=== PATIENT | female | born 1975 | race Caucasian/White ===

== ENCOUNTER 2021-05-05 13:47 | Emergency (ER) | payer MEDICAID, SELFPAY ==
[2021-05-05 13:50] VITALS: BP 140/92; PULSE 71; RESP 18; TEMP 36.7; O2SAT 96
[2021-05-05] MEDS: Fluorescein Sodium STRIP 1 STRIP EYE-LEFT (16:24)
[2021-05-05] MEDS: Tetracaine HCl/PF 0.5% Oph Sol 4 ML DROPS 1 DROP EYE-LEFT (16:24)
--- NOTE | 2021-05-05 16:31 | ED.GENADULT ---
HPI - General Adult General Chief complaint: Eye Problems Stated complaint: EYE TRAUMA Time Seen by Provider: 05/05/21 13:58 Source: patient Limitations: no limitations History of Present Illness HPI narrative: Patient presents with left thigh pain. Patient states within the last week she was playing badminton was hit in the left eye with the Jose. Patient states pain increases when she looks around with her eyes are the pupils dilate a constricted. Patient denies any vision changes headache nausea vomiting no loss of consciousness. Patient denies any other symptoms at this time. Related Data Allergies Allergy/AdvReac Type Severity Reaction Status Date / Time No Known Allergies Allergy Verified 05/05/21 16:06 Review of Systems Constitutional: Constitutional: Denies chills, Denies fever(s) and Denies headache(s) Eyes: Eyes: Denies blurry vision, Denies diplopia, Denies eye discharge, Denies loss of peripheral vision, Denies loss of vision, Denies other visual disturbances and Reports eye pain (Left eye) ENT: Denies headache(s) Cardiovascular: Cardiovascular: Denies chest pain and Denies dyspnea Respiratory: Respiratory: Denies cough and Denies dyspnea Gastrointestinal: Gastrointestinal: Denies nausea and Denies vomiting Musculoskeletal: Musculoskeletal: Reports no additional musculoskeletal complaints Neurologic: Denies headache(s) and Denies loss of vision [facility] Past Medical History Attestation statement: The following information was validated with the patient. Medical History No known health problems Social History Social History Advance Directives: No Advance Directives Information Provided: No Physical Exam Vital Signs: Vital Signs: Last Vital Signs Temp 98.0 F 05/05/21 13:50 Pulse 71 05/05/21 13:50 Resp 18 05/05/21 13:50 BP 140/92 H 05/05/21 13:50 Pulse Ox 96 05/05/21 13:50 Body Mass Index 20.0 vital signs have been reviewed as normal and appeared to be correct. Blood pressure normal. Heart rate normal. Respiration rate normal. Temperature normal. Oxygen saturation normal. Appearance: Alert. Oriented X3. No acute distress. Head: Normal external exam. Normocephalic. Atraumatic. Eyes: PERRLA. EOMI. Sclera is noninjected no hyphema visualized on the left. No subconjunctival hemorrhage ENT: Pharynx normal. Uvula midline. Moist mucous membranes. No trismus noted. No drooling noted. No muffled voice noted. Neck: Soft full range of motion, no JVD Skin: Skin warm and dry. Normal skin color. Extremities: Moving all extremities patient is ambulatory Neuro: Oriented X 3. No motor deficit. No sensory deficit. No ataxia Course Course Course Narrative: Corneal abrasion left eye Traumatic iritis Hyphema Subconjunctival hemorrhage Case discussed with Dr. Pa patient examined no sign of hyphema subconjunctival hemorrhage or corneal abrasion with fluorescein stain. Plan to have patient follow-up with ophthalmology tomorrow will not place patient on stat ophthalmic steroids at this time. Discharge Plan Discharge Clinical Impression: Acute iritis Patient Disposition: Home, Self-Care Instructions: Iritis (ED) Referrals: Marcelino Drake [Physician] - 2 days
== END 2021-05-05 16:51 | disposition home or self-care (01) ==
PROVIDERS: Emergency Provider Emergency Medicine; PCP Physician Assistant Medical
DX: H20.00 Unspecified acute and subacute iridocyclitis (principal)
CPT/HCPCS: 99283

== ENCOUNTER 2023-12-09 11:02 | Outpatient (AMB) | payer OTHER, SELFPAY ==
--- NOTE | 2023-12-09 11:10 | MHC.PC.OV ---
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 autoimmune disorder, MDD, insomnia, HSV Transfer from [facility] No records Family hx: Dad DM, Mom thyroid, chrons, glaucoma . Health Maintenance: Mammo in need, ordered today Colonoscopy done age 38 reports WNL. Repeat 2020 due to family hx polyp. Dr Roman. Will hold off on referral at this time. She will let me know if new referral needed d/[place] [facility] [place] Eyes wears glasses, [facility] 2022, IOP WNL Dentist: routine Pap due for annual. Last period 2 months ago. [employer] referral placed today. Vaccines: Flu shot today, Tdap UTD. Specialists: [facility] Surgeries: 1996 patella replacement R knee, bilat breast implants 2012 [facility] Medical History (Updated 12/09/23 @ 13:12 by NIMISHA Ocampo-HOLLY) H/O mammogram (~2022) Surgical History (Updated 12/09/23 @ 12:04 by Demetra Maher MA) Hx of breast implants, bilateral (~2012) H/O colonoscopy (~2021) Family History (Updated 12/09/23 @ 12:09 by Demetra Maher MA) Father Hypertension High cholesterol Diabetes Mother Thyroid disorder Maternal Grandmother Hypertension Paternal Grandmother Hypertension Diabetes Maternal Grandfather Diabetes Social History (Updated 12/09/23 @ 12:05 by Demetra Maher MA) Alcohol intake: current Alcohol intake frequency: a few times a week Alcohol type: wine and hard liquor Patient Tobacco Use Status: Never used Tobacco Use of substances other than those prescribed or required for medical reasons: No Questionnaire PHQ-9 Over the last 2 weeks, how often have you been bothered by any of the following problems? 1. Little interest or pleasure in doing things: not at all 2. Feeling down, depressed, or hopeless: not at all 3. Trouble falling or staying asleep, or sleeping too much: several days 4. Feeling tired or having little energy: several days 5. Poor appetite or overeating: not at all 6. Feeling bad about yourself - or that you are a failure or have let yourself or your family down: not at all 7. Trouble concentrating on things, such as reading the newspaper or watching television: not at all 8. Moving or speaking so slowly that other people could have noticed. Or the opposite - being so fidgety or restless that you have been moving around a lot more than usual: not at all 9. Thoughts that you would be better off or of hurting yourself in some way: not at all Total score: 2 Depression Screening Interpretation: Negative Depression Screening Done: Yes 66651 - PHQ-9 Billing: Yes Source: Developed by Drs. Aden Ochoa, Tracy Santana, Ry Kimble and colleagues, with an educational reagan from [employer]. Thrive Questionnaire Date Thrive assessed: 12/09/23 I am a: Patient What is your living situation today?: I have a steady place to live Within the past 12 months, did the food you bought not last and you didn't have the money to get more?: Never true Within the past 12 months, did you worry whether your food would run out before you got money to buy more?: Never true Do you have trouble paying for medicines?: No Do you have trouble getting transportation to medical appointments?: No Do you have trouble paying your heating and electricity bill?: No Do you have trouble taking care of your child, family member or friend?: No Do you have trouble with day-to-day activities such as bathing, preparing meals, shopping, managing finances, etc.?: No Are you currently unemployed and looking for a job?: No Are you interested in more education?: No Please select the resources that you would like help with: Food Currently or been in a relationship where the following occur: controlled financially THRIVE Score: 1 AUDIT C Alcohol Use Questionnaire (AUDIT-C) 1. How often do you have a drink containing alcohol?: 2-3 times a week 2. How many drinks containing alcohol do you have on a typical day when you are drinking?: 1 or 2 Total Score: 3 LIBAN-7 AMB Questionnaire LIBAN-7 Date LIBAN - 7 assessed: 12/09/23 Feeling nervous, anxious, or on edge: 1 = Several days Not being able to stop or control worryin = Not at all Worrying too much about different things: 0 = Not at all Trouble relaxin = Not at all Being so restless that it is hard to sit still: 0 = Not at all Becoming easily annoyed or irritable: 0 = Not at all Feeling afraid as if something awful might happen: 0 = Not at all Total LIBAN-7 score (0-4 normal; 5-9 mild; 10-14 moderate; 15-21 severe): 1 Source: Developed by Drs. Aden Ochoa, Tracy Santana, Ry Kimble and colleagues, with an educational reagan from [employer]. LIBAN-7 Assessment Billing LIBAN-7 Assessment Tool: LIBAN-7 Assessment 38241 Review of Systems Const Details: Constitutional: [Denies} fever. Skin: Denies rash. Eye: Denies eye pain. ENMT: Denies sore throat and nasal congestion. Respiratory: Denies shortness of breath and cough. Gastrointestinal: Denies nausea, vomiting or abdominal pain. Cardiovascular: Denies chest pain and syncope. Genitourinary: Denies dysuria. Musculoskeletal: Denies back pain and extremity pain. Neurologic: Denies headaches, confusion, and weakness. Psychiatric: Denies suicidal thoughts and substance abuse. Allergy/ Immunologic: Denies impaired immunity. Physical exam (Primary Care) Vital Signs: Last Vital Signs Pulse 79 12/09/23 11:12 BP 132/80 12/09/23 11:12 Pulse Ox 98 12/09/23 11:12 Oxygen Delivery Method Room Air 12/09/23 11:12 BMI result Body Mass Index 20.7 Tobacco/Smoking Status: Tobacco use Status Patient Tobacco Use Status Never used Tobacco 12/09/23 11:15 PHQ-9: PHQ-9 Score PHQ-9: Total score 2 12/09/23 12:11 Depression Screening Interpretation: Negative Thrive Assessment: Date of Thrive Assessment Date Thrive assessed 12/09/23 12/09/23 11:28 Currently or been in a relationship where the following occur: controlled financially Const Other: General: Well developed, well nourished, in no acute distress. Appears stated age. Head: Normocephalic, atraumatic. Eyes: Pupils are equal, round and reactive to light and accommodation. Conjunctivae are clear. Vision grossly normal. Ears: TMs clear AU, cerumen impaction on right Nose: Patent, without discharge. Mouth: There are no ulcers or lesions noted. No inflammation, no post nasal drip, no plaques nor exudates. Neck: Supple, no adenopathy or thyromegaly. Lungs: Clear to auscultation bilaterally. No rales, rhonchi or wheeze noted. Good air flow in all davies. Heart: Regular rate and rhythm. No murmurs, click, rubs or gallops are noted. Abdomen: Bowel sounds present in all quadrants. The abdomen is soft, nontender, with no masses or organomegaly noted. No hernias are noted. Musculoskeletal: Joints are nontender, without swelling, redness, or effusions. Range of motion is observed to be normal. Pulses: Peripheral pulses are equal and palpable bilaterally. Extremities: No clubbing, cyanosis nor edema is noted. Neurologic: Gait and station normal. Cranial Nerves 2-12 intact. Motor strength grossly symmetrical and intact. No sensory loss. Balance normal. Skin: No rashes, ulcers, or lesions noted. Turgor is good. Skin color is good. Hair and nails are without abnormalities except left great toenail positive onychomycosis Psych: Normal eye contact, affect and mood appropriate, and normal interactions. Patient is alert and appropriate to context. Extremities: No clubbing, cyanosis or edema. Office Procedures Flu Questionnaire Does the patient have a severe egg allergy?: No Does the patient have severe life threatening allergies?: No Does the patient have a fever or illness today?: No Has the patient ever had Guillain-[place] Syndrome?: No Has the patient ever had any past reaction to a flu shot?: No Immunizations flu vacc [id number] 6mos up(PF) 60 mcg(15 mcgx4)/0.5 mL IM syringe Performing Provider: ALMA Ocampo Performing Location: [facility] Administered by: Demetra Maher MA on 12/09/23 11:59 Dose Route Admin Location Dispensed Lot Number Expiration Date NDC Phosphoric Acid Operator 0.5 mL IM Right Deltoid 0.5 mL [id number] 04/24/24 67082-488-76 Grows Up VIS Given Date VIS Provided VIS Publication Date 12/09/23 Single Vaccine 21 Eligibility Eligibility Date Funding Source Not VFC Eligible 12/09/23 Private Assessment and Plan Assessment & Plan (1) Physical exam: Code(s): Z00.00 - Encounter for general adult medical examination without abnormal findings Plan: Mammo ordered today Refer to [facility] Vaccines updated Labs ordered (2) Laboratory exam ordered as part of routine general medical examination: Code(s): Z00.00 - Encounter for general adult medical examination without abnormal findings (3) MDD (major depressive disorder), recurrent episode: Comment: Controlled currently on bupropion. Sparing use of mirtazapine at night to help with insomnia. She does report that the mirtazapine does cause grogginess the following day. Therefore she does limit the use. She did mention wanting to come off the bupropion and has tried to take herself off of it in the past. Unfortunately, this did result in an uptake and anxiety and depressive symptoms as observed by her family members. Discussed with her today that if she wishes to come off of this she should do so under medical care. Code(s): F33.9 - Major depressive disorder, recurrent, unspecified Qualifiers: Major depression episode severity: mild Qualified Code(s): F33.0 - Major depressive disorder, recurrent, mild (4) Herpes simplex: Comment: Maintained on acyclovir with use p.r.n. Code(s): B00.9 - Herpesviral infection, unspecified (5) Impacted cerumen of right ear: Code(s): H61.21 - Impacted cerumen, right ear Plan: I have prescribed Debrox. She should use in the right ear and return to the office on day 6 for a lavage (6) Onychomycosis: Code(s): B35.1 - Tinea unguium Plan: Affecting left great toe. She is using drops prescribed by Dermatology at the current time. I have advised her to continue to do this. She can also soak her feet and white vinegar and water. Advised to keep the nails clean and dry; educated about the chronicity of this issue (7) Skin exam, screening for cancer: Code(s): Z12.83 - Encounter for screening for malignant neoplasm of skin Plan: Refer to [facility] her routine skin exam Orders: Orders TSH reflex Free T4 Today Z00.00 - Encounter for general adult medical examination without abnormal findings Influenza [id number] Immunization Today Z23 - Encounter for immunization Lipid Panel Today Z00.00 - Encounter for general adult medical examination without abnormal findings Comprehensive Barton. Panel Fast Today Z00.00 - Encounter for general adult medical examination without abnormal findings Microalbumin, Random (w Creat) Today Z00.00 - Encounter for general adult medical examination without abnormal findings Vitamin D 1,25 dihydroxy Today Z00.00 - Encounter for general adult medical examination without abnormal findings MM tomosynthesis screen imp BI Today Z12.31 - Encounter for screening mammogram for malignant neoplasm of breast Referrals [facility] [employer] Referral Z00.00 - Encounter for general adult medical examination without abnormal findings Dermatology Referral Z12.83 - Encounter for screening for malignant neoplasm of skin Medications: New carbamide peroxide 6.5% (Debrox) 5 drps otic (ears) DAILY 5 days 15 mL 0RF BILAT EARS Coding Level of Care Code New Pt Prev Care 40-64y(09642) Diagnoses Physical exam Z00.00 Laboratory exam ordered as part of routine general medical examination Z00.00 Mild episode of recurrent major depressive disorder F33.0 Major depression episode severity: mild Herpes simplex B00.9 Impacted cerumen of right ear H61.21 Onychomycosis B35.1 Skin exam, screening for cancer Z12.83 Additional Codes LIBAN-7 Assessment Billing - LIBAN-7 Assessment Tool: LIBAN-7 Assessment 24952 ([id number])
[2023-12-09 11:12] VITALS: BP 132/80; PULSE 79; O2SAT 98; BMI 20.7
== END 2023-12-09 11:59 | disposition home or self-care (01) ==
PROVIDERS: PCP Nurse Practitioner Family; Visit Provider Nurse Practitioner Family
DX: Z00.00 Encounter for general adult medical examination without abnormal findings (principal); F33.0 Major depressive disorder, recurrent, mild; B00.9 Herpesviral infection, unspecified; Z23 Encounter for immunization; H61.21 Impacted cerumen, right ear; B35.1 Tinea unguium; Z12.83 Encounter for screening for malignant neoplasm of skin
CPT/HCPCS: 90471; 90686; 99386

== ENCOUNTER 2023-12-16 13:18 | Outpatient (AMB) | payer OTHER, SELFPAY ==
--- NOTE | 2023-12-16 13:22 | MHC.PC.OV ---
Intake Visit Reasons: R ear recheck Intake Note: Patient is here for her R ear recheck. 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) H/O mammogram (~2022) Surgical History (Updated 12/09/23 @ 12:04 by Demetra Maher MA) Hx of breast implants, bilateral (~2012) H/O colonoscopy (~2021) Family History (Updated 12/09/23 @ 12:09 by Demetra Maher MA) Father Hypertension High cholesterol Diabetes Mother Thyroid disorder Maternal Grandmother Hypertension Paternal Grandmother Hypertension Diabetes Maternal Grandfather Diabetes Social History (Updated 12/09/23 @ 12:05 by Demetra Maher MA) Housing: House Alcohol intake: current Alcohol intake frequency: a few times a week Alcohol type: wine and hard liquor Patient Tobacco Use Status: Never used Tobacco Use of substances other than those prescribed or required for medical reasons: No service: No Current occupational status: employed Cognitive needs: No Hearing needs: No Vision needs: No Questionnaire Thrive Questionnaire Date Thrive assessed: 12/09/23 LIBAN-7 AMB Questionnaire LIBAN-7 Date LIBAN - 7 assessed: 12/09/23 Source: Developed by Drs. Aden Ochoa, Tracy Santana, Ry Kimble and colleagues, with an educational reagan from [employer]. Physical exam (Primary Care) Tobacco/Smoking Status: Tobacco use Status Tobacco use date assessed 12/16/23 12/16/23 13:29 Patient Tobacco Use Status Never used Tobacco 12/16/23 13:23 Thrive Assessment: Date of Thrive Assessment Date Thrive assessed 12/09/23 12/16/23 13:23 Office Procedures Cerumen Removal From which ear canal was the cerumen removed: right Removal: irrigation Notes: patient tolerated procedure well, no complications and ear canal clear [id number] Irrigation/Lavage Assessment and Plan Assessment & Plan (1) Impacted cerumen of right ear: Code(s): H61.21 - Impacted cerumen, right ear Orders: Orders AMB Cerumen Removal Today H61.21 - Impacted cerumen, right ear Coding Level of Care Code Procedure Only Diagnoses Impacted cerumen of right ear H61.21 CPT Codes Office Procedure - CPT: 97683-Omd Irrigation/Lavage ([id number])
== END 2023-12-16 14:52 | disposition home or self-care (01) ==
PROVIDERS: PCP Nurse Practitioner Family; Visit Provider Nurse Practitioner Family
DX: H61.21 Impacted cerumen, right ear (principal)
CPT/HCPCS: 69209

== ENCOUNTER → 2024-01-08 15:00 | Outpatient (BNV) | payer OTHER, SELFPAY | PROVIDERS: Visit Provider Radiology Diagnostic Radiology | DX: Z12.31 Encounter for screening mammogram for malignant neoplasm of breast (principal) | CPT/HCPCS: 77063; 77067 ==

== ENCOUNTER 2024-01-08 15:04 | Outpatient (REF) | payer OTHER, SELFPAY ==
--- NOTE | ~2024-01-08 | MM_ITS ---
EXAMINATION: MM SCREENING DIGITAL BREAST TOMOSYNTHESIS, BILATERAL with breast implants CLINICAL INFORMATION: Screening. Asymptomatic. COMPARISON: Mammography: This study is compared to the prior examinations dating back to 2020. TECHNIQUE: Digital mammography is performed in craniocaudal and mediolateral oblique views along with computer-aided detection (CAD). Digital breast tomosynthesis is performed in implant-displaced craniocaudal and implant-displaced mediolateral oblique views along with computer-aided detection (CAD). Synthesized 2D images are generated from the tomosynthesis. FINDINGS: The breasts are heterogeneously dense, which may obscure small masses (ACR BI-RADS breast composition Category c). There are bilateral, mammographically intact, retropectoral saline breast implants. There are no significant masses, abnormal calcifications, or other abnormalities. MM/MM tomosynthesis screen imp BI IMPRESSION: There are no significant changes from prior study. ASSESSMENT: BI-RADS BI-RADS 1 - Negative RECOMMENDATION: Routine annual mammography screening. 1 year F/U This patient's information was entered into a reminder system with a target due date for their next mammogram.
== END 2024-01-08 15:05 | disposition home or self-care (01) ==
LOC: HO.MAMMO 15:04
PROVIDERS: Visit Provider Nurse Practitioner Family
DX: Z12.31 Encounter for screening mammogram for malignant neoplasm of breast (principal)
CPT/HCPCS: 77063; 77067

== ENCOUNTER 2024-02-10 09:58 | Outpatient (REF) | payer OTHER, SELFPAY ==
[2024-02-10 12:28] LABS: Creatinine Urine 278.45 mg/dL; Microalbum/Creatinine Ratio Ur 3.2 ug/mg cr (<30)
[2024-02-10 12:30] LABS: Alanine Aminotransferase 11 U/L (0-31); Alkaline Phosphatase 57 U/L (39-117); Anion Gap 9 (12-20); Aspartate Amino Transferase 22 U/L (5-31); Bilirubin Total 0.4 mg/dL (0.0-1.0); Blood Urea Nitrogen 11 mg/dL (9-16); Calcium 8.8 mg/dL (8.4-10.2); Carbon Dioxide 27 mmol/L (22-29); Chloride 107 mmol/L (96-108); Cholesterol 213 mg/dL (<200); Estimated Glomerular Filt Rate > 60; Glucose Fasting 86 mg/dL (60-99); HDL Cholesterol 80 mg/dL (>40); LDL Cholesterol Calculated 115 mg/dL (<100); Potassium 3.8 mmol/L (3.3-5.1); Sodium 139 mmol/L (135-145); Total Protein 6.9 g/dL (6.5-8.0); Triglycerides 94 mg/dL (<150)
[2024-02-10 12:33] LABS: TSH reflex Free T4 1.44 uIU/mL (0.32-4.0)
[2024-02-14 05:29] LABS: VITAMIN D (1,25 OH) D3 66 pg/mL; Vit D (1,25-Dihydroxy) Total 66 pg/mL (18-72); Vitamin D (1,25 OH) D2 <8 pg/mL
== END 2024-02-10 09:59 | disposition home or self-care (01) ==
LOC: HO.WFDLDS 09:58
PROVIDERS: Visit Provider Nurse Practitioner Family
DX: Z00.00 Encounter for general adult medical examination without abnormal findings (principal)
CPT/HCPCS: 36415; 80053; 80061; 82043; 82570; 82652; 84443

== ENCOUNTER 2024-03-02 11:36 | Outpatient (AMB) | payer OTHER, SELFPAY ==
[2024-03-02 11:39] VITALS: BP 108/64; BMI 20.7
--- NOTE | 2024-03-02 11:39 | A.OFFVIS_ITS ---
Vital Signs 03/02/24 11:39 Height 5 ft 7 in Weight 132 lb BMI 20.7 BP 108/64 Intake Visit Reasons: New patient Annual Senior Integration Architect Required: No Information Interpreted: non-clinical & clinical Gelatin Plant Supervisor: Gelatin Plant Supervisor Present (Aidyn) Allergies No Known Allergies Allergy (Verified 03/02/24 11:40) Medication List - Last Reconciled 03/02/24 by Nelsy Bernstein CNM acyclovir 400 mg PO BID PRN bupropion HCl XL 150 mg PO DAILY carbamide peroxide 6.5% (Debrox) 5 drps otic (ears) DAILY 5 days mirtazapine 7.5 mg PO DAILY Is last menstrual period known: Yes Last menstrual period: 02/04/24 HPI HPI New patient Annual: Details: 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 She had sagging skin post and had skin removal with breast lift but then needed implants to improve the aesthetics. She might be interested in removing them but is in thinking about it stage. She says that they told her at the mammogram that she might need other studies. I recommend she have a conversation with her primary care provider about this. She reports normal Paps but then remembers there was some cells found and they did a procedure where they did a small biopsy about 5 years ago and and then she was told she needed every 3 year paps. She tries to eat well she tries to get enough calcium in her diet she does weight-bearing exercise in [employer]. 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 She has no concerns about STIs. Her had a vasectomy so she is concerns with control In the last year she is noticed sometimes she will miss a period and then there are times when she might get 2 periods month and they tend to be very heavy crampy. She is getting some hot flashes. She does have constipation and only has about about once a week and is about to try herbal preparation that she has acquired. [facility] Medical History (Updated 03/02/24 @ 12:28 by Nelsy Bernstein CNM) H/O mammogram (~2022) Surgical History (Updated 03/02/24 @ 12:28 by Nelsy Bernstein CNM) Hx of breast implants, bilateral (~2012) H/O colonoscopy (~2021) Family History (Updated 03/02/24 @ 11:43 by SCOTTY Carpio) Father Hypertension High cholesterol Diabetes Mother Thyroid disorder Maternal Grandmother Hypertension Paternal Grandmother Hypertension Diabetes Maternal Grandfather Diabetes Maternal Aunt Breast cancer Family/Other Colon cancer Social History Housing: House Alcohol intake: current Alcohol intake frequency: a few times a week Alcohol type: wine and hard liquor Patient Tobacco Use Status: Never used Tobacco service: No Current occupational status: employed Cognitive needs: No Hearing needs: No Vision needs: No Female Reproductive History Menstrual Age of Menarche: 12 Duration of menses: 3-5 days Date of last menstrual period: 02/04/24 control method: none and permanent sterilization Permanent Sterilization: Vasectomy Total pregnancies: 2 Full term: 2 Number of Living Children: 2 Date of last pap smear: 11/28/21 (negative) History of abnormal pap smear: No Date of Mammogram: 01/08/24 History of abnormal mammogram: No Physical Exam Vital Signs: Last Vital Signs BP 108/64 03/02/24 11:39 BMI result Body Mass Index 20.7 Const General: healthy appearing, comfortable, no acute distress, well developed and alert Nutritional Appearance: average body habitus Orientation/consciousness: patient oriented x3 Limitations: no limitations HEENT Head: Yes normocephalic Neck Neck: Yes normal visual inspection Chest Chest palpation & inspection: normal inspection of the chest Breast/axilla inspection: normal inspection of the breasts and normal inspection of the axillae Breast/axilla palpation: normal palpation of the breasts and normal palpation of the axillae Resp Effort & Inspection: normal respiratory effort GI Inspection: Yes normal to inspection, No Abdominal wall edema and No distended Palpation (GI): Soft to palpation and nontender Other: Limits vagina pink and moist scant clear discharge cervix multiparous irregular with polyp noted in os cervix nontender mobile uterus small anteverted mobile nontender adnexa nontender good tone with Kegel. General: Yes bladder normal to palpation External Female Exam: normal external appearance and normal appearance of the urethra Speculum Exam - Vagina: normal appearance of the vagina, normal palpation and normal vaginal discharge Speculum Exam - Cervix: normal appearance of the cervix, normal palpation and nontender Bimanual exam- vagina & uterus: normal bimanual exam, normal palpation, uterine size normal, bladder normal to palpation, consistency normal, normal palpation, uterine mobility normal, uterine shape normal, No Cervical tenderness present, non-tender and no cervical motion tenderness Bimanual Exam- Adnexa, other: normal adnexae, no masses, normal and No adnexal tenderness Neuro General: patient oriented x3 Assessment & Plan Assessment & Plan (1) Well woman exam with routine gynecological exam: Code(s): Z01.419 - Encounter for gynecological examination (general) (routine) without abnormal findings Category: Medical (2) Hx of abnormal cervical Pap smear: Comment: had some sort of biopsy 5 years ago was told she needed Q 3 year Paps. Pap done today 03/02/2024 cervical polyp noted. Code(s): Z87.42 - Personal history of other diseases of the female genital tract Category: Medical (3) Hx of breast implants, bilateral: Onset Date: ~2012 Code(s): Z98.82 - Breast implant status Category: Surgical (4) Perimenopause: Code(s): N95.1 - Menopausal and female climacteric states Category: Medical Plan -----Discussed in this visit the following: healthy balanced diet, regular and consistent exercise, getting recommended health screens, doing the best she can for her particular health concerns, kegel exercises, pap smear screening and followup recommendations, mammography screening and SBE, normal changes in cycles in her life stage--- .---Discussed normal changes that happen premenapausally, perimenapausally, and postmenopausally, and ways to handle them. Discussed the normal variation, and the range of experiences that women experience. Discussed nutrition, health, need for exercise, both weight-bearing and aerobic. Discussed her excellent self healthcare. Suggested adding more vegetables that might help with constipation additionally she is taking magnesium at night help her sleep she might want to consider increasing that as well. Discussed getting enough calcium in her diet and vitamin-D for her bones but she is doing great with weight-bearing aerobic exercise. She is going to follow-up with her primary care provider to see if there is any other breast recommendations that need to be followed up on. Did discuss considering finding out if she can whether not her maternal aunt had BRCA gene testing and if she is positive or negative as that would impact recommendations as well. ----will refer for evaluation of the polyp. Pap smear sent. Coding Level of Care Code New Pt Prev Care 40-64y(14121) Diagnoses Well woman exam with routine gynecological exam Z01.419 Hx of abnormal cervical Pap smear Z87.42 Hx of breast implants, bilateral Z98.82 Perimenopause N95.1
== END 2024-03-02 13:57 | disposition home or self-care (01) ==
LOC: HO.HWSM 11:36
PROVIDERS: PCP Nurse Practitioner Family; Visit Provider Advanced Practice Midwife
DX: Z01.419 Encounter for gynecological examination (general) (routine) without abnormal findings (principal); Z87.42 Personal history of other diseases of the female genital tract; Z98.82 Breast implant status; N95.1 Menopausal and female climacteric states
CPT/HCPCS: 99386

== ENCOUNTER 2024-03-02 11:36 | Outpatient (REF) | payer OTHER, SELFPAY ==
[2024-03-11 03:14] LABS: HPV mRNA E6/E7 rflx Not Detected (Not Detected)
== END 2024-03-02 11:37 | disposition home or self-care (01) ==
LOC: HO.LNP 11:36
PROVIDERS: PCP Nurse Practitioner Family; Visit Provider Advanced Practice Midwife
DX: Z01.419 Encounter for gynecological examination (general) (routine) without abnormal findings (principal); Z11.51 Encounter for screening for human papillomavirus (HPV); Z87.42 Personal history of other diseases of the female genital tract; Z98.82 Breast implant status; Z95.1 Presence of aortocoronary bypass graft
CPT/HCPCS: 87624; 88142; 99386

== ENCOUNTER 2024-04-13 14:03 | Outpatient (REF) | payer OTHER, SELFPAY ==
[2024-04-13 15:42] LABS: Hematocrit 35.6 % (37.0-47.0); Hemoglobin 11.5 g/dl (12.0-16.0); Mean Corpuscular HGB Conc 32.3 g/dl (31.0-35.0); Mean Corpuscular Volume 89.9 fL (80.0-98.0); Mean Platelet Volume 10.7 fL (9.4-12.3); Platelet Count 258 X10*3/uL (160-400); Red Blood Count 3.96 X10*6/uL (4.20-5.50); Red Cell Distribution Width 15.5 % (11.0-16.0)
[2024-04-13 17:00] LABS: HCG Quantitative < 2 mIU/mL; TSH reflex Free T4 1.17 uIU/mL (0.32-4.0)
[2024-04-13 18:41] LABS: CT PCR NOT DETECTED (Not Detect.); NG PCR NOT DETECTED (Not Detect.)
[2024-04-14 12:22] LABS: Follicle Stimulating Hormone 17.5 mIU/mL; Lutenizing Hormone 8.1 mIU/mL; Prolactin 12.6 ng/mL
== END 2024-04-13 14:04 | disposition home or self-care (01) ==
LOC: HO.LNP 14:03
PROVIDERS: PCP Nurse Practitioner Family; Visit Provider Obstetrics & Gynecology
DX: N93.9 Abnormal uterine and vaginal bleeding, unspecified (principal); N84.1 Polyp of cervix uteri
CPT/HCPCS: 0353U; 57500; 81025; 83001; 83002; 84146; 84443; 84702; 85027; 88305

== ENCOUNTER 2024-04-13 14:03 | Outpatient (AMB) | payer OTHER, SELFPAY ==
[2024-04-13 14:18] VITALS: BP 110/68; BMI 20.4
--- NOTE | 2024-04-13 14:18 | A.OFFVIS_ITS ---
Vital Signs 04/13/24 14:18 Height 5 ft 7 in Weight 130 lb 1.164 oz BMI 20.4 BP 110/68 Intake Visit Reasons: cervical polyps Trial Management Associate Required: No Information Interpreted: non-clinical & clinical Remedial Project Manager: Remedial Project Manager Present (Alina FAJARDO) Accompanied by: Self / Same As Patient Allergies No Known Allergies Allergy (Verified 04/13/24 14:23) Is last menstrual period known: Yes Last menstrual period: 03/28/24 HPI Comments Details: Presenting referred from Renetta Bernstein CNM regarding cervical polyp. The patient is complaining of irregular menstrual cycles over the last few months. Last co testing was in 03/18 was negative, last mammogram was in 01/16 was [facility] Medical History H/O mammogram (~2022) Surgical History Hx of breast implants, bilateral (~2012) H/O colonoscopy (~2021) Family History Father Hypertension High cholesterol Diabetes Mother Thyroid disorder Maternal Grandmother Hypertension Paternal Grandmother Hypertension Diabetes Maternal Grandfather Diabetes Maternal Aunt Breast cancer Family/Other Colon cancer Social History Housing: House Alcohol intake: current Alcohol intake frequency: a few times a week Alcohol type: wine and hard liquor Patient Tobacco Use Status: Never used Tobacco service: No Current occupational status: employed Cognitive needs: No Hearing needs: No Vision needs: No Female Reproductive History Menstrual Age of Menarche: 12 Date of last menstrual period: 03/28/24 Review of Systems Const All systems reviewed & are unremarkable except as noted in HPI and below Card Reports as per HPI Resp Reports as per HPI GI Reports as per HPI and Reports no additional complaints Reports as per HPI Physical Exam Vital Signs: Last Vital Signs BP 110/68 04/13/24 14:18 BMI result Body Mass Index 20.4 Const General: cooperative, healthy appearing and comfortable Resp Effort & Inspection: normal respiratory effort Auscultation: clear to auscultation bilaterally Percussion: percussion normal Cardio Palpation: normal PMI Rate: regular rate Rhythm: regular rhythm Heart sounds: no murmurs and no rubs Peripheral pulses: Peripheral pulses 2+ throughout GI Inspection: Yes normal to inspection Palpation (GI): Soft to palpation, nontender, no guarding, not rigid and No hepatosplenomegaly present Percussion: Yes normal to percussion Auscultation: normal bowel sounds Rectal Exam - Female: deferred General: Yes bladder normal to palpation External Female Exam: No lesion Speculum Exam - Vagina: normal appearance of the vagina, normal palpation, normal vaginal discharge and not erythematous Speculum Exam - Cervix: abnormal appearance of the cervix (Anterior cervical polyp) and normal palpation Bimanual exam- vagina & uterus: normal bimanual exam, normal palpation, uterine size normal, bladder normal to palpation, consistency normal and normal palpation Bimanual Exam- Adnexa, other: normal adnexae, no masses and no tenderness Office Procedures SAP PI ARCHITECT Biopsy Before the procedure was started, discussed with the patient the procedure technique, alternatives & all the risks associated with the procedure including but not limited to: bleeding , infection, uterine perforation, injury to bladder, vessels, bowels, possible need for transfusion with all its risks, and others. All questions were answered, the patient verbalized understanding and signed the consent. Urine test done in the office was negative Using a long Stephanie Clamp the endocervical polyp was grasped and twisted around till it came off, hemostasis was secured using pressure. The patient tolerated the procedure well. Instructions were given to the patient to call if bleeding, temp>100.4 occur. The patient verbalized understanding and agreed with the plan. This note was generated with a voice recognition program. Some errors may have been overlooked during the review of this note. Sometimes these errors may affect the content or meaning of a given sentence. 25919-Jgxcgs of Cervix Procedure code (CPT) selection complete Assessment & Plan Assessment & Plan (1) Abnormal uterine bleeding (AUB): Code(s): N93.9 - Abnormal uterine and vaginal bleeding, unspecified Category: Medical Plan: Co testing recently done and within normal, GC and chlamydia taken CBC, TSH, FSH/LH, prolactin, HCG, and pelvic ultrasound ordered. Discussed with the patient the different causes of abnormal bleeding including thyroid disorders, uterine and ovarian pathology, endometrial hyperplasia, carcinoma and other potential causes. Discussed with the patient the work up including CBC (to r/o anemia), TSH, prolactin, pelvic Ultrasound, endometrial biopsy to r/o endometrial pathology. All questions answered and the patient verbalized understanding. Instructed the patient to schedule an appointment for an endometrial biopsy in 2 weeks. (2) Cervical polyp: Code(s): N84.1 - Polyp of cervix uteri Category: Medical Plan: Discussed with the patient the finding on pelvic exam showing cervical polyp, cervical polypectomy recommended, procedure done, see procedure note Orders: Orders TSH reflex Free T4 Today N93.9 - Abnormal uterine and vaginal bleeding, unspecified Lutenizing Hormone Today N93.9 - Abnormal uterine and vaginal bleeding, unspecified Surgical Today N84.1 - Polyp of cervix uteri, N93.9 - Abnormal uterine and vaginal bleeding, unspecified CT NG by PCR Today N84.1 - Polyp of cervix uteri, N93.9 - Abnormal uterine and vaginal bleeding, unspecified AMB SAP PI ARCHITECT Biopsy Today N84.1 - Polyp of cervix uteri Prolactin Today N93.9 - Abnormal uterine and vaginal bleeding, unspecified HCG Quantitative Today N93.9 - Abnormal uterine and vaginal bleeding, unspecified Follicle Stimulating Hormone Today N93.9 - Abnormal uterine and vaginal bleeding, unspecified Complete Blood Count no Diff Today N93.9 - Abnormal uterine and vaginal bleeding, unspecified US pelvic and transvaginal Today N93.9 - Abnormal uterine and vaginal bleeding, unspecified Coding Level of Care Code New Pt Level 3 (58763) Diagnoses Abnormal uterine bleeding (AUB) N93.9 Cervical polyp N84.1 CPT Codes SAP PI ARCHITECT Biopsy - CPT: 90343-Haediz of Cervix ([id number])
== END 2024-04-13 15:01 | disposition home or self-care (01) ==
PROVIDERS: PCP Nurse Practitioner Family; Visit Provider Obstetrics & Gynecology
DX: N84.1 Polyp of cervix uteri (principal); N93.9 Abnormal uterine and vaginal bleeding, unspecified; Z32.02 Encounter for pregnancy test, result negative
CPT/HCPCS: 57500

== ENCOUNTER 2024-04-13 14:49 | Outpatient (REF) | payer OTHER, SELFPAY | END 2024-04-13 14:50 | disposition home or self-care (01) | LOC: HO.LAB 14:49 | PROVIDERS: PCP Nurse Practitioner Family; Visit Provider Obstetrics & Gynecology | DX: Z13.89 Encounter for screening for other disorder (principal) ==

== ENCOUNTER 2024-04-15 12:40 | Outpatient (REF) | payer OTHER, SELFPAY ==
--- NOTE | ~2024-04-15 | US_ITS ---
EXAMINATION: US PELVIS CLINICAL INFORMATION: Abnormal uterine bleeding, last menstrual period 03/28/2024. COMPARISON: None available. TECHNIQUE: Ultrasound of the pelvis is performed using both transabdominal and transvaginal transducers along with Doppler. Transvaginal imaging is performed due to inadequate visualization transabdominally. FINDINGS: The uterus is anteverted and measures 8.0 x 3.7 x 5.4 cm. Endometrial thickness is 14 mm. No significant free fluid. Right ovary measures 3.5 x 1.5 x 2.1 cm, volume 5.8 mL. Left ovary measures 2.5 x 0.9 x 2.1 cm, volume 2.5 mm. Right ovarian 1.1 cm cyst appears simple, likely physiologic. There is no specific indication for additional imaging at this time. Left ovary is unremarkable. US/US pelvic and transvaginal IMPRESSION: 1. Endometrial thickness is 14 mm. 2. Right ovarian 1.1 cm cyst appears simple, likely physiologic. There is no specific indication for additional imaging at this time. 3. Left ovary is unremarkable. 4. No significant free fluid.
== END 2024-04-15 12:41 | disposition home or self-care (01) ==
LOC: HO.US 12:40
PROVIDERS: PCP Nurse Practitioner Family; Visit Provider Obstetrics & Gynecology
DX: N93.9 Abnormal uterine and vaginal bleeding, unspecified (principal)
CPT/HCPCS: 76830; 76856

== ENCOUNTER 2024-07-06 11:54 | Outpatient (AMB) | payer OTHER, SELFPAY ==
[2024-07-06 11:55] VITALS: BMI 20.4
--- NOTE | 2024-07-06 11:55 | A.OFFVIS_ITS ---
Vital Signs 07/06/24 11:55 Height 5 ft 7 in Weight 130 lb 1.164 oz BMI 20.4 Intake Visit Reasons: EMB/ us follow up Leasing Professional Required: No Information Interpreted: non-clinical & clinical Filenet Developer: Filenet Developer Present (Alina FAJARDO) Accompanied by: Self / Same As Patient Allergies No Known Allergies Allergy (Verified 07/06/24 12:07) HPI Comments Details: Presenting for EMB COUNT INCLUDES THE [facility] Medical History H/O mammogram (~2022) Surgical History Hx of breast implants, bilateral (~2012) H/O colonoscopy (~2021) Family History Father Hypertension High cholesterol Diabetes Mother Thyroid disorder Maternal Grandmother Hypertension Paternal Grandmother Hypertension Diabetes Maternal Grandfather Diabetes Maternal Aunt Breast cancer Family/Other Colon cancer Social History Housing: House Alcohol intake: current Alcohol intake frequency: a few times a week Alcohol type: wine and hard liquor Patient Tobacco Use Status: Never used Tobacco service: No Current occupational status: employed Cognitive needs: No Hearing needs: No Vision needs: No Female Reproductive History Menstrual Age of Menarche: 12 Physical Exam Vital Signs: BMI result Body Mass Index 20.4 Office Procedures Endometrial Biopsy Details: The patient was counseled regarding the indication and benefits of endometrial sampling to rule out endometrial pathology including not limited to endometrial hyperplasia or endometrial cancer and others; The alternatives (Either do nothing vs. hysteroscopy D&C) & the risks were discussed with the patient including but not limited: pain, uterine perforation, bleeding, infection, possible injury to bladder, bowel, ureter, possible need for blood transfusion with all its possible risks. The patient verbalized understanding all questions answered and signed consent. Urine test done in the office was negative The patient was placed into the dorsal lithotomy position; a speculum was inserted in the vagina. Using aseptic technique for the procedure, the cervix was cleansed with Betadine. The anterior lip of the cervix was grasped with a single tooth tenaculum. The uterus was sounded to 7 cm with a 4 mm Pipelle was used. Tissues samples were obtained and placed in formalin, in a patient labeled container and sent to the pathology department. At the end of the procedure, there was minimal bleeding noted The patient tolerated the procedure well and was discharged in good condition with the following instructions: Nothing in the vagina until the bleeding stops. No sex until the bleeding stops, to call if any of the following occurs: fever (>100.4), flu-like symptoms, abdominal pain, heavy bleeding, four smelling vaginal discharge. The patient was instructed to schedule a Follow up appointment in 2 weeks to discuss pathology results of the biopsy and treatment options. This note was generated with a voice recognition program. Some errors may have been overlooked during the review of this note. Sometimes these errors may affect the content or meaning of a given sentence. [id number] Biopsy Results AMB Test Urine AMB Test Urine Negative Last Edit by Alina Bledsoe CMA on 12:09 Results Reviewed Results Reviewed: Laboratory Last Values Tst Clinic Negative 07/06/24 12:09 Assessment & Plan Assessment & Plan (1) Abnormal uterine bleeding (AUB): Code(s): N93.9 - Abnormal uterine and vaginal bleeding, unspecified Category: Medical Plan: EMB done, see procedure note Orders: Orders AMB HCG Urine Test Today Z32.02 - Encounter for test, result negative AMB Endometrial Biopsy Today N93.9 - Abnormal uterine and vaginal bleeding, unspecified Coding Level of Care Code Procedure Only Diagnoses Abnormal uterine bleeding (AUB) N93.9 CPT Codes Endometrial Biopsy - CPT: 31335-Pqknijbrhae Biopsy ([id number])
== END 2024-07-06 12:39 | disposition home or self-care (01) ==
LOC: HO.HWS 11:54
PROVIDERS: PCP Nurse Practitioner Family; Visit Provider Obstetrics & Gynecology
DX: N93.9 Abnormal uterine and vaginal bleeding, unspecified (principal); Z32.02 Encounter for pregnancy test, result negative
CPT/HCPCS: 58100

== ENCOUNTER 2024-07-06 11:54 | Outpatient (REF) | payer OTHER, SELFPAY | END 2024-07-06 11:55 | disposition home or self-care (01) | LOC: HO.LNP 11:54 | PROVIDERS: PCP Nurse Practitioner Family; Visit Provider Obstetrics & Gynecology | DX: N93.9 Abnormal uterine and vaginal bleeding, unspecified (principal) | CPT/HCPCS: 58100; 81025; 88305 ==

== ENCOUNTER 2024-07-20 12:25 | Outpatient (AMB) | payer OTHER, SELFPAY ==
--- NOTE | 2024-07-20 12:30 | A.OFFPC_ITS ---
Vital Signs 07/20/24 12:33 Height 5 ft 7 in Weight 135 lb 2 oz BMI 21.2 BP 98/64 Blood Pressure Location Lt brachial Position Sitting Respiration 13 Pulse 89 Pulse Source Pulse Oximeter Temp 97.2 F Temp Source Oral Pulse Oximetry (%) 99 Oxygen Delivery Method Room Air Intake Visit Reasons: Recent lab work discuss Intake Note: follow up on labs and patient has concern about her breast Allergies No Known Allergies Allergy (Verified 07/20/24 12:31) Medication List - Last Reconciled 07/20/24 by Kathy Nguyễn, [employer]ER- acyclovir 400 mg PO BID PRN bupropion HCl XL 150 mg PO DAILY carbamide peroxide 6.5% (Debrox) 5 drps otic (ears) DAILY 5 days mirtazapine 7.5 mg PO DAILY moxifloxacin 0.5% 1 drp ophthalmic (eye) TID valacyclovir (Valtrex) 1,000 mg PO BID Tobacco use date assessed: 12/16/23 Dental Screening Dental Screen Date: 12/09/23 HPI HPI Comments History of Present Illness Details 49 y/o F carpal tunnel, ? 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 She is up-to-date on her mammogram which was done in January, this was normal, she has dense breasts and bilateral implants. She has a maternal aunt with breast cancer diagnosed at age 54. She also reports that she has a maternal causing that at age 47 of colon cancer. As of this time, she reports no changes in her breasts no concerns, no pain Her labs done in March ordered by the copier field service technician showed mild anemia in the setting of abnormal uterine bleeding. Environmental Protection Forester records reviewed. Cervical polyp removed which was benign, most recently she had an endometrial biopsy with negative pathology. She is not currently taking any iron supplements. She denies any overt bleeding. She is having chronic joint pain. She has a history of an KYLAH elevation in the past. Was seen Rheumatology in the past. She has an appointment coming up with Rheumatology for evaluation and treatment as she feels like she is in a flare having acute on chronic joint pain. Finally she complains of some intermittent left ear pain, and fullness that comes and goes. Exam Awake alert oriented, no acute distress Mucous membranes moist TM intact and clear bilat Regular rate and rhythm Lung sounds clear to auscultation bilat Plan breast MRI if denied refer to breast specialist Check labs today to eval anemia - see below. Anemia improving. Recommend starting a daily multivitamin with iron. Available [id number] however I have sent in a prescription. Negative ear exam, reassured. Have consult notes from Rheum sent to [facility] in Nov for CPE, sooner PRN This note is constructed using voice recognition software. While every effort has been made to ensure accuracy in frame runner, still errors may have been included Sometimes, these errors may affect the content or meaning of the given sentence . Total time spent caring for the patient today was 30 minutes. This includes time spent before the visit reviewing the chart, time spent during the visit, and time spent after the visit on documentation [facility] Medical History H/O mammogram (~2022) Surgical History Hx of breast implants, bilateral (~2012) H/O colonoscopy (~2021) Family History Father Hypertension High cholesterol Diabetes Mother Thyroid disorder Maternal Grandmother Hypertension Paternal Grandmother Hypertension Diabetes Maternal Grandfather Diabetes Maternal Aunt Breast cancer Family/Other Colon cancer Social History Housing: House Alcohol intake: current Alcohol intake frequency: a few times a week Alcohol type: wine and hard liquor Patient Tobacco Use Status: Never used Tobacco service: No Current occupational status: employed Cognitive needs: No Hearing needs: No Vision needs: No Female Reproductive History Menstrual Age of Menarche: 12 Questionnaire Thrive Questionnaire Date Thrive assessed: 12/09/23 LIBAN-7 AMB Questionnaire LIBAN-7 Date LIBAN - 7 assessed: 12/09/23 Source: Developed by Drs. Aden Ochoa, Tracy Santana, Ry Kimble and colleagues, with an educational reagan from [employer]. Physical exam (Primary Care) Vital Signs: Last Vital Signs Temp 97.2 F 07/20/24 12:33 Pulse 89 07/20/24 12:33 Resp 13 07/20/24 12:33 BP 98/64 07/20/24 12:33 Pulse Ox 99 07/20/24 12:33 Oxygen Delivery Method Room Air 07/20/24 12:33 BMI result Body Mass Index 21.2 Tobacco/Smoking Status: Tobacco use Status Tobacco use date assessed 12/16/23 07/20/24 12:33 Patient Tobacco Use Status Never used Tobacco 07/20/24 12:33 Thrive Assessment: Date of Thrive Assessment Date Thrive assessed 12/09/23 07/20/24 12:33 Results Reviewed Results Reviewed: RUN: 07/20/24 1629 PAGE 1 [facility] [address] [place] [id number] Wet Roller: Austin Rudd M.D. Specimen Inquiry Name: Karlene Richardson Age/Sex: 49/F : 1975 Unit#: [id number] Attend Dr: Kathy Nguyễn [employer]ESSER-BC Re07/20/24 Status: REG REF Location: [facility] Disch: SPEC : [id number] ARABELLA: 07/20/24 STATUS: COMP REQ : [id number] RECD: 07/20/[address]: Kathy Nguyễn COMP: 07/20/24 ENTERED: 07/20/[address]: ORDERED: IRON PROF Test Result Flag Reference Iron 48 30-160 mcg/dL TIBC 336 228-428 mcg/dL Saturation 14 L 15-50 % UIBC 288 ug/dL RUN: 07/20/24 1629 PAGE 1 [facility] [address] [place] [id number] Wet Roller: Austin Rudd M.D. Specimen Inquiry Name: Karlene Richardson Age/Sex: 49/F : 1975 Unit#: [id number] Attend Dr: Kathy Nguyễn Re07/20/24 Status: REG REF Location: [facility] Disch: SPEC : [id number] ARABELLA: 07/20/24 STATUS: COMP REQ : [id number] RECD: 07/20/[address]: Kathy Nguyễn COMP: 07/20/24 ENTERED: 07/20/[address]: ORDERED: CBC No Diff Test Result Flag Reference WBC 4.1 L 4.8-10.8 X10*3/uL RBC 4.21 4.20-5.50 X10*6/uL HGB 12.2 12.0-16.0 g/dl HCT 37.2 37.0-47.0 % MCV 88.4 80.0-98.0 fL MCH 29.0 27.0-33.0 pg MCHC 32.8 31.0-35.0 g/dl RDW 16.6 H 11.0-16.0 % PLT 232 160-400 X10*3/uL MPV 10.7 9.4-12.3 fL NRBC Pct Auto 0.0 0.0-0.2 /100WBC NRBC Abs Auto 0.000 0.0-0.012 X10*3/uL END OF REPORT Assessment and Plan Assessment & Plan (1) Hx of breast implants, bilateral: Onset Date: ~2012 Code(s): Z98.82 - Breast implant status (2) Anemia: Code(s): D64.9 - Anemia, unspecified Qualifiers: Anemia type: iron deficiency Iron deficiency anemia type: chronic blood loss Qualified Code(s): D50.0 - Iron deficiency anemia secondary to blood loss (chronic) (3) KYLAH positive: Code(s): R76.8 - Other specified abnormal immunological findings in serum (4) Polyarthralgia: Code(s): M25.50 - Pain in unspecified joint (5) Abnormal uterine bleeding (AUB): Code(s): N93.9 - Abnormal uterine and vaginal bleeding, unspecified (6) Otalgia of left ear: Code(s): H92.02 - Otalgia, left ear Orders: Orders Complete Blood Count no Diff Today D64.9 - Anemia, unspecified MR breast BI wo con Today Z12.39 - Encounter for other screening for malignant neoplasm of breast, Z80.3 - Family history of malignant neoplasm of breast, Z98.82 - Breast implant status IRON PROFILE Today D64.9 - Anemia, unspecified Medications: New multivitamin with iron 1 tab PO DAILY 90 tabs 2RF Discontinued carbamide peroxide 6.5% (Debrox) Discontinued Reason: Patient Completed Course 5 drps otic (ears) DAILY 5 days 15 mL 0RF BILAT EARS Coding Level of Care Code Est Pt Level 4 (40652) Complex EM visit Add On G2211 Diagnoses Hx of breast implants, bilateral Z98.82 Iron deficiency anemia due to chronic blood loss D50.0 Anemia type: iron deficiency Iron deficiency anemia type: chronic blood loss KYLAH positive R76.8 Polyarthralgia M25.50 Abnormal uterine bleeding (AUB) N93.9 Otalgia of left ear H92.02
[2024-07-20 12:33] VITALS: BP 98/64; PULSE 89; RESP 13; TEMP 36.2; O2SAT 99; BMI 21.2
== END 2024-07-20 13:16 | disposition home or self-care (01) ==
PROVIDERS: PCP Nurse Practitioner Family; Visit Provider Nurse Practitioner Family
DX: Z98.82 Breast implant status (principal); D50.0 Iron deficiency anemia secondary to blood loss (chronic); R76.8 Other specified abnormal immunological findings in serum; M25.50 Pain in unspecified joint; N93.9 Abnormal uterine and vaginal bleeding, unspecified; H92.02 Otalgia, left ear

== ENCOUNTER → 2024-07-20 12:25 | Outpatient (BNVA) | payer OTHER, SELFPAY | PROVIDERS: PCP Nurse Practitioner Family; Visit Provider Nurse Practitioner Family | DX: D50.0 Iron deficiency anemia secondary to blood loss (chronic) (principal); E76.8 Other disorders of glucosaminoglycan metabolism; M25.50 Pain in unspecified joint; N93.9 Abnormal uterine and vaginal bleeding, unspecified; H92.02 Otalgia, left ear; Z98.82 Breast implant status | CPT/HCPCS: 99212 ==

== ENCOUNTER 2024-07-20 13:19 | Outpatient (REF) | payer OTHER, SELFPAY ==
[2024-07-20 15:06] LABS: Hematocrit 37.2 % (37.0-47.0); Hemoglobin 12.2 g/dl (12.0-16.0); Mean Corpuscular HGB Conc 32.8 g/dl (31.0-35.0); Mean Corpuscular Volume 88.4 fL (80.0-98.0); Mean Platelet Volume 10.7 fL (9.4-12.3); Platelet Count 232 X10*3/uL (160-400); Red Blood Count 4.21 X10*6/uL (4.20-5.50); Red Cell Distribution Width 16.6 % (11.0-16.0); White Blood Count 4.1 X10*3/uL (4.8-10.8)
[2024-07-20 16:27] LABS: Iron 48 mcg/dL (30-160); Percent Iron Saturation 14 % (15-50); Total Iron Binding Capacity 336 mcg/dL (228-428); Unsaturated Iron Binding 288 ug/dL
== END 2024-07-20 13:20 | disposition home or self-care (01) ==
LOC: HO.WFDLDS 13:19
PROVIDERS: Visit Provider Nurse Practitioner Family
DX: D64.9 Anemia, unspecified (principal)
CPT/HCPCS: 36415; 83540; 85027

== ENCOUNTER 2024-07-27 14:20 | Outpatient (AMB) | payer OTHER, SELFPAY ==
--- NOTE | 2024-07-27 14:21 | MHC.OFFVIS ---
Intake Visit Reasons: EMB Results/ok per Alina Allergies No Known Allergies Allergy (Verified 07/20/24 12:31) HPI Comments Details: The patient is presenting for follow-up to discuss the results of her abnormal uterine bleeding workup and options of treatment. The following workup was done.: H&H= 12.2/37.2 TSH, prolactin, hCG, GC and chlamydia were negative. FSH/LH was 17.5/8.1 premenopausal range Endometrial biopsy pathology showed the following: Benign atrophic endometrium with minute fragment of hyalinized stroma and metaplastic changes suggesting previous breakdown, and benign endocervical glandular and scant squamous epithelium; no atypia or carcinoma Co testing was done was negative. 01/16 Mammogram was BI-RADS 1. Pelvic ultrasound showed the following: IMPRESSION: 1. Endometrial thickness is 14 mm. 2. Right ovarian 1.1 cm cyst appears simple, likely physiologic. There is no specific indication for additional imaging at this time. 3. Left ovary is unremarkable. 4. No significant free fluid. [facility] Medical History H/O mammogram (~2022) Surgical History Hx of breast implants, bilateral (~2012) H/O colonoscopy (~2021) Family History Father Hypertension High cholesterol Diabetes Mother Thyroid disorder Maternal Grandmother Hypertension Paternal Grandmother Hypertension Diabetes Maternal Grandfather Diabetes Maternal Aunt Breast cancer Family/Other Colon cancer Social History Housing: House Alcohol intake: current Alcohol intake frequency: a few times a week Alcohol type: wine and hard liquor Patient Tobacco Use Status: Never used Tobacco service: No Current occupational status: employed Cognitive needs: No Hearing needs: No Vision needs: No Female Reproductive History Menstrual Age of Menarche: 12 Review of Systems Const All systems reviewed & are unremarkable except as noted in HPI and below Reports as per HPI and Reports no additional complaints GI Reports no additional complaints Reports no additional complaints Telehealth Telehealth Telehealth Platform: Telephone Location of provider rendering services: practice address Location of patient: address on file Patient Identification confirmed using: Name, : Yes Telehealth method: video Patient verbally consented to treatment: Yes Patient verbally consented to billing insurance company: Yes Patient informed of any privacy concerns related to visit: Yes Assessment & Plan Assessment & Plan (1) Abnormal uterine bleeding (AUB): Code(s): N93.9 - Abnormal uterine and vaginal bleeding, unspecified Category: Medical Plan: Discussed with the patient the results of the work up done and options of treatment including Lysteda, BCP's, Mirena IUD, endometrial ablation and hysterectomy. All pros, cons, risks and benefits if each option was discussed with the patient and the patient decided to think about it and get back to us. All questions answered the patient verbalized understanding. I spent a total of 20 minutes reviewing the chart, talking to the patient via video and documenting in the medical record. Coding Level of Care Code Tele Est Pt Level 1 (57157) Diagnoses Abnormal uterine bleeding (AUB) N93.9
== END 2024-07-27 15:47 | disposition home or self-care (01) ==
LOC: HO.HWS 14:21
PROVIDERS: PCP Nurse Practitioner Family; Visit Provider Obstetrics & Gynecology
DX: N93.9 Abnormal uterine and vaginal bleeding, unspecified (principal)
CPT/HCPCS: 99211

== ENCOUNTER → 2024-07-27 14:20 | Outpatient (BNVA) | payer OTHER, SELFPAY | PROVIDERS: PCP Nurse Practitioner Family; Visit Provider Obstetrics & Gynecology ==

== ENCOUNTER 2024-08-11 15:06 | Outpatient (AMB) | payer OTHER, SELFPAY ==
[2024-08-11 15:20] VITALS: BP 100/62; PULSE 75; TEMP 36.6; BMI 20.7
--- NOTE | 2024-08-11 15:20 | MHC.OFFVIS ---
Vital Signs 08/11/24 15:20 Height 5 ft 7 in Weight 132 lb BMI 20.7 BP 100/62 Blood Pressure Location Lt brachial Position Sitting Pulse 75 Pulse Source Pulse Oximeter Temp 98 F Temp Source Oral Intake Visit Reasons: Kylah/cm Intake Note: Patient presents as a new patient with +KYLAH. Allergies No Known Allergies Allergy (Verified 08/11/24 15:22) Medication List - Last Reconciled 08/11/24 by Jessica Gross MD acyclovir 400 mg PO BID PRN bupropion HCl XL 150 mg PO DAILY mirtazapine 7.5 mg PO DAILY moxifloxacin 0.5% 1 drp ophthalmic (eye) TID multivitamin with iron 1 tab PO DAILY valacyclovir (Valtrex) 1,000 mg PO BID HPI Comments Details: Patient is a 49-year-old female with anxiety presents for evaluation of positive YKLAH and joint pain. Of note she had a recent diagnosis of herpetic keratitis currently receiving valley acyclovir and steroid eyedrops. Patient states that she has a very strong family history of autoimmune disease her mom has ulcerative colitis and celiac disease and her grandmother has celiac disease. In the past she has complained of oligoarticular joint pain and antibodies were checked and she was found to have a positive KYLAH. Although the KYLAH was positive she did not have any other signs or symptoms concerning for lupus. And was discharged from [facility]umatology Clinic in [place]. She is here today because she has recently started having shoulder and elbow pain on the left side only. She also reports her fingers change color in the cold but denies ulcers to the tips of the fingers. Denies rashes, photosensitivity, alopecia, oral/nasal ulcers, lymphadenopathy, chest pain/shortness of breath, foamy urine, lower extremity edema, muscle weakness, Raynaud's Also denies history of seizure, CVA, psychosis, history of kidney problems, history of cytopenias, history of VTE Has 2 children. . No history of miscarriages. No history of preeclampsia. Mom: Celiac disease and UC Grandmother: Celiac disease [facility] Medical History H/O mammogram (~2022) Surgical History Hx of breast implants, bilateral (~2012) H/O colonoscopy (~2021) Family History Father Hypertension High cholesterol Diabetes Mother Thyroid disorder Maternal Grandmother Hypertension Paternal Grandmother Hypertension Diabetes Maternal Grandfather Diabetes Maternal Aunt Breast cancer Family/Other Colon cancer Social History Housing: House Alcohol intake: current Alcohol intake frequency: a few times a week Alcohol type: wine and hard liquor Patient Tobacco Use Status: Never used Tobacco service: No Current occupational status: employed Cognitive needs: No Hearing needs: No Vision needs: No Female Reproductive History Menstrual Age of Menarche: 12 Review of Systems Const Details: Review of Systems Constitutional: Denies fever, chills, weight loss ENT: Denies vision changes, eye pain or eye redness, dental caries GI: Denies nausea, vomiting, diarrhea, abdominal pain, change in BM Pulm: Denies SOB, SIMONS, hemoptysis, wheezing Cards: Denies chest pain, palpitations Skin: Denies rash, nail changes, photosensitivity, PROFESSOR OF LITERATURE: Denies headaches, weakness, paresthesias, recurrent falls MSK: as per HPI All other systems reviewed and are unremarkable except noted above Physical Exam Vital Signs: Last Vital Signs Temp 98 F 08/11/24 15:20 Pulse 75 08/11/24 15:20 BP 100/62 08/11/24 15:20 BMI result Body Mass Index 20.7 Physical Examination Patient well appearing and in no apparent painful distress Able to rise from chair without support. ?Gait normal. Constitutional Mucous membranes pink and moist patient alert and cooperative HEENT Conjunctiva and sclera clear. ?Pupils equal round and reactive to light. ?No lymphadenopathy. ?Normal dentition. Respiratory System Normal respiratory effort and able to speak in complete sentences. ?Clear to auscultation bilaterally. ?No crackles, rales, rhonchi, wheezes heard. Cardiac System Regular rate and rhythm. ?S1 and S2 heard no murmurs. ?Radial pulses intact bilaterally MSK No deformity, swelling, abnormalities noted to bilateral hands. ?No evidence of synovitis. ?Able to move all joints with full range of motion, without limitation. Hands:.??Normal pain-free range of motion without tenderness, swelling, increased warmth or erythema. Able to make a full fist and has a good training and development project leader strength. Wrists: Normal pain-free range of motion without tenderness, swelling, increased warmth or erythema. Elbows: Full range of motion without pain. No tenderness, weakness, swelling, increased warmth or erythema. Tenderness to palpation at the biceps insertion. Shoulders: Full range of motion without pain. No tenderness, weakness, swelling, increased warmth or erythema. Tenderness to palpation at the deltoid insertion. Hips: Full range of motion without pain. Hip bursa:.??No tenderness. Knees:.???Normal pain-free range of motion without tenderness, swelling, increased warmth or erythema.??There is no effusion or crepitation. tenderness to right lateral, area of fibia head Ankles:.??Normal pain-free range of motion without tenderness, swelling, increased warmth or erythema. Feet:.??Normal pain-free range of motion without tenderness, swelling, increased warmth or erythema. Tender points:??No tenderness to digital palpation at the occiput, trapezius, second rib, lateral epicondyle, knees, greater trochanter bilaterally, and left gluteal. Skin Normal nail fold capillaroscopy Results Reviewed Results Reviewed: Laboratory Tests 04/13/24 07/20/24 15:04 13:20 WBC 5.0 4.1 L RBC 3.96 L 4.21 Hgb 11.5 L 12.2 Hct 35.6 L 37.2 Plt Count 258 232 Assessment & Plan Assessment & Plan (1) Polyarthralgia: Code(s): M25.50 - Pain in unspecified joint Category: Medical Plan: #Polyarthralgia Patient presents complaining of polyarthralgias. Her main complaints today are actually at the insertion point of the deltoid in the biceps tendons. Low suspicion for inflammatory arthritis at this time. Likely tendinopathy. Given her strong family history we will still check labs including HLA B27. We will also check x-rays of her shoulder and elbow. (2) KYLAH positive: Code(s): R76.8 - Other specified abnormal immunological findings in serum Category: Medical Plan: #Positive KYLAH The presence of antinuclear antibodies (KYLAH) is mainly associated with connective tissue diseases (CTD). ?However, their presence is found in healthy people especially in women and patients >65. ?In healthy individuals, the frequency of KYLAH has been shown to be 31.7% of individuals at 1:40 serum dilution, 13.3% at 1:80, 5.0% at 1:160, and 3.3% at 1:320 (2). Some drugs and xenobiotics are also important for the development of KYLAH (hydralazine, hydrochlorothiazide, minocycline, terbinafine, ciprofloxacin, furosemide, omeprazole). Moreover, the deficiency of vitamin D in the body of patients correlates with occurrence of these antibodies (1). At this time there is low suspicion for a connective tissue disease. ? 1. Jenn-Danyel?aleksey Anglin, Navdeep Umanzor, Naima Hernadez. Antinuclear antibodies in healthy people and non-rheumatic diseases - diagnostic and clinical implications. Reumatologia. 2018;56(4):243-248. doi: 10.5114/reum.2018.19768. Epub 2017Jun 25. PMID: 93727538; PMCID: RAA1923651. 2. Quezada EM, Al TE, Ping JS, Nav B, Justo R, Janette MJ, John T, Melyssa JA, Sincere JR, Leslie RG, Earl RN, Dee JS, Chu NF, Sugar RJ, Takar Y, Cindy A, Keith MR, Enrique BRADEN. Range of antinuclear antibodies in healthy individuals. Arthritis Rheum. 1996;40(9):1601-11. doi: 10.1002/art.8490299281. PMID: 3677574. Plan I spent 45 minutes reviewing the record and labs, seeing the patient, discussing the treatment plan and documenting in the medical record Orders: Orders Endomysial IgA rflx Titer Today M25.50 - Pain in unspecified joint, R76.8 - Other specified abnormal immunological findings in serum Cardiolipin Antibodies Today M25.50 - Pain in unspecified joint, R76.8 - Other specified abnormal immunological findings in serum Lupus Anticoagulant Panel Today M25.50 - Pain in unspecified joint, R76.8 - Other specified abnormal immunological findings in serum Complement C4 Today M25.50 - Pain in unspecified joint, R76.8 - Other specified abnormal immunological findings in serum Erythrocyte Sedimentation Rate Today M25.50 - Pain in unspecified joint, R76.8 - Other specified abnormal immunological findings in serum Vitamin D 25-OH (D2 and D3) Today M25.50 - Pain in unspecified joint, R76.8 - Other specified abnormal immunological findings in serum Cyclic Citrullinated Peptide Today M25.50 - Pain in unspecified joint, R76.8 - Other specified abnormal immunological findings in serum HLA B27 Today M25.50 - Pain in unspecified joint, R76.8 - Other specified abnormal immunological findings in serum XR elbow LT min 3V Today M25.50 - Pain in unspecified joint, R76.8 - Other specified abnormal immunological findings in serum Transglutaminase Ab IgG Today M25.50 - Pain in unspecified joint, R76.8 - Other specified abnormal immunological findings in serum Beta-2 Glycoprotein Antibody Today M25.50 - Pain in unspecified joint, R76.8 - Other specified abnormal immunological findings in serum KYLAH Reflex Titer and Pattern Today M25.50 - Pain in unspecified joint, R76.8 - Other specified abnormal immunological findings in serum Anti Extractable Nuclear Ag Today M25.50 - Pain in unspecified joint, R76.8 - Other specified abnormal immunological findings in serum Anti DNA DS Antibody Today M25.50 - Pain in unspecified joint, R76.8 - Other specified abnormal immunological findings in serum Complement C3 Today M25.50 - Pain in unspecified joint, R76.8 - Other specified abnormal immunological findings in serum C Reactive Protein Today M25.50 - Pain in unspecified joint, R76.8 - Other specified abnormal immunological findings in serum DNA Double Stranded-Crithidia Today M25.50 - Pain in unspecified joint, R76.8 - Other specified abnormal immunological findings in serum Protein Creatinine Ratio, Ur Today M25.50 - Pain in unspecified joint, R76.8 - Other specified abnormal immunological findings in serum UA w Microscopic Today M25.50 - Pain in unspecified joint, R76.8 - Other specified abnormal immunological findings in serum Comprehensive Met. Panel Today M25.50 - Pain in unspecified joint, R76.8 - Other specified abnormal immunological findings in serum Complete Blood Count Auto Diff Today M25.50 - Pain in unspecified joint, R76.8 - Other specified abnormal immunological findings in serum Rheumatoid Factor Today M25.50 - Pain in unspecified joint, R76.8 - Other specified abnormal immunological findings in serum XR shoulder LT min 2V Today M25.50 - Pain in unspecified joint, R76.8 - Other specified abnormal immunological findings in serum Coding Level of Care Code New Pt Level 4 (60882) Diagnoses Polyarthralgia M25.50 KYLAH positive R76.8
== END 2024-08-11 16:02 | disposition home or self-care (01) ==
PROVIDERS: PCP Nurse Practitioner Family; Visit Provider Student in an Organized Health Care Education/Training Program
DX: M25.50 Pain in unspecified joint (principal); R76.8 Other specified abnormal immunological findings in serum
CPT/HCPCS: 99204

== ENCOUNTER 2024-09-21 14:32 | Outpatient (AMB) | payer OTHER, SELFPAY ==
--- NOTE | 2024-09-21 14:30 | A.OFFVIS_ITS ---
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 At that time she was being evaluated for oligo arthralgias in the setting of a positive KYLAH. At that time there was no clinical suspicion for autoimmune or connective tissue disease she is here today for follow-up Today patient still reports some shoulder pain but otherwise she is stable continues to deny rashes, photosensitivity, alopecia, oral/nasal ulcers, lymphadenopathy, chest pain/shortness of breath, foamy urine, lower extremity edema, muscle weakness, Raynaud's, history of seizure, CVA, psychosis, history of kidney problems, history of cytopenias, history of VTE Rheumatologic History: Patient establish care 08/11/2024 when she was being evaluated for oligo arthralgias in the setting of a positive KYLAH. Evaluation at that time was not consistent with an underlying autoimmune or connective tissue disease. Lab work also cooperated the same Current Rheumatology Medication(s): [facility] Medical History H/O mammogram (~2022) Surgical History Hx of breast implants, bilateral (~2012) H/O colonoscopy (~2021) Family History Father Hypertension High cholesterol Diabetes Mother Thyroid disorder Maternal Grandmother Hypertension Paternal Grandmother Hypertension Diabetes Maternal Grandfather Diabetes Maternal Aunt Breast cancer Family/Other Colon cancer Social History Housing: House Alcohol intake: current Alcohol intake frequency: a few times a week Alcohol type: wine and hard liquor Patient Tobacco Use Status: Never used Tobacco service: No Current occupational status: employed Cognitive needs: No Hearing needs: No Vision needs: No Female Reproductive History Menstrual Age of Menarche: 12 Review of Systems Const Details: Review of Systems Constitutional: Denies fever, chills, weight loss ENT: Denies vision changes, eye pain or eye redness, dental caries, dry mouth GI: Denies nausea, vomiting, diarrhea, abdominal pain, change in BM Pulm: Denies SOB, SIMONS, hemoptysis, wheezing Cards: Denies chest pain, palpitations Skin: Denies Raynaud's, rash, nail changes, photosensitivity, 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 Well appearing and in no apparent painful distress HEENT Conjunctiva and sclera clear. ?Pupils equal round and reactive to light. ?No lymphadenopathy. ?Normal dentition. No oral or nasal ulcers noted. No evidence of discoid rash to the brendan of ears CHEST/RESPIRATORY SYSTEM Normal respiratory effort and able to speak in complete sentences. ?Clear to auscultation bilaterally. ?No crackles, rales, rhonchi, wheezes heard. CARDIAC SYSTEM Regular rate and rhythm. ?S1 and S2 heard no murmurs. ?Radial pulses intact bilaterally MSK Hands: ?Good rn telehealth strength bilaterally - 5/5. ?No deformities noted. ?No synovitis noted to the MCPs, PIPs or DIPs. ?No tenderness to palpation of these joints. Wrists: ?Full range of motion at the wrists without pain. ?No tenderness to palpation or synovitis noted to the wrists. Elbows: Full range of motion without pain. No tenderness, weakness, swelling, increased warmth or erythema. Shoulders: Full range of motion without pain. No tenderness, weakness, swelling, increased warmth or erythema. Tenderness to palpation at insertion of the right deltoid on the mid humerus. Hips: Full range of motion without pain. Hip bursa: No tenderness to palpation Knees: ?Full range of motion. ?No tenderness, swelling, increased warmth or erythema.?No effusion or crepitations Ankles: Full range of motion. ?No tenderness, swelling, increased warmth or erythema.? Feet: ?Negative squeeze test. ?No tenderness to palpation or swelling of the MTPs. Tender points:??No tenderness to palpation of the neck, shoulders, chest, elbows, hips, buttocks or knees. SKIN Skin intact without rashes. Results Reviewed Results Reviewed: Laboratory Tests 08/11/24 16:26 WBC 4.0 L RBC 4.42 Hgb 13.2 Hct 39.3 Plt Count 248 ESR 7 Sodium 140 Potassium 3.5 Chloride 103 Carbon Dioxide 29 BUN 13 Creatinine 0.80 Calcium 10.3 H D AST 31 ALT 20 Alkaline Phosphatase 89 C-Reactive Protein < 0.10 Total Protein 8.1 H X-rays of shoulder and elbow reviewed. (my read) no evidence of osteoarthritis or erosive arthritic changes noted. 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 I recommended rest, heat/ice, stretches. I also told her that because it is tendon insertion the healing time we will take likely several months due to the poor blood supply to the area. No evidence of autoimmune disease based on the labs. Patient can follow up p.r.n. (2) KYLAH positive: Code(s): R76.8 - Other specified abnormal immunological findings in serum Category: Medical Plan: #Positive KYLAH The presence of antinuclear antibodies (KYLAH) is mainly associated with connective tissue diseases (CTD). ?However, their presence is found in healthy people especially in women and patients >65. ?In healthy individuals, the frequency of KYLAH has been shown to be 31.7% of individuals at 1:40 serum dilutio n, 13.3% at 1:80, 5.0% at 1:160, and 3.3% at 1:320 (2). Some drugs and xenobiotics are also important for the development of KYLAH (hydralazine, hydrochlorothiazide, minocycline, terbinafine, ciprofloxacin, furosemide, omeprazole). Moreover, the deficiency of vitamin D in the body of patients correlates with occurrence of these antibodies (1). At this time there is low suspicion for a connective tissue disease. ? 1. Alyssa?aleksey Anglin, Navdeep Umanzor, Naima Hernadez. Antinuclear antibodies in healthy people and non-rheumatic diseases - diagnostic and clinical implications. Reumatologia. 2018;56(4):243-248. doi: 10.5114/reum.[email or web address]. Epub 2017Jun 25. PMID: 50256700; PMCID: [id number]. 2. Damien EM, Al TE, Ping JS, Nav B, Justo R, Janette MJ, John T, Melyssa JA, Sincere JR, Leslie RG, Earl RN, Dee JS, Chu NF, Sugar RJ, Josue Y, Cindy A, Keith MR, Enrique JA. Range of antinuclear antibodies in healthy individuals. Arthritis Rheum. 1996;40(9):1601-11. doi: 10.1002/art.[id number]. PMID: 0078056. Plan I spent 20 minutes reviewing the record and labs, seeing the patient, discussing the treatment plan and documenting in the medical record ? Coding Level of Care Code Est Pt Level 3 (42718) Diagnoses Polyarthralgia M25.50 KYLAH positive R76.8
[2024-09-21 14:32] VITALS: BP 116/68; PULSE 96; BMI 20.4
== END 2024-09-21 15:13 | disposition home or self-care (01) ==
PROVIDERS: PCP Nurse Practitioner Family; Visit Provider Student in an Organized Health Care Education/Training Program
DX: M25.50 Pain in unspecified joint (principal); R76.8 Other specified abnormal immunological findings in serum
CPT/HCPCS: 99213

== ENCOUNTER → 2024-09-21 14:32 | Outpatient (BNVA) | payer OTHER, SELFPAY | PROVIDERS: PCP Nurse Practitioner Family; Visit Provider Student in an Organized Health Care Education/Training Program | DX: M25.50 Pain in unspecified joint (principal); R76.8 Other specified abnormal immunological findings in serum | CPT/HCPCS: 99212 ==

== ENCOUNTER 2025-01-04 11:59 | Outpatient (AMB) | payer OTHER, SELFPAY ==
--- NOTE | 2025-01-04 12:02 | MHC.PC.OV ---
Vital Signs 01/04/25 12:06 Height 5 ft 7 in Weight 133 lb 2 oz BMI 20.8 BP 122/70 Blood Pressure Location Lt brachial Position Sitting Respiration 12 Pulse 74 Pulse Source Pulse Oximeter Temp 97.1 F Temp Source Oral Pulse Oximetry (%) 97 Oxygen Delivery Method Room Air Intake Visit Reasons: Nov CPE Intake Note: annual cpe Yard Attendant Required: No Allergies No Known Allergies Allergy (Verified 01/04/25 12:37) Medication List - Last Reconciled 01/04/25 by NIMISHA Ocampo- bupropion HCl XL 150 mg PO DAILY mirtazapine 7.5 mg PO DAILY multivitamin with iron 1 tab PO DAILY prednisolone acetate 1% 1 drp ophthalmic-Right DAILY valacyclovir (Valtrex) 1,000 mg PO BID valacyclovir 500 mg PO DAILY Tobacco use date assessed: 01/04/25 Dental Screening Dental Screen Date: 01/04/25 Did you have a dental visit in the last 12 months?: Yes Did you have a dental problem in the last 6 months where you did not have access to dental care?: No Was dental information given to patient?: Patient has dentist HPI HPI Comments History of Present Illness Details 49 y/o F carpal tunnel, MDD, insomnia, HSV, herpes keratoconjunctivitis, cataracts, perimenopause Surgeries: 1996 patella replacement R knee, bilat breast implants 2012 Family hx: Dad DM & PVD w amputation, Mom thyroid, chrons, glaucoma, white matter disease; maternal grandparents Alzheimers 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 Extensive testing returned unremarkable, and she manages with Curcumin for symptomatic control. - The patient carries a family history of diabetes and Peripheral Vascular Disease (PVD) leading to mfp-mliprome-lyhasff amputation. - Ophthalmic issues include early-stage cataracts and herpes simplex keratitis under current effective management. - Constipation is aggravated by ongoing medication. She reports occasional relief with laxatives. - Initial symptoms of toenail L great onychomycosis were noted after a recent pedicure. Current topical treatments are ineffective, however there is clearing of the nail. 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 - Alcohol consumption is moderate, culturally influenced, without problematic usage indicators. - Exercise regimen and diet are not specifically detailed, but general lifestyle choices discussed suggest health-conscious behaviors. Review of Systems - Ophthalmic: Reports improved vision, diagnosed cataracts; herpetic eye infection. - Gastrointestinal: Occasional constipation. - Dermatologic: Toenail onychomycosis persistent despite treatment. Exam: General: Well developed, well nourished, in no acute distress. Appears stated age. Head: Normocephalic, atraumatic. Eyes: Pupils are equal, round and reactive to light and accommodation. Conjunctivae are clear. Vision grossly normal. Ears: TMs clear AU Nose: Patent, without discharge. Mouth: There are no ulcers or lesions noted. No inflammation, no post nasal drip, no plaques nor exudates. Neck: Supple, no adenopathy or thyromegaly. Lungs: Clear to auscultation bilaterally. No rales, rhonchi or wheeze noted. Good air flow in all davies. Heart: Regular rate and rhythm. No murmurs, click, rubs or gallops are noted. Abdomen: Bowel sounds present in all quadrants. The abdomen is soft, nontender, with no masses or organomegaly noted. No hernias are noted. Musculoskeletal: Joints are nontender, without swelling, redness, or effusions. Range of motion is observed to be normal. Pulses: Peripheral pulses are equal and palpable bilaterally. Extremities: No clubbing, cyanosis nor edema is noted. Neurologic: Gait and station normal. Cranial Nerves 2-12 intact. Motor strength grossly symmetrical and intact. No sensory loss. Balance normal. Skin: No rashes, ulcers, or lesions noted. Turgor is good. Skin color is good. Hair and nails are without abnormalities except left great toenail positive onychomycosis Psych: Normal eye contact, affect and mood appropriate, and normal interactions. Patient is alert and appropriate to context. Extremities: No clubbing, cyanosis or edema. Results: LABS FROM 02/10/2024 SHOW A NORMAL CMP, ELEVATED TOTAL CHOLESTEROL OF 213, LDL 115, HDL 80, TSH 1.44, NORMAL URINE MICROALBUMIN CREATININE RATIO, VITAMIN-D NORMAL 04/13/24 CBC shows mild anemia Discussion Notes In terms of ophthalmology, I discussed the need for ongoing follow-up for her early cataracts and managed herpes keratitis with a tapering plan of prednisone eye drops and continued valaciclovir therapy to prevent corneal damage. We addressed her constipation, highlighting valcyclovir as a contributing factor, and advised on mitigative treatments. Follow-ups with dermatology regarding toenail onychomycosis were discussed, with recommendations to refer to podiatry if topical treatments fail. . Lastly, perimenopausal status was reiterated with advice on tracking menstrual cycles to accurately identify menopause onset. Assessment and Plan Cataracts: Ongoing monitoring necessary. No current impact requiring intervention. Herpes Simplex Keratitis: Managed through regimented antiviral therapy, tapering schedule planned.. Constipation: Self-managed by dietary adjustments and occasional qxpe-mix-tqidzzi laxatives. Toenail Onychomycosis: Potential referral recommended for podiatry should topical treatment remain ineffective. PeriMenopause: Tracking cycles critical to accurately ascertain transition status. MDD stable on current meds insomnia well controlled prn mirtazpine. Patient Instructions - Continue with prescribed eye care regimen. - Monitor monthly menstrual cycles. - Maintain eye care follow-up. - Use dietary interventions for constipation; consider increasing fiber intake. - Continue Curcumin for arthritis management. - Review foot care with dermatology and director of special events if necessary. - Maintain healthy cholesterol levels through diet and lifestyle choices. - RTO 1 year CPE sooner PRN Consent Patient was informed and verbally consented to the use of an ambient scribe for clinic note documentation during this visit. [facility] Medical History (Updated 01/04/25 @ 15:24 [facility] H/O mammogram (~2023) Surgical History H/O colonoscopy (~2021) Hx of breast implants, bilateral (~2012) Family History Father Hypertension High cholesterol Diabetes Mother Thyroid disorder Maternal Grandmother Hypertension Paternal Grandmother Hypertension Diabetes Maternal Grandfather Diabetes Maternal Aunt Breast cancer Family/Other Colon cancer Social History Housing: House Alcohol intake: current Alcohol intake frequency: a few times a week Alcohol type: wine and hard liquor Patient Tobacco Use Status: Never used Tobacco e-Cigarette/Vaping Use: Never Used Second Hand Smoke Exposure: No service: No Current occupational status: employed Cognitive needs: No Hearing needs: No Vision needs: No Female Reproductive History Menstrual Age of Menarche: 12 Questionnaire PHQ-9 Over the last 2 weeks, how often have you been bothered by any of the following problems? 1. Little interest or pleasure in doing things: not at all 2. Feeling down, depressed, or hopeless: not at all 3. Trouble falling or staying asleep, or sleeping too much: several days 4. Feeling tired or having little energy: several days 5. Poor appetite or overeating: not at all 6. Feeling bad about yourself - or that you are a failure or have let yourself or your family down: not at all 7. Trouble concentrating on things, such as reading the newspaper or watching television: not at all 8. Moving or speaking so slowly that other people could have noticed. Or the opposite - being so fidgety or restless that you have been moving around a lot more than usual: not at all 9. Thoughts that you would be better off or of hurting yourself in some way: not at all Total score: 2 Depression Screening Interpretation: Negative Depression Screening Done: Yes 25583 - PHQ-9 Billing: Yes Source: Developed by Drs. Aden Ochoa, Tracy Santana, Ry Kimble and colleagues, with an educational reagan from [employer]. Thrive Questionnaire Date Thrive assessed: 01/04/25 I am a: Patient What is your living situation today?: I have a steady place to live Within the past 12 months, did the food you bought not last and you didn't have the money to get more?: Never true Within the past 12 months, did you worry whether your food would run out before you got money to buy more?: Never true Do you have trouble paying for medicines?: No Do you have trouble getting transportation to medical appointments?: No Do you have trouble paying your heating and electricity bill?: No Do you have trouble taking care of your child, family member or friend?: No Do you have trouble with day-to-day activities such as bathing, preparing meals, shopping, managing finances, etc.?: No Are you currently unemployed and looking for a job?: No Are you interested in more education?: No Please select the resources that you would like help with: None Currently or been in a relationship where the following occur: No concerns reported THRIVE Score: 0 AUDIT C Alcohol Use Questionnaire (AUDIT-C) 1. How often do you have a drink containing alcohol?: 2-3 times a week 2. How many drinks containing alcohol do you have on a typical day when you are drinking?: 1 or 2 3. How often do you have six or more drinks on one occasion?: Never Total Score: 3 Score Reviewed/Action Taken: Yes LIBAN-7 AMB Questionnaire LIBAN-7 Date LIBAN - 7 assessed: 01/04/25 Feeling nervous, anxious, or on edge: 0 = Not at all Not being able to stop or control worryin = Not at all Worrying too much about different things: 0 = Not at all Trouble relaxin = Not at all Being so restless that it is hard to sit still: 0 = Not at all Becoming easily annoyed or irritable: 0 = Not at all Feeling afraid as if something awful might happen: 0 = Not at all Total LIBAN-7 score (0-4 normal; 5-9 mild; 10-14 moderate; 15-21 severe): 0 Source: Developed by Drs. Aden Ochoa, Tracy Santana, Ry Kimble and colleagues, with an educational reagan from [employer]. LIBAN-7 Assessment Billing LIBAN-7 Assessment Tool: LIBAN-7 Assessment 72016 Physical exam (Primary Care) Vital Signs: Last Vital Signs Temp 97.1 F 01/04/25 12:06 Pulse 74 01/04/25 12:06 Resp 12 01/04/25 12:06 BP 122/70 01/04/25 12:06 Pulse Ox 97 01/04/25 12:06 Oxygen Delivery Method Room Air 01/04/25 12:06 BMI result Body Mass Index 20.8 Tobacco/Smoking Status: Tobacco use Status Tobacco use date assessed 01/04/25 01/04/25 12:08 Patient Tobacco Use Status Never used Tobacco 01/04/25 12:08 e-Cigarette/Vaping Use Never Used 01/04/25 12:08 PHQ-9: PHQ-9 Score PHQ-9: Total score 2 01/04/25 12:52 Depression Screening Interpretation: Negative Thrive Assessment: Date of Thrive Assessment Date Thrive assessed 01/04/25 01/04/25 12:08 Currently or been in a relationship where the following occur: No concerns reported Coding Level of Care Code Est Pt Prev Care 40-64y(00212) Diagnoses Encounter for general adult medical examination without abnormal findings Z00.00 Laboratory exam ordered as part of routine general medical examination Z00.00 Herpes simplex B00.9 Hx of breast implants, bilateral Z98.82 Mild episode of recurrent major depressive disorder F33.0 Major depression episode severity: mild Perimenopause N95.1 Polyarthralgia M25.50 Additional Codes LIBAN-7 Assessment Billing - LIBAN-7 Assessment Tool: LIBAN-7 Assessment 39863 ([id number]) PHQ-9 - 62163 - PHQ-9 Billing: Yes ([id number]) Assessment & Plan Assessment & Plan (1) Encounter for general adult medical examination without abnormal findings: Code(s): Z00.00 - Encounter for general adult medical examination without abnormal findings Category: Medical (2) Laboratory exam ordered as part of routine general medical examination: Code(s): Z00.00 - Encounter for general adult medical examination without abnormal findings Category: Medical (3) Herpes simplex: Comment: Maintained on acyclovir with use p.r.n. Code(s): B00.9 - Herpesviral infection, unspecified Category: Medical (4) Hx of breast implants, bilateral: Onset Date: ~2012 Code(s): Z98.82 - Breast implant status Category: Surgical (5) MDD (major depressive disorder), recurrent episode: Comment: Controlled currently on bupropion. Sparing use of mirtazapine at night to help with insomnia. She does report that the mirtazapine does cause grogginess the following day. Therefore she does limit the use. She did mention wanting to come off the bupropion and has tried to take herself off of it in the past. Unfortunately, this did result in an uptake and anxiety and depressive symptoms as observed by her family members. Discussed with her today that if she wishes to come off of this she should do so under medical care. Code(s): F33.9 - Major depressive disorder, recurrent, unspecified Category: Medical Qualifiers: Major depression episode severity: mild Qualified Code(s): F33.0 - Major depressive disorder, recurrent, mild (6) Perimenopause: Code(s): N95.1 - Menopausal and female climacteric states Category: Medical (7) Polyarthralgia: Code(s): M25.50 - Pain in unspecified joint Category: Medical Plan . Orders: Orders Hemoglobin A1c Today Z00.00 - Encounter for general adult medical examination without abnormal findings Lipid Panel Today Z00.00 - Encounter for general adult medical examination without abnormal findings TSH reflex Free T4 Today Z00.00 - Encounter for general adult medical examination without abnormal findings Vitamin D 25-OH Total Today Z00.00 - Encounter for general adult medical examination without abnormal findings Comprehensive Met. Panel Today Z00.00 - Encounter for general adult medical examination without abnormal findings Microalbumin, Random (w Creat) Today Z00.00 - Encounter for general adult medical examination without abnormal findings Vitamin B12 and Folate Today Z00.00 - Encounter for general adult medical examination without abnormal findings Medications: New bupropion HCl XL 150 mg PO DAILY 90 tabs 2RF Changed From mirtazapine 7.5 mg PO DAILY To mirtazapine 7.5 mg PO DAILY PRN 30 tabs 0RF insomnia Refilled bupropion HCl XL 150 mg PO DAILY 90 tabs 2RF Patient Instructions: Health screenings for women You should visit your health care provider from time to time, even if you are healthy. The purpose of these visits is to: Screen for medical issues Assess your risk for future medical problems Encourage a healthy lifestyle Update vaccinations and other preventive care services Help you get to know your provider in case of an illness Information Even if you feel fine, you should still see your provider for regular checkups. These visits can help you avoid problems in the future. For example, the only way to find out if you have high blood pressure is to have it checked regularly. High blood sugar and high cholesterol levels also may not have any symptoms in the early stages. A simple blood test can check for these conditions. There are specific times when you should see your provider or receive specific health screenings. The [place] Preventive Services Task Force publishes a list of recommended screenings. Below are screening guidelines for women ages 18 to 39. BLOOD PRESSURE SCREENING Your blood pressure should be checked at least once every 3 to 5 years if: Your blood pressure is in the normal range (top number less than 120 mm Hg and bottom number less than 80 mm Hg) You don't have risk factors for high blood pressure Ask your provider if you need your blood pressure checked more often if: The top number is 120 to 129 mm Hg or the bottom number is 70 to 79 mm Hg You have diabetes, heart disease, kidney problems, are overweight, or have certain other health conditions You have a first-degree relative with high blood pressure You are Black You had high blood pressure during a If the top number is 130 mm Hg or greater or the bottom number is 80 mm Hg or greater, this is considered stage 1 hypertension. Schedule an appointment with your provider to learn how you can reduce your blood pressure. Watch for blood pressure screenings in your area. Ask your provider if you can stop in to have your blood pressure checked. BREAST CANCER SCREENING Experts do not agree about the benefits of breast self-exams in finding breast cancer or saving lives. Talk to your provider about what is best for you. A screening mammogram is not recommended for most women under age 40. Your provider may discuss and recommend mammograms, MRI scans, or ultrasounds if you have an increased risk for breast cancer, such as: A mother or sister who had breast cancer at a young age (most often starting screening earlier than the age the close relative was diagnosed) You carry a high-risk genetic marker CERVICAL CANCER SCREENING Cervical cancer screening should start at age 21 years unless your provider advises otherwise. After the first test: Women ages 21 through 29 should have a Pap test every 3 years. Exoprts do not agree on whether HPV testing is recommended for this age group. Women ages 30 through 65 should be screened with either a Pap test every 3 years or the HPV test every 5 years or both tests every 5 years (called cotesting ). Women who have been treated for precancer (cervical dysplasia) should continue to have Pap tests for 20 years after treatment or until age 65, whichever is longer. If you have had your uterus and cervix removed (total hysterectomy), and you have not been diagnosed with cervical cancer or precancer (high grade cervical neoplasia), you do not need cervical cancer screening. CHOLESTEROL SCREENING Cholesterol screening should begin at: Age 45 for women with no known risk factors for coronary heart disease Age 20 for women with known risk factors for coronary heart disease Repeat cholesterol screening should take place: Every 5 years for women with normal cholesterol levels More often if changes occur in lifestyle (including weight gain and diet) More often if you have diabetes, heart disease, kidney problems, or certain other conditions DIABETES SCREENING You should be screened for diabetes starting at age 35 and then repeated every 3 years if you have no risk factors for diabetes. Screening may need to start earlier and be repeated more often if you have other risk factors for diabetes, such as: You have a first degree relative with diabetes. You are overweight or have obesity. You have high blood pressure, prediabetes, or a history of heart disease. Screening for diabetes should be done if you are planning to become and you are overweight and have other risk factors such as high blood pressure. DENTAL EXAM Go to the dentist once or twice every year for an exam and cleaning. Your dentist will evaluate if you need more frequent visits. EYE EXAM Have an eye exam every 5 to 10 years before age 40. If you have vision problems, have an eye exam every 2 years or more often if recommended by your provider. You should have an eye exam that includes an examination of your retina (back of your eye) at least every year if you have diabetes. IMMUNIZATIONS Commonly needed vaccines include: Flu shot: get one every year. COVID-19 vaccine: ask your provider what is best for you. Tetanus-diphtheria and acellular pertussis (Tdap) vaccine: have one at or after age 19 as one of your tetanus-diphtheria vaccines if you did not receive it as an adolescent. Tetanus-diphtheria: have a booster (or Tdap) every 10 years. Varicella vaccine: receive 2 doses if you never had chickenpox or the varicella vaccine. Hepatitis B vaccine: receive 2, 3, or 4 doses, depending on your exact circumstances. Measles, mumps, and rubella (MMR) vaccine: receive 1 to 2 doses if you are not already immune to MMR. Your provider can tell you if you are immune. Ask your provider about the human papillomavirus (HPV) vaccine if: You have not received the HPV vaccine in the past You have not completed the full vaccine series (you should catch up on this shot) Ask your provider if you should receive other immunizations if you have certain health problems that increase your risk for some diseases such as pneumonia. INFECTIOUS DISEASE SCREENING Women who are sexually active should be screened for chlamydia and gonorrhea up until age 25. Women 25 years and older should be screened for chlamydia and gonorrhea if at high risk. Screening for hepatitis C: All adults ages 18 to 79 should get a one-time test for hepatitis C. people should be screened at every . Screening for human immunodeficiency virus (HIV): All people ages 15 to 65 should get a one-time test for HIV. Depending on your lifestyle and medical history, you may also need to be screened for infections such as syphilis and HIV, as well as other infections. PHYSICAL EXAM All adults should visit their provider from time to time, even if they are healthy. The purpose of these visits is to: Screen for disease Assess your risk of future medical problems Encourage a healthy lifestyle Update your vaccinations and other preventive care services Maintain a relationship with a provider in case of an illness Your height, weight, and BMI should be checked at every exam. During your exam, your provider may ask you about: Depression and anxiety Diet and exercise Alcohol and tobacco use Safety issues, such as using seat belts, smoke detectors, and intimate partner violence Your medicines and risk for interactions SKIN SELF-EXAM Your provider may check your skin for signs of skin cancer, especially if you're at high risk, such as if you: Have had skin cancer before Have close relatives with skin cancer Have a weakened immune system OTHER SCREENING Talk with your provider about colon cancer screening if you have a strong family history of colon cancer or polyps, or if you have had inflammatory bowel disease or polyps yourself. Routine bone density screening of women under 40 is not recommended.
[2025-01-04 12:06] VITALS: BP 122/70; PULSE 74; RESP 12; TEMP 36.2; O2SAT 97; BMI 20.8
--- OUTSIDE RECORDS SUMMARY | 2025-01-04 14:03 | XMS_ITS | Encounter Summary ---
Author Organization [employer] Address [address] [place] [address] 7 [place] [address] Care Team Providers Care Reimbursement Representative Name Role Phone Unavailable Primary Care Provider Unavailabl e Reason for Visit * Reason Comments [place] delivery Encounter Details Date Type Department Care Team (Late st Contact Info) Description 12/07/2024 4:00 PM EST Office Visit [facility] [address], [place] [phone] Myrna Kim BDS [address] [place] [address] Social History Tobacco Use Types Packs/Day Years Used Date Smoking Tobacco: Never Smokeless Tobacco: Never Comments Unknown Sex and Gender Information Value Date Recorded Sex Assigned at Female 08/25/2022 10:40 AM EDT Legal Sex Female 10:40 AM EDT Gender Identity Female 08/25/2022 10:40 AM EDT Sexual Orientation Straight 08/25/2022 10 :40 AM EDT documented as of this encounter Progress Notes * Myrna Kim BDS - 12/07/2024 4:00 PM EST Patient ID: Karlene Richardson is a 49 y.o. female. Time Out: Timeout Date: 12/07/24, Timeout Time: 1556 Location: [facility] Tooth: #30 Procedure: [place] Verified the above with patient, cancer genetics assistant, and provider. Confirmed via patient's chart, intraorally and by radiographs. Over Short And Damage Clerk: not applicable Chief Complaint Patient presents with [place] delivery Medical Hx: Vitals: There were no vitals taken for this visit. Medications, Med Hx reviewed with patient and updated in chart. Consent Obtained: The risks, benefits, indications, potential complications, and alternatives were explained to the patient and informed consent was obtained with good understanding. Treatment Provided: Dental procedures in this visit [id number] - CROWN - PORCELAIN/CERAMIC 30 (Completed) Service provider: Myrna Kim BDS Billing provider: Myrna Kim BDS [id number] - ADJUNCTIVE GENERAL SERVICES - PROFESSIONAL VISITS - CASE PRESENTATION, SUBSEQUENT TO DETAILED AND EXTENSIVE TREATMENT PLANNING (Completed) Service provider: Myrna Kim BDS Billing provider: Myrna Kim BDS Isolation: high speed suction and cotton rolls Removed Provisional and cleaned excess cement, pumiced tooth as needed. Tried on final jehovah's witness Verified interproximal contacts and margins BW taken to confirm margins and contacts Occlusion adjusted as needed Tooth Treatment: Digital Forensic Examiner applied and Gluma applied Cemented with: Relyx Unicem Cleaned excess cement, flossed Patient satisfied with comfort and esthetics. POI given. Patient discharged alert, oriented, and in stable condition NV: [place] #31 Scientific Software Developer: Nelda Carballo Dentist: Myrna Kim BDS documented in this encounter Plan of Treatment Upcoming Encounters Date Type Department Care Team (Late st Contact Info) Description 01/18/2025 10:00 AM EDT Office Visit [facility] [address] [place] [id number] Myrna Kim BDS [address] [place] [phone] documented as of this encounter Procedures Procedure Name Priority Date/Time Associated Diagnosis Comments 30 CROWN - PORCELAIN/CERAMIC Routine 12/07/2024 4:00 PM EST CASE PRESENTATION, DETAILED AND EXTENSIVE TREATMENT PLANNING Routine 12/07/2024 4:00 PM EST documented in this encounter Visit Diagnoses Not on filedocumented in this encounter
--- OUTSIDE RECORDS SUMMARY | 2025-01-04 14:03 | XMS_ITS | Encounter Summary ---
Author Organization [facility] [employer] [facility] Address [address] [place] [address] 7 [place] [address] Care Team Providers Care Court Bailiff Name Role Phone Unavailable Primary Care Provider Unavailabl e Encounter Details Date Type Department Care Team (Latest Contact Info) Description 08/14/2022 Abstract [facility] CONVERSIONS Dental, Provider, DDS Social History Tobacco Use Types Packs/Day Years Used Date Smoking Tobacco: Never Assessed Comments Unknown Sex and Gender Information Value Date Recorded Sex Assigned at Female 08/25/2022 10:40 AM EDT Legal Sex Female 10:40 AM EDT Gender Identity Female 08/25/2022 10:40 AM EDT Sexual Orientation Straight 08/25/2022 10 :40 AM EDT documented as of this encounter Plan of Treatment Upcoming Encounters Date Type Department Care Team (Late st Contact Info) Description 01/18/2025 10:00 AM EDT Office Visit [facility] [address] [place] [address] Myrna Kim BDS [address] [place], [place] [phone] documented as of this encounter Visit Diagnoses Not on filedocumented in this encounter
--- OUTSIDE RECORDS SUMMARY | 2025-01-04 14:03 | XMS_ITS | Data Portability ---
Author Organization [facility], Main Office Address [address] [facility] [address] [place] [address] Care Team Providers Care Equipment Operat0R Name Role Phone REZA REDDY General Surgeon SIDNEY LONGORIA Primary Care Provider [phone] [facility] DIRT SHOVELER Director Of Respiratory Therapy [facility] Copywriter [phone] ANTOINE PUENTE Sock Folder Assessment Encounter Date Assessment Date Assessment LastModified by Organization Details LastModified Time 01/20/2022 01/20/2022 This service was provided using telemedicine. Patient consented to video & audio visit Patient was located at at home Provider was located in the office. No other persons participated in the telemedicine visit except for the patient unless otherwise indicated here. {{}} Total time of visit was 30 minutes. Not available 01/20/2022 13:48:52 03/09/2023 03/09/2023 This service was provided using telemedicine. Patient consented to video & audio visit Patient was located in the [facility]. Provider was located in the office. No other persons participated in the telemedicine visit except for the patient unless otherwise indicated here. {{}} Total time of visit was 28 minutes. Not available 03/09/2023 13:48:50 Plan of Treatment Reminders Order Date Submit Date Provider Last Modified By Organization Details Last Modified Time Details Appointments None recor ded. Lab CBC w/ auto diff 2021 022 E[facility]INE [facility], [address] [facility], [facility], [place], [address], 18:06:53 PT/IN R 2021 [facility], [address], [place], [address], 10:30:43 CBC w/ auto diff 2021 [facility], [address], [place], [address], 10:23:01 hepat ic funct ion panel , serum 2021 [facility], [address], [place], [address], 09:48:51 lyme igg + igm Ab, weste rn blot, serum 2021 ELAINE [facility], [address], [place], [address], 19:06:10 TSH, serum or plasm a 2021 ELAINE [facility], [address], [place], [address], 18:00:48 vitam in B12, serum 2021 [facility], [address], [place], [address], 18:00:46 lipid panel , serum 2021 ELANIE [facility], [address], [place], [address], 18:50:30 CMP, serum or plasm a 2021 ELAINE [facility], [address], [place], [address], 2 18:50:29 Referral ortho pedic surge on refer ral - R. carpa l tunne l syndr ome. 2021 [facility] (Juan Diego Aria), [address], [place], [address], 08:21:16 rheum atolo gist refer ral - Nanette ud's disea se, posit armen KYLAH , neutr openi a. Needs f/u and furht er testi ng for posit armen KYLAH. 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 Never teste d for ADD. 2021 022 [id number] Figueroa, [address] [place], [address], 2 10:21:47 Procedures None recor ded. Surgeries None recor ded. Imaging MAMMO , scree rajesh, bilat eral 2021 [email or web address], [address], [place], [address], 15:13:01 XR, foot, 3 or more view 2021 [facility], [address] [facility], [place], [address], 2 10:21:41 Medication Orders doxyc yclin e hycla te 100 mg table t 2022 023 MCDANIEL [id number], [address] [facility], [place], [address], 13:49:12 miguel zapin e 7.5 mg table t 2022 [id number], [address] [place], [address], 3 12:53:21 trazo done 50 mg table t 2021 022 gadielolbyjefferson e [id number], [address] [place], [address], 15:19:11 bupro pion HCl XL 300 mg 24 hr table t, exten ded relea se 2021 [id number], [address] [place], [address], 12:53:10 Patient TargetsNo targets recorded. Patient Instructions Encounter Date Encounter Id Patient Instructions Last Modified By Organization Details Last Modified Time 03/12/2022 [id number] Preventing Depression From Coming Back: Care Instructions Not available 03/12/2022 14:55:52 depression treatment: care instructions Not available 03/12/2022 14:55:52 constipation: care instructions Not available 03/12/2022 14:55:39 high-fiber diet: care instructions Not available 03/12/2022 14:55:39 09/10/2022 [id number] anxiety disorder : care instructions Not available 09/10/2022 11:53:53 11/07/2022 [id number] insomnia: care instructions Not available 11/07/2022 15:44:18 03/09/2023 [id number] Acute Sinusitis: Care Instructions Not available 03/09/2023 13:49:44 saline nasal washes: care instructions Not available 03/09/2023 13:49:44 eustachian tube problems: care instructions Not available 03/09/2023 13:49:44 Reason for Referral Copywriter Referral for Anti-nuclear factor detected Raynaud's disease, positive KYLAH , neutropenia. Needs f/u and furhter testing for positive KYLAH. 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 Never tested for ADD. Referring Physician: Sidney Longoria, Internal Medicine, Encounter Date: 03/12/2022 Orthopedic Surgeon Referral for Carpal tunnel syndrome R. carpal tunnel syndrome. Referring Physician: Sidney Longoria, Internal Medicine, Encounter Date: 09/10/2022 Results Created Date Observation Date Name Description Value Unit Range Abnormal Flag Note LastModifiedBy Organization Detail LastModifiedTime 01/22/2001/21/2022 COMPL ETE CBC WITH DIFF WBC 2.8 K/mm3 (4.0-1 1.0) low Not Available [facility] (Centralized Electronic Ordering - All Locations) Patient Can Go To The Location Of Their Choice, 01/21/2022 10:23:01/22/20 22 01/21/2022 COMPL ETE CBC WITH DIFF RBC 4.11 M/mm3 (4.20- 5.40) low Not Available [facility] (Centralized Electronic Ordering - All Locations) Patient Can Go To The Location Of Their Choice, 01/21/2022 10:23:01 01/22/20 22 01/21/2022 COMPL ETE CBC WITH DIFF HGB 12.3 gm/dL (11.7- 15.5) Not Available [facility] (Centralized Electronic Ordering - All Locations) Patient Can Go To The Location Of Their Choice, 01/21/2022 10:23:01/22/20 22 01/21/2022 COMPL ETE CBC WITH DIFF HCT 38.5 % (35.7- 45.8) Not Available [facility] (Centralized Electronic Ordering - All Locations) Patient Can Go To The Location Of Their Choice, 01/21/2022 10:23:01 01/22/20 22 01/21/2022 COMPL ETE CBC WITH DIFF MCV 93.7 fL (80.0- 100.0) Not Available [facility] (Centralized Electronic Ordering - All Locations) Patient Can Go To The Location Of Their Choice, 01/21/2022 10:23:01/22/2001/21/2022 COMPL ETE CBC WITH DIFF MCH 29.9 pg (27.0- 34.0) Not Available [facility] (Centralized Electronic Ordering - All Locations) Patient Can Go To The Location Of Their Choice, 01/21/2022 10:23:01/22/2001/21/2022 COMPL ETE CBC WITH DIFF MCHC 31.9 g/dL (33.0- 37.0) low Not Available [facility] (Centralized Electronic Ordering - All Locations) Patient Can Go To The Location Of Their Choice, 01/21/2022 10:23:01 01/22/2001/21/2022 COMPL ETE CBC WITH DIFF plt 216 K/mm3 (150-4 60) Not Available [facility] (Centralized Electronic Ordering - All Locations) Patient Can Go To The Location Of Their Choice, 01/21/2022 10:23:01/22/2001/21/2022 COMPL ETE CBC WITH DIFF RDW-SD 54.9 fL (<47.0 ) high Not Available [facility] (Centralized Electronic Ordering - All Locations) Patient Can Go To The Location Of Their Choice, 01/21/2022 10:23:01/22/2001/21/2022 COMPL ETE CBC WITH DIFF MPV 11.3 fL (9.4-1 2.4) Not Available [facility] (Centralized Electronic Ordering - All Locations) Patient Can Go To The Location Of Their Choice, 01/21/2022 10:23:01/22/2001/21/2022 COMPL ETE CBC WITH DIFF automated NRBC 0.0 #/100 _WBC' s Not Available [facility] (Centralized Electronic Ordering - All Locations) Patient Can Go To The Location Of Their Choice, 01/21/2022 10:23:01 01/22/2001/21/2022 COMPL ETE CBC WITH DIFF abs. NRBC 0.0 K/mm3 Not Available [facility] (Centralized Electronic Ordering - All Locations) Patient Can Go To The Location Of Their Choice, 01/21/2022 10:23:01 01/22/20 22 01/21/2022 COMPL ETE CBC WITH DIFF neut # 1.1 K/mm3 (1.3-7 .0) low Not Available [facility] (Centralized Electronic Ordering - All Locations) Patient Can Go To The Location Of Their Choice, 01/21/2022 10:23:01 01/22/20 22 01/21/2022 COMPL ETE CBC WITH DIFF lymph # 1.2 K/mm3 (0.8-3 .1) Not Available [facility] (Centralized Electronic Ordering - All Locations) Patient Can Go To The Location Of Their Choice, 01/21/2022 10:23:01 01/22/2001/21/2022 COMPL ETE CBC WITH DIFF mono# 0.4 K/mm3 (0.4-0 .9) Not Available [facility] (Centralized Electronic Ordering - All Locations) Patient Can Go To The Location Of Their Choice, 01/21/2022 10:23:01/22/2001/21/2022 COMPL ETE CBC WITH DIFF eo # 0.1 K/mm3 (0.0-0 .4) Not Available [facility] (Centralized Electronic Ordering - All Locations) Patient Can Go To The Location Of Their Choice, 01/21/2022 10:23:01 01/22/2001/21/2022 COMPL ETE CBC WITH DIFF baso # 0.0 K/mm3 (0.0-0 .1) Not Available [facility] (Centralized Electronic Ordering - All Locations) Patient Can Go To The Location Of Their Choice, 01/21/2022 10:23:01 01/22/2001/21/2022 COMPL ETE CBC WITH DIFF abs. imm gran 0.0 K/mm3 Not Available [facility] (Centralized Electronic Ordering - All Locations) Patient Can Go To The Location Of Their Choice, 01/21/2022 10:23:01 01/22/2001/21/2022 COMPL ETE CBC WITH DIFF neut 39.2 % (44-76 ) low Not Available [facility] (Centralized Electronic Ordering - All Locations) Patient Can Go To The Location Of Their Choice, 01/21/2022 10:23:01 01/22/2001/21/2022 COMPL ETE CBC WITH DIFF lymph 44.0 % (15-43 ) high Not Available [facility] (Centralized Electronic Ordering - All Locations) Patient Can Go To The Location Of Their Choice, 01/21/2022 10:23:01 01/22/2001/21/2022 COMPL ETE CBC WITH DIFF monocyte 13.5 % (4.5-1 0.5) high Not Available [facility] (Centralized Electronic Ordering - All Locations) Patient Can Go To The Location Of Their Choice, 01/21/2022 10:23:01 01/22/2001/21/2022 COMPL ETE CBC WITH DIFF eo 2.2 % (0-6) Not Available [facility] (Centralized Electronic Ordering - All Locations) Patient Can Go To The Location Of Their Choice, 01/21/2022 10:23:01 01/22/20 22 01/21/2022 COMPL ETE CBC WITH DIFF baso 0.7 % (0-2) Not Available [facility] (Centralized Electronic Ordering - All Locations) Patient Can Go To The Location Of Their Choice, 01/21/2022 10:23:01 01/22/2001/21/2022 COMPL ETE CBC WITH DIFF imm gran 0.4 % Not Available [facility] (Centralized Electronic Ordering - All Locations) Patient Can Go To The Location Of Their Choice, 01/21/2022 10:23:01 01/22/2001/21/2022 PROTI ME PROFI LE protime 10.7 sec (9.2-1 1.4) Not Available [facility] (Centralized Electronic Ordering - All Locations) Patient Can Go To The Location Of Their Choice, 01/21/2022 10:30:42 01/22/2001/21/2022 PROTI ME PROFI LE internatnl normalized ratio 1.0 (0.9-1 .1) SUGGE STED VALUE OF 2.0-3 .0 FOR PROPH YLAXI S OF VENOU S THROM BOSIS IN HIGH RISK OR SURGI PRADIP PATIE NTS, TREAT MENT OF VENOU S THROM BOSIS , AND PREVE NTION OF EMBOL ISM. SUGGE STED VALUE S OF 2.5-3 .5 FOR PREVE NTION OF RECUR RENT EMBOL ISM OR PATIE NTS WITH MECHA NICAL PROST HETIC HEART VALVE S. Not Available [facility] (Centralized Electronic Ordering - All Locations) Patient Can Go To The Location Of Their Choice, 01/21/2022 10:30:42 01/22/2001/21/2022 VITAM IN B12 vitamin B12 355 pg/mL (232-1 245) Not Available [facility] (Centralized Electronic Ordering - All Locations) Patient Can Go To The Location Of Their Choice, 01/21/2022 18:00:46 01/22/2001/21/2022 TSH WITH REFLE X TO FT4 TSH 2.82 uIU/m L (0.4-4 .2) Not Available [facility] (Centralized Electronic Ordering - All Locations) Patient Can Go To The Location Of Their Choice, 01/21/2022 18:00:48 01/22/2001/21/2022 COMPR EHENS ARMEN METAB OLIC PANL glucose 87 mg/dL (70-99 ) Not Available [facility] (Centralized Electronic Ordering - All Locations) Patient Can Go To The Location Of Their Choice, 01/21/2022 18:50:28 01/22/2001/21/2022 COMPR EHENS ARMEN METAB OLIC PANL BUN 10 mg/dL (6-20) Not Available [facility] (Centralized Electronic Ordering - All Locations) Patient Can Go To The Location Of Their Choice, 01/21/2022 18:50:28 01/22/2001/21/2022 COMPR EHENS ARMEN METAB OLIC PANL creatinine 0.8 mg/dL (0.5-1 .0) Not Available [facility] (Centralized Electronic Ordering - All Locations) Patient Can Go To The Location Of Their Choice, 01/21/2022 18:50:28 01/22/2001/21/2022 COMPR EHENS ARMEN METAB OLIC PANL sodium 142 mmol/ L (133-1 45) Not Available [facility] (Centralized Electronic Ordering - All Locations) Patient Can Go To The Location Of Their Choice, 01/21/2022 18:50:28 01/22/2001/21/2022 COMPR EHENS ARMEN METAB OLIC PANL potassium 4.1 mmol/ L (3.6-5 .2) Not Available [facility] (Centralized Electronic Ordering - All Locations) Patient Can Go To The Location Of Their Choice, 01/21/2022 18:50:01/22/2001/21/2022 COMPR EHENS ARMEN METAB OLIC PANL chloride 106 mmol/ L (98-10 7) Not Available [facility] (Centralized Electronic Ordering - All Locations) Patient Can Go To The Location Of Their Choice, 01/21/2022 18:50:01/22/2001/21/2022 COMPR EHENS ARMEN METAB OLIC PANL bicarbonate 26 mmol/ L (22-29 ) Not Available [facility] (Centralized Electronic Ordering - All Locations) Patient Can Go To The Location Of Their Choice, 01/21/2022 18:50:01/22/2001/21/2022 COMPR EHENS ARMEN METAB OLIC PANL anion gap 10 (4-17) Not Available [facility] (Centralized Electronic Ordering - All Locations) Patient Can Go To The Location Of Their Choice, 01/21/2022 18:50:01/22/2001/21/2022 COMPR EHENS ARMEN METAB OLIC PANL albumin 4.5 gm/dL (3.4-4 .8) Not Available [facility] (Centralized Electronic Ordering - All Locations) Patient Can Go To The Location Of Their Choice, 01/21/2022 18:50:01/22/2001/21/2022 COMPR EHENS ARMEN METAB OLIC PANL calcium 9.1 mg/dL (8.6-1 0.5) Not Available [facility] (Centralized Electronic Ordering - All Locations) Patient Can Go To The Location Of Their Choice, 01/21/2022 18:50:01/22/2001/21/2022 COMPR EHENS ARMEN METAB OLIC PANL bilirubin,to bg 0.4 mg/dL (0-1.2 ) Not Available [facility] (Centralized Electronic Ordering - All Locations) Patient Can Go To The Location Of Their Choice, 01/21/2022 18:50:28 01/22/2001/21/2022 COMPR EHENS ARMEN METAB OLIC PANL total protein 6.6 gm/dL (6.2-8 .2) Not Available [facility] (Centralized Electronic Ordering - All Locations) Patient Can Go To The Location Of Their Choice, 01/21/2022 18:50:28 01/22/2001/21/2022 COMPR EHENS ARMEN METAB OLIC PANL Ag ratio 2.1 Not Available [facility] (Centralized Electronic Ordering - All Locations) Patient Can Go To The Location Of Their Choice, 01/21/2022 18:50:28 01/22/2001/21/2022 COMPR EHENS ARMEN METAB OLIC PANL AST 22 U/L (0-32) Not Available [facility] (Centralized Electronic Ordering - All Locations) Patient Can Go To The Location Of Their Choice, 01/21/2022 18:50:28 01/22/2001/21/2022 COMPR EHENS ARMEN METAB OLIC PANL alk phos 62 U/L (35-10 4) Not Available [facility] (Centralized Electronic Ordering - All Locations) Patient Can Go To The Location Of Their Choice, 01/21/2022 18:50:28 01/22/2001/21/2022 COMPR EHENS ARMEN METAB OLIC PANL ALT 10 U/L (0-33) Not Available [facility] (Centralized Electronic Ordering - All Locations) Patient Can Go To The Location Of Their Choice, 01/21/2022 18:50:28 01/22/2001/21/2022 COMPR EHENS ARMEN METAB OLIC PANL estimated GFR creatinine 91 mL/mi n/1.7 3_M2 Creat inine based estim ated glome rular filtr ation rate (eGFR ) is calcu lated using the Chron ic Kidne y Disea se Epide miolo gy Colla borat ion (CKD- EPI). The CKD-E PI calcu latio n is not valid ated in child lyle (<18 years ), pregn ant woman or in racia l or ethni c subgr oups. Not Available [facility] (Centralized Electronic Ordering - All Locations) Patient Can Go To The Location Of Their Choice, 01/21/2022 18:50:28 01/22/2001/21/2022 LIPID PANEL cholesterol, total 230 mg/dL (<200) high Not Available [facility] (Central[facility] Ordering - All Locations) Patient Can Go To The Location Of Their Choice, 01/21/2022 18:50:30 01/22/2001/21/2022 LIPID PANEL triglyceride 103 mg/dL (<150) Not Available [facility] ([facility] Order[facility] - All Locations) Patient Can Go To The Location Of Their Choice, 01/21/2022 18:50:30 01/22/2001/21/2022 LIPID PANEL HDL chol 88 mg/dL (>39) Not Available [facility] (Centralized Electronic Ordering - All Locations) Patient Can Go To The Location Of Their Choice, 01/21/2022 18:50:30 01/22/2001/21/2022 LIPID PANEL LDL cholesterol, calculated 121 mg/dL (0-130 ) Not Available [facility] (Centralized Electronic Ordering - All Locations) Patient Can Go To The Location Of Their Choice, 01/21/2022 18:50:30 01/22/2001/21/2022 LIPID PANEL non HDL cholesterol (calc) 142 mg/dL (<160) Not Available [facility] (Central[facility] Ordering - All Locations) Patient Can Go To The Location Of Their Choice, 01/21/2022 18:50:30 01/22/2001/21/2022 DIREC T BILIR UBIN bilirubin, direct <0.2 mg/dL (0-0.3 ) Not Available [facility] (Centralized Electronic Ordering - All Locations) Patient Can Go To The Location Of Their Choice, 01/21/2022 18:50:31 01/22/2001/21/2022 DIREC T BILIR UBIN indirect bilirubin mg/dL (0.0-0 .7) Direc t bilir ubin is less than the measu reabl e limit . There fore, indir ect bilir ubin canno t be calcu lated . Not Available [facility] (Centralized Electronic Ordering - All Locations) Patient Can Go To The Location Of Their Choice, 01/21/2022 18:50:31 01/22/2001/22/2022 MICHAELA WHITT RN BLOT IgG P93 Ab Absent Not Available [facility] (Centralized Electronic Ordering - All Locations) Patient Can Go To The Location Of Their Choice, 01/22/2022 19:06:10 01/22/20 22 01/22/2022 LYME WESTE RN BLOT IgG P66 Ab Absent Not Available [facility] (Centralized Electronic Ordering - All Locations) Patient Can Go To The Location Of Their Choice, 01/22/2022 19:06:10 01/22/20 22 01/22/2022 LYME WESTE RN BLOT IgG P58 Ab Absent Not Available [facility] (Centralized Electronic Ordering - All Locations) Patient Can Go To The Location Of Their Choice, 01/22/2022 19:06:10 01/22/20 22 01/22/2022 LYME WESTE RN BLOT IgG P45 Ab Absent Not Available [facility] (Centralized Electronic Ordering - All Locations) Patient Can Go To The Location Of Their Choice, 01/22/2022 19:06:10 01/22/20 22 01/22/2022 LYME WESTE RN BLOT IgG P41 Ab Absent Not Available [facility] (Centralized Electronic Ordering - All Locations) Patient Can Go To The Location Of Their Choice, 01/22/2022 19:06:10 01/22/20 22 01/22/2022 LYME WESTE RN BLOT IgG P39 Ab Presen t abnormal Not Available [facility] (Centralized Electronic Ordering - All Locations) Patient Can Go To The Location Of Their Choice, 01/22/2022 19:06:10 01/22/20 22 01/22/2022 LYME WESTE RN BLOT IgG P30 Ab Absent Not Available [facility] (Centralized Electronic Ordering - All Locations) Patient Can Go To The Location Of Their Choice, 01/22/2022 19:06:10 01/22/20 22 01/22/2022 LYME WESTE RN BLOT IgG P28 Ab Absent Not Available [facility] (Centralized Electronic Ordering - All Locations) Patient Can Go To The Location Of Their Choice, 01/22/2022 19:06:10 01/22/20 22 01/22/2022 LYME WESTE RN BLOT IgG P23 Ab Absent Not Available [facility] (Centralized Electronic Ordering - All Locations) Patient Can Go To The Location Of Their Choice, 01/22/2022 19:06:10 01/22/20 22 01/22/2022 LYME WESTE RN BLOT IgG P18 Ab Absent Not Available [facility] (Centralized Electronic Ordering - All Locations) Patient Can Go To The Location Of Their Choice, 01/22/2022 19:06:10 01/22/2001/22/2022 LYME WESTE RN BLOT lyme IgG WB interp NEGATI VE (NOTE ) Posit armen: 5 of the follo wing Borre anuradha-s pecif ic bands : 18,23 ,28,3 0,39, 41,45 ,58, 66, and 93. Negat armen: No bands or hernesto ng patte rns which do not meet posit armen crite kimberly. Not Available [facility] (Centralized Electronic Ordering - All Locations) Patient Can Go To The Location Of Their Choice, 01/22/2022 19:06:10 01/22/2001/22/2022 LYME WESTE RN BLOT IgM P41 Ab Absent Not Available [facility] (Centralized Electronic Ordering - All Locations) Patient Can Go To The Location Of Their Choice, [id number] 01/22/2022 19:06:10 01/22/20 22 01/22/2022 LYME WESTE RN BLOT IgM P39 Ab Absent Not Available [facility] (Centralized Electronic Ordering - All Locations) Patient Can Go To The Location Of Their Choice, [id number] 01/22/2022 19:06:10 01/22/2001/22/2022 LYME WESTE RN BLOT IgM P23 Ab Absent Not Available [facility] (Centralized Electronic Ordering - All Locations) Patient Can Go To The Location Of Their Choice, [id number] 01/22/2022 19:06:10 01/22/2001/22/2022 LYME WESTE RN BLOT lyme IgM WB interp NEGATI VE (NOTE ) Note: An equiv ocal or posit armen EIA resul t follo wed by a negat armen Line Blot resul t is consi dered NEGAT ARMEN. An equiv ocal or posit armen EIA resul t follo wed by a posit armen Line Blot is consi dered POSIT ARMEN by the CDC. Posit armen: 2 of the follo wing bands : 23,39 or 41 Negat armen: No bands or hernesto ng patte rns which do not meet posit armen crite kimberly. Crite kimberly for posit ivity are those recom hunter d by CDC/A STPHL D. p23 EQ Osp C, p41 EQ flage llin Note: Sera from indiv idual s with the follo wing may cross react in the Lyme Line Blot assay s: other valerio cheta l disea ses (alethea odont al disea se, lepto valerio sis, relap sing fever , yaws, and pinta ); conne ctive autoi mmune (Rheu matoi d Arthr itis and Syste missy Lupus Eryth emato wandy and also indiv idual s with Antin uclea r Antib gerry); other infec tions (Rock y [facility] ain Spott ed Fever ; Epste in-Ba rr Virus , and Cytom egalo virus ). Pleas e Note: Lyme immun oblot alone is not recom hunter d for the diagn osis of Lyme disea se. Curre nt guide lines recom mend the use of a two-t iered appro ach to Lyme serol ogy testi ng to impro ve the sensi tivit y and speci ficit y of testi ng. [facility] offer s test code 98659 6 Lyme Disea se Serol ogy with Refle x to aid in the diagn osis of Lyme Disea se. Test perfo rmed by [facility], [address], [place] [id number] Not Available [facility] (Centralized Electronic Ordering - All Locations) Patient Can Go To The Location Of Their Choice, [id number] 01/22/2022 19:06:10 09/10/20 22 09/10/2022 COMPL ETE CBC WITH DIFF WBC 4.7 K/mm3 (4.0-1 1.0) Not Available [facility] (Centralized Electronic Ordering - All Locations) Patient Can Go To The Location Of Their Choice, 09/10/2022 18:06:53 09/10/20 22 09/10/2022 COMPL ETE CBC WITH DIFF RBC 4.17 M/mm3 (4.20- 5.40) low Not Available [facility] (Centralized Electronic Ordering - All Locations) Patient Can Go To The Location Of Their Choice, [id number] 09/10/2022 18:06:53 09/10/20 22 09/10/2022 COMPL ETE CBC WITH DIFF HGB 11.6 gm/dL (11.7- 15.5) low Not Available [facility] (Centralized Electronic Ordering - All Locations) Patient Can Go To The Location Of Their Choice, 09/10/2022 18:06:53 09/10/2009/10/2022 COMPL ETE CBC WITH DIFF HCT 37.8 % (35.7- 45.8) Not Available [facility] (Centralized Electronic Ordering - All Locations) Patient Can Go To The Location Of Their Choice, 09/10/2022 18:06:53 09/10/2009/10/2022 COMPL ETE CBC WITH DIFF MCV 90.6 fL (80.0- 100.0) Not Available [facility] (Centralized Electronic Ordering - All Locations) Patient Can Go To The Location Of Their Choice, 09/10/2022 18:06:53 09/10/2009/10/2022 COMPL ETE CBC WITH DIFF MCH 27.8 pg (27.0- 34.0) Not Available [facility] (Centralized Electronic Ordering - All Locations) Patient Can Go To The Location Of Their Choice, 09/10/2022 18:06:53 09/10/2009/10/2022 COMPL ETE CBC WITH DIFF MCHC 30.7 g/dL (33.0- 37.0) low Not Available [facility] (Centralized Electronic Ordering - All Locations) Patient Can Go To The Location Of Their Choice, 09/10/2022 18:06:53 09/10/2009/10/2022 COMPL ETE CBC WITH DIFF plt 303 K/mm3 (150-4 60) Not Available [facility] (Centralized Electronic Ordering - All Locations) Patient Can Go To The Location Of Their Choice, 09/10/2022 18:06:53 09/10/2009/10/2022 COMPL ETE CBC WITH DIFF RDW-SD 57.0 fL (<47.0 ) high Not Available [facility] (Centralized Electronic Ordering - All Locations) Patient Can Go To The Location Of Their Choice, 09/10/2022 18:06:53 09/10/2009/10/2022 COMPL ETE CBC WITH DIFF MPV 11.5 fL (9.4-1 2.4) Not Available [facility] (Centralized Electronic Ordering - All Locations) Patient Can Go To The Location Of Their Choice, 09/10/2022 18:06:53 09/10/2009/10/2022 COMPL ETE CBC WITH DIFF automated NRBC 0.0 #/100 _WBC' s Not Available [facility] (Centralized Electronic Ordering - All Locations) Patient Can Go To The Location Of Their Choice, 09/10/2022 18:06:53 09/10/2009/10/2022 COMPL ETE CBC WITH DIFF abs. NRBC 0.0 K/mm3 Not Available [facility] (Centralized Electronic Ordering - All Locations) Patient Can Go To The Location Of Their Choice, 09/10/2022 18:06:53 09/10/2009/10/2022 COMPL ETE CBC WITH DIFF neut # 2.3 K/mm3 (1.3-7 .0) Not Available [facility] (Centralized Electronic Ordering - All Locations) Patient Can Go To The Location Of Their Choice, 09/10/2022 18:06:53 09/10/2009/10/2022 COMPL ETE CBC WITH DIFF lymph # 1.8 K/mm3 (0.8-3 .1) Not Available [facility] (Centralized Electronic Ordering - All Locations) Patient Can Go To The Location Of Their Choice, 09/10/2022 18:06:53 09/10/2009/10/2022 COMPL ETE CBC WITH DIFF mono# 0.6 K/mm3 (0.4-0 .9) Not Available [facility] (Centralized Electronic Ordering - All Locations) Patient Can Go To The Location Of Their Choice, 09/10/2022 18:06:53 09/10/2009/10/2022 COMPL ETE CBC WITH DIFF eo # 0.0 K/mm3 (0.0-0 .4) Not Available [facility] (Centralized Electronic Ordering - All Locations) Patient Can Go To The Location Of Their Choice, 09/10/2022 18:06:53 09/10/2009/10/2022 COMPL ETE CBC WITH DIFF baso # 0.0 K/mm3 (0.0-0 .1) Not Available [facility] (Centralized Electronic Ordering - All Locations) Patient Can Go To The Location Of Their Choice, 09/10/2022 18:06:53 09/10/2009/10/2022 COMPL ETE CBC WITH DIFF abs. imm gran 0.0 K/mm3 Not Available [facility] (Centralized Electronic Ordering - All Locations) Patient Can Go To The Location Of Their Choice, 09/10/2022 18:06:53 09/10/2009/10/2022 COMPL ETE CBC WITH DIFF neut 48.1 % (44-76 ) Not Available [facility] (Centralized Electronic Ordering - All Locations) Patient Can Go To The Location Of Their Choice, 09/10/2022 18:06:53 09/10/2009/10/2022 COMPL ETE CBC WITH DIFF lymph 38.8 % (15-43 ) Not Available [facility] (Centralized Electronic Ordering - All Locations) Patient Can Go To The Location Of Their Choice, 09/10/2022 18:06:53 09/10/2009/10/2022 COMPL ETE CBC WITH DIFF monocyte 11.7 % (4.5-1 0.5) high Not Available [facility] (Centralized Electronic Ordering - All Locations) Patient Can Go To The Location Of Their Choice, 09/10/2022 18:06:53 09/10/2009/10/2022 COMPL ETE CBC WITH DIFF eo 0.6 % (0-6) Not Available [facility] (Centralized Electronic Ordering - All Locations) Patient Can Go To The Location Of Their Choice, 09/10/2022 18:06:53 09/10/2009/10/2022 COMPL ETE CBC WITH DIFF baso 0.6 % (0-2) Not Available [facility] (Centralized Electronic Ordering - All Locations) Patient Can Go To The Location Of Their Choice, 09/10/2022 18:06:53 09/10/2009/10/2022 COMPL ETE CBC WITH DIFF imm gran 0.2 % Not Available [facility] (Centralized Electronic Ordering - All Locations) Patient Can Go To The Location Of Their Choice, 09/10/2022 18:06:53 01/22/2001/21/2022 XR, foot, 3 or more view Foot Min 3 Views Right, 3 views Reason : pain in right foot COMPAR MINH: None. FINDIN GS: No fractu res or bone lesion s. There is hallux valgus . Mild bony prolif eratio n is seen at the first metata rsal head. Normal soft tissue s. IMPRES CHUCKY: Hallux valgus and mild degene rative change of the first metata rsopha langea l joint with no acute displa johnnie fractu re. WSN: [id number] Orderi ng Physic andres: Wellington Longoria Dictat ed By: Bertha Grimaldo ra, MD Dictat ed Date/T damien: 10:18 a Review ed By: Bertha Grimaldo ra, MD Signed By: Bertha Grimaldo ra, MD Signed Date/T damien: 10:18 am Transc ribed By: LIVE Transc ribed Date/T damien: 10:17 am Patien t Class: Outpat ient [facility] (Outpt Imaging) [address] [place], [address], 01/27/2022 10:46:22 01/22/20 22 01/21/2022 XR, foot, 3 or more view No observ ation record ed. jm [facility] [address] [place], [address], 01/21/2022 10:45:19 Result Notes None recorded. Problems Name Problem SNOMED Code Status Onset Date Resolution Date Notes Provider Name and Address Organization Details Recorded Time Generali zed abdomina l pain 492567303 Completed 201205/16/2014 RECORDED 09/16/20 13 9:41AM BY BECCA VENTURA MA, PAYTON ON/MIRZA burks [facility] [place] 6 17:01:16 Abnormal weight loss 146120332 Completed 200905/16/2014 RECORDED 07/18/20 10 9:47AM BY PAYTON LOPEZ ON/MIRZA burks [facility] [place] 6 17:01:16 Acute sinusiti s 31039601 Completed 201205/16/2014 RECORDED 09/16/20 13 9:42AM BY BECCA VENTURA MA, ANNOTATI ON/ADDEN DUM Natasha D'Alessan kaelyn null, [facility] 6 17:01:16 Screenin g for malignan t neoplasm of breast Completed 201311/06/2016 Tameka Nguyễn MA null, [facility] 7 13:18:55 Screenin g for malignan t neoplasm of cervix Completed 201305/16/2014 RECORDED 02/15/20 14 12:57PM BY RENEE SUH MA, ANNOTATI ON/ADDEN DUM Natasha D'Alessan kaelyn null, [facility] 6 17:01:16 Screenin g for malignan t neoplasm of colon Completed 201205/16/2014 RECORDED 09/16/20 13 9:42AM BY BECCA VENTURA MA, ANNOTATI ON/ADDEN DUM Natasha D'Alessan kaelyn null, [facility] 6 17:01:16 Conjunct ivitis 0302020 Completed 200805/16/2014 RECORDED 12/20/19 09 2:26PM BY MARIALUISA RITCHIE, KARUNAATI ON/ADDEN DUM Natasha D'Alessan kaelyn null, [facility] 6 17:01:16 Constipa tion 33266455 Completed 201205/16/2014 RECORDED 09/16/20 13 9:41AM BY BECCA VENTURA MA, ANNOTATI ON/ADDEN DUM Nurys graham MA null, [facility] 0 09:22:10 Epidermo id cyst of skin 135916877 Completed 200905/16/2014 RECORDED 07/18/20 10 9:47AM BY PAYTON LOPEZ ON/ADDEN DUM Natasha D'Alessan kaelyn null, [facility] 6 17:01:16 Malaise and fatigue 488045073 Completed 201311/06/2016 Tameka burks, [facility] 7 13:18:58 Influenz a vaccine needed 31347685066 06 Completed 201205/16/2014 RECORDED 09/16/20 13 10:28AM BY BECCA VENTURA MA, OFFICE VISIT Natasha burks, [facility] 6 17:01:16 Adult health examinat ion Completed 201311/06/2016 Tameka burks, [facility] 7 13:18:50 Geograph ic tongue 71032867 Completed 201205/16/2014 RECORDED 09/16/20 13 9:42AM BY BECCA VENTURA MA, ANNOTATI ON/ADDEN DUM Natasha burks, [facility] 6 17:01:16 Hyperlip idemia 39534132 Completed 201302/25/2019 Sidney Longoria PA-C [address], [place], [address], [facility] 9 14:58:25 Insomnia 808797696 Completed 201305/16/2014 RECORDED 12/16/19 14 12:47PM BY BECCA VENTURA MA, PAYTON ON/ADDEN DUM Sidney Longoria PA-C [address], [place], [address], [facility] 2 11:54:11 Knee pain Completed 201205/16/2014 RECORDED 09/16/20 13 9:42AM BY BECCA VENTURA MA, ANNOTATI ON/ADDEN DUM Natasha burks, [facility] 6 17:01:16 Major depressi on single episode, in partial remissio n 08625712 Active 2013 [facility], [facility] 6 17:01:16 Nausea 204637257 Completed 200905/16/2014 RECORDED 07/18/20 10 9:47AM BY PAYTON LOPEZ ON/ADDEN HAIDER burks [facility] 6 17:01:16 Administ ration of bacteria l and viral vaccine Completed 200705/16/2014 RECORDED 09/14/20 08 4:03PM BY NATASHA ART MD, OFFICE VISIT Natasha burks, [facility] 6 17:01:16 Patient status finding 483171663 Completed 201311/06/2016 Tameka burks [facility] 7 13:18:52 Patient status finding 659642081 Completed 201305/16/2014 RECORDED 12/16/19 14 12:48PM BY BECCA VENTURA MA, OFFICE VISIT Tameka burks [facility] 7 13:18:52 Adult health examinat ion Completed 201205/16/2014 RECORDED 09/16/20 13 10:31AM BY TIERRA AMBROSIO, PAYTON ON/ADDEN HAIDER burks [facility] 7 13:18:50 Generali zed abdomina l pain 505182911 Completed 201206/05/2014 RECORDED 09/16/20 13 9:41AM BY BECCA VENTURA MA, ANNOTATI ON/ADDEN HAIDER burks [facility] 6 17:01:16 Abnormal weight loss 221279023 Completed 200906/05/2014 RECORDED 07/18/20 10 9:47AM BY PAYTON LOPEZ ON/ADDMANFRED burks [facility] 6 17:01:16 Acute sinusiti s 47056548 Completed 201206/05/2014 RECORDED 09/16/20 13 9:42AM BY BECCA VENTURA MA, ANNOTATI ON/ADDEN DUM Natasha D'Alessan kaelyn null, [facility] 6 17:01:16 Disorder of breast 72064902 Completed 201311/06/2016 Tameka Nguyễn MA null, [facility] 7 13:19:12 Screenin g for malignan t neoplasm of cervix Completed 201306/05/2014 RECORDED 02/15/20 14 12:57PM BY RENEE SUH MA, ANNOTATI ON/ADDEN DUM Natasha D'Alessan kaelyn null, [facility] 6 17:01:16 Screenin g for malignan t neoplasm of colon Completed 201206/05/2014 RECORDED 09/16/20 13 9:42AM BY BECCA VENTURA MA, ANNOTATI ON/ADDEN DUM Natasha D'Alessan kaelyn null, [facility] 6 17:01:16 Conjunct ivitis 7968212 Completed 200806/05/2014 RECORDED 12/20/19 09 2:26PM BY MARIALUISA RITCHIE, KARUNAATI ON/ADDEN DUM Natasha D'Alessan kaelyn null, [facility] 6 17:01:16 Constipa tion 88816381 Completed 201206/05/2014 RECORDED 09/16/20 13 9:41AM BY BECCA VENTURA MA, ANNOTATI ON/ADDEN DUM Nurys graham MA null, [facility] 0 09:22:10 Epidermo id cyst of skin 934111482 Completed 200906/05/2014 RECORDED 07/18/20 10 9:47AM BY KARUNA LOPEZATI ON/ADDEN DUM Natasha D'Alessan kaelyn null, [facility] 6 17:01:16 Elevated level of transami nase and lactic acid dehydrog enase 640065243 Completed 201311/06/2016 Tameka burks, [facility] 7 13:19:02 Influenz a vaccine needed 03265815156 06 Completed 201206/05/2014 RECORDED 09/16/20 13 10:28AM BY BECCA VENTURA MA, OFFICE VISIT Natasha burks, [facility] 6 17:01:16 Geograph ic tongue 09483473 Completed 201206/05/2014 RECORDED 09/16/20 13 9:42AM BY BECCA VENTURA MA, ANNOTATI ON/ADDEN DUM Natasha burks, [facility] 6 17:01:16 Insomnia 150642288 Completed 201306/05/2014 RECORDED 12/16/19 14 12:47PM BY BECCA VENTURA MA, ANNOTATI ON/ADDEN DUM Sidney Bharath REMY [address] [facility] [address], [facility] [address] [place] [address] 2 11:54:11 Knee pain Completed 201206/05/2014 RECORDED 09/16/20 13 9:42AM BY BECCA VENTURA MA, PAYTON ON/ADDEN DUM Natasha burks, [facility] 6 17:01:16 Nausea 793768451 Completed 200906/05/2014 RECORDED 07/18/20 10 9:47AM BY PAYTON LOPEZ ON/ADDEN [facility] Natasha burks, [facility] 6 17:01:16 Administ ration of bacteria l and viral vaccine Completed 200706/05/2014 RECORDED 09/14/20 08 4:03PM BY NATASHA ART MD, OFFICE VISIT Natasha burks, [facility] 6 17:01:16 Multiple bruising 991387935 Completed 11/06/2016 Tameka burks, [facility] 7 13:19:06 Onychomy cosis 893164853 Active Natasha art null, [facility] 6 17:01:16 Fatigue 05320926 Completed 11/06/2016 Tameka Nguyễn MA null, [facility] 7 13:19:09 Anti-nuc lear factor detected 004319328 Active 2019 Sidney Longoria Sticher-C [address], [place], [address], [facility] 0 09:30:54 Constipa tion 59066584 Active Nurys graham MA null, [facility] 0 09:22:10 Family history of cancer of colon 855985665 Active 2019 Sidney Longoria Sticher-C [address], [place], [address], [facility] 0 09:39:14 Raynaud' s disease 229178317 Completed 202001/18/2021 Sidney Longoria Sticher-C [address], [place], [address], [facility] 2 14:21:58 Easy bruising 938863217 Active 2021 Sidney MAYORGA-C [address], [place], [address], [facility] 2 13:49:12 Paresthe afsaneh 03330856 Active 2021 Sidney MAYORGA-C [address], [place], [address], [facility] 2 14:26:26 Spontane ous ecchymos is 851540734 Active 2021 Sidney MAYORGA-C [address], [place], [address], [facility] 2 09:20:41 Neutrope bam 833447971 Active 2021 Sidneytunde MAYORGA-C [address] [facility] [address], [place], [address], [facility] 2 09:20:54 Raynaud' s disease 054691096 Active 2021 Sidney MAYORGA-C [address] [facility] [address], [place], [address], [facility] 2 14:21:58 Attentio n deficit hyperact ivity disorder , predomin antly inattent armen type 03762611 Active 2021 Sidney MAYORGA-C [address] [facility] [address], [place], [address], [facility] 2 14:42:48 Chronic idiopath ic thromboc ytopenic purpura 97109414 Active 2021 Estela burks, [facility] 2 11:30:12 Insomnia 459062312 Active 2021 RECORDED 12/16/19 14 12:47PM BY BECCA VENTURA MA, ANNOTATI ON/ADDEN DUM Sidney MAYORGA-C [address] [facility] [address], [place], [address], [facility] 2 11:54:11 Carpal tunnel syndrome 89103524 Active 2021 Sidney MAYORGA-C [address] [facility] [address], [place], [address], [facility] 2 11:56:22 Problem Notes None recorded. Procedures Surgical History Date Name Laterality Status Provider Name and Address Organization Details Recorded Time 11/28/19 22 Date of Last Pap Smear completed Heather Linares [facility] 12/10/2021 13:56:38 05/22/20 21 Date of Last Colonoscopy completed Heather Linares [facility] 05/22/2021 10:43:01 05/22/20 21 Colonoscopy completed Heather Linares [facility] 05/22/2021 10:42:54 12/11/19 21 Most Recent Mammogram completed Heather Linares [facility] 12/19/2020 15:11:57 12/11/19 21 Mammogram screening completed Heather Linares [facility] 12/19/2020 15:11:51 08/03/20 17 Mastopexy completed Nurys rutherford [place] [facility] 10/03/2020 09:15:13 08/03/20 17 revision of breast implant completed Nurys rutherford [place] [facility] 10/03/2020 09:16:16 11/21/19 17 Joint Injection completed Antoine Alexander MD [address] [facility] [address] [place] [address], [address], [facility] 11/22/2016 11:36:33 Knee Surgery completed Nurys rutherford [place] [facility] 01/18/2021 13:44:55 Imaging Results Imaging Date Name Status LastModified by Organiz ation Details LastModified Time 01/21/2022 XR, foot, 3 or more view completed [facility] (Outpt Imaging) [address] [place], [address], 01/27/2022 10:46:22 01/21/2022 XR, foot, 3 or more view completed jm [facility] [address] [place], [address], 01/21/2022 10:45:19 Procedure Notes None recorded. Medical Equipment None Reported. Allergies No known drug allergies Medications Name Sig Start Date Stop Date Status Note LastModified by Organization Details LastModified Time multivita min tablet Take 1 tablet every day by oral route. 01/20 completed Not Available Not Available Not Available amoxicill in 500 mg capsule active Not Available Not Available Not Available fluconazo le 100 mg tablet Take 1 tablet every day by oral route for 42 days. 11/19 completed Not Available Not Available Not Available methocarb radha 500 mg tablet 08/08 completed Not Available Not Available Not Available clindamyc in HCl 300 mg capsule active Not Available Not Available Not Available trazodone 50 mg tablet TAKE 1 TABLET BY MOUTH EVERY DAY 11/07 completed Not Available Not Available Not Available cephalexi n 250 mg capsule 11/19 completed Not Available Not Available Not Available Zithromax Z-Sandeep 250 mg tablet DAILY 11/19 completed RECORDED 11/17/19 12 1:39PM BY TIERRA ISRAEL, MEDICATI ON AUTO-ERENDIRA CTIVATIO N;TAKE 2 PILLS ON DAY 1, THEN 1 PILL DAILY ON DAYS 2-5. Not Available Not Available Not Available clindamyc in HCl 150 mg capsule 01/23 completed Not Available Not Available Not Available prochlorp erazine maleate 10 mg tablet 3 TIMES A DAY 06/01 completed RECORDED 07/18/20 10 9:45AM BY SUE ALEJANDRE MD, MEDICATI ON AUTO-ERENDIRA CTIVATIO N; Not Available Not Available Not Available acyclovir 400 mg tablet TAKE 1 TABLET BY MOUTH TWICE A DAY NEEDED FOR 20 DAYS active Not Available Not Available No t Available meloxicam 7.5 mg tablet Take 1 tablet twice a day by oral route as needed for 30 days. 11/19 completed Not Available Not Available Not Available oxycodone -acetamin ophen 5 mg-325 mg tablet 11/19 completed Not Available Not Available Not Available terbinafi ne HCl 250 mg tablet Take 1 tablet every day by oral route for 42 days. 11/06 completed Not Available Not Available Not Available citalopra m 20 mg tablet DAILY 12/22 completed RECORDED 12/22/19 14 5:19PM BY NATASHA ART MD, ANNOTATI ON/MIRZA MALONEY; Not Available Not Available Not Available Ear Drops (carbamid e peroxide) 6.5 % PLACE 5 DROPS IN BOTH EARS DAILY FOR 5 DAYS active Not Available Not Available No t Available lorazepam 1 mg tablet AT BEDTIME 12/16 completed RECORDED 12/16/19 14 12:55PM BY BECCA VENTURA MA, OFFICE VISIT;NE ZAHRAA FILLED Not Available Not Available Not Available doxycycli ne hyclate 100 mg tablet TAKE 1 TABLET BY MOUTH TWICE A DAY FOR 10 DAYS active Not Available Not Available No t Available diazepam 5 mg tablet 11/19 completed Not Available Not Available Not Available bupropion HCl XL 300 mg 24 hr tablet, extended release TAKE 1 TABLET BY MOUTH EVERY DAY WITH 150 MG TAB FOR DOSE OF 450 MG DAILY 2022 active Not Available Not Available Not Avai lable bupropion HCl XL 150 mg 24 hr tablet, extended release TAKE 1 TABLET BY MOUTH EVERY DAY DIRECTED active Not Available Not Available No t Available mirtazapi ne 7.5 mg tablet TAKE 1 TABLET BY MOUTH EVERY DAY active Not Available Not Available No t Available Curcumin 1 capsule po daily 11/07 completed Not Available Not Available Not Available GaviLyte- G 236 gram-22.7 4 gram-6.74 gram-5.86 gram oral solution 01/20 completed Not Available Not Available Not Available Lo Loestrin Fe 1 mg-10 mcg (24)/10 mcg (2) tablet Take 1 tablet every day by oral route for 84 days. 08/08 completed Not Available Not Available Not Available BinaxNOW COVID-19 Ag Self Test kit USE DIRECTED 09/10 completed Not Available Not Available Not Available Vitals Date Recorded Body height Body mass index (BMI) Body weight Heart rate Oxygen saturation Oxygen saturation in Arterial blood by Pulse oximetry Body temperature Systolic blood pressure Diastolic blood pressure Provider Name and Address Organization Details Last Updated DateTime 2 153.67 cm 25 kg/m2 25673.0 1 g 70 /min 97 % 97 % 98.96 [degF] 115 mm[Hg] 63 mm[Hg] Patricia Freeman MA [facility] 2 13:48:40 Date Recorded Body height Body mass index (BMI) Body weight Heart rate Oxygen saturation Oxygen saturation in Arterial blood by Pulse oximetry Body temperature Systolic blood pressure Diastolic blood pressure Provider Name and Address Organization Details Last Updated DateTime 2 153.67 cm 25.4 kg/m2 17977.1 9 g 70 /min 97 % 97 % 98.96 [degF] 130 mm[Hg] 85 mm[Hg] Patricia Freeman MA [facility] 2 11:21:26 Date Recorded Body height Body mass index (BMI) Body weight Heart rate Oxygen saturation Oxygen saturation in Arterial blood by Pulse oximetry Body temperature Systolic blood pressure Diastolic blood pressure Provider Name and Address Organization Details Last Updated DateTime 3 153.67 cm 24.8 kg/m2 65202.4 2 g 73 /min 98 % 98 % 98.1 [degF] 115 mm[Hg] 72 mm[Hg] Evelyne Espino MA [facility] 3 15:17:51 Date Recorded Body height Provider Name an d Address Organization Details Last Updated DateTime 03/09/2023 153.67 cm Natasha Tatum MA [facility] 03/09/2023 12:53:26 Social History Question Answer Notes LastModified by Organizat ion Details LastModified Time Tobacco Smoking Status Never [facility] 01/18/[facility]21 13:44:23 Do You Have An Advance Directive? Yes Information not available 09/10/2022 What Is Your Level Of Alcohol Consumption? Moderate 1 Glass Of Wine In The Evening Information not available 01/18/2021 Is Blood Transfusion Acceptable In An Emergency? No Information not available 02/25/2019 What Is Your Level Of Caffeine Consumption? Moderate 2 Cups Of Coffee Daily Information not available 01/18/2021 How Much Tobacco Do You Chew? None Information not available 12/27/2015 Are You Currently Employed? Yes Information not available 2015 What Type Of Diet Are You Following? REGULAR Information not available 2015 Which Illicit Or Recreational Drugs Have You Used? None Information not available 12/27/2015 Do You Or Have You Ever Used E-cigarettes Or Vape? Never Used Electronic Cigarettes Information not available 09/10/2022 What Is Your Occupation? [employer] Information not available 12/27/2015 Live Alone Or With Others? With Others (Jeremiah) And 2 Children Information not available 09/10/2022 Do You Take Precautions To Prevent Distracted Driving? Yes Information not available 12/27/2015 How Often Do You Need To Have Someone Help You When You Read Instructions, Pamphlets, Or Other Written Material From Your Doctor Or Pharmacy? Never Information not available 12/27/2015 Have You Served In The ? No Information not available 11/06/2016 Have You Or Anyone In Your Household Had Any Of The Following Symptoms In The Last 14 Days: Sore Throat, Cough, Chills, Body Aches For Unknown Reasons, Shortness Of Breath For Unknown Reasons, Loss Of Smell, Loss Of Taste, Fever At Or Greater Than 100 Degrees Fahrenheit? No Information not available 08/08/2020 Are You Or Anyone In Your Household A Health Care Provider Or Emergency Responder? No Information not available 08/08/2020 To The Best Of Your Knowledge Have You Been In Close Proximity To Any Individual Who Tested Positive For COVID-19? No Information not available 08/08/2020 Have You Recently Traveled To A COVID-19 High Risk Area Or Gathering In The Last 10 Days? No Information not available 01/18/2021 What Was The Date Of Your Most Recent Tobacco Screening? 01/18/2021 Information not available 09/10/2022 How Many Children Do You Have? 2 Alejandro And Shaun Information not available 2015 Do You Use Protection During Sex? No Information not available 12/27/2015 Do You Use Your Seat Belt Or Car Seat Routinely? Yes Information not available 03/12/2022 Seat Belts Used Routinely Yes Information not available 09/10/2022 Are You Sexually Active? Yes Information not available 12/27/2015 Smoke Alarm In Home Yes Information not available 09/10/2022 Do You Have Smoke And Carbon Monoxide Detectors In Your Home? Yes [email or web address] Information not available 03/12/2022 At What Age Did You Start Smoking Tobacco? 0 Information not available 01/18/2021 Are You Passively Exposed To Smoke? No Information not available 02/25/2019 Do You Or Have You Ever Used Smokeless Tobacco? Never Used Smokeless Tobacco [email or web address] Information not available 03/12/2022 How Much Tobacco Do You Smoke? No [email or web address] Information not available 03/12/2022 Do You Use Sunscreen Routinely? Yes Information not available 12/27/2015 How Many Years Have You Smoked Tobacco? 0 Information not available 01/18/2021 Sex: Unknown Functional Status Question Answer Note LastModified by Organizat ion Details LastModified Time Are you able to care for yourself? Yes Information not available 12/27/2015 What is your exercise level? Occasional Information not available 01/18/2021 Mental Status None recorded. Family History Relationship Description Onset Age of this Age Resolved Age Notes LastModified by Organization Details LastModified Time Mother Thyroid nodule Not available 2021 11:12:30 Mother Colitis Not available 11:12:30 Father Diabetes mellitus 65/Typ e 2/not overwe ight [email or web address] Not available 12/27/2015 15:04:09 Paternal Grandmother Diabetes mellitus 65 bsolivanmatto s Not available 01/18/2021 13:30:45 Unspecified Relation Primary malignant neoplasm of colon matern al great grandf ather Not available 09/10/2022 11:12:30 Unspecified Relation Depressive disorder [email or web address] s Not available 01/18/2021 13:30:45 Medical History Condition Response Other N Depression Y Gynecological History Statement/Question Response Date of Last Pap Smear 11/28/2021 Date of Last Colonoscopy 05/22/2021 Most Recent Mammogram 12/11/2020 Obstetrics History GPAL:G 0 P 0 0 0 0 Immunizations Vaccine Type Date Status Note Provider Nam e and Address Organization Details Recorded Time COVID-19, mRNA, LNP-S, PF, 100 mcg/0.5mL dose or 50 mcg/0.25mL dose completed MARIALUISA Blunt MA [facility] [place] 01/18/2021 13:42:39 COVID-19, mRNA, LNP-S, PF, 100 mcg/0.5mL dose or 50 mcg/0.25mL dose 1 completed Patricia Freeman MA null, [facility] [place] 03/12/2022 13:41:59 Influenza, split virus, quadrivalent, PF 8 completed Not Available [facility] 11/12/2019 02:22:16 Tdap 9 completed Not Available [facility] 11/12/2019 02:21:49 Influenza, split virus, quadrivalent, PF 2 completed Sidney Longoria PA-C [address] [facility] [address], [place], [address], [facility] 09/10/2022 16:46:39 Td (adult), 2 Lf tetanus toxoid, preservative free, adsorbed 9 completed Not Available [facility] 05/09/2014 14:09:46 Tdap 8 completed Not Available [facility] 05/09/2014 14:09:46 influenza, seasonal, intradermal, preservative free 3 completed Not Available [facility] 05/09/2014 14:09:46 Past Encounters Encounter ID Performer Location Encounter Start Date Encounter Closed Date Diagnosis/Indication Diagnosis SNOMED-CT Code Diagnosis ICD10 Code Diagnosis Note [id number] autoEComm erce [address] [facility] [place] [address] 08/15/2008 00:00:00 [id number] autoEComm erce [address] [facility] [place] [address] 09/14/2008 00:00:00 [id number] autoEComm erce [address] [facility] [place] [address] 07/25/2010 00:00:00 [id number] autoEComm erce [address] [facility] [place] [address] 11/14/2010 00:00:00 [id number] autoEComm erce [address] [facility] [place] [address] 09/16/2013 00:00:00 [id number] autoEComm erce [address] [facility] [place] [address] 10/18/2013 00:00:00 [id number] autoEComm erce [address] [facility] [place], MAR[place] [address] 12/16/2013 00:00:00 [id number] autoEComm erce [address] [facility] [place], MAR[place] [address] 02/14/2014 00:00:00 [id number] Becca Ventura Main Office [address] [facility] [address] [place] [address] 2015 14:53:57 2015 15:59:11 Adult health examination 640419874 Major depr ession single episode, in partial remission 96909405 Malaise and fatigue 002720433 [id number] Natasha AnsariWolfSelma kingsley Main Office [address] [facility] [address] [place] [address] 12/27/2015 14:11:03 12/27/2015 15:07:55 Multiple bruising 540909304 T14.8 Onychomycosis 142974465 B35.1 Fatigue 46783517 R53.83 [id number] Natasha AnsariWolfSelma kingsley Main Office [address] [facility] [address] [place] [address] 11/06/2016 13:15:41 11/06/2016 14:15:29 Adult health examination 835085101 Z00.00 Onychomycosis 935236287 B35.1 Fatigue 47541045 R53.83 [id number] Megan Paul Main Office [address] [facility] [address] [place] [address] 11/21/2016 14:32:42 11/21/2016 16:09:19 Inflammation of rotator cuff tendon 197525660 M65.811 Dr. Alexander also in to eval patient, cortisone injection placed today to right shoulder, procedure explained to patient by Dr. Alexander, Kenalog/li docaine 10ml injection placed to posterior right shoulder without incident, patient tolerated procedure well. May take 2-3 days for cortisone to kick in.PT referral provided, she will need to work on internal external rotation exercises. May continue ibuprofen as needed with food, ice 4 times daily, exercises as discussed. [id number] Megan Paul Main Office [address] [address] [place] [address] 12/02/2016 11:32:06 12/02/2016 12:12:43 Bilateral hip joint pain 5709706886 [id number] M25.551 M25.552 RICE advised, meloxicam BID, gentle stretching as tolerated, return for worsening. Multiple joint pain 3567 8005 M25.50 Patient has had shoulder , foot and now hip pain within short period of time, would like to have blood work done. [id number] Natasha kingsley Main Office [address] [place] [address] 01/23/2017 13:18:12 01/23/2017 14:05:38 Shoulder pain 62425231 M25.511 [id number] Tameka Nguyễn MA Main Office [address] [place] [address] 11/19/2017 13:53:40 11/19/2017 14:38:03 Adult health examination 810260182 Z00.00 Administra tion of viral vaccine 74951716 Z23 Fatigue 71164328 R53.83 Ferritin l evel below reference range 491438016 R77.8 Major depr ession single episode, in partial remission 78402545 F32.4 [id number] Sidney Longoria PA-C Main Office [address] [place] [address] 09/22/2018 13:47:01 09/22/2018 14:45:13 Major depression single episode, in partial remission 39083789 F32.4 Pt. is doing very well on current meds. In partial remission. Will continue counseling . F/u as sscheduled in 2019 Needs infl uenza immunization 584608227 Z23 [id number] Sidney Longoria PA-C Main Office [address] [place] [address] 02/25/2019 14:28:43 02/25/2019 15:15:27 Adult health examination 166963594 Z00.00 Administra tion of viral vaccine 06821910 Z23 Screening for malignant neoplasm of breast 123490167 Z12.31 Screening for malignant neoplasm of cervix 259234919 Z12.4 Major depr ession single episode, in partial remission 54180420 F32.4 Pt. is doing very well on current meds. In partial remission. Will continue counseling . F/u in 1 year. [id number] Adenike cote Main Office [address] [address] [place] [address] 03/31/2020 08:14:38 04/02/2020 08:40:36 Recurrent oral herpes simplex infection 609043693 B00.2 treat as below, visit if not improving. prefers acyclovir [id number] Sidney Longoria PA-C [employer] [address] [address] [place] [address] 08/08/2020 11:09:55 08/08/2020 13:31:02 Multiple joint pain 95735004 M25.50 Fatigue 03812915 R53.83 Screening for malignant neoplasm of cervix 424895548 Z12.4 Screening for malignant neoplasm of breast 256816539 Z12.31 Tension-type headache 39 7678190 G44.209 [id number] Sidney Longoria PA-C [employer] [address] [address] [place] [address] 10/03/2020 08:43:18 10/03/2020 11:57:58 Constipation 22184027 K59.00 tried all otc options Family his tory of cancer of colon 015406185 Z80.0 refer for colonoscop y [id number] Sidney Longoria PA-C Main Office [address] [address] [place] [address] 01/18/2021 13:26:36 01/18/2021 14:21:53 Adult health examination 954017132 Z00.00 vaccines are up to date. Anti-nucle ar factor detected 045232994 R76.8 F/u with rheumatolo gy as scheduled in January. Screening for malignant neoplasm of colon 361384398 Z12.11 family h/o precancero us polyps in mother and sister. Hyperlipidemia 89089671 E78.5 Vitamin D deficiency 347 54216 E55.9 [id number] Sidney Longoria PA-C [employer] [address] [address] [place] [address] 01/20/2022 09:20:23 01/21/2022 10:16:32 Easy bruising 122664994 R58 r/o renal, liver disease. ? connective tissue disease, lupus, which was not confirmed by rheumatolo [facility] assessment in October 2020. Blood coag ulation disorder 42426835 D69.9 spontaneou s ecchymois of hands and/or hematoma of R. foot. Lab testing with considerat ion of hem/onc referral for further eval. i Paresthesia 43291770 R20 .2 recurrent , extremitie s with reported peripheral weakness. Advised first on lab testing to r/o thyroid disease, lymes disease, B12 deficiency . Consider further neurologic evaluation with MRI or neurology referral. Hyperlipidemia 61879911 E78.5 Pain in right foot 18454 59860 30960 M79.671 [id number] Sidney Longoria PA-C Main Office [address] [facility] [address] [place] [address] 03/12/2022 13:39:16 03/12/2022 14:51:06 Adult health examination 558509786 Z00.00 vaccines are up to date. Raynaud's disease 981812 006 I73.00 F/u with rheumatolo gist. Screening for malignant neoplasm of breast 013300552 Z12.31 Neutropenia 818308084 D7 0.9 F/u with hematology . Major depr ession single episode, in partial remission 86881938 F32.4 Pt. is doing well on current meds. Family his tory of cancer of colon 021156489 Z80.0 F/u colonoscop y in 2025 Anti-nucle ar factor detected 467181083 R76.8 F/u with rheumatolo gy . Additional testing might be needed if hem/onc work up is inconclusi ve or negative. Attention deficit hyperactivity disorder, predominantly inattentive type 26757263 F90.0 refer to neuropsych for evaluation . Constipation 16309278 K5 9.00 Continue MiraLax powder daily. [id number] Sidney Longoria PA-C Main Office [address] [facility] [address] [place] [address] 09/10/2022 11:12:01 09/10/2022 12:02:18 Neutropenia 721742310 D70.9 Repeat cbc and if still WBCs are suppressed , we will ask hem/onc for the eval. Needs infl uenza immunization 580190863 Z23 Major depr ession single episode, in partial remission 05002602 F32.4 PHQ-2 score of 0. Stable. WE will increase bupropion XL to 300 due to anxiety related to personal stress. F/u 6 weeks or sooner. Generalize d anxiety disorder 17455573 F41.1 Pt. is going through immense stress at home despite her LIBAN score of 7. rec increasing Bupropion to 300mg. Therapy is advised. F/u 4-6 weeks. Insomnia 786595682 G47.0 1 Pt is unable to sleep even with use of melatonin. rec trazodone 50 mg. Carpal mike donal syndrome 06735875 G56.01 Pt reports worsening right carpal tunnel. Pt requested a referral to [facility] [id number] Sidney Longoria PA-C Main Office [address] [facility] [address] [place] [address] 11/07/2022 15:02:37 11/07/2022 15:47:24 Major depression single episode, in partial remission 74219145 F32.4 PHQ-2 score of 0. Stable. LIBAN is 6. We will continue bupropion XL 150. Add mirtazapin e 7.5 mg at HS for sleep. Recommend therapy. F/u 3 m. Insomnia 869263792 G47.0 1 begin mirtazapin e 7.5 mg at night. F/u for dose adjustment in 4-6 weeks. [id number] Sidney Longoria PA-C [facility] [address] [facility] [address] [place] [address] 03/09/2023 12:23:37 03/09/2023 13:54:14 Acute sinusitis 16504483 J01.90 begin abx as directed for 10 days, nasal saline BID or saline rinse once daily, otc decongesta nts or Mucinex. Major depr ession single episode, in partial remission 57782142 F32.4 stable depression on meds. Sleep improved. Uses mirtazapin e occasional ly. Continue meds. F/u 3-4 m. Health Concerns Section Related Observation LastModified by Organization Detai ls LastModified Time None Recorded Concern Status LastModified by Organization Details LastModified Time None Recorded Advance Directives Directive Y: Payers Encounter Date Sequence Insurance Name Policy Number Policy Stafford Covered Member ID Stafford Member ID Guarantor Name 01/20/2022 1 [place] [facility] Karlene Richardson [id number] Karlene Richardson 03/12/2022 1 [place] [facility] Karlene Richardson [id number] Karlene Richardson 09/10/2022 1 [place] [facility] Karlene Richardson [id number] Karlene Richardson 11/07/2022 1 [place] [facility] Karlene Richardson [id number] Karlene Richardson 03/09/2023 1 [place] [facility] Karlene Richardson [id number] Karlene Richardson Notes Date Note Type Note Provider Name and Address Organization Details Recorded Time 01/20/2022 text/html 46 year old eitan sanches with h/o positive KYLAH c/o unexplained bruising returned in her hands and twice in her R. foot. Pt. denies other uncontrolled bleeding. NO excess ETOH. Top of the foot bruised over a week ago w/o trauma or fall. Bruise resolved and reappeared on the ball of the R. foot. Pt. reports she feels pressure and tingling in her feet and hands, fatigue, foggy head and interm. bruising. PT. has h/o Raynaud's disease diagnosed by bread slicer machine after referral for positive KYLAH. SHe was also diagnosed with bilateral carpal tunnel by nerve conduction study. PT. is concerned with leg fatigue, paresthesia, generalized fatigue, headaches and foggy head. Had COVID infection in October which potentiated all of those symptoms. Sidney Longoria PA-C [address] [address], [place], [address], [facility] 01/20/2022 14:26:53 03/12/2022 text/html Generic HPI TemplateReported bypatient.Notes:47 year old female for annual physical exam.Vaccines: Received both doses of COVID vaccine. Pt is going to get booster soon as she just recovered from recent COVID infection about 3 months ago. Pt got her yearly flu shot in November this year. Up to date with all other vaccines.Pt sees her regularly scheduled SOFTWARE QUALITY ANALYST. Patient has a mammogram due this year and will be scheduling appointment soon. Normal pap smear done in November.Pt had a recent colonoscopy with no abnormal findings.Neutropenia ( WBCs 2.8) with unexplained ecchymosis in both feet and Raynaud's disease , positive KYLAH. Seen by hematology in February. Additional work up was ordered but not yet reviewed with pt. Seen by bread slicer machine over a year ago at the [facility] in [place] for Raynaud's , positive KYLAH. Pt. needs f/u.Constipation is off and on. Normal colonoscopy, but recall 5 years due to constipation and family history.Pt. c/o attention deficit without hyperactivity symptoms. Has h/o difficulty at school and difficulty functioning as an adult , but was never formally evaluated . Son and other family members on her side had ADD. Sidney Longoria PA-C [address] [address], [place], [address], [facility] 03/12/2022 14:57:32 09/10/2022 text/html 47 year old pres ents for a follow up for neutropenia and LIBAN. Patient was seen by heme/onc who made a diagnosis idiopathic purpura. Patient has not had bruising or bleeding since last visit. Discussed with patient to follow up with heme/onc. Reviewed CBC. LIBAN score is 7. However, patient reports increased anxiety and stress at home due to her daughter recently attempting suicide 3 times. Patient says that her stress and anxiety has also made her unable to sleep. She has tried taking melatonin which has not worked. Patient has dx of right carpal tunnel syndrome. She reports of worsening pain. Patient requested a referral to [facility]. Sidney Longoria PA-C [address] [address], [place], [address], [facility] 09/10/2022 16:49:16 11/07/2022 text/html 47 year old fema le for f/u on major depression and anxiety d/o. Started on Bupropion XL was increased in August to 300 mg due to personal stress. Pt. reported side effects and dropped down to 150 in September. Reports stress is less now. PHQ is 0, LIBAN is 6. Pt. reports problem with insomnia. Tried trazodone 50 mg with no effect. Sidney Longoria PA-C [address] [address], [place], [address], [facility] 11/07/2022 16:44:55 03/09/2023 text/html 48 year old fema le c/o 8 day onset of sinus congestion and cough. Tested neg for COVID several times. Has chills, no fever. Sinus tenderness for the past 3 days, headache, green colored thick secretions and some sore throat. Major depression. Stable on bupropion XL . Pt. tried 300 mg, but it was too much for me and dropped back down to 150 mg. Takes mirtazapine 7.5 mg for sleep prn only. Sidney Longoria PA-C [address] [address], [place], [address], [facility] 03/09/2023 13:50:46 OBGyn Episode No OBEpisode recorded.
--- OUTSIDE RECORDS SUMMARY | 2025-01-04 14:03 | XMS_ITS | Encounter Summary ---
Author Organization [facility] Address [address] [place] [address] [address] [id number] Care Team Providers Care Truck Railroad And Bus Motor Mechanic Name Role Phone Unavailable Primary Care Provider Unavailabl e Reason for Visit * Reason Comments Dental Exam Encounter Details Date Type Department Care Team (Late st Contact Info) Description 12/28/2024 4:00 PM EST Office Visit [facility] [address] [place] [address] [phone] Myrna Kim BDS [address] [place] [address] [phone] Social History Tobacco Use Types Packs/Day Years [...] Progress Notes * Myrna Kim BDS - 12/28/2024 4:00 PM EST Patient c/o broken oriental orthodox lower left molar.#18 buccal resin oriental orthodox chipped off and distalfracture line extending up to CEJ.Tooth has extensive Amalgam oriental orthodox occlusal and mesial. Adv Le Grand #18 and #29 both teeth have extensive restorations, in order to protect the structure,maintain integrity and function of the the teeth. documented in this encounter Plan of Treatment Upcoming Encounters Date Type Department Care Team (Late st Contact Info) Description 01/18/2025 10:00 AM EDT Office Visit [facility] [address] [place] [address] Myrna Kim, BDS [address] [place], [place] [phone] Scheduled Orders Name Type Priority Associated Diagnoses Orde r Schedule 18 18 CROWN - PORCELAIN/CERAMIC Dental Routine 1 Occurrences starting 12/28/2024 29 29 CROWN - PORCELAIN/CERAMIC Dental Routine 1 Occurrences starting 12/28/2024 18 18 CROWN PREP Dental Routine 1 Occurr ences starting 12/28/2024 29 29 CROWN PREP Dental Routine 1 Occurr ences starting 12/28/2024 31 31 CROWN PREP Dental Routine 1 Occurr ences starting 12/28/2024 documented as of this encounter Procedures Procedure Name Priority Date/Time Associated Diagnosis Comments LIMITED ORAL EVALUATION - PROBLEM FOCUSED Routine 12/28/2024 4:00 PM EST CASE PRESENTATION, DETAILED AND EXTENSIVE TREATMENT PLANNING Routine 12/28/2024 4:00 PM EST documented in this encounter Visit Diagnoses Not on filedocumented in this encounter
--- OUTSIDE RECORDS SUMMARY | 2025-01-04 14:03 | XMS_ITS | Clinical Summary ---
Author Organization [employer] Address [address] [place] [address] Care Team Providers Care Top Distribution Executive Name Role Phone Unavailable Primary Care Provider Unavailabl e Allergies No known active allergies Medications No known medications Encounters Date Type Department Care Team Description 12/28/2024 4:00 PM EST Office Visit [facility] [address] [place] [address] Myrna Kim, BDS 12/07/2024 4:00 PM EST Office Visit [facility] [address] [place] [address] Myrna Kim BDS from Last 3 Months Social History Tobacco Use Types Packs/Day Years Used Date Smoking Tobacco: Never Smokeless Tobacco: Never Tobacco Cessation:Counseling Given: Not Answered Comments Unknown Sex and Gender Information Value Date Recorded Sex Assigned at Female 08/25/2022 10:40 AM EDT Legal Sex Female 10:40 AM EDT Gender Identity Female 08/25/2022 10:40 AM EDT Sexual Orientation Straight 08/25/2022 10 :40 AM EDT Last Filed Vital Signs Vital Sign Reading Time Taken Comments Blood Pressure 128/76 10/05/2024 1:41 PM EST Pulse 54 05/13/2023 1:52 PM EDT Temperature - - Respiratory Rate - - Oxygen Saturation - - Inhaled Oxygen Concentration - - Weight - - Height - - Body Mass Index - - Plan of Treatment Upcoming Encounters Date Type Department Care Team (Late st Contact Info) Description 01/18/2025 10:00 AM EDT Office Visit [facility] [address] [place] [address] Myrna Kim, BDS [address] [place] [address] Health Maintenance Due Date Last Done Comments CT Colonography 1973 Colonoscopy 1973 Colorectal Cancer Screening 1973 Dental Oral Exam 1973 Dental X-Ray: Bitewings 1973 Dental X-Ray: Full Mouth 1973 Depression Screening 1973 FIT DNA/Cologuard 1973 FIT 1973 FOBT 1973 HIV Screening 1973 SDOH Screening 1973 Sigmoidoscopy 1973 Alcohol/Substance Use Screening 1985 Family Planning (PISQ) 02/23/1988 Hepatitis C Screening 1991 Hepatitis B Vaccines (1 of 3 - 19+ 3-dose series) 02/23/1992 Pap Smear 1994 Cervical Cancer Screening 2003 HPV/Cotest 2003 Mammogram 12/11/2022 12/11/2020 Pneumococcal Vaccine: 50+ Years (1 of 1 - PCV) 2023 Zoster Vaccines (1 of 2) 2023 Dental Prophylaxis 11/14/2023 05/13/2023 COVID-19 Vaccine (3 - season) 2024 12/20/2020, 11/22/2020 Influenza Vaccine (#1) 2024 , 09/10/2022, 09/22/2018, Additional history exists Tobacco Screening 12/28/2025 12/28/2024 DTaP/Tdap/Td Vaccines (3 - Td or Tdap) 02/25/2029 02/25/2019, 09/14/2008, 09/02/1999 RSV Patients and Patients Aged 60 years or older (1 - 1-dose 75+ series) 02/23/2048 HIB Vaccines Aged Out No longer eligi ble based on patient's age to complete this topic HPV Vaccines Aged Out No longer eligi ble based on patient's age to complete this topic Hepatitis A Vaccines Aged Out No long er eligible based on patient's age to complete this topic IPV Vaccines Aged Out No longer eligi ble based on patient's age to complete this topic Meningococcal Vaccine Aged Out No calvin hesham eligible based on patient's age to complete this topic RSV under 20 months Aged Out No longe r eligible based on patient's age to complete this topic Rotavirus Vaccines Aged Out No longer eligible based on patient's age to complete this topic Procedures Procedure Name Priority Date/Time Associated Diagnosis Comments CASE PRESENTATION, DETAILED AND EXTENSIVE TREATMENT PLANNING Routine 12/28/2024 4:00 PM EST LIMITED ORAL EVALUATION - PROBLEM FOCUSED Routine 12/28/2024 4:00 PM EST CASE PRESENTATION, DETAILED AND EXTENSIVE TREATMENT PLANNING Routine 12/07/2024 4:00 PM EST 30 CROWN - PORCELAIN/CERAMIC Routine 12/07/2024 4:00 PM EST PROPHYLAXIS - ADULT Routine 05/13/2023 2 :00 PM EDT Accretions on teeth from Last 3 Months or Most Recently Relevant to Health Maintenance Insurance DENTAL - HSN PARTIAL (MEDICAID)
== END 2025-01-04 13:07 | disposition home or self-care (01) ==
LOC: HO.HMCFM 11:59
PROVIDERS: PCP Nurse Practitioner Family; Visit Provider Nurse Practitioner Family
DX: Z00.00 Encounter for general adult medical examination without abnormal findings (principal); B00.9 Herpesviral infection, unspecified; Z98.82 Breast implant status; F33.0 Major depressive disorder, recurrent, mild; N95.1 Menopausal and female climacteric states; M25.50 Pain in unspecified joint

== ENCOUNTER → 2025-01-04 11:59 | Outpatient (BNVA) | payer OTHER, SELFPAY | PROVIDERS: PCP Nurse Practitioner Family; Visit Provider Nurse Practitioner Family ==

== ENCOUNTER 2025-01-04 12:59 | Outpatient (REF) | payer OTHER, SELFPAY ==
[2025-01-04 14:54] LABS: Estimated Average Glucose 100 mg/dL; Hemoglobin A1c % 5.1 % (<6.0)
--- OUTSIDE RECORDS SUMMARY | 2025-01-04 15:06 | XMS_ITS | Clinical Summary ---
Author Organization [employer] Address [address] [place] [address] Care Team Providers Care Submarine Advisory Team Watch Officer Name Role Phone Unavailable Primary Care Provider Unavailabl e Allergies No known active allergies Medications No known medications Encounters Date Type Department Care Team Description 12/28/2024 4:00 PM EST Office Visit [facility] [address] [place] [phone] Myrna Kim, BDS 12/07/2024 4:00 PM EST Office Visit [facility] [address] [place] [address] Myrna Kim BDS from Last 3 Months [...] Description 01/18/2025 10:00 AM EDT Office Visit [facility] [address] [place] [address] Myrna Kim, BDS [address] [place] [address] Health Maintenance Due Date Last Done Comments [...]
--- OUTSIDE RECORDS SUMMARY | 2025-01-04 15:06 | XMS_ITS | Encounter Summary ---
Author Organization [facility] Address [address] [place] [address] [address] [place] [id number] Care Team Providers Care Ends Down Checker Name Role Phone Unavailable Primary Care Provider Unavailabl e Reason for Visit * Reason Comments Dental Exam Encounter Details Date Type Department Care Team (Late st Contact Info) Description 12/28/2024 4:00 PM EST Office Visit [facility] [address] [place] [address] [phone] Myrna Kim BDS [address] [place] [address] [phone] Social History Tobacco Use Types Packs/Day Years [...] 12/28/2024 4:00 PM EST Patient c/o broken anabaptist lower left molar.#18 buccal resin anabaptist chipped off and distalfracture line extending up to CEJ.Tooth has extensive [employer] anabaptist occlusal and mesial. Adv [place] #18 and #29 both teeth have extensive restorations, in order to protect the structure,maintain integrity and function of the the teeth. documented in this encounter Plan of Treatment Upcoming Encounters Date Type Department Care Team (Late st Contact Info) Description 01/18/2025 10:00 AM EDT Office Visit [facility] [address] [place] [phone] Myrna Kim, BDS [address] [place], [place] [phone] Scheduled Orders Name Type Priority Associated Diagnoses [...]
--- OUTSIDE RECORDS SUMMARY | 2025-01-04 15:06 | XMS_ITS | Encounter Summary ---
Author Organization [employer] Address [address] [place] [address] 7 [place] [address] Care Team Providers Care Design Inserter Name Role Phone Unavailable Primary Care Provider Unavailabl e Reason for Visit * Reason Comments [place] Whitesburg delivery Encounter Details Date Type Department Care Team (Late st Contact Info) Description 12/07/2024 4:00 PM EST Office Visit [facility] [address] [place], [place] [phone] Myrna Kim BDS [address] [place] [address] Social History Tobacco Use Types Packs/Day Years [...] Timeout Date: 12/07/24, Timeout Time: 1556 Location: [facility] Tooth: #30 Procedure: [place] Verified the above with patient, operator assistant i cementing, and provider. Confirmed via patient's chart, intraorally and by radiographs. [employer] Scout: not applicable Chief Complaint Patient presents with [place] Whites[place] delivery Medical Hx: Vitals: There were no [...] pumiced tooth as needed. Tried on final church Verified interproximal contacts and margins BW taken to confirm margins and contacts Occlusion adjusted as needed Tooth Treatment: Member Of Congress applied and Gluma applied Cemented with: Relyx Unicem Cleaned excess cement, flossed Patient satisfied with comfort and esthetics. POI given. Patient discharged alert, oriented, and in stable condition [place]: [place] #31 Park Worker: Nelda Carballo Dentist: Myrna Kim BDS documented in this encounter Plan of Treatment Upcoming Encounters Date Type Department Care Team (Late st Contact Info) Description 01/18/2025 10:00 AM EDT Office Visit [facility] [address] [place] [phone] Myrna Kim BDS [address] [place] [phone] documented as of this encounter Procedures Procedure Name Priority Date/Time Associated Diagnosis Comments 30 CROWN - PORCELAIN/CERAMIC Routine 12/07/2024 4:00 PM EST CASE PRESENTATION, DETAILED AND EXTENSIVE TREATMENT PLANNING Routine 12/07/2024 4:00 PM EST documented in this encounter Visit Diagnoses Not on filedocumented in this encounter
--- OUTSIDE RECORDS SUMMARY | 2025-01-04 15:06 | XMS_ITS | Encounter Summary ---
Author Organization [facility] [employer] [facility] Address [address] [place] [address] 7 [place] [address] Care Team Providers Care Chalk Tester Name Role Phone Unavailable Primary Care Provider Unavailabl e Encounter Details Date Type Department Care Team (Latest Contact Info) Description 08/14/2022 Abstract [facility] CONVERSIONS Dental, Provider, DDS Social History Tobacco [...] Description 01/18/2025 10:00 AM EDT Office Visit [facility] [address] [place] [address] Myrna Kim BDS [address] [place], [place] [phone] documented as of this encounter Visit Diagnoses Not on filedocumented in this encounter
[2025-01-04 15:10] LABS: Creatinine Urine 44.26 mg/dL; Microalbumin Urine < 5.0 mg/L
[2025-01-04 15:37] LABS: Folate 11.4 ng/mL (> or = 4.0); Vitamin B12 735 pg/mL (200-900)
[2025-01-04 17:25] LABS: Alanine Aminotransferase 27 U/L (0-31); Albumin Level 4.5 g/dL (3.5-5.0); Alkaline Phosphatase 77 U/L (39-117); Anion Gap 10 (12-20); Aspartate Amino Transferase 32 U/L (5-31); Bilirubin Total 0.7 mg/dL (0.0-1.0); Blood Urea Nitrogen 12 mg/dL (9-16); Calcium 9.5 mg/dL (8.4-10.2); Carbon Dioxide 27 mmol/L (22-29); Chloride 108 mmol/L (96-108); Cholesterol 229 mg/dL (<200); Estimated Glomerular Filt Rate > 60; Glucose Random 89 mg/dL (60-115); HDL Cholesterol 77 mg/dL (>40); LDL Cholesterol Calculated 140 mg/dL (<100); Sodium 141 mmol/L (135-145); TSH reflex Free T4 1.32 uIU/mL (0.32-4.0); Total Protein 7.7 g/dL (6.5-8.0); Triglycerides 61 mg/dL (<150); Vitamin D 25-OH Total 50.6 ng/mL (>30)
== END 2025-01-04 13:00 | disposition home or self-care (01) ==
LOC: HO.WFDLDS 12:59
PROVIDERS: Visit Provider Nurse Practitioner Family
DX: Z00.00 Encounter for general adult medical examination without abnormal findings (principal); B00.9 Herpesviral infection, unspecified; Z98.82 Breast implant status; F33.0 Major depressive disorder, recurrent, mild; M25.50 Pain in unspecified joint; N95.1 Menopausal and female climacteric states
CPT/HCPCS: 36415; 80053; 80061; 82043; 82306; 82570; 82607; 82746; 83036; 84443; 96127; 99396

== ENCOUNTER 2025-01-25 15:17 | Outpatient (REF) | payer OTHER, SELFPAY ==
--- OUTSIDE RECORDS SUMMARY | 2025-01-25 17:42 | XMS_ITS | Encounter Summary ---
Author Organization [employer] [facility] Address [address] [place] [address] Care Team Providers Care Sap Data Analyst Name Role Phone Unavailable Primary Care Provider Unavailabl e Encounter Details Date Type Department Care Team (Latest Contact Info) Description 08/14/2022 Abstract [facility] CONVERSIONS Dental, Provider, DDS Social History [...] as of this encounter Plan of Treatment Not on file documented as of this encounter Visit Diagnoses Not on filedocumented in this encounter
--- OUTSIDE RECORDS SUMMARY | 2025-01-25 17:42 | XMS_ITS | Clinical Summary ---
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 Role Phone Unavailable Primary Care Provider Unavailabl e Allergies No known active allergies Medications No known medications Encounters Date Type Department Care Team Description 01/23/2025 4:00 PM EDT Office Visit [facility] D[facility] [address] [place] [phone] Makonahally, Deviprasad, BDS 01/18/2025 10:00 AM EDT Office Visit [facility] [address] [place] [phone] Makonahally, Deviprasad, BDS 12/28/2024 4:00 PM EST Office Visit [facility] [address] [place] [phone] Makonahally, Deviprasad, BDS 12/07/2024 4:00 PM EST Office Visit [facility] [address] [place] [phone] Makonahally, Deviprasad, BDS from Last 3 Months Social History [...] Mass Index - - Plan of Treatment Health Maintenance Due Date Last Done Comments [...] 09/10/2022, 09/22/2018, Additional history exists Tobacco Screening 01/23/2026 01/23/2025 DTaP/Tdap/Td Vaccines (3 - Td or Tdap) [...] Procedure Name Priority Date/Time Associated Diagnosis Comments 31 CROWN - PORCELAIN/CERAMIC Routine 01/23/2025 4:00 PM EDT 28 PREFABRICATED POST AND CORE IN ADDITION TO CROWN Routine 01/18/2025 10:00 AM EDT INTRAORAL - PERIAPICAL EACH ADDITIONAL RADIOGRAPHIC IMAGE Routine 01/18/2025 10:00 AM EDT INTRAORAL - PERIAPICAL FIRST RADIOGRAPHIC IMAGE Routine 01/18/2025 10:00 AM EDT 31 CROWN PREP Routine 01/18/2025 10:00 AM EDT 28 RE-CEMENT OR RE-CLEARY CROWN Routine 01/18/2025 10:00 AM EDT LIMITED ORAL EVALUATION - PROBLEM FOCUSED Routine 01/18/2025 10:00 AM EDT 28 ROOT CANAL Routine 01/18/2025 12:00 AM EDT 28 CROWN - PORCELAIN/CERAMIC Routine 01/18/2025 12:00 AM EDT 28 ROOT CANAL Routine 01/18/2025 12:00 AM EDT CASE PRESENTATION, DETAILED AND EXTENSIVE TREATMENT PLANNING [...]
--- OUTSIDE RECORDS SUMMARY | 2025-01-25 17:42 | XMS_ITS | Data Portability ---
Author Organization [facility], Main Office Address [address] 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 Provider was located in the office. [...] auto diff 2021 022 [facility], [address] [facility], [facility], [place], [address], 18:06:53 PT/IN R 2021 [facility], [address], [place], [address], 10:30:43 CBC w/ auto diff 2021 [facility], [address], [place], [address], 10:23:01 hepat ic funct ion panel , serum 2021 [facility], [address], [address], [place], [address], 09:48:51 lyme igg + igm Ab, weste rn blot, serum 2021 [facility], [address], [address], [place], [address], 19:06:10 TSH, serum or plasm a 2021 [facility], [address], [address], [place], [address], 18:00:48 vitam in B12, serum 2021 [facility], [address], [address], [place], [address], 18:00:46 lipid panel , serum 2021 [facility], [address], [address], [place], [address], 18:50:30 CMP, serum or plasm a 2021 [facility], [address], [place], [address], 2 18:50:29 Referral ortho pedic surge on refer ral - R. carpa l tunne l syndr ome. 2021 [facility] (Juan Diego Aria), [address], [place], [address], 08:21:16 rheum atolo gist refer ral - Nanette ud's disea se, posit armen KYLAH , neutr openi a. Needs f/u and furht er testi ng for posit armen KYLAH. 2021 022 [email or web address], [address] [place] [address], [address], 08:39:[address] refer ral - Inatt entiv eness w/o hyper activ ity . Never teste d for ADD. 2021 022 [email or web address] Figueroa, [address] [place], [address], 2 10:21:47 Procedures None recor ded. Surgeries None recor ded. Imaging MAMMO , scree rajesh, bilat eral 2021 [email or web address] os [facility], [address], [place], [address], 15:13:01 XR, foot, 3 or more view 2021 [facility], [address] [facility], [place], [address], 2 10:21:41 Medication Orders doxyc yclin e hycla te 100 mg table t 2022 023 [id number], [address] [facility], [place], [address], 13:49:12 miguel zapin e 7.5 mg table t 2022 023 [facility], [address] [place], [address], 3 12:53:21 trazo done 50 mg table t 2021 022 gadielolbyjefferson e [facility], [address] [place], [address], 15:19:11 bupro pion HCl XL 300 mg 24 hr table t, exten ded relea se 2021 022 [facility], [address] [place], [address], 12:53:10 Patient TargetsNo targets recorded. Patient Instructions Encounter Date Encounter Id Patient Instructions Last Modified By Organization Details Last Modified Time 03/12/2022 [id number] Preventing Depression From Coming Back: Care Instructions Not available 03/12/2022 14:55:52 depression treatment: care instructions Not available 03/12/2022 14:55:52 constipation: care instructions Not available 03/12/2022 14:55:39 high-fiber diet: care instructions Not available 03/12/2022 14:55:39 09/10/2022 [id number] anxiety disorder : care instructions Not available 09/10/2022 11:53:53 11/07/2022 [id number] insomnia: care instructions Not available 11/07/2022 15:44:18 03/09/2023 [id number] Acute Sinusitis: Care Instructions Not available 03/09/2023 13:49:44 saline nasal washes: care instructions Not available 03/09/2023 13:49:44 eustachian tube problems: care instructions Not available 03/09/2023 13:49:44 Reason for Referral Cutter Down Referral for Anti-nuclear factor detected Raynaud's disease, [...] Go To The Location Of Their Choice, [id number] 01/22/2022 19:06:10 01/22/20 22 01/22/2022 LYME WESTE RN BLOT IgM P39 Ab Absent Not Available [facility] (Centralized Electronic Ordering - All Locations) Patient Can Go To The Location Of Their Choice, [id number] 01/22/2022 19:06:10 01/22/2001/22/2022 LYME WESTE RN BLOT IgM P23 Ab Absent Not Available [facility] (Centralized Electronic Ordering - All Locations) Patient Can Go To The Location Of Their Choice, [id number] 01/22/2022 19:06:10 01/22/2001/22/2022 LYME WESTE RN BLOT [...] which do not meet posit armen crite kibmerly. Crite kimberly for posit ivity are those [...] Antib gerry); other infec tions ([facility] [place] [facility] Sp[place] ed Fever ; Epste in-Ba [...] ng. [facility] offer s test code 31244 6 Lyme Disea se Serol ogy with Refle x to aid in the diagn osis of Lyme Disea se. Test perfo rmed by [facility], [address], [place] [address] Not Available [facility] (Centralized Electronic Ordering - All Locations) Patient Can Go To The Location Of Their Choice, [id number] 01/22/2022 19:06:10 09/10/20 22 09/10/2022 COMPL ETE [...] Go To The Location Of Their Choice, [id number] 09/10/2022 18:06:53 09/10/20 22 09/10/2022 COMPL ETE [...] no acute displa johnnie fractu re. WSN: [id number] Orderi ng Physic andres: Wellington Longoria Dictat ed By: Bertha Grimaldo ra, MD Dictat ed Date/T damien: 10:18 a Review ed By: Bertha Grimaldo ra, MD Signed By: Bertha Grimaldo ra, MD Signed Date/T damien: 10:18 am Transc ribed By: LIVE Transc ribed Date/T damien: 10:17 am Patien t Class: Outpat ient [facility]) [address] [place], [address], 01/27/2022 10:46:22 01/22/20 22 01/21/2022 XR, foot, 3 or more view No observ ation record ed. jm [facility] [address] [place], [address], 01/21/2022 10:45:19 Result Notes None recorded. Problems Name Problem SNOMED Code Status Onset Date Resolution Date Notes Provider Name and Address Organization Details Recorded Time Generali zed abdomina l pain 024505579 Completed 201205/16/2014 RECORDED 09/16/20 13 9:41AM BY BECCA VENTURA MA, PAYTON ON/MIRZA burks [facility] 6 17:01:16 Abnormal weight loss 155432159 Completed 200905/16/2014 RECORDED 07/18/20 10 9:47AM BY PAYTON LOPEZ ON/MIRZA burks [facility] 6 17:01:16 Acute sinusiti s 08636589 Completed 201205/16/2014 RECORDED 09/16/20 13 9:42AM BY BECCA VENTURA MA, ANNOTATI ON/ADDEN DUM Natasha D'Alessan kaelyn null, [facility] 6 17:01:16 Screenin g for malignan t neoplasm of breast Completed 201311/06/2016 Tameka Nguyễn MA null, [facility] 7 13:18:55 Screenin g for malignan t neoplasm of cervix Completed 201305/16/2014 RECORDED 02/15/20 14 12:57PM BY RENEE SUH MA, ANNOTATI ON/ADDEN DUM Natasha D'Alessan kaelyn null, [facility] 6 17:01:16 Screenin g for malignan t neoplasm of colon Completed 201205/16/2014 RECORDED 09/16/20 13 9:42AM BY BECCA VENTURA MA, ANNOTATI ON/ADDEN DUM Natasha D'Alessan kaelyn null, [facility] 6 17:01:16 Conjunct ivitis 4781679 Completed 200805/16/2014 RECORDED 12/20/19 09 2:26PM BY MARIALUISA RITCHIE, KARUNAATI ON/ADDEN DUM Natasha D'Alessan kaelyn null, [facility] 6 17:01:16 Constipa tion 67503483 Completed 201205/16/2014 RECORDED 09/16/20 13 9:41AM BY BECCA VENTURA MA, ANNOTATI ON/ADDEN DUM Nurys graham MA null, [facility] 0 09:22:10 Epidermo id cyst of skin 595385207 Completed 200905/16/2014 RECORDED 07/18/20 10 9:47AM BY PAYTON LOPEZ ON/ADDEN DUM Natasha D'Alessan kaelyn null, [facility] 6 17:01:16 Malaise and fatigue 219567492 Completed 201311/06/2016 Tameka burks, [facility] 7 13:18:58 Influenz a vaccine needed 66063792532 06 Completed 201205/16/2014 RECORDED 09/16/20 13 10:28AM BY BECCA VENTURA MA, OFFICE VISIT Natasha burks, [facility] 6 17:01:16 Adult health examinat ion Completed 201311/06/2016 Tameka burks, [facility] 7 13:18:50 Geograph ic tongue 93551164 Completed 201205/16/2014 RECORDED 09/16/20 13 9:42AM BY BECCA VENTURA MA, ANNOTATI ON/ADDEN DUM Natasha burks, [facility] 6 17:01:16 Hyperlip idemia 61488255 Completed 201302/25/2019 Sidney Longoria PA-C [address], [place], [address], [facility] 9 14:58:25 Insomnia 653949365 Completed 201305/16/2014 RECORDED 12/16/19 14 12:47PM BY BECCA VENTURA MA, PAYTON ON/ADDEN DUM Sidney Longoria PA-C [address], [place], [address], [facility] 2 11:54:11 Knee pain Completed 201205/16/2014 RECORDED 09/16/20 13 9:42AM BY BECCA VENTURA MA, ANNOTATI ON/ADDEN DUM Natasha burks, [facility] 6 17:01:16 Major depressi on single episode, in partial remissio n 91969390 Active 2013 [facility]ks, [facility] 6 17:01:16 Nausea 996710260 Completed 200905/16/2014 RECORDED 07/18/20 10 9:47AM BY PAYTON LOPEZ ON/ADDEN HAIDER burks [facility] 6 17:01:16 Administ ration of bacteria l and viral vaccine Completed 200705/16/2014 RECORDED 09/14/20 08 4:03PM BY NATASHA ART MD, OFFICE VISIT Natasha burks, [facility] 6 17:01:16 Patient status finding 511987495 Completed 201311/06/2016 Tameka burks [facility] 7 13:18:52 Patient status finding 958305425 Completed 201305/16/2014 RECORDED 12/16/19 14 12:48PM BY BECCA VENTURA MA, OFFICE VISIT Tameka burks [facility] 7 13:18:52 Adult health examinat ion Completed 201205/16/2014 RECORDED 09/16/20 13 10:31AM BY TIERRA AMBROSIO, PAYTON ON/ADDEN HAIDER burks [facility] 7 13:18:50 Generali zed abdomina l pain 349032168 Completed 201206/05/2014 RECORDED 09/16/20 13 9:41AM BY BECCA VENTURA MA, ANNOTATI ON/ADDEN HAIDER burks [facility] 6 17:01:16 Abnormal weight loss 757416252 Completed 200906/05/2014 RECORDED 07/18/20 10 9:47AM BY PAYTON LOPEZ ON/ADDMANFRED burks [facility] 6 17:01:16 Acute sinusiti s 67828682 Completed 201206/05/2014 RECORDED 09/16/20 13 9:42AM BY BECCA VENTURA MA, ANNOTATI ON/ADDEN DUM Natasha D'Alessan kaelyn null, [facility] 6 17:01:16 Disorder of breast 15867193 Completed 201311/06/2016 Tameka Nguyễn MA null, [facility] 7 13:19:12 Screenin g for malignan t neoplasm of cervix Completed 201306/05/2014 RECORDED 02/15/20 14 12:57PM BY RENEE SUH MA, ANNOTATI ON/ADDEN DUM Natasha D'Alessan kaelyn null, [facility] 6 17:01:16 Screenin g for malignan t neoplasm of colon Completed 201206/05/2014 RECORDED 09/16/20 13 9:42AM BY BECCA VENTURA MA, ANNOTATI ON/ADDEN DUM Natasha D'Alessan kaelyn null, [facility] 6 17:01:16 Conjunct ivitis 0540631 Completed 200806/05/2014 RECORDED 12/20/19 09 2:26PM BY MARIALUISA RITCHIE, KARUNAATI ON/ADDEN DUM Natasha D'Alessan kaelyn null, [facility] 6 17:01:16 Constipa tion 52526542 Completed 201206/05/2014 RECORDED 09/16/20 13 9:41AM BY BECCA VENTURA MA, ANNOTATI ON/ADDEN DUM Nurys graham MA null, [facility] 0 09:22:10 Epidermo id cyst of skin 638767965 Completed 200906/05/2014 RECORDED 07/18/20 10 9:47AM BY KARUNA LOPEZATI ON/ADDEN DUM Natasha D'Alessan kaelyn null, [facility] 6 17:01:16 Elevated level of transami nase and lactic acid dehydrog enase 355706890 Completed 201311/06/2016 Tameka burks, [facility] 7 13:19:02 Influenz a vaccine needed 91941107169 06 Completed 201206/05/2014 RECORDED 09/16/20 13 10:28AM BY BECCA VENTURA MA, OFFICE VISIT Natasha burks, [facility] 6 17:01:16 Geograph ic tongue 09322933 Completed 201206/05/2014 RECORDED 09/16/20 13 9:42AM BY BECCA VENTURA MA, ANNOTATI ON/ADDEN DUM Natasha burks, [facility] 6 17:01:16 Insomnia 634915085 Completed 201306/05/2014 RECORDED 12/16/19 14 12:47PM BY BECCA VENTURA MA, ANNOTATI ON/ADDEN DUM Sidney Bharath REMY [address] [facility] [address], [facility] [address] [place] [address] 2 11:54:11 Knee pain Completed 201206/05/2014 RECORDED 09/16/20 13 9:42AM BY BECCA VENTURA MA, PAYTON ON/ADDEN DUM Natasha burks, [facility] 6 17:01:16 Nausea 280097281 Completed 200906/05/2014 RECORDED 07/18/20 10 9:47AM BY PAYTON LOPEZ ON/ADDEN [facility] Natasha burks, [facility] 6 17:01:16 Administ ration of bacteria l and viral vaccine Completed 200706/05/2014 RECORDED 09/14/20 08 4:03PM BY NATASHA ART MD, OFFICE VISIT Natasha burks, [facility] 6 17:01:16 Multiple bruising 504834414 Completed 11/06/2016 Tameka burks, [facility] 7 13:19:06 Onychomy cosis 326280756 Active Natasha art null, [facility] 6 17:01:16 Fatigue 01060373 Completed 11/06/2016 Tameka Nguyễn MA null, [facility] 7 13:19:09 Anti-nuc lear factor detected 410606236 Active 2019 Sidney Longoria [employer] [address], [place], [address], [facility] 0 09:30:54 Constipa tion 78378237 Active Nurys graham [place] null, [facility] 0 09:22:10 Family history of cancer of colon 146041638 Active 2019 Sidney Longoria [employer] [address], [place], [address], [facility] 0 09:39:14 Raynaud' s disease 306484037 Completed 202001/18/2021 Sidney Longoria [employer] [address], [place], [address], [facility] 2 14:21:58 Easy bruising 376630511 Active 2021 Sidney MAYORGA-C [address], [place], [address], [facility] 2 13:49:12 Paresthe asfaneh 58621139 Active 2021 Sidney MAYORGA-C [address], [place], [address], [facility] 2 14:26:26 Spontane ous ecchymos is 891246015 Active 2021 Sidney MAYORGA-C [address], [place], [address], [facility] 2 09:20:41 Neutrope bam 828370948 Active 2021 Sidneytunde MAYORGA-C [address] [facility] [address], [place], [address], [facility] 2 09:20:54 Raynaud' s disease 590911329 Active 2021 Sidney MAYORGA-C [address] [facility] [address], [place], [address], [facility] 2 14:21:58 Attentio n deficit hyperact ivity disorder , predomin antly inattent armen type 91112033 Active 2021 Sidney MAYORGA-C [address] [facility] [address], [place], [address], [facility] 2 14:42:48 Chronic idiopath ic thromboc ytopenic purpura 33515878 Active 2021 Estela burks, [facility] 2 11:30:12 Insomnia 957411678 Active 2021 RECORDED 12/16/19 14 12:47PM BY BECCA VENTURA MA, ANNOTATI ON/ADDEN DUM Sidney MAYORGA-C [address] [facility] [address], [place], [address], [facility] 2 11:54:11 Carpal tunnel syndrome 99252414 Active 2021 Sidney MAYORGA-C [address] [facility] [address], [place], [address], [facility] 2 11:56:22 Problem Notes None recorded. Procedures Surgical History Date Name Laterality Status Provider Name and Address Organization Details Recorded Time 11/28/19 22 Date of Last Pap Smear completed Heather Linares [facility] 12/10/2021 13:56:38 05/22/20 21 Date of Last Colonoscopy completed Heather Linares [facility] 05/22/2021 10:43:01 05/22/20 21 Colonoscopy completed Heather Linares [facility] 05/22/2021 10:42:54 12/11/19 21 Most Recent Mammogram completed Heather Linares [facility] 12/19/2020 15:11:57 12/11/19 21 Mammogram screening completed Heather Linares [facility] 12/19/2020 15:11:51 08/03/20 17 Mastopexy completed Nurys rutherford MA [facility] 10/03/2020 09:15:13 08/03/20 17 revision of breast implant completed Nurys rutherford [place] [facility] 10/03/2020 09:16:16 11/21/19 17 Joint Injection completed Antoine Alexander MD [address] [facility] [address] [place] [address], [address], [facility] 11/22/2016 11:36:33 Knee Surgery completed Nurys rutherford [place] [facility] 01/18/2021 13:44:55 Imaging Results Imaging Date Name Status LastModified by Organiz ation Details LastModified Time 01/21/2022 XR, foot, 3 or more view completed [facility] [address] [place], [address], 01/27/2022 10:46:22 01/21/2022 XR, foot, 3 or more view completed jm [facility] [address] [place], [address], 01/21/2022 10:45:19 Procedure Notes None recorded. Medical [...] Updated DateTime 2 153.67 cm 25 kg/m2 79839.0 1 g 70 /min 97 % 97 % 98.96 [degF] 115 mm[Hg] 63 mm[Hg] Patricia Freeman MA [facility] 2 13:48:40 Date Recorded Body height Body mass index (BMI) Body weight Heart rate Oxygen saturation Oxygen saturation in Arterial blood by Pulse oximetry Body temperature Systolic blood pressure Diastolic blood pressure Provider Name and Address Organization Details Last Updated DateTime 2 153.67 cm 25.4 kg/m2 30214.1 9 g 70 /min 97 % 97 % 98.96 [degF] 130 mm[Hg] 85 mm[Hg] Patricia Freeman MA [facility] 2 11:21:26 Date Recorded Body height Body mass index (BMI) Body weight Heart rate Oxygen saturation Oxygen saturation in Arterial blood by Pulse oximetry Body temperature Systolic blood pressure Diastolic blood pressure Provider Name and Address Organization Details Last Updated DateTime 3 153.67 cm 24.8 kg/m2 89999.4 2 g 73 /min 98 % 98 % 98.1 [degF] 115 mm[Hg] 72 mm[Hg] Evelyne Espino MA [facility] 3 15:17:51 Date Recorded Body height Provider Name an d Address Organization Details Last Updated DateTime 03/09/2023 153.67 cm Natasha Tatum MA [facility] 03/09/2023 12:53:26 Social History Question Answer Notes LastModified by Organizat ion Details LastModified Time Tobacco Smoking Status Never Smoker [facility] 01/18/2021 13:44:23 Do You Have An Advance [...] Seat Belt Or Car Seat Routinely? Yes [email or web address] Information not available 03/12/2022 Seat Belts Used Routinely Yes Information not available 09/10/2022 Are You Sexually Active? Yes Information not available 12/27/2015 Smoke Alarm In Home Yes Information not available 09/10/2022 Do You Have Smoke And Carbon Monoxide Detectors In Your Home? Yes [email or web address] Information not available 03/12/2022 At What Age Did You Start Smoking Tobacco? 0 Information not available 01/18/2021 Are You Passively Exposed To Smoke? No Information not available 02/25/2019 Do You Or Have You Ever Used Smokeless Tobacco? Never Used Smokeless Tobacco [email or web address] Information not available 03/12/2022 How Much Tobacco Do You Smoke? No [email or web address] Information not available 03/12/2022 Do You Use [...] 50 mcg/0.25mL dose completed MARIALUISA Blunt MA [facility] [place] 01/18/2021 13:42:39 COVID-19, mRNA, LNP-S, PF, 100 mcg/0.5mL dose or 50 mcg/0.25mL dose 1 completed Patricia Freeman MA null, [facility] 03/12/2022 13:41:59 Influenza, split virus, quadrivalent, PF 8 completed Not Available Pending sale to [facility] 11/12/2019 02:22:16 Tdap 9 completed Not Available [facility] 11/12/2019 02:21:49 Influenza, split virus, quadrivalent, PF 2 completed Sidney Longoria PA-C [address] [facility] [address], [place], [address], [facility] 09/10/2022 16:46:39 Td (adult), 2 Lf tetanus toxoid, preservative free, adsorbed 9 completed Not Available Pending sale to [facility] 05/09/2014 14:09:46 Tdap 8 completed Not Available Pending sale to [facility] 05/09/2014 14:09:46 influenza, seasonal, intradermal, preservative free 3 completed Not Available Pending sale to [facility] 05/09/2014 14:09:46 Past Encounters Encounter ID Performer Location Encounter Start Date Encounter Closed Date Diagnosis/Indication Diagnosis SNOMED-CT Code Diagnosis ICD10 Code Diagnosis Note [id number] autoEComm erce [address] [facility] [place] [address] 08/15/2008 00:00:00 [id number] autoEComm erce [address] [facility] [facility] [place] [address] 09/14/2008 00:00:00 [id number] autoEComm erce [address] [facility] [facility] [place] [address] 07/25/2010 00:00:00 [id number] autoEComm erce [address] [facility] [facility] [place] [address] 11/14/2010 00:00:00 [id number] autoEComm erce [address] [facility] [facility] [place] [address] 09/16/2013 00:00:00 [id number] autoEComm erce [address] [facility] [place] [address] 10/18/2013 00:00:00 [id number] autoEComm erce [address] [facility] [place], [place] [address] 12/16/2013 00:00:00 [id number] autoEComm erce [address] [facility] [place], [place] [address] 02/14/2014 00:00:00 [id number] Becca Ventura Main Office [address] [facility] [address] [place] [address] 2015 14:53:57 2015 15:59:11 Adult health examination 179565098 Major depr ession single episode, in partial remission 38199226 Malaise and fatigue 931428089 [id number] Natasha AnsariWolfSelma kingsley Main Office [address] [facility] [address] [place] [address] 12/27/2015 14:11:03 12/27/2015 15:07:55 Multiple bruising 900112496 T14.8 Onychomycosis 775948949 B35.1 Fatigue 42760829 R53.83 [id number] Natasha AnsariWolfSelma kingsley Main Office [address] [facility] [address] [place] [address] 11/06/2016 13:15:41 11/06/2016 14:15:29 Adult health examination 046482721 Z00.00 Onychomycosis 016915281 B35.1 Fatigue 32813780 R53.83 [id number] Megan Paul Main Office [address] [facility] [address] [place] [address] 11/21/2016 14:32:42 11/21/2016 16:09:19 Inflammation of rotator cuff tendon 215602141 M65.811 Dr. Alexander also in to eval [...] ice 4 times daily, exercises as discussed. [id number] Megan Paul Main Office [address] [address] [place] [address] 12/02/2016 11:32:06 12/02/2016 12:12:43 Bilateral hip joint pain 2311942288 4082235 M25.551 M25.552 RICE advised, meloxicam BID, gentle stretching as tolerated, return for worsening. Multiple joint pain 3567 8005 M25.50 Patient has had shoulder , foot and now hip pain within short period of time, would like to have blood work done. [id number] Natasha kingsley Main Office [address] [place] [address] 01/23/2017 13:18:12 01/23/2017 14:05:38 Shoulder pain 34464379 M25.511 [id number] Tameka Nguyễn [place] Main Office [address] [place] [address] 11/19/2017 13:53:40 11/19/2017 14:38:03 Adult health examination 425748612 Z00.00 Administra tion of viral vaccine 27745933 Z23 Fatigue 54045886 R53.83 Ferritin l evel below reference range 285351378 R77.8 Major depr ession single episode, in partial remission 72055968 F32.4 [id number] Sidney Longoria PA-C Main Office [address] [place] [address] 09/22/2018 13:47:01 09/22/2018 14:45:13 Major depression single episode, in partial remission 30949764 F32.4 Pt. is doing very well on current meds. In partial remission. Will continue counseling . F/u as sscheduled in 2019 Needs infl uenza immunization 900178001 Z23 [id number] Sidney Longoria PA-C Main Office [address] [place] [address] 02/25/2019 14:28:43 02/25/2019 15:15:27 Adult health examination 423150900 Z00.00 Administra tion of viral vaccine 61851477 Z23 Screening for malignant neoplasm of breast [id number] Z12.31 Screening for malignant neoplasm of cervix 521789930 Z12.4 Major depr ession single episode, in partial remission 94023229 F32.4 Pt. is doing very well on current meds. In partial remission. Will continue counseling . F/u in 1 year. [id number] Adenike cote Main Office [address] [address] [place] [address] 03/31/2020 08:14:38 04/02/2020 08:40:36 Recurrent oral herpes simplex infection 309347602 B00.2 treat as below, visit if not improving. prefers acyclovir [id number] Sidney Longoria PA-C [facility] [address] [address] [place] [address] 08/08/2020 11:09:55 08/08/2020 13:31:02 Multiple joint pain 87558461 M25.50 Fatigue 65798698 R53.83 Screening for malignant neoplasm of cervix 038761980 Z12.4 Screening for malignant neoplasm of breast 914539953 Z12.31 Tension-type headache 39 2144829 G44.209 [id number] Sidney Longoria PA-C [facility] [address] [address] [place] [address] 10/03/2020 08:43:18 10/03/2020 11:57:58 Constipation 80032697 K59.00 tried all otc options Family his tory of cancer of colon 114012909 Z80.0 refer for colonoscop y [id number] Sidney Longoria PA-C Main Office [address] [address] [place] [address] 01/18/2021 13:26:36 01/18/2021 14:21:53 Adult health examination 721787732 Z00.00 vaccines are up to date. Anti-nucle ar factor detected 348568117 R76.8 F/u with rheumatolo gy as scheduled in January. Screening for malignant neoplasm of colon 177851322 Z12.11 family h/o precancero us polyps in mother and sister. Hyperlipidemia 48524264 E78.5 Vitamin D deficiency 347 66640 E55.9 [id number] Sidney Longoria PA-C [facility] [address] [address] [place] [address] 01/20/2022 09:20:23 01/21/2022 10:16:32 Easy bruising 728831679 R58 r/o renal, liver disease. ? connective tissue disease, lupus, which was not confirmed by rheumatolo [facility] assessment in October 2020. Blood coag ulation disorder 10250844 D69.9 spontaneou s ecchymois of hands and/or hematoma of R. foot. Lab testing with considerat ion of hem/onc referral for further eval. i Paresthesia 86147420 R20 .2 recurrent , extremitie s with reported peripheral weakness. Advised first on lab testing to r/o thyroid disease, lymes disease, B12 deficiency . Consider further neurologic evaluation with MRI or neurology referral. Hyperlipidemia 45515796 E78.5 Pain in right foot 04373 42024 35696 M79.671 [id number] Sidney Longoria PA-C Main Office [address] [facility] [address] [place] [address] 03/12/2022 13:39:16 03/12/2022 14:51:06 Adult health examination 564074898 Z00.00 vaccines are up to date. Raynaud's disease 419046 006 I73.00 F/u with rheumatolo gist. Screening for malignant neoplasm of breast 000346148 Z12.31 Neutropenia 250526349 D7 0.9 F/u with hematology . Major depr ession single episode, in partial remission 24826262 F32.4 Pt. is doing well on current meds. Family his tory of cancer of colon 552316278 Z80.0 F/u colonoscop y in 2025 Anti-nucle ar factor detected 779152985 R76.8 F/u with rheumatolo gy . Additional testing might be needed if hem/onc work up is inconclusi ve or negative. Attention deficit hyperactivity disorder, predominantly inattentive type 10308475 F90.0 refer to neuropsych for evaluation . Constipation 51096240 K5 9.00 Continue MiraLax powder daily. [id number] Sidney Longoria PA-C Main Office [address] [facility] [address] [place] [address] 09/10/2022 11:12:01 09/10/2022 12:02:18 Neutropenia 393141541 D70.9 Repeat cbc and if still WBCs are suppressed , we will ask hem/onc for the eval. Needs infl uenza immunization 805386590 Z23 Major depr ession single episode, in partial remission 15349633 F32.4 PHQ-2 score of 0. Stable. WE will increase bupropion XL to 300 due to anxiety related to personal stress. F/u 6 weeks or sooner. Generalize d anxiety disorder 66951940 F41.1 Pt. is going through immense stress at home despite her LIBAN score of 7. rec increasing Bupropion to 300mg. Therapy is advised. F/u 4-6 weeks. Insomnia 638022068 G47.0 1 Pt is unable to sleep even with use of melatonin. rec trazodone 50 mg. Carpal mike donal syndrome 22454494 G56.01 Pt reports worsening right carpal tunnel. Pt requested a referral to [facility] [id number] Sidney Longoria PA-C Main Office [address] [facility] [address] [place] [address] 11/07/2022 15:02:37 11/07/2022 15:47:24 Major depression single episode, in partial remission 26824199 F32.4 PHQ-2 score of 0. Stable. LIBAN is 6. We will continue bupropion XL 150. Add mirtazapin e 7.5 mg at HS for sleep. Recommend therapy. F/u 3 m. Insomnia 194567257 G47.0 1 begin mirtazapin e 7.5 mg at night. F/u for dose adjustment in 4-6 weeks. [id number] Sidney Longoria PA-C [facility] [address] [facility] [address] [place] [address] 03/09/2023 12:23:37 03/09/2023 13:54:14 Acute sinusitis 75239501 J01.90 begin abx as directed for 10 days, nasal saline BID or saline rinse once daily, otc decongesta nts or Mucinex. Major depr ession single episode, in partial remission 22897392 F32.4 stable depression on meds. Sleep improved. [...] Member ID Guarantor Name 01/20/2022 1 [place] [facility] Karlene Richardson [id number] Karlene Richardson 03/12/2022 1 [place] [facility] Karlene [facility] [id number] Karlene Richardson 09/10/2022 1 [place] [facility] Karlene Richardson [id number] Karlene Richardson 11/07/2022 1 [place] [facility] Karlene Richardson [id number] Karlene Richardson 03/09/2023 1 [place] [facility] Karlene Richardson [id number] Karlene Richardson Notes Date Note Type Note [...] PT. 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 SHe was also diagnosed with bilateral carpal tunnel by nerve conduction study. PT. is concerned with leg fatigue, paresthesia, generalized fatigue, headaches and foggy head. Had COVID infection in October which potentiated all of those symptoms. Sidney Longoria PA-C [address] [address], [place], [address], [facility] 01/20/2022 14:26:53 03/12/2022 text/html Generic HPI TemplateReported bypatient.Notes:47 year old female for annual physical exam.Vaccines: Received both doses of COVID vaccine. Pt is going to get booster soon as she just recovered from recent COVID infection about 3 months ago. Pt got her yearly flu shot in November this year. Up to date with all other vaccines.Pt sees her regularly scheduled FLAGGER. Patient has a mammogram due this year and will be scheduling appointment soon. Normal pap smear done in November.Pt had a recent colonoscopy with no abnormal findings.Neutropenia ( WBCs 2.8) with unexplained ecchymosis in both feet and Raynaud's disease , positive KYLAH. Seen by hematology in February. Additional work up was ordered but not yet reviewed with pt. Seen by violin teacher over a year ago at the [facility] [place] for Raynaud's , positive KYLAH. Pt. needs f/u.Constipation is off and on. Normal colonoscopy, but recall 5 years due to constipation and family history.Pt. c/o attention deficit without hyperactivity symptoms. Has h/o difficulty at school and difficulty functioning as an adult , but was never formally evaluated . Son and other family members on her side had ADD. Sidney Longoria PA-C [address] [address], [place], [address], [facility] 03/12/2022 14:57:32 09/10/2022 text/html 47 year old [...] worsening pain. Patient requested a referral to [facility]. Sidney Longoria PA-C [address] [address], [place], [address], [facility] 09/10/2022 16:49:16 11/07/2022 text/html 47 year old [...] mg with no effect. Sidney Longoria PA-C [address] [address], [place], [address], [facility] 11/07/2022 16:44:55 03/09/2023 text/html 48 year old [...] for sleep prn only. Sidney Longoria PA-C [address] [address], [place], [address], [facility] 03/09/2023 13:50:46 OBGyn Episode No OBEpisode recorded.
--- OUTSIDE RECORDS SUMMARY | 2025-01-25 17:42 | XMS_ITS | Encounter Summary ---
Author Organization [employer] Address [address] [place] [address] 7 [place] [address] Care Team Providers Care Cane Flume Feeding Machine Operator Name Role Phone Unavailable Primary Care Provider Unavailabl e Reason for Visit * Reason Comments Anson delivery Encounter Details Date Type Department Care Team (Late st Contact Info) Description 01/23/2025 4:00 PM EDT Office Visit [facility] [address] [place] [address] [id number] Myrna Kim BDS [address] [place], [place] [phone] Social History Tobacco Use Types Packs/Day Years [...] Progress Notes * Myrna Kim BDS - 01/23/2025 4:00 PM EDT Patient ID: Karlene Richardson is a 49 y.o. female. Time Out: No data recorded Location: [facility] Tooth: #31 Procedure: Anson Verified the above with patient, assistant store manager sales, and provider. Confirmed via patient's chart, intraorally and by radiographs. Insurance Adviser: not applicable Chief Complaint Patient presents with Anson delivery #31 had extensive pentecostalism and fractured mesio occlusal ,needed crown to protect structure and integrity and perform its function.Opposing tooth in ceramic crown. Medical Hx: Vitals: There were no vitals taken for this visit. Medications, Med Hx reviewed with patient and updated in chart. Consent Obtained: The risks, benefits, indications, potential complications, and alternatives were explained to the patient and informed consent was obtained with good understanding. Treatment Provided: Dental procedures in this visit D2740 - CROWN - PORCELAIN/CERAMIC 31 (Completed) Service provider: Myrna Kim BDS Billing provider: Myrna Kim BDS Isolation: high speed suction and isolating device Removed Provisional and cleaned excess cement, pumiced tooth as needed. Tried on final pentecostalism Verified interproximal contacts and margins BW taken to confirm margins and contacts Occlusion adjusted as needed Tooth Treatment: Insurance Commissioner applied and Gluma applied Cemented with: Relyx Unicem Cleaned excess cement, flossed Patient satisfied with comfort and esthetics. POI given. Patient discharged alert, oriented, and in stable condition NV: Toolroom Checker: Wes Dentist: Myrna Kim BDS documented in this encounter Plan of Treatment Not on file documented as of this encounter Procedures Procedure Name Priority Date/Time Associated Diagnosis Comments 31 CROWN - PORCELAIN/CERAMIC Routine 01/23/2025 4:00 PM EDT documented in this encounter Visit Diagnoses Not on filedocumented in this encounter
== END 2025-01-25 15:18 | disposition home or self-care (01) ==
LOC: HO.MAMMO 15:17
PROVIDERS: PCP Nurse Practitioner Family; Visit Provider Nurse Practitioner Family
DX: Z12.31 Encounter for screening mammogram for malignant neoplasm of breast (principal)
CPT/HCPCS: 77063; 77067

== ENCOUNTER → 2025-01-25 15:30 | Outpatient (BNV) | payer OTHER, SELFPAY | PROVIDERS: PCP Nurse Practitioner Family; Visit Provider Internal Medicine | DX: Z12.31 Encounter for screening mammogram for malignant neoplasm of breast (principal) | CPT/HCPCS: 77063; 77067 ==

== ENCOUNTER 2025-04-14 13:09 | Outpatient (AMB) | payer OTHER, SELFPAY ==
--- OUTSIDE RECORDS SUMMARY | 2025-04-14 13:12 | XMS_ITS | Encounter Summary ---
Author Organization [facility] Address [address] [place] [address] Care Team Providers Care Comparator Operator Name Role Phone Unavailable Primary Care Provider Unavailabl e Encounter Details Date Type Department Care Team (Latest Contact Info) Description 08/14/2022 Abstract [facility] CONVERSIONS Dental, Provider, DDS Social History Tobacco [...]
--- NOTE | 2025-04-14 13:20 | A.OFFPC_ITS ---
Vital Signs 3 04/14/25 13:25 Height 5 ft 7 in Weight 129 lb 2 oz BMI 20.2 BP 102/68 Blood Pressure Location Rt brachial Position Sitting Respiration 12 Pulse 74 Pulse Source Pulse Oximeter Temp 97.9 F Temp Source Temporal Artery Scan Pulse Oximetry (%) 97 Oxygen Delivery Method Room Air Intake Visit Reasons: R breast lump Intake Note: Karlene presents in the office today concerning a lump in her right breast. Right hamstring pull a month ago. Allergies No Known Allergies Allergy (Verified 04/14/25 13:22) Tobacco use date assessed: 04/14/25 Dental Screening Dental Screen Date: 04/14/25 Did you have a dental visit in the last 12 months?: Yes Did you have a dental problem in the last 6 months where you did not have access to dental care?: No Was dental information given to patient?: Patient has dentist HPI HPI Comments 2 History of Present Illness0 Details 50 y/o F carpal tunnel, MDD, insomnia, HSV, herpes keratoconjunctivitis, cataracts, perimenopause Surgeries: 1996 patella replacement R knee, bilat breast implants 2012 Family hx: Dad DM & PVD w amputation, Mom thyroid, chrons, glaucoma, white matter disease; maternal grandparents Alzheimers Social: Form [employer] at [employer] Health Maintenance: colon 2020, repeat 5 years due 2025 Mammo 01/2024 WNL CC: R breast lump Self breast exam, noted a lump, re-eval a few days later and it seemed to be better Still worries given her family hx: see below I did order breast mri last year but this was denied by insurance She would like to discuss additional imaging to screen for breast cancer. She is up-to-date on her mammogram which was done in January, this was normal, she has dense breasts and bilateral implants. She has a maternal aunt with breast cancer diagnosed at age 54. She also reports that she has a maternal cousin that at age 47 of colon cancer. R hamstring injury Feb 24 2025 playing pickle ball felt and heard a pop near her buttocks supportive care w ice and rest returned to activity but has pain pain w/ sitting not getting any better hairloss and thinning tried nutrofol has colleague that uses minoxidil and finasteride po with good effects would like to trial EXAM: See below for breast RLE neurovasc intact, pain over palp hamstring insertion, normal strength but reports pain w/ engagement. Plan: Diag mammo and US bilat breasts Refer to [facility] Breast Surgeon Start oral meds as requested - aware of side effects, she can remove her own extra hair PRN FU with ORTHO [place], if insurance not accepted, send me portal message adn i can arrange for US and Ortho f/u. Total time spent caring for the patient today was 60 minutes. This includes time spent before the visit reviewing the chart, time spent during the visit, and time spent after the visit on documentation, reviewing laboratory results, diagnostic imaging, medications, performing a medically necessary evaluation, counseling on diagnoses, care coordination, ordering appropriate tests, ordering appropriate medications, review of tests performed by other providers, reporting test results with the patient, communication with other healthcare providers. [facility] Medical History (Updated 04/14/25 @ 14:22 by Kathy Nguyễn, [facility]) H/O mammogram (~2023) Surgical History Hx of breast implants, bilateral (~2012) H/O colonoscopy (~2021) Family History Father Hypertension High cholesterol Diabetes Mother Thyroid disorder Maternal Grandmother Hypertension FHx: mental illness Paternal Grandmother Hypertension Diabetes Substance abuse Maternal Grandfather Diabetes Maternal Aunt Breast cancer Family/Other Colon cancer Social History (Updated 04/14/25 @ 13:25 by Bertha Crocker MA) Housing: House Alcohol intake: current Alcohol intake frequency: a few times a week Alcohol type: wine and hard liquor Patient Tobacco Use Status: Never used Tobacco e-Cigarette/Vaping Use: Never Used Second Hand Smoke Exposure: No Use of substances other than those prescribed or required for medical reasons: No service: No Current occupational status: employed Cognitive needs: No Hearing needs: No Vision needs: No Female Reproductive History Menstrual Age of Menarche: 12 Questionnaire Thrive Questionnaire Date Thrive assessed: 01/04/25 I am a: Patient What is your living situation today?: I have a steady place to live Within the past 12 months, did the food you bought not last and you didn't have the money to get more?: Never true Within the past 12 months, did you worry whether your food would run out before you got money to buy more?: Never true Do you have trouble paying for medicines?: No Do you have trouble getting transportation to medical appointments?: No Do you have trouble paying your heating and electricity bill?: No Do you have trouble taking care of your child, family member or friend?: No Do you have trouble with day-to-day activities such as bathing, preparing meals, shopping, managing finances, etc.?: No Are you currently unemployed and looking for a job?: No Are you interested in more education?: No Please select the resources that you would like help with: None Currently or been in a relationship where the following occur: No concerns reported THRIVE Score: 0 LIBAN-7 AMB Questionnaire LIBAN-7 Date LIBAN - 7 assessed: 01/04/25 Source: Developed by Drs. Aden Ochoa, Tracy Santana, Ry Kimble and colleagues, with an educational reagan from [employer]. Physical exam (Primary Care) Vital Signs: Last Vital Signs Temp 97.9 F 04/14/25 13:25 Pulse 74 04/14/25 13:25 Resp 12 04/14/25 13:25 BP 102/68 04/14/25 13:25 Pulse Ox 97 04/14/25 13:25 Oxygen Delivery Method Room Air 04/14/25 13:25 BMI result Body Mass Index 20.2 Tobacco/Smoking Status: Tobacco use Status Tobacco use date assessed 04/14/25 04/14/25 13:29 Patient Tobacco Use Status Never used Tobacco 04/14/25 13:29 e-Cigarette/Vaping Use Never Used 04/14/25 13:29 Thrive Assessment: Date of Thrive Assessment Date Thrive assessed 01/04/25 04/14/25 13:29 Currently or been in a relationship where the following occur: No concerns reported Chest Breast/axilla inspection: normal inspection of the breasts Breast/axilla palpation: no axillary lymphadenopathy and abnormal palpation of the breast Chest/axillae images: 2 1. palpable mobile lump Overall fibrodense breasts, normal nipples, no discharge, normal skin Coding Level of Care Code Est Pt Level 5 (15025) Complex EM visit Add On G2211 Diagnoses Hx of breast implants, bilateral Z98.82 Family history of breast cancer Z80.3 Extremely dense tissue of both breasts on mammography R92.343 Mammographic dense breast tissue type: extremely dense Laterality: bilateral Mass of lower inner quadrant of right breast N63.14 Laterality: right Breast mass location: lower inner quadrant Right hamstring injury, initial encounter S76.301A Encounter type: initial encounter Thinning hair L65.9 Assessment & Plan Assessment & Plan (1) Hx of breast implants, bilateral: Onset Date: ~2012 Code(s): Z98.82 - Breast implant status Category: Surgical (2) Family history of breast cancer: Code(s): Z80.3 - Family history of malignant neoplasm of breast Category: Medical (3) Dense breast tissue on mammogram: Code(s): R92.30 - Dense breasts, unspecified Category: Medical Qualifiers: Mammographic dense breast tissue type: extremely dense Laterality: b ilateral Qualified Code(s): R92.343 - Mammographic extreme density, bilateral breasts (4) Breast lump: Comment: RIGHT Code(s): N63.0 - Unspecified lump in unspecified breast Category: Medical Qualifiers: Laterality: right Breast mass location: lower inner quadrant Qualified Code(s): N63.14 - Unspecified lump in the right breast, lower inner quadrant (5) Right hamstring injury: Code(s): S76.301A - Unspecified injury of muscle, fascia and tendon of the posterior muscle group at thigh level, right thigh, initial encounter Category: Medical Qualifiers: Encounter type: initial encounter Qualified Code(s): S76.301A - Unspecified injury of muscle, fascia and tendon of the posterior muscle group at thigh level, right thigh, initial encounter (6) Thinning hair: Code(s): L65.9 - Nonscarring hair loss, unspecified Category: Medical Plan . Orders: Orders 2 MM diagnostic mammo BI Today N63.0 - Unspecified lump in unspecified breast, R92.30 - Dense breasts, unspecified, Z98.82 - Breast implant status US breast RT complete Today N63.0 - Unspecified lump in unspecified breast, R92.30 - Dense breasts, unspecified, Z98.82 - Breast implant status US breast LT complete Today N63.0 - Unspecified lump in unspecified breast, R92.30 - Dense breasts, unspecified, Z98.82 - Breast implant status Referrals 2 General Surgery Referral R92.30 - Dense breasts, unspecified, Z80.3 - Family history of malignant neoplasm of breast, Z98.82 - Breast implant status Medications: New 2 finasteride 1 mg PO DAILY 30 tabs 2RF minoxidil 2.5 mg PO DAILY 30 tabs 2RF
[2025-04-14 13:25] VITALS: BP 102/68; PULSE 74; RESP 12; TEMP 36.6; O2SAT 97; BMI 20.2
== END 2025-04-14 17:02 | disposition home or self-care (01) ==
LOC: HO.HMCFM 13:09
PROVIDERS: PCP Nurse Practitioner Family; Visit Provider Nurse Practitioner Family
DX: N63.14 Unspecified lump in the right breast, lower inner quadrant (principal); R92.343 Mammographic extreme density, bilateral breasts; S76.301A Unspecified injury of muscle, fascia and tendon of the posterior muscle group at thigh level, right thigh, initial encounter; L65.9 Nonscarring hair loss, unspecified; Z98.82 Breast implant status; Z80.3 Family history of malignant neoplasm of breast

== ENCOUNTER → 2025-04-14 13:09 | Outpatient (BNVA) | payer OTHER, SELFPAY | PROVIDERS: PCP Nurse Practitioner Family; Visit Provider Nurse Practitioner Family | DX: R92.343 Mammographic extreme density, bilateral breasts (principal); N63.14 Unspecified lump in the right breast, lower inner quadrant; L65.9 Nonscarring hair loss, unspecified; S76.301A Unspecified injury of muscle, fascia and tendon of the posterior muscle group at thigh level, right thigh, initial encounter; X58.XXXA Exposure to other specified factors, initial encounter; Y93.9 Activity, unspecified; Y92.9 Unspecified place or not applicable; Y99.9 Unspecified external cause status; Z80.3 Family history of malignant neoplasm of breast; Z98.82 Breast implant status | CPT/HCPCS: 99212 ==

== ENCOUNTER 2025-06-01 11:02 | Outpatient (AMB) | payer OTHER, SELFPAY ==
--- NOTE | 2025-06-01 11:09 | MHC.OFFVIS ---
Intake Visit Reasons: Lump in breast Intake Note: Patient is seen in office for evaluation of a right breast lump. Pt c/o: felt a lump on the right breast and 2 in the axilla about a month ago, denies prior bx, or infections, does have breast implants onset 14 yrs ago, admits to history of breast cancer- grandmother and maternal aunt, no genetic testing done on self mm:01/25/25 * MM Sched: 06/09/25 * Dipper And Drier Required: No Wildlife Manager: Wildlife Manager Present Accompanied by: Self / Same As Patient Allergies No Known Allergies Allergy (Verified 06/01/25 11:18) Medication List - Last Reconciled 06/01/25 by Tadeo Funez MD bupropion HCl XL 150 mg PO DAILY minoxidil 2.5 mg PO DAILY mirtazapine 7.5 mg PO DAILY PRN multivitamin with iron 1 tab PO DAILY prednisolone acetate 1% 1 drp ophthalmic-Right DAILY spironolactone 25 mg PO DAILY valacyclovir 500 mg PO DAILY HPI Comments Details: 50-year-old female patient presenting for evaluation of a right breast and axillary mass noted on self-examination. She 1st noted the lump in the axilla approximately 4 months ago in the lump is the right lower inner quadrant approximately one-month ago. Since 1st being identified, the breast lump seems to have decreased in size in his now less noticeable. She denies a previous history of breast problems but has undergone previous breast lift with bilateral saline implants. She denies any problems following the surgery and denies any ongoing breast pain. Her most recent mammogram of 01/25/2025 revealed no changes from her prior mammogram (BI-RADS 2). Menarche was age 12. She is in her 1st child was born when she was 29. Her periods are now irregular and sporadic. She denies a history of hormone replacement therapy. Family history is significant for a maternal grandmother with breast cancer which developed in her early 70s and a maternal aunt who developed breast cancer the age of 54. Her maternal grandfather has a history of colon and prostate cancer and a maternal cousin also has a history of colon cancer. She has never undergone genetic testing and is unaware of any family members who have undergone genetic testing. She reports undergoing an ancestry genetic testing however which did show 1% Ashkenazi Druze heritage. [facility] Medical History H/O mammogram (~2023) Surgical History Hx of breast implants, bilateral (~2012) H/O colonoscopy (~2021) Family History Father Hypertension High cholesterol Diabetes Mother Thyroid disorder Maternal Grandmother Hypertension FHx: mental illness Breast cancer, Onset Age: 70 Paternal Grandmother Hypertension Diabetes Substance abuse Maternal Grandfather Diabetes Maternal Aunt Breast cancer, Onset Age: 50 Family/Other Colon cancer Social History Housing: House Alcohol intake: current Alcohol intake frequency: a few times a week Alcohol type: wine and hard liquor Patient Tobacco Use Status: Never used Tobacco e-Cigarette/Vaping Use: Never Used Second Hand Smoke Exposure: No service: No Current occupational status: employed Cognitive needs: No Hearing needs: No Vision needs: No Female Reproductive History Menstrual Age of Menarche: 12 Date of last menstrual period: 04/28/25 Total pregnancies: 2 Number of Living Children: 2 Review of Systems Const All systems reviewed & are unremarkable except as noted in HPI and below Denies chills, Denies fever(s), Denies headache(s), Denies poor appetite and Denies weakness ENT Denies headache(s) Card Denies chest pain, Denies irregular heart rhythm, Denies palpitations and Denies dyspnea Resp Denies cough, Denies excessive phlegm production and Denies dyspnea GI Denies abdominal pain, Denies bloating, Denies change in bowel habits, Denies constipation, Denies heartburn, Denies diarrhea, Denies nausea and Denies vomiting Denies urinary frequency Musc Denies back pain, Denies muscle weakness and Denies numbness Skin/Breast Denies changing lesions and Denies unusual bruising Neuro Denies headache(s), Denies numbness, Denies paresthesias and Denies weakness Psych Denies anxiety and Denies depression Endo Denies palpitations Wolfgang/Lymph Denies lymphadenopathy Physical Exam Physical Examination CONSTITUITIONAL Patient alert and cooperative. Well appearing and in no apparent painful distress HEENT Conjunctiva and sclera clear. ?Pupils equal round and reactive to light. ?No lymphadenopathy. ?Normal dentition. No oral or nasal ulcers noted. No evidence of discoid rash to the brendan of ears CHEST/RESPIRATORY SYSTEM Normal respiratory effort and able to speak in complete sentences. ?Clear to auscultation bilaterally. ?No crackles, rales, rhonchi, wheezes heard. CARDIAC SYSTEM Regular rate and rhythm. ?S1 and S2 heard no murmurs. ?Radial pulses intact bilaterally MSK Hands: ?Good senior enlisted advisor strength bilaterally - 5/5. ?No deformities noted. ?No synovitis noted to the MCPs, PIPs or DIPs. ?No tenderness to palpation of these joints. Wrists: ?Full range of motion at the wrists without pain. ?No tenderness to palpation or synovitis noted to the wrists. Elbows: Full range of motion without pain. No tenderness, weakness, swelling, increased warmth or erythema. Shoulders: Full range of motion without pain. No tenderness, weakness, swelling, increased warmth or erythema. Tenderness to palpation at insertion of the right deltoid on the mid humerus. Hips: Full range of motion without pain. Hip bursa: No tenderness to palpation Knees: ?Full range of motion. ?No tenderness, swelling, increased warmth or erythema.?No effusion or crepitations Ankles: Full range of motion. ?No tenderness, swelling, increased warmth or erythema.? Feet: ?Negative squeeze test. ?No tenderness to palpation or swelling of the MTPs. Tender points:??No tenderness to palpation of the neck, shoulders, chest, elbows, hips, buttocks or knees. SKIN Skin intact without rashes. Const General: cooperative and no acute distress Nutritional Appearance: well nourished Orientation/consciousness: patient oriented x3 Limitations: no limitations HEENT Head: Yes normocephalic and Yes atraumatic Ears: hearing grossly normal bilaterally Chest Other: Bilateral breast lift and saline implant surgery noted. Left breast: No skin change, no nipple retraction, no nipple discharge, no palpable mass, no enlarged lymph nodes. Right breast: No skin change, no nipple retraction, no nipple discharge, no definite palpable mass with special attention to the lower inner quadrant, no enlarged lymph nodes. Small sebaceous cyst palpable in the high axilla over the latissimus dorsi muscle Chest/axillae images:  1. Site of palpable mass, no definite mass appreciated on my examination. 2. Sebaceous cyst Resp Effort & Inspection: normal respiratory effort, no audible wheezes, no cough and no respiratory distress Cardio Jugular venous distension: no JVD GI Inspection: Yes normal to inspection Skin Other: Warm, dry, no rash Neuro General: patient oriented x3 Extrem General: Yes no clubbing, cyanosis or edema Assessment & Plan Assessment & Plan (1) Hx of breast implants, bilateral: Onset Date: ~2012 Code(s): Z98.82 - Breast implant status Category: Surgical (2) Family history of breast cancer: Code(s): Z80.3 - Family history of malignant neoplasm of breast Category: Medical (3) Breast lump: Comment: RIGHT Code(s): N63.0 - Unspecified lump in unspecified breast Category: Medical Qualifiers: Laterality: right Breast mass location: lower inner quadrant Qualified Code(s): N63.14 - Unspecified lump in the right breast, lower inner quadrant Plan 50-year-old female patient presenting with complaints of a palpable breast mass in the right breast noted on self-examination. She has a prior history of bilateral breast implants with breast lift. Her family history is significant for both colon cancer and breast cancer and she may qualify for genetic testing. I reviewed the risks and benefits of genetic testing and she wishes to proceed. Examination today revealed no significant breast lump in either breast. There was a small sebaceous cyst in the axilla which is relatively asymptomatic. No surgical intervention is recommended at this time. She will return approximately 6 weeks to review the genetic testing results. (Calin remaining lifetime risk of breast cancer calculated at 13.7%). Coding Level of Care Code New Pt Level 4 (89980) Diagnoses Hx of breast implants, bilateral Z98.82 Family history of breast cancer Z80.3 Mass of lower inner quadrant of right breast N63.14 Laterality: right Breast mass location: lower inner quadrant
--- OUTSIDE RECORDS SUMMARY | 2025-06-01 11:40 | XMS_ITS | Clinical Summary ---
Author Organization [facility] Address [address] [place] [id number] Phone Care Team Providers Care Center Line Cutter Operator Name Role Phone Austin Dietrich MD Primary Care Provider Allergies No known active allergies Medications acyclovir (ZOVIRAX) 400 MG tablet TAKE 1 TABLET BY MOUTH TWICE A DAY NEEDED FOR 20 DAYS Active buPROPion (WELLBUTRIN XL) 150 MG ER 24 hr tablet Take 1 tablet by mouth daily. Active mirtazapine (REMERON) 7.5 MG tablet Take 1 tablet by mouth daily. Active moxifloxacin (VIGAMOX) 0.5 % ophthalmic solution Place 1 drop into the right eye 4 (four) times a day. 07/20/2024 Active TAB-A-VISHAL MULTIVITAMIN W-IRON 15 mg iron- 400 mcg Tab Take 1 tablet by mouth every morning. 07/20/2024 Active valACYclovir (VALTREX) 1000 MG tablet Take 1,000 mg by mouth 3 (three) times a day. 07/20/2024 Active dorzolamide-timol oL (COSOPT) 22.3-6.8 mg/mL ophthalmic solution Place 1 drop into the right eye 2 (two) times a day. 10 mL 12 07/30/2024 Active cyclopentolate (CYCLOGYL) 1 % ophthalmic solution Place 1 drop into the right eye 2 (two) times a day. 2 mL 07/30/2024 Active prednisoLONE acetate (PRED FORTE) 1 % ophthalmic suspension Place 1 drop into each eye 4 (four) times a day. 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 Not on mati e 07/30/2024 Are you concerned about learning? Not on file 07/30/2024 No 07/30/2024 No 07/30/2024 Digital Access Answer Date Recorded No 07/30/2024 No 07/30/2024 Reliable internet access at home? Not on file 07/30/2024 Device with a working camera? Not on file Intimate Partner Violence Answer Date R ecorded Are you denied basic needs s uch as food, clothing, or medical care? No 07/30/2024 In the past 12 months have y ou been in a relationship with a person who hurts, threatens, or tries to control you? No 07/30/2024 Are you denied basic needs s uch as food, clothing, or medical care? No 07/30/2024 In the past 12 months have y ou been in a relationship with a person who hurts, threatens, or tries to control you? No 07/30/2024 Comments Unknown Sex and Gender Information Value Date Recorded Sex Assigned at Female 07/30/2024 4:05 PM EDT Legal Sex Female 10:32 AM EDT Gender Identity Female 07/30/2024 4:05 PM EDT Sexual Orientation Straight 07/30/2024 4: 05 PM EDT Last Filed Vital Signs Vital Sign Reading Time Taken Comments Blood Pressure 133/86 07/30/2024 2:16 PM EDT Pulse 76 07/30/2024 2:16 PM EDT Temperature 36.6 C (97.9 F) 07/30/2024 2:16 PM EDT Respiratory Rate 16 07/30/2024 2:16 PM EDT Oxygen Saturation 100% 07/30/2024 2:16 PM EDT Inhaled Oxygen Concentration - - Weight - - Height - - Body Mass Index - - Plan of Treatment Health Maintenance Due Date Last Done Comments Adult Td,Tdap Booster 1973 LIPID PANEL 1973 DEPRESSION SCREENING 1985 HEPATITIS C SCREENING 1991 HIV ONE-TIME SCREENING (18-6 5 YEARS) 1991 PAP SMEAR 1994 COLOGUARD 2018 COLONOSCOPY 2018 COLORECTAL CANCER SCREENING 2018 FIT TEST 2018 FOBT 2018 SIGMOIDOSCOPY 2018 VIRTUAL COLONOSCOPY 2018 MAMMOGRAM 12/11/2022 12/11/2020 PNEUMOCOCCAL VACCINES (50+ y ears) (1 of 1 - PCV) 2023 ZOSTER VACCINES (1 of 2) 2023 COVID-19 VACCINE (1 - 2023-2 5 season) 2024 SMOKING STATUS SCREENING (On ce After 26 Yrs) Completed 08/03/2024 HEPATITIS A VACCINES Aged Out No long er eligible based on patient's age to complete this topic HIB VACCINES Aged Out No longer eligi ble based on patient's age to complete this topic MENINGOCOCCAL VACCINES (ACWY) Aged Out No longer eligible based on patient's age to complete this topic MENINGOCOCCAL VACCINES (B) Aged Out N o longer eligible based on patient's age to complete this topic Medical Devices Not on file Insurance [facility]G PCP SILVER CLARITY CONNECTORCARE WELLSENSE NON NSPG PCP SILVER CLARITY CONNECTORCARE [facility] NON NSPG PCP ANICETO NEIL CONNECTORCARE Care Teams Center Line Cutter Operator Relationship Specialty Start Date End Date Austin Dietrich MD [address] [place] [address] PCP - General 07/30/24 Additional Source Comments The information contained in this document represents components of the legal health record. It is not the complete legal health record.[facility]
--- OUTSIDE RECORDS SUMMARY | 2025-06-01 11:40 | XMS_ITS | Encounter Summary ---
Author Organization [facility] Address [address] [place] [address] Care Team Providers Care Automation Developer Name Role Phone Unavailable Primary Care Provider [...]
== END 2025-06-01 11:54 | disposition home or self-care (01) ==
LOC: HO.HGS 11:03
PROVIDERS: PCP Nurse Practitioner Family; Referring Provider Nurse Practitioner Family; Visit Provider Surgery
DX: Z98.82 Breast implant status (principal); Z80.3 Family history of malignant neoplasm of breast; N63.14 Unspecified lump in the right breast, lower inner quadrant
CPT/HCPCS: 99204

== ENCOUNTER → 2025-06-01 11:02 | Outpatient (BNVA) | payer OTHER, SELFPAY | PROVIDERS: PCP Nurse Practitioner Family; Referring Provider Nurse Practitioner Family; Visit Provider Surgery | DX: N63.14 Unspecified lump in the right breast, lower inner quadrant (principal); Z98.82 Breast implant status; Z80.3 Family history of malignant neoplasm of breast | CPT/HCPCS: 99202 ==

== ENCOUNTER 2025-06-05 14:58 | Outpatient (REF) | payer OTHER, SELFPAY ==
--- NOTE | ~2025-06-05 | XR_ITS ---
EXAMINATION: XR LUMBOSACRAL SPINE CLINICAL INFORMATION: SPRAIN OF LUMBAR SPINE COMPARISON: None available. TECHNIQUE: AP and lateral views FINDINGS: There is a superior endplate compression deformity likely old representing 20% volume loss at L3. No acute cortical disruption. No gross malalignment. 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 Electronically signed by: Tex Cook MD 06/05/2025 03:50 PM EDT
--- OUTSIDE RECORDS SUMMARY | 2025-06-05 15:24 | XMS_ITS | Clinical Summary ---
Author Organization [facility] Address [address] [place] [phone] Phone Care Team Providers Care Chief Solution Architect Name Role Phone Austin Dietrich MD Primary [...] topic Medical Devices Not on file Insurance [facility] NON N[facility]G PCP SILVER CLARITY CONNECTORCARE WELLSENSE NON NSPG PCP SILVER CLARITY CONNECTORCARE [facility] NON NSPG PCP ANICETO NEIL CONNECTORCARE Care Teams Chief Solution Architect Relationship Specialty Start Date End Date Austin Dietrich MD [address] [place] [address] PCP - General 07/30/24 Additional Source Comments The information contained in this document represents components of the legal health record. It is not the complete legal health record.[facility]
--- OUTSIDE RECORDS SUMMARY | 2025-06-05 15:24 | XMS_ITS | Encounter Summary ---
Author Organization [facility] Address [address] [place] [address] Care Team Providers Care Rehabilitation Services Coordinator Name Role Phone Unavailable Primary Care Provider [...]
== END 2025-06-05 14:59 | disposition home or self-care (01) ==
LOC: HO.XRAY 14:58
PROVIDERS: PCP Nurse Practitioner Family; Visit Provider Student in an Organized Health Care Education/Training Program
DX: S33.9XXA Sprain of unspecified parts of lumbar spine and pelvis, initial encounter (principal)
CPT/HCPCS: 72100

== ENCOUNTER → 2025-06-05 15:10 | Outpatient (BNV) | payer OTHER, SELFPAY | PROVIDERS: PCP Nurse Practitioner Family; Visit Provider Radiology Diagnostic Radiology | DX: S33.5XXA Sprain of ligaments of lumbar spine, initial encounter (principal) | CPT/HCPCS: 72100 ==

== ENCOUNTER 2025-06-09 09:56 | Outpatient (AMB) | payer OTHER, SELFPAY ==
--- OUTSIDE RECORDS SUMMARY | 2025-06-09 10:12 | XMS_ITS | Encounter Summary ---
Author Organization [facility] Address [address] [place] [address] [place] [phone] Phone Care Team Providers Care Bridge Repairer Name Role Phone Austin Dietrich MD Primary Care Provider Encounter Details Date Type Department Care Team (Late st Contact Info) Description 07/30/2024 Ophth Exam [facility] [address] [place] [address] Keshav Caceres MD [address] [place] [address] [email or web address] Social History Tobacco Use Types Packs/Day Years Used Date Smoking Tobacco: Never Smokeless Tobacco: Never Alcohol Use Standard Drinks/Week Comments Yes 0 [...] Orientation Straight 07/30/2024 4: 05 PM EDT documented as of this encounter Functional Status * Calculated C-SSRS Risk Score (Lifetime/Recent) Answer Date of Assessment Author No Risk Indicated 07/30/2024 2:21 PM EDT Anai Olivarez RN * [place] Suicide Severity Rating Scale (Screener/Recent Self-Report) Question Answer Date of Assessment Author 1. Wish to be (Past 1 Month) No 024 2:21 PM EDT Anai Olivarez RN 2. Non-Specific Active Suici ria Thoughts (Past 1 Month) No 07/30/2024 2:21 PM EDT Jennifer Olivarez ra, RN 6. Suicidal Behavior (Lifetime) No 2:21 PM EDT Anai Olivarez RN documented as of this encounter Plan of Treatment Not on file documented as of this encounter Visit Diagnoses Not on filedocumented in this encounter Care Teams Bridge Repairer Relationship Specialty Start Date End Date Austin Dietrich MD [address] [place] [id number] PCP - General 07/30/24 documented as of this encounter Additional Source Comments The information contained in this document represents components of the legal health record. It is not the complete legal health record.[facility]
--- OUTSIDE RECORDS SUMMARY | 2025-06-09 10:12 | XMS_ITS | Encounter Summary ---
Author Organization [facility] Address [address] [facility] [address] [facility] [address] [place] [address] Care Team Providers Care Flat Lock Operator Name Role Phone Unavailable Primary Care [...]
[2025-06-09 10:42] VITALS: BP 104/70; PULSE 88; TEMP 36.7; O2SAT 98
--- NOTE | 2025-06-09 10:42 | MHC.OFFWIV ---
Intake Vital Signs 06/09/25 10:42 Height 5 ft 7 in Weight 128 lb BMI 20.0 BP 104/70 Blood Pressure Location Rt brachial Position Sitting Pulse 88 Pulse Source Pulse Oximeter Temp 98.0 F Temp Source Oral Pulse Oximetry (%) 98 Oxygen Delivery Method Room Air Intake Visit Reasons: EP Ear pain Intake Note: present with left ear pain- unable to hear for 3 weeks Patient Tobacco Use Status: Never used Tobacco Allergies No Known Allergies Allergy (Verified 06/09/25 10:43) Do you need a note to return to daycare/school/sports/work: No HPI HPI Comments History of Present Illness Details This is a 50-year-old female presenting for evaluation of decreased hearing in her left ear over the past 3 weeks. Patient states that there is a fullness in her left ear but no overt pain. Patient has been taking Claritin for 1 week as well as using an ?oil like? ear drop for earwax removal without relief of her symptoms. Patient denies having any right ear discomfort, sore throat, fevers or chills. [facility] Medical History H/O mammogram (~2023) Surgical History Hx of breast implants, bilateral (~2012) H/O colonoscopy (~2021) Family History Father Hypertension High cholesterol Diabetes Mother Thyroid disorder Maternal Grandmother Hypertension FHx: mental illness Breast cancer, Onset Age: 70 Paternal Grandmother Hypertension Diabetes Substance abuse Maternal Grandfather Diabetes Maternal Aunt Breast cancer, Onset Age: 50 Family/Other Colon cancer Social History Housing: House Alcohol intake: current Alcohol intake frequency: a few times a week Alcohol type: wine and hard liquor Patient Tobacco Use Status: Never used Tobacco e-Cigarette/Vaping Use: Never Used Second Hand Smoke Exposure: No service: No Current occupational status: employed Cognitive needs: No Hearing needs: No Vision needs: No Female Reproductive History Menstrual Age of Menarche: 12 Review of Systems Const All systems reviewed & are unremarkable except as noted in HPI and below Denies chills, Denies fatigue and Denies fever(s) Eyes Reports no additional complaints ENT Details: fullness left ear with decreased hearing Denies Normal hearing present Skin/Breast Reports system reviewed and no additional complaints, except as documented Neuro Denies Normal hearing present Psych Reports no additional complaints Endo Denies fatigue Aller/Immun Reports no additional complaints Physical Exam Vital Signs: Last Vital Signs Temp 98.0 F 06/09/25 10:42 Pulse 88 06/09/25 10:42 BP 104/70 06/09/25 10:42 Pulse Ox 98 06/09/25 10:42 Oxygen Delivery Method Room Air 06/09/25 10:42 BMI result Body Mass Index 20.0 Const General: cooperative, healthy appearing, comfortable, no acute distress, well developed, alert, awake and Physically active; No acute distress Nutritional Appearance: average body habitus Orientation/consciousness: patient oriented x3 Limitations: no limitations HEENT Head: Yes normal to inspection and Yes normocephalic Ears: hearing grossly normal bilaterally, external ears normal, TM normal on the right and left TM abnormal (cerumen present; able to visualize medial aspect of TM, no erythema) General nose exam: Normal external nose present Face and sinus: Yes normal facial exam and Yes face symmetric Eyes General: appearance normal, both eyes and all related structures Skin General skin exam: no rashes or lesions noted Neuro General: patient oriented x3 Cranial nerves: No Normal hearing present Psych Appearance: grossly normal Mental Status: mental status grossly normal Insight: Good insight present (Psych) Judgement: Good judgement present (Psych) Assessment & Plan Assessment & Plan (1) Excessive cerumen in left ear canal: Comment: Cerumen removed left ear; no evidence of an otitis media or otitis externa. Code(s): H61.22 - Impacted cerumen, left ear Plan: Follow.up only as needed; no further intervention required at this time. Coding Level of Care Code Est Pt Level 3 (03785) Diagnoses Excessive cerumen in left ear canal H61.22 Time Spent (min) 20
== END 2025-06-09 11:11 | disposition home or self-care (01) ==
PROVIDERS: PCP Nurse Practitioner Family; Visit Provider Physician Assistant
DX: H61.22 Impacted cerumen, left ear (principal)

== ENCOUNTER → 2025-06-09 09:56 | Outpatient (BNVA) | payer OTHER, SELFPAY | PROVIDERS: PCP Nurse Practitioner Family; Visit Provider Physician Assistant | DX: H61.22 Impacted cerumen, left ear (principal) | CPT/HCPCS: 99212 ==

== ENCOUNTER 2025-06-16 13:01 | Outpatient (AMB) | payer OTHER, SELFPAY ==
--- OUTSIDE RECORDS SUMMARY | 2025-06-16 13:04 | XMS_ITS | Encounter Summary ---
Author Organization [employer] [facility] Address [address] 7[address] [place] [address] Care Team Providers Care Head Of Loss Prevention Name Role Phone Unavailable Primary Care Provider [...]
--- OUTSIDE RECORDS SUMMARY | 2025-06-16 13:05 | XMS_ITS | Clinical Summary ---
Author Organization [facility] Address [address] [place] [address] Phone Care Team Providers Care Acoustical Material Worker Name Role Phone Helene Sinha Primary Care Provider [phone] Allergies No known active allergies Medications No known medications Encounters Date Type Department Care Team Description 06/04/2025 8:00 PM EDT - 06/04/2025 8:40 PM EDT Emergency [facility] Emergency [address] [place] [address] Discharge Disposition: Home or Self Care from Last 3 Months Medical History Medical History Date Comments Depression Anxiety Social History Tobacco Use Types Packs/Day Years Used Date Smoking Tobacco: Never Assessed Comments No Sex and Gender Information Value Date Recorded Sex Assigned at Not on file Legal Sex Female 9:54 PM EST Gender Identity Not on file Sexual Orientation Not on file Obstetrics History Last Filed Vital Signs Vital Sign Reading Time Taken Comments Blood Pressure 118/86 06/04/2025 8:09 PM EDT Pulse 66 06/04/2025 8:09 PM EDT Temperature 36.6 C (97.9 F) 06/04/2025 8:09 PM EDT Respiratory Rate 18 06/04/2025 8:09 PM EDT Oxygen Saturation 100% 06/04/2025 8:09 PM EDT Inhaled Oxygen Concentration - - Weight 59 kg (130 lb) 06/04/2025 8:09 PM EDT Height 170 cm (5' 6.93 ) 06/04/2025 8:09 PM EDT Body Mass Index 20.4 06/04/2025 8:09 PM EDT Plan of Treatment Health Maintenance Due Date Last Done Comments Breast Cancer Screening 1973 Hepatitis B Vaccines (1 of 3 - 19+ 3-dose series) 02/23/1992 Cervical Cancer Screening: Pap Smear 1994 Pneumococcal Vaccine: 50+ Years (1 of 1 - PCV) 2023 Zoster Vaccines (1 of 2) 2023 COVID-19 Vaccine (3 - season) 2024 12/20/2020, 11/22/2020 Depression Screening 10/26/2024 Colorectal Cancer Screening: Colonoscopy 06/04/2025 HIV Screening 06/04/2025 Hepatitis C Screening 06/04/2025 Social Influencers of Health Screening 06/04/2025 Influenza Vaccine (#1) 2025 , 09/10/2022, 09/22/2018, Additional history exists DTaP,Tdap,and Td Vaccines (4 - Td or Tdap) 02/25/2029 02/25/2019, 09/14/2008, 09/02/1999 HIB Vaccines Aged Out No longer eligi [...] on patient's age to complete this topic MMR Vaccines Aged Out No longer eligi ble based on patient's age to complete this topic Meningococcal ACWY Vaccine Aged Out N o longer eligible based on patient's age to complete this topic Meningococcal B Vaccine Aged Out No l onger eligible based on patient's age to complete this topic RSV Immunization Patients Under 20 months Aged Out No longer eligible based on patient's age to complete this topic Varicella Vaccines Aged Out No longer eligible based on patient's age to complete this topic Insurance [facility] [employer] Care Teams Acoustical Material Worker Relationship Specialty Start Date End Date Helene Sinha PA [address] [facility] [address] [place], [place] PCP - General Internal Medicine 11/01/20
--- OUTSIDE RECORDS SUMMARY | 2025-06-16 13:05 | XMS_ITS | Encounter Summary ---
Author Organization [facility] Address [address] [place] [address] [place] [address] Phone Care Team Providers Care Foam Tank Laminator Name Role Phone Austin Dietrich MD Primary Care Provider Encounter Details Date Type Department Care Team (Late st Contact Info) Description 07/30/2024 Ophth Exam [facility] Emergency Department [address] [place] [address] Keshav Caceres MD [address] [place] [address] [email or web address] Social History Tobacco Use Types Packs/Day Years [...] 2:21 PM EDT Anai Olivarez RN * [place] Suicide Severity Rating Scale (Screener/Recent Self-Report) Question [...] on filedocumented in this encounter Care Teams Foam Tank Laminator Relationship Specialty Start Date End Date Austin Dietrich MD [address] [place] [address] PCP - General 07/30/24 documented as of this encounter Additional Source Comments The information contained in this document represents components of the legal health record. It is not the complete legal health record.[facility]
--- NOTE | 2025-06-16 13:08 | A.OFFPC_ITS ---
Vital Signs 06/16/25 13:10 Height 5 ft 7 in Weight 126 lb BMI 19.7 BP 112/78 Blood Pressure Location Lt brachial Position Sitting Respiration 12 Pulse 78 Pulse Source Pulse Oximeter Temp 98.1 F Temp Source Oral Pulse Oximetry (%) 98 Oxygen Delivery Method Room Air Intake Visit Reasons: ear pain/cant hear left ear Intake Note: Cant hear out of left ear, ringing in left ear this am Disease Management Nurse Required: No Allergies No Known Allergies Allergy (Verified 06/16/25 13:16) Medication List - Last Reconciled 06/16/25 by Kathy Nguyễn, FASHION DIRECTOR [employer]- bupropion HCl XL 150 mg PO DAILY minoxidil 2.5 mg PO DAILY mirtazapine 7.5 mg PO DAILY PRN multivitamin with iron 1 tab PO DAILY prednisolone acetate 1% 1 drp ophthalmic-Right DAILY spironolactone 25 mg PO DAILY valacyclovir 500 mg PO DAILY Tobacco use date assessed: 06/16/25 Dental Screening Dental Screen Date: 04/14/25 HPI HPI Comments History of Present Illness Details 50 y/o F carpal tunnel, MDD, insomnia, HSV, herpes keratoconjunctivitis, catara cts, perimenopause Surgeries: 1996 patella replacement R knee, bilat breast implants 2012 Family hx: Dad DM & PVD w amputation, Mom thyroid, chrons, glaucoma, white matter disease; maternal grandparents Alzheimers 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 - Sudden symptom onset one month ago aft er awakening. - OTC Claritin was ineffective. - Wax removal on Thursday provided no impr ovement. Went to [facility] in for this; note reviewed 06/09/25 - Recent onset of tinnitus described as loud ringing . Started today. - No fever, chills, nasal discharge, hea daches, or visual disturbances reported. - Previous wakeboarding accident , w/ lo w back injury, seen at urgent care, MRI recommended. denied by ins. until PT. Needs order for PT . Review of Systems - Ears: Reports sudden hearing loss, tin nitus in the left ear. - Constitutional: Denies fever, chills. - HEENT: Denies runny nose, headaches, v isual changes. - Musculoskeletal: Reports exacerbated b ack pain. Physical Exam General: Well developed, well nourished, in no acute distress. Appears stated age. Head: Normocephalic, atraumatic. Ears: TM intact and clear bilat, EAC clear bilat; No mastoid pain, no erythema; no pain w/ tragus manipulation. Psych: Mood and affect appropriate Discussion Notes I discussed with the patient the sudden onset of left ear hearing loss and tinnitus, emphasizing the importance of evaluating sudden hearing loss. I recommended a course of oral prednisone to reduce potential inflammation. A CT scan was advised to investigate the ear structure further and prevent possible complications. I highlighted the importance of consulting an ENT but will wait until CT results are back. The possibly required referrals to specialists in the [facility] area were outlined if regional resources were unavailable. Back pain management was also discussed, including pursuing prescribed PT at [facility]. Instructions on medication administration, diagnostic testing processes, and the importance of follow-up were provided. Lastly, I advised protective measures during activities such as swimming. Patient was given time to ask questions. All questions were answered to their satisfaction. Assessment and Plan 1. Sudden Sensorineural Hearing Loss, L - Prescribed prednisone 40 mg oral per d ay. - Advised urgent CT scan - Recommended ENT PRN referral pending r esults. - Advised ear protection 2. Tinnitus - Evaluate alongside hearing loss . 3. Back Pain - PT Patient Instructions - Take prednisone as prescribed starting today. - Eat something small before taking pred nisone. - Wait for a call from radiology [facility] ng CT scan scheduling. If not contacted by Thursday, call the office or radiology department. - Do not put anything in the affected ea r. Keep it dry and covered during swimming activities. - Follow up next week or as soon as scan results are available. - Start physiotherapy as recommended for back pain. - Contact if symptoms worsen or new symp toms appear. Consent Patient was informed and verbally consented to the use of an ambient scribe for clinic note documentation during this visit. Total time spent caring for the patient today was 30 minutes. This includes time spent before the visit reviewing the chart, time spent during the visit, and time spent after the visit on documentation, reviewing laboratory results, diagnostic imaging, medications, performing a medically necessary evaluation, counseling on diagnoses, care coordination, ordering appropriate tests, ordering appropriate medications, review of tests performed by other providers, reporting test results with the patient, communication with other healthcare providers. [facility] Medical History H/O mammogram (~2023) Surgical History Hx of breast implants, bilateral (~2012) H/O colonoscopy (~2021) Family History Father Hypertension High cholesterol Diabetes Mother Thyroid disorder Maternal Grandmother Hypertension FHx: mental illness Breast cancer, Onset Age: 70 Paternal Grandmother Hypertension Diabetes Substance abuse Maternal Grandfather Diabetes Maternal Aunt Breast cancer, Onset Age: 50 Family/Other Colon cancer Social History (Updated 06/16/25 @ 13:14 by Shellie Connor CMA) Housing: House Alcohol intake: current Alcohol intake frequency: a few times a week Alcohol type: wine and hard liquor Patient Tobacco Use Status: Never used Tobacco e-Cigarette/Vaping Use: Never Used Second Hand Smoke Exposure: No Use of substances other than those prescribed or required for medical reasons: No service: No Current occupational status: employed Cognitive needs: No Hearing needs: No Vision needs: No Female Reproductive History Menstrual Age of Menarche: 12 Questionnaire Thrive Questionnaire Date Thrive assessed: 01/04/25 I am a: Patient What is your living situation today?: I have a steady place to live Within the past 12 months, did the food you bought not last and you didn't have the money to get more?: Never true Within the past 12 months, did you worry whether your food would run out before you got money to buy more?: Never true Do you have trouble paying for medicines?: No Do you have trouble getting transportation to medical appointments?: No Do you have trouble paying your heating and electricity bill?: No Do you have trouble taking care of your child, family member or friend?: No Do you have trouble with day-to-day activities such as bathing, preparing meals, shopping, managing finances, etc.?: No Are you currently unemployed and looking for a job?: No Are you interested in more education?: No Please select the resources that you would like help with: None Currently or been in a relationship where the following occur: No concerns reported THRIVE Score: 0 AUDIT C Alcohol Use Questionnaire (AUDIT-C) 1. How often do you have a drink containing alcohol?: 2-3 times a week 2. How many drinks containing alcohol do you have on a typical day when you are drinking?: 1 or 2 3. How often do you have six or more drinks on one occasion?: Never Total Score: 3 LIBAN-7 AMB Questionnaire LIBAN-7 Date LIBAN - 7 assessed: 01/04/25 Source: Developed by Drs. Aden Ochoa, Tracy Santana, Ry Kimble and colleagues, with an educational reagan from [employer]. Physical exam (Primary Care) Vital Signs: Last Vital Signs Temp 98.1 F 06/16/25 13:10 Pulse 78 06/16/25 13:10 Resp 12 06/16/25 13:10 BP 112/78 06/16/25 13:10 Pulse Ox 98 06/16/25 13:10 Oxygen Delivery Method Room Air 06/16/25 13:10 BMI result Body Mass Index 19.7 Tobacco/Smoking Status: Tobacco use Status Tobacco use date assessed 06/16/25 06/16/25 13:14 Patient Tobacco Use Status Never used Tobacco 06/16/25 13:14 e-Cigarette/Vaping Use Never Used 06/16/25 13:14 Thrive Assessment: Date of Thrive Assessment Date Thrive assessed 01/04/25 06/16/25 13:14 Currently or been in a relationship where the following occur: No concerns reported Coding Level of Care Code Est Pt Level 4 (88995) Complex EM visit Add On G2211 Diagnoses Sudden left hearing loss H91.22 Tinnitus, left ear H93.12 Acute midline low back pain without sciatica M54.50 Chronicity: acute Back pain laterality: midline Sciatica presence: without sciatica Assessment & Plan Assessment & Plan (1) Sudden left hearing loss: Code(s): H91.22 - Sudden idiopathic hearing loss, left ear Category: Medical (2) Tinnitus, left ear: Code(s): H93.12 - Tinnitus, left ear Category: Medical (3) Low back pain: Code(s): M54.50 - Low back pain, unspecified Category: Medical Qualifiers: Chronicity: acute Back pain laterality: midline Sciatica presence: without sciatica Qualified Code(s): M54.50 - Low back pain, unspecified Plan . Orders: Orders PT Evaluation and Treatment Today M54.50 - Low back pain, unspecified CT internal auditory canals BI Today H91.22 - Sudden idiopathic hearing loss, left ear, H93.12 - Tinnitus, left ear CT orbit BI wo IV con Today H91.22 - Sudden idiopathic hearing loss, left ear, H93.12 - Tinnitus, left ear Medications: New prednisone 40 mg (2 x 20 mg) PO DAILY 10 tabs 0RF 5 days
[2025-06-16 13:10] VITALS: BP 112/78; PULSE 78; RESP 12; TEMP 36.7; O2SAT 98; BMI 19.7
== END 2025-06-16 14:30 | disposition home or self-care (01) ==
LOC: HO.HMCFM 13:02
PROVIDERS: PCP Nurse Practitioner Family; Visit Provider Nurse Practitioner Family
DX: H91.22 Sudden idiopathic hearing loss, left ear (principal); H93.12 Tinnitus, left ear; M54.50 Low back pain, unspecified

== ENCOUNTER → 2025-06-16 13:01 | Outpatient (BNVA) | payer OTHER, SELFPAY | PROVIDERS: PCP Nurse Practitioner Family; Visit Provider Nurse Practitioner Family | DX: H91.22 Sudden idiopathic hearing loss, left ear (principal); H93.12 Tinnitus, left ear; F32.9 Major depressive disorder, single episode, unspecified; G47.00 Insomnia, unspecified; M54.9 Dorsalgia, unspecified; M54.50 Low back pain, unspecified | CPT/HCPCS: 99212 ==

== ENCOUNTER 2025-07-13 12:28 | Outpatient (REF) | payer OTHER, SELFPAY ==
--- NOTE | ~2025-07-13 | MM_ITS ---
EXAMINATION: MM DIAGNOSTIC DIGITAL BREAST TOMOSYNTHESIS, Limited right breast ultrasound CLINICAL INFORMATION: Palpable right breast lump COMPARISON: Mammography: Comparison is made with relevant prior exams. TECHNIQUE: Digital breast mammography with tomosynthesis is performed in both the craniocaudal and mediolateral oblique views along with computer-aided detection (CAD). FINDINGS: There are scattered areas of fibroglandular density (ACR BI-RADS breast composition Category b). Normal appearing implant. There are no significant masses, abnormal calcifications, or other abnormalities. Targeted color doppler ultrasound scanning in the areas of the right palpable lump in the lower inner quadrant and right axilla demonstrates normal fibroglandular breast tissue. There is no sonographic abnormal finding. Results are provided to the patient at time of visit by the technologist. MM/MM tomosynthesis diag imp RT IMPRESSION: No mammographic evidence of malignancy. No mammographic or sonographic abnormal finding to account for the right breast palpable lumps. Recommend clinical evaluation and followup. ASSESSMENT: BI-RADS BI-RADS 1 - Negative RECOMMENDATION: 1 year F/U This patient's information was entered into a reminder system with a target due date for their next mammogram. Electronically signed by: Erlinda Romero DO 07/13/2025 02:32 PM EDT
--- OUTSIDE RECORDS SUMMARY | 2025-07-13 14:36 | XMS_ITS | Encounter Summary ---
Author Organization [facility] Address [address] [place] [address] [place] [address] Phone Care Team Providers Care Occupational Therapy Program Director Name Role Phone Austin Dietrich MD Primary Care Provider Encounter Details Date Type Department Care Team (Late st Contact Info) Description 07/30/2024 Ophth Exam [facility] Emergency Department [address] [place] [address] Keshav Caceres MD [address] [place] [address] [email or web address] Social History Tobacco Use Types Packs/Day Years [...] 2:21 PM EDT Anai Olivarez RN * [place] Suicide Severity Rating Scale (Screener/Recent Self-Report) Question [...] on filedocumented in this encounter Care Teams Occupational Therapy Program Director Relationship Specialty Start Date End Date Austin Dietrich MD [address] [place] [address] PCP - General 07/30/24 documented as of this encounter Additional Source Comments The information contained in this document represents components of the legal health record. It is not the complete legal health record.[facility]
--- OUTSIDE RECORDS SUMMARY | 2025-07-13 14:36 | XMS_ITS | Clinical Summary ---
Author Organization [facility] Address [address] [place] [address] Phone Care Team Providers Care Emergency Department Rn Name Role Phone Austin Dietrich MD Primary [...] 2023 ZOSTER VACCINES (1 of 2) 2023 INFLUENZA VACCINE (#1) 2025 COVID-19 VACCINE (2023-2 5 season) 2025 SMOKING STATUS SCREENING (On ce After 26 [...] topic Medical Devices Not on file Insurance [facility] PCP SILVER CLARITY CONNECTORCARE WELLSENSE NON NSPG PCP SILVER CLARITY CONNECTORCARE WELLSENSE NON NSPG PCP SILVER CLARITY CONNECTORCARE WELLSENSE NON NSPG PCP SILVER CLARITY CONNECTORCARE WELLSENSE NON NSPG PCP SILVER CLARITY CONNECTORCARE Care Teams Emergency Department Rn Relationship Specialty Start Date End Date Austin Dietrich MD [address] [place] [address] PCP - General 07/30/24 Additional Source Comments The information contained in this document represents components of the legal health record. It is not the complete legal health record.[facility]
--- OUTSIDE RECORDS SUMMARY | 2025-07-13 14:36 | XMS_ITS | Encounter Summary ---
Author Organization [employer] [facility] Address [address] [facility] [address] [place] [address] Care Team Providers Care Ore Crusher Name Role Phone Unavailable Primary Care Provider Unavailabl e Encounter Details Date Type Department Care Team (Latest Contact Info) Description 08/14/2022 Abstract [facility] CONVERSIONS Dental, Provider, DDS Social History [...] Care Team (Late st Contact Info) Description 07/26/2025 3:00 PM EDT Office Visit [facility] [address] [place], [place] [phone] Myrna Kim BDS [address] [place], [place] [phone] documented as of this encounter Visit Diagnoses Not on filedocumented in this encounter
--- OUTSIDE RECORDS SUMMARY | 2025-07-13 14:36 | XMS_ITS | Clinical Summary ---
Author Organization [facility] Address [address] [place] [address] Phone Care Team Providers Care Public Health Technologist Name Role Phone Helene Sinha Primary Care Provider [phone] Allergies No known active allergies Medications No known medications Encounters Date Type Department Care Team Description 06/04/2025 8:00 PM EDT - 06/04/2025 8:40 PM EDT Emergency [facility] Emergency [address] [place] [address] Discharge Disposition: Home or Self [...] 2023 Zoster Vaccines (1 of 2) 2023 Depression Screening 10/26/2024 Colorectal Cancer Screening: Colonoscopy 06/04/2025 HIV Screening 06/04/2025 Hepatitis C Screening 06/04/2025 Social Influencers of Health Screening 06/04/2025 COVID-19 Vaccine (3 - 2024- season) 2025 12/20/2020, 11/22/2020 Influenza Vaccine (#1) 2025 , 09/10/2022, 09/22/2018, [...] patient's age to complete this topic Insurance [facility] PLAN Care Teams Public Health Technologist Relationship Specialty Start Date End Date Helene Sinha PA [address] [facility] [address] [place], [place] PCP - General Internal Medicine 11/01/20
--- OUTSIDE RECORDS SUMMARY | 2025-07-13 14:36 | XMS_ITS | Clinical Summary ---
Author Organization [employer] Address [address] [place] [address] [address] [place] [address] Care Team Providers Care Floor Coverer Apprentice Name Role Phone Unavailable Primary Care Provider Unavailabl e Allergies No known active allergies Medications No known medications Social History Tobacco Use Types Packs/Day Years [...] Description 07/26/2025 3:00 PM EDT Office Visit [facility] DENTAL [address] [place] [address] Myrna Kim BDS [address] [place] [address] Health Maintenance Due Date Last Done Comments CT Colonography 1973 Colonoscopy 1973 Colorectal Cancer Screening 1973 Dental Oral Exam 1973 Dental X-Ray: Bitewings 1973 Dental X-Ray: Full Mouth 1973 Depression Screening 1973 FIT DNA/Cologuard 1973 FIT 1973 FOBT 1973 HIV Screening 1973 SDOH Screening 1973 Sigmoidoscopy 1973 Disability Screening 1973 Alcohol/Substance Use Screening 1985 Family Planning (PISQ) 02/23/1988 Hepatitis C Screening 1991 Hepatitis B Vaccines (1 of 3 - 19+ 3-dose series) 02/23/1992 Pap Smear 1994 Cervical Cancer Screening 2003 HPV/Cotest 2003 Mammogram 12/11/2022 12/11/2020 Pneumococcal Vaccine: 50+ Years (1 of 1 - PCV) 2023 Zoster Vaccines (1 of 2) 2023 Dental Prophylaxis 11/14/2023 05/13/2023 COVID-19 Vaccine (3 - 2024- season) 2025 12/20/2020, 11/22/2020 Influenza Vaccine (#1) 2025 , 09/10/2022, 09/22/2018, Additional history exists Tobacco [...] Procedure Name Priority Date/Time Associated Diagnosis Comments PROPHYLAXIS - ADULT Routine 05/13/2023 2:00 PM ED T Accretions on teeth from Last 3 Months or Most Recently Relevant to Health Maintenance Insurance * Guarantor: Karlene Richardson Account Type Relation to Patient Date of Phone Billing Address Personal/Family Self [address] [place]
== END 2025-07-13 12:29 | disposition home or self-care (01) ==
LOC: HO.MAMMO 12:28
PROVIDERS: PCP Nurse Practitioner Family; Visit Provider Nurse Practitioner Family
DX: R92.30 Dense breasts, unspecified (principal); Z98.82 Breast implant status; N63.31 Unspecified lump in axillary tail of the right breast
CPT/HCPCS: 76642; 77061; 77065

== ENCOUNTER → 2025-07-13 12:30 | Outpatient (BNV) | payer OTHER, SELFPAY | PROVIDERS: PCP Nurse Practitioner Family; Visit Provider Internal Medicine | DX: N63.10 Unspecified lump in the right breast, unspecified quadrant (principal) | CPT/HCPCS: 76642; 77061; 77065 ==

== ENCOUNTER 2025-07-14 07:34 | Outpatient (REF) | payer OTHER, SELFPAY ==
--- NOTE | ~2025-07-14 | CT_ITS ---
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 50-year-old female. TECHNIQUE: CT scan of the petrous temporal bones was performed without intravenous contrast. Multiplanar thin section reformations were generated from the axial data set. COMPARISON: None available. FINDINGS: LEFT PETROUS TEMPORAL BONE: On the left, the external auditory canal is intact and normal in size. The tympanic membrane is not retracted nor thickened. The scutum is not eroded. Prussak's space is normal. The middle ear cavity is normally pneumatized. The mastoids and mastoid antrum are normally aerated. The otic capsule is normally mineralized. The middle ear structures are normally formed. No inner ear dysplasia is seen. The oval and round window have a normal appearance. The cochlea has an appropriate number of turns. The superior semicircular canal appears dehiscent (series 9, image 74). Remainder of the semicircular canals are covered by bone. The ossicles are normal in appearance and alignment without erosions. The 7th cranial nerve canal demonstrates a normal caliber and course. The tegmen tympani and tegmen mastoideum are intact. The jugular bulb is normal in position and covered by bone. The carotid canal is covered by bone. RIGHT PETROUS TEMPORAL BONE: On the right, the external auditory canal is intact and normal in size. The tympanic membrane is not retracted nor thickened. The scutum is not eroded. Prussak's space is normal. The middle ear cavity is normally pneumatized. The mastoids and mastoid antrum are normally aerated. The otic capsule is normally mineralized. The middle ear structures are normally formed. No inner ear dysplasia is seen. The oval and round window have a normal appearance. The cochlea has an appropriate number of turns. CT semicircular canals are normally covered by bone. There is no dehiscence. The ossicles are normal in appearance and alignment without erosions. The 7th cranial nerve canal demonstrates a normal caliber and course. The tegmen tympani and tegmen mastoideum are intact. The jugular bulb is normal in position and covered by bone. The carotid canal is covered by bone. PARANASAL SINUSES: Normally pneumatized. TMJ's: Normal. IMAGED BRAIN: No mass effect or edema identified. Posterior fossa structures appear normal. CT/CT internal auditory canals BI IMPRESSION: 1. 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 2. The remainder of the examination of the bilateral petrous temporal bones is normal. Electronically signed by: Oz Guzman MD 07/14/2025 08:53 AM EDT
--- OUTSIDE RECORDS SUMMARY | 2025-07-14 07:36 | XMS_ITS | Encounter Summary ---
Author Organization [employer] [facility] Address [address] [facility] [address] [place] [address] Care Team Providers Care Nutritional Health Coach Name Role Phone Unavailable Primary Care Provider Unavailabl e Encounter Details Date Type Department Care Team (Latest Contact Info) Description 08/14/2022 Abstract [facility] CONVERSIONS Dental, Provider, DDS Social History [...] Description 07/26/2025 3:00 PM EDT Office Visit [facility] D[facility] [address] [place], [place] [phone] Myrna Kim BDS [address] [place], [place] [phone] documented as of this encounter Visit Diagnoses Not on filedocumented in this encounter
--- OUTSIDE RECORDS SUMMARY | 2025-07-14 07:36 | XMS_ITS | Clinical Summary ---
Author Organization [employer] Address [address] [place] [address] [address] [place] [address] Care Team Providers Care Goods Layer Name Role Phone Unavailable Primary Care Provider [...] Description 07/26/2025 3:00 PM EDT Office Visit [facility] DENTAL [address] [place] [address] Myrna Kim BDS [address] [place] [address] Health Maintenance Due Date Last Done Comments [...] Billing Address Personal/Family Self [address] [place]
--- OUTSIDE RECORDS SUMMARY | 2025-07-14 07:36 | XMS_ITS | Clinical Summary ---
Author Organization [facility] Address [address] [place] [phone] Phone Care Team Providers Care Log Check Scaler Name Role Phone Austin Dietrich MD Primary [...] topic Medical Devices Not on file Insurance [facility] NON NSPG PCP SILVER CLARITY CONNECTORCARE WELLSENSE NON NSPG PCP SILVER CLARITY CONNECTORCARE WELLSENSE NON NSPG PCP SILVER CLARITY CONNECTORCARE WELLSENSE NON NSPG PCP SILVER CLARITY CONNECTORCARE WELLSENSE NON NSPG PCP SILVER CLARITY CONNECTORCARE Care Teams Log Check Scaler Relationship Specialty Start Date End Date Austin Dietrich MD [address] [place] [address] PCP - General 07/30/24 Additional Source Comments The information contained in this document represents components of the legal health record. It is not the complete legal health record.[facility]
--- OUTSIDE RECORDS SUMMARY | 2025-07-14 07:36 | XMS_ITS | Clinical Summary ---
Author Organization [facility] Address [address] [place] [address] Phone Care Team Providers Care Vacuum Furnace Operator Name Role Phone Helene Sinha Primary Care Provider [phone] Allergies No known active allergies Medications No known medications Encounters Date Type Department Care Team Description 06/04/2025 8:00 PM EDT - 06/04/2025 8:40 PM EDT Emergency [facility] Emergency [address] [place] [address] Discharge Disposition: Home or Self [...] patient's age to complete this topic Insurance [facility] [address] Care Teams Vacuum Furnace Operator Relationship Specialty Start Date End Date Helene Sinha PA [address] [facility] [address] [place], [place] PCP - General Internal Medicine 11/01/20
--- OUTSIDE RECORDS SUMMARY | 2025-07-14 07:36 | XMS_ITS | Encounter Summary ---
Author Organization [facility] Address [address] [place] [address] [place] [address] Phone Care Team Providers Care Gas Transfer Operator Name Role Phone Austin Dietrich MD Primary Care Provider Encounter Details Date Type Department Care Team (Late st Contact Info) Description 07/30/2024 Ophth Exam [facility] Emergency Department [address] [place] [address] Keshav Caceres MD [address] [place] [address] [email or web address] Social History Tobacco Use Types Packs/Day Years [...] 2:21 PM EDT Anai Olivarez RN * [place] Suicide Severity Rating Scale (Screener/Recent Self-Report) Question [...] on filedocumented in this encounter Care Teams Gas Transfer Operator Relationship Specialty Start Date End Date Austin Dietrich MD [address] [place] [address] PCP - General 07/30/24 documented as of this encounter Additional Source Comments The information contained in this document represents components of the legal health record. It is not the complete legal health record.[facility]
== END 2025-07-14 07:35 | disposition home or self-care (01) ==
LOC: HO.CT 07:34
PROVIDERS: PCP Nurse Practitioner Family; Visit Provider Nurse Practitioner Family
DX: H91.22 Sudden idiopathic hearing loss, left ear (principal); H93.12 Tinnitus, left ear
CPT/HCPCS: 70480

== ENCOUNTER → 2025-07-14 07:35 | Outpatient (BNV) | payer OTHER, SELFPAY | PROVIDERS: PCP Nurse Practitioner Family; Visit Provider Radiology Diagnostic Radiology | DX: H83.8X2 Other specified diseases of left inner ear (principal) | CPT/HCPCS: 70480 ==

== ENCOUNTER 2025-08-08 15:17 | Outpatient (AMB) | payer OTHER, SELFPAY ==
--- NOTE | 2025-08-08 15:18 | MHC.PC.OV ---
Vital Signs 08/08/25 15:22 Height 5 ft 7 in Weight 130 lb 4 oz BMI 20.4 BP 102/64 Blood Pressure Location Lt brachial Position Sitting Respiration 16 Pulse 69 Pulse Source Pulse Oximeter Temp 97.7 F Temp Source Oral Intake Visit Reasons: Tick bite, irritated, red and swollen Intake Note: patient here c/o Tick bite, Irritated, red and swollen Parole Officer Required: No Is last menstrual period known: Yes Last menstrual period: 04/28/25 Post menopausal: No Patient : No Allergies No Known Allergies Allergy (Verified 08/08/25 15:25) Medication List - Last Reconciled 08/08/25 by Brittnee Gonzalez CNP bupropion HCl XL 150 mg PO DAILY minoxidil 2.5 mg PO DAILY mirtazapine 7.5 mg PO DAILY multivitamin with iron 1 tab PO DAILY prednisolone acetate 1% 1 drp ophthalmic-Right DAILY prednisone 40 mg (2 x 20 mg) PO DAILY 5 days spironolactone 25 mg PO DAILY valacyclovir 500 mg PO DAILY Tobacco use date assessed: 08/08/25 Dental Screening Dental Screen Date: 08/08/25 Did you have a dental visit in the last 12 months?: Yes Did you have a dental problem in the last 6 months where you did not have access to dental care?: No Was dental information given to patient?: Patient has dentist HPI HPI Comments History of Present Illness Details 50-year-old female presents with complaints of tick bites She went for a hike last Thursday. Yesterday, 3 days after hiking, she noticed a tick to her right lower abdomen and below the left breast. There was significant amount of swelling below the left breast which has significantly improved. Her was able to completely removed the tick below the left breast but partially removed the one from the right lower abdomen. She denies pain, fever, body ache, fatigue, or weakness. No acute symptoms at this time. [facility] Medical History H/O mammogram (~2023) Surgical History Hx of breast implants, bilateral (~2012) H/O colonoscopy (~2021) Family History Father Hypertension High cholesterol Diabetes Mother Thyroid disorder Maternal Grandmother Hypertension FHx: mental illness Breast cancer, Onset Age: 70 Paternal Grandmother Hypertension Diabetes Substance abuse Maternal Grandfather Diabetes Maternal Aunt Breast cancer, Onset Age: 50 Family/Other Colon cancer Social History (Updated 06/16/25 @ 13:14 by Shellie Connor [facility]) Housing: House Alcohol intake: current Alcohol intake frequency: a few times a week Alcohol type: wine and hard liquor Patient Tobacco Use Status: Never used Tobacco e-Cigarette/Vaping Use: Never Used Second Hand Smoke Exposure: No service: No Current occupational status: employed Cognitive needs: No Hearing needs: No Vision needs: No Female Reproductive History Menstrual Age of Menarche: 12 Date of last menstrual period: 04/28/25 Questionnaire Thrive Questionnaire Date Thrive assessed: 01/04/25 I am a: Patient What is your living situation today?: I have a steady place to live Within the past 12 months, did the food you bought not last and you didn't have the money to get more?: Never true Within the past 12 months, did you worry whether your food would run out before you got money to buy more?: Never true Do you have trouble paying for medicines?: No Do you have trouble getting transportation to medical appointments?: No Do you have trouble paying your heating and electricity bill?: No Do you have trouble taking care of your child, family member or friend?: No Do you have trouble with day-to-day activities such as bathing, preparing meals, shopping, managing finances, etc.?: No Are you currently unemployed and looking for a job?: No Are you interested in more education?: No Please select the resources that you would like help with: None Currently or been in a relationship where the following occur: No concerns reported THRIVE Score: 0 LIBAN-7 AMB Questionnaire LIBAN-7 Date LIBAN - 7 assessed: 01/04/25 Source: Developed by Drs. Aden Ochoa, Tracy Santana, Ry Kimble and colleagues, with an educational reagan from [employer]. Review of Systems Const Details: Const Denies chills, Denies fatigue, Denies fever(s), Denies headache(s) and Denies weakness ENT Denies dizziness and Denies headache(s) Card Denies chest pain, Denies lightheadedness, Denies dyspnea and Denies other (Palpitations) Resp Denies cough, Denies dyspnea, Denies wheezing and Denies other ( shortness of breath) GI Denies abdominal pain, Denies melena, Denies hematochezia, Denies change in bowel habits, Denies dyspepsia and Denies nausea Denies hematuria and Denies dysuria Musc Denies abnormal gait, Denies myalgias, Denies arthralgias, Denies numbness and Denies tingling Skin/Breast Reports as per HPI Neuro Denies abnormal gait, Denies dizziness, Denies headache(s), Denies memory loss, Denies numbness, Denies Sensory deficit (Neuro), Denies tingling and Denies weakness Psych Denies anxiety, Denies depression, Denies memory loss Endo Denies cold intolerance, Denies fatigue, Denies heat intolerance, Denies polydipsia and Denies polyuria Aller/Immun Denies wheezing Physical exam (Primary Care) Tobacco/Smoking Status: Tobacco use Status Tobacco use date assessed 06/16/25 06/16/25 13:14 Patient Tobacco Use Status Never used Tobacco 06/16/25 13:14 e-Cigarette/Vaping Use Never Used 06/16/25 13:14 Thrive Assessment: Date of Thrive Assessment Date Thrive assessed 01/04/25 06/16/25 13:14 Currently or been in a relationship where the following occur: No concerns reported Const Other: General: no acute distress and well developed Nutritional Appearance: well nourished Orientation/consciousness: patient oriented x3 HENMT Head: Yes normocephalic and Yes atraumatic Eyes General: appearance normal, both eyes and all related structures Pupils: Equal, round and reactive pupils present EOM: EOMs intact bilaterally Resp Effort & Inspection: normal respiratory effort Auscultation: clear to auscultation bilaterally Cardio Rate: regular rate Rhythm: regular rhythm Heart sounds: S1 normal heart sound present, S2 normal heart sound present, no gallops, no murmurs and no rubs GI Palpation (GI): No Abdominal aortic bruit present, Soft to palpation, nontender, No hepatosplenomegaly present and No Rebound tenderness present Auscultation: normal bowel sounds General: Yes no CVA tenderness Back/Spine/Pelvis Back: no CVA tenderness Cervical Spine: cervical ROM normal and No Cervical spine tenderness Thoracic/Lumbar Spine: thoraco-lumbar ROM normal, No pain with thoraco-lumbar ROM, No thoracic spinal tenderness and No lumbar spinal tenderness Extrem General: Yes normal to inspection, No edema and No calf tenderness Skin General: warm and dry. Normal skin color. Normal skin turgor Lesions: no lesions Rashes: Small macular rash like pimple noted to the right suprapubic region and below the left breast; no overt tick remains noted Trauma: no lacerations or abrasions Wounds: no wounds Nails: normal Neuro General: patient oriented x3, gait normal and no focal neuro deficit Cranial nerves: Yes Equal, round and reactive pupils present Cognition (Neuro): normal cognition Gait exam (Neuro): Normal gait present Sensory Exam: No Sensory deficit (Neuro) Psych Appearance: grossly normal Affect: normal affect Attitude: cooperative Thought process: Normal thought process present Coding Level of Care Code Est Pt Level 4 (36855) Diagnoses Tick bite W57.XXXA Assessment & Plan Assessment & Plan (1) Tick bite: Code(s): W57.XXXA - Bitten or stung by nonvenomous insect and other nonvenomous arthropods, initial encounter Category: Medical Plan: Small macular rash like pimple noted to the right suprapubic region and below the left breast; no overt tick remains noted. Doxycycline 200 mg once ordered; advised to take as prescribed. Lyme titer ordered. Follow-up with symptoms or concerns. Verbalized understanding and agreed with the plan. Orders: Orders Lyme IgG/IgM w/reflex to WB Today W57.XXXA - Bitten or stung by nonvenomous insect and other nonvenomous arthropods, initial encounter Medications: New doxycycline hyclate 200 mg (2 x 100 mg) PO ONCE 2 tabs 0RF
[2025-08-08 15:22] VITALS: BP 102/64; PULSE 69; RESP 16; TEMP 36.5; BMI 20.4
--- OUTSIDE RECORDS SUMMARY | 2025-08-08 18:09 | XMS_ITS | Clinical Summary ---
Author Organization [facility] Address [address] [place] [address] Phone Care Team Providers Care Junior High Math Teacher Name Role Phone Helene Sinha Primary Care Provider [phone] Allergies No known active allergies Medications No known medications Encounters Date Type Department Care Team Description 06/04/2025 8:00 PM EDT - 06/04/2025 8:40 PM EDT Emergency [facility] [place] [facility] Emergency [address] [place] [address] Discharge Disposition: Home or Self [...] Last Done Comments Breast Cancer Screening 1973 Colorectal Cancer Screening: Colonoscopy 1973 Hepatitis B Vaccines (1 of 3 - 19+ 3-dose series) 02/23/1992 Cervical Cancer Screening: Pap Smear 1994 Pneumococcal Vaccine: 50+ Years (1 of 1 - PCV) 2023 Zoster Vaccines (1 of 2) 2023 Depression Screening 10/26/2024 HIV Screening 06/04/2025 Hepatitis C Screening 06/04/2025 Social Influencers of Health Screening 06/04/2025 COVID-19 Vaccine (3 - 2024- season) 2025 12/20/2020, 11/22/2020 Influenza Vaccine (#1) 2025 , 09/10/2022, 09/22/2018, Additional history exists DTaP,Tdap,and Td Vaccines (4 - Td or Tdap) 02/25/2029 02/25/2019, 09/14/2008, 09/02/1999 RSV Immunization Adult Patients (1 - 1-dose 75+ series) 02/23/2048 HIB [...] patient's age to complete this topic Insurance [facility] Care Teams Junior High Math Teacher Relationship Specialty Start Date End Date Helene Sinha PA [address] [facility] [address] [place], [place] PCP - General Internal Medicine 11/01/20
--- OUTSIDE RECORDS SUMMARY | 2025-08-08 18:09 | XMS_ITS | Encounter Summary ---
Author Organization [facility] Address [address] [place] [address] [place] [address] Phone Care Team Providers Care Chocolate Finisher Name Role Phone Austin Dietrich MD Primary Care Provider Encounter Details Date Type Department Care Team (Late st Contact Info) Description 07/30/2024 Ophth Exam [facility] Emergency Department [address] [place] [address] Keshav Caceres MD [address] [place] [address] [email or web address] Social History Tobacco Use Types Packs/Day Years [...] 2:21 PM EDT Anai Olivarez RN * [place] Suicide Severity Rating Scale (Screener/Recent Self-Report) Question [...] on filedocumented in this encounter Care Teams Chocolate Finisher Relationship Specialty Start Date End Date Austin Dietrich MD [address] [place] [address] PCP - General 07/30/24 documented as of this encounter Additional Source Comments The information contained in this document represents components of the legal health record. It is not the complete legal health record.[facility]
--- OUTSIDE RECORDS SUMMARY | 2025-08-08 18:09 | XMS_ITS | Clinical Summary ---
Author Organization [employer] Address [address] [place] [address] [address] [place] [address] Care Team Providers Care Gas Booster Engineer Name Role Phone Unavailable Primary Care Provider [...] Care Team (Late st Contact Info) Description 09/05/2025 2:30 PM EST Office Visit [facility] [address] [place], [place] [phone] Thomas Lehman DMD [address] [place] [address] Health Maintenance Due Date Last Done Comments [...] Maintenance Insurance DENTAL - HSN PARTIAL (MEDICAID) * Guarantor: Karlene Richardson Account Type Relation to Patient Date of Phone Billing Address Personal/Family Self [address] [place]
--- OUTSIDE RECORDS SUMMARY | 2025-08-08 18:09 | XMS_ITS | Encounter Summary ---
Author Organization [facility] Address [address] [facility] [address] [place] [address] Care Team Providers Care Auto Repair Shop Manager Name Role Phone Unavailable Primary Care Provider Unavailabl e Encounter Details Date Type Department Care Team (Latest Contact Info) Description 08/14/2022 Abstract [facility] CONVERSIONS Dental, Provider, DDS Social History [...] Description 09/05/2025 2:30 PM EST Office Visit [facility] [address] [place], [place] [phone] Thomas Lehman, ERNIE [address] [place], [place] [phone] documented as of this encounter Visit Diagnoses Not on filedocumented in this encounter
--- OUTSIDE RECORDS SUMMARY | 2025-08-08 18:09 | XMS_ITS | Clinical Summary ---
Author Organization [facility] Address [address] [place] [address] Phone Care Team Providers Care Knurling Machine Operator Name Role Phone Austin Dietrich MD [...] 2023 INFLUENZA VACCINE (#1) 2025 COVID-19 VACCINE (1 - 2024-2 6 season) 2025 RSV VACCINE (1 - 1-dose 75+ series) 02/23/2048 SMOKING STATUS SCREENING (On ce After 26 [...] topic Medical Devices Not on file Insurance [facility] NON NSPG PCP ANICETO NEIL CONNECTORCARE WELLSENSE NON NSPG PCP SILVER CLARITY CONNECTORCARE DYANAENSE NON NSPG PCP SILVER CLARITY CONNECTORCARE WELLSENSE NON NSPG PCP SILVER CLARITY CONNECTORCARE WELLSENSE NON NSPG PCP SILVER CLARITY CONNECTORCARE WELLSENSE NON NSPG PCP SILVER CLARITY CONNECTORCARE Care Teams Knurling Machine Operator Relationship Specialty Start Date End Date Austin Dietrich MD [address] [place] [address] PCP - General 07/30/24 Additional Source Comments The information contained in this document represents components of the legal health record. It is not the complete legal health record.[facility]
== END 2025-08-08 16:05 | disposition home or self-care (01) ==
LOC: HO.HMCFM 15:18
PROVIDERS: PCP Nurse Practitioner Family; Visit Provider Nurse Practitioner Family
DX: T63.481A Toxic effect of venom of other arthropod, accidental (unintentional), initial encounter (principal)

== ENCOUNTER → 2025-08-08 15:17 | Outpatient (BNVA) | payer OTHER, SELFPAY | PROVIDERS: PCP Nurse Practitioner Family; Visit Provider Nurse Practitioner Family | DX: S30.861A Insect bite (nonvenomous) of abdominal wall, initial encounter (principal); S20.362A Insect bite (nonvenomous) of left front wall of thorax, initial encounter; W57.XXXA Bitten or stung by nonvenomous insect and other nonvenomous arthropods, initial encounter; Y93.9 Activity, unspecified; Y92.9 Unspecified place or not applicable; Y99.9 Unspecified external cause status | CPT/HCPCS: 99212 ==

== ENCOUNTER 2025-08-09 11:03 | Outpatient (REF) | payer OTHER, SELFPAY ==
--- OUTSIDE RECORDS SUMMARY | 2025-08-09 13:40 | XMS_ITS | Encounter Summary ---
Author Organization [facility] Address [address] [place] [address] [place] [phone] Phone Care Team Providers Care Director Of Teaching And Learning Name Role Phone Austin Dietrich MD Primary Care Provider Encounter Details Date Type Department Care Team (Late st Contact Info) Description 07/30/2024 Ophth Exam [facility] Emergency Department [address] [place] [address] Keshav Caceres MD [address] [place] [address] [email or web address] Social History Tobacco Use Types Packs/Day Years [...] 2:21 PM EDT Anai Olivarez RN * [place] Suicide Severity Rating Scale (Screener/Recent Self-Report) Question [...] on filedocumented in this encounter Care Teams Director Of Teaching And Learning Relationship Specialty Start Date End Date Austin Dietrich MD [address] [place] [address] PCP - General 07/30/24 documented as of this encounter Additional Source Comments The information contained in this document represents components of the legal health record. It is not the complete legal health record.[facility]
--- OUTSIDE RECORDS SUMMARY | 2025-08-09 13:40 | XMS_ITS | Clinical Summary ---
Author Organization [employer] [facility] Address [address] [place] [address] [address] [place] [address] Care Team Providers Care Combatant Swimmer Name Role Phone Unavailable Primary Care Provider [...] Description 09/05/2025 2:30 PM EST Office Visit [facility] [address] [place], [place] [phone] Thomas Lehman DMD [address] [place] [address] Health Maintenance Due Date Last Done Comments [...]
--- OUTSIDE RECORDS SUMMARY | 2025-08-09 13:40 | XMS_ITS | Encounter Summary ---
Author Organization [facility] Address [address] [facility] [address] [place] [address] Care Team Providers Care Fitness Club Manager Name Role Phone Unavailable Primary Care Provider Unavailabl e Encounter Details Date Type Department Care Team (Latest Contact Info) Description 08/14/2022 Abstract [facility] CONVERSIONS Dental, Provider, DDS Social History Tobacco [...] Description 09/05/2025 2:30 PM EST Office Visit [facility] [address] [place], [place] [phone] Thomas Lehman, ERNIE [address] [place], [place] [phone] documented as of this encounter Visit Diagnoses Not on filedocumented in this encounter
--- OUTSIDE RECORDS SUMMARY | 2025-08-09 13:41 | XMS_ITS | Data Portability ---
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 Patient consented to video & audio visit Patient was located at at home Provider was located in the office. No other persons participated in the telemedicine visit except for the patient unless otherwise indicated here. Total time of visit was 30 minutes. Not available 01/20/2022 13:48:52 03/09/2023 03/09/2023 This service was provided using telemedicine. Patient consented to video & audio visit Patient was located in the [facility]. Provider was located in the office. No other persons participated in the telemedicine visit except for the patient unless otherwise indicated here. Total time of visit was 28 minutes. Not available 03/09/2023 13:48:50 Plan of Treatment Reminders Order Date Submit Date Provider Last Modified By Organization Details Last Modified Time Details Appointments None recor ded. Lab CBC w/ auto diff 2021 022 [facility], [address] [facility], [facility], [place], [address], 18:06:53 PT/IN R 2021 [facility], [address], [place], [address], 10:30:43 CBC w/ auto diff 2021 [facility], [address], [place], [address], 10:23:01 hepat ic funct ion panel , serum 2021 [email or web address] [facility], [address], [place], [address], 09:48:51 lyme igg + igm Ab, weste rn blot, serum 2021 ELAINE [facility], [address], [place], [address], 19:06:10 TSH, serum or plasm a 2021 ELAINE [facility], [address], [place], [address], 18:00:48 vitam in B12, serum 2021 [facility], [address], [place], [address], 18:00:46 lipid panel , serum 2021 [facility], [address], [place], [address], 18:50:30 CMP, serum or plasm a 2021 [facility], [address], [place], [address], 2 18:50:29 Referral ortho pedic surge on refer ral - R. carpa l tunne l syndr ome. 2021 [facility] (Juan Diego Knapp), [address], [place], [address], 08:21:16 rheum atolo gist refer ral - Nanette ud's disea se, posit armen KYLAH , neutr openi a. Needs f/u and furht er testi ng for posit armen KYLAH. 2021 022 [email or web address] Hidalgo MD, [address] [place], [address], 2 08:39:[address] refer ral - Inatt entiv eness w/o hyper activ ity . Never teste d for ADD. 2021 022 Jeramy Figueroa, [address] [place], [address], 2 10:21:47 Procedures None recor ded. Surgeries None recor ded. Imaging MAMMO , scree rajesh, bilat eral 2021 [email or web address] os [facility], [address], [place], [address], 2 15:13:01 XR, foot, 3 or more view 2021 [facility], [address] [place], [address], 2 10:21:41 Medication Orders doxyc yclin e hycla te 100 mg table t 2022 023 [facility], [address] [facility], [place], [address], 13:49:12 miguel zapin e 7.5 mg table t 2022 [facility], [address] [place], [address], 12:53:21 trazo done 50 mg table t 2021 022 gadielolemanuel e [facility], [address] [place], [address], 15:19:11 bupro pion HCl XL 300 mg 24 hr table t, exten ded relea se 2021 [facility], [address] [place], [address], 12:53:10 Patient TargetsNo targets recorded. Patient Instructions Encounter Date Encounter Id Patient Instructions Last Modified By Organization Details Last Modified Time 03/12/2022 [id number] Preventing Depression From Coming Back: Care Instructions Not available 03/12/2022 14:55:52 depression treatment: care instructions Not available 03/12/2022 14:55:52 constipation: care instructions Not available 03/12/2022 14:55:39 high-fiber diet: care instructions Not available 03/12/2022 14:55:39 09/10/2022 [id number] anxiety disorder : care instructions Not available 09/10/2022 11:53:53 11/07/2022 [id number] insomnia: care instructions Not available 11/07/2022 15:44:18 03/09/2023 [id number] Acute Sinusitis: Care Instructions Not available 03/09/2023 13:49:44 saline nasal washes: care instructions Not available 03/09/2023 13:49:44 eustachian tube problems: care instructions Not available 03/09/2023 13:49:44 Reason for Referral 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 Referral for Anti-nuclear factor detected Raynaud's disease, [...] 01/21/2022 10:23:01/22/2001/21/2022 COMPL ETE CBC WITH DIFF HCT 38.5 % (35.7- 45.8) Not Available [facility] (Centralized Electronic Ordering - All Locations) Patient Can Go To The Location Of Their Choice, 01/21/2022 10:23:01 01/22/2001/21/2022 COMPL ETE CBC WITH DIFF MCV 93.7 fL (80.0- 100.0) Not Available [facility] (Centralized Electronic Ordering - All Locations) Patient Can Go To The Location Of Their Choice, 01/21/2022 10:23:01 01/22/2001/21/2022 COMPL ETE CBC WITH DIFF MCH 29.9 [...] 01/21/2022 10:23:01/22/2001/21/2022 COMPL ETE CBC WITH DIFF plt 216 [...] 10:23:01 01/22/2001/21/2022 COMPL ETE CBC WITH DIFF automated NRBC 0.0 #/100 _WBC' s Not Available [facility] (Centralized Electronic Ordering - All Locations) Patient Can Go To The Location Of Their Choice, 01/21/2022 10:23:01/22/2001/21/2022 COMPL ETE CBC WITH DIFF abs. NRBC 0.0 K/mm3 Not Available [facility] (Centralized Electronic Ordering - All Locations) Patient Can Go To The Location Of Their Choice, 01/21/2022 10:23:01 01/22/2001/21/2022 COMPL ETE CBC WITH DIFF neut # [...] 22 01/21/2022 COMPL ETE CBC WITH DIFF mono# 0.4 K/mm3 (0.4-0 .9) Not Available [facility] (Centralized Electronic Ordering - All Locations) Patient Can Go To The Location Of Their Choice, 01/21/2022 10:23:01 01/22/2001/21/2022 COMPL ETE CBC WITH DIFF eo # 0.1 K/mm3 (0.0-0 .4) Not Available [facility] (Centralized Electronic Ordering - All Locations) Patient Can Go To The Location Of Their Choice, 01/21/2022 10:23:01 01/22/20 22 01/21/2022 COMPL ETE CBC WITH DIFF baso # [...] 01/21/2022 COMPL ETE CBC WITH DIFF neut 39.2 [...] 01/22/2001/21/2022 COMPL ETE CBC WITH DIFF baso 0.7 % (0-2) Not Available [facility] (Centralized Electronic Ordering - All Locations) Patient Can Go To The Location Of Their Choice, 01/21/2022 10:23:01 01/22/2001/21/2022 COMPL ETE CBC WITH DIFF imm gran 0.4 % Not Available [facility] (Centralized Electronic Ordering - All Locations) Patient Can Go To The Location Of Their Choice, 01/21/2022 10:23:01 01/22/20 22 01/21/2022 PROTI ME PROFI LE protime 10.7 sec [...] 01/22/2022 19:06:10 01/22/2001/22/2022 LYME WESTE RN BLOT IgG P18 Ab [...] uclea r Antib gerry); other infec tions ([facility] Spott ed Fever ; Epste in-Ba rr [...] ng. [facility] offer s test code 11533 6 Lyme Disea se Serol ogy with Refle x to aid in the diagn osis of Lyme Disea se. Test perfo rmed by [facility], [address], [facility] [place] [address] Not Available [facility] (Centralized Electronic Ordering - All Locations) Patient Can Go To The Location Of Their Choice, [id number] 01/22/2022 19:06:10 09/10/20 22 09/10/2022 COMPL ETE CBC WITH DIFF WBC 4.7 K/mm3 (4.0-1 1.0) Not Available [facility] (Centralized Electronic Ordering - All Locations) Patient Can Go To The Location Of Their Choice, [id number] 09/10/2022 18:06:53 09/10/20 22 09/10/2022 COMPL ETE CBC WITH DIFF RBC 4.17 M/mm3 (4.20- 5.40) low Not Available [facility] (Centralized Electronic Ordering - All Locations) Patient Can Go To The Location Of Their Choice, [id number] 09/10/2022 18:06:53 09/10/20 22 09/10/2022 COMPL ETE [...] no acute displa johnnie fractu re. WSN: [id number] Orderi ng Physic andres: Wellington Longoria ia Dictat ed By: Bertha Grimaldo ra, MD Dictat ed Date/T damien: 10:18 a Review ed By: Bertha Grimaldo ra, MD Signed By: Bertha Grimaldo ra, MD Signed Date/T damien: 10:18 am Transc ribed By: LIVE Transc ribed Date/T damien: 10:17 am Patien t Class: Outpat ient [facility] (Outpt Imaging) [address] [place], [address], 01/27/2022 10:46:22 01/22/20 22 01/21/2022 XR, foot, 3 or more view No observ ation record ed. jm [facility] [address] [place], [address], 01/21/2022 10:45:19 Result Notes Documentation Provider Name and Address Organization Details Recorded Time Xr, Foot, 3 Or More View : Foot Min 3 Views Right, 3 views Reason: pain in right foot COMPARISON: None. FINDINGS: No fractures or bone lesions. There is hallux valgus. Mild bony proliferation is seen at the first metatarsal head. Normal soft tissues. IMPRESSION: Hallux valgus and mild degenerative change of the first metatarsophalangeal joint with no acute displaced fracture. WSN: [id number] Ordering Physician: Sidney Longoria Dictated By: Bertha Martinez MD Dictated Date/Time: 01/21/22 10:18 a Reviewed By: Bertha Martinez MD Signed By: Bertha Martinez MD Signed Date/Time: 01/21/22 10:18 am Transcribed By: LIVE Transcribed Date/Time: 01/21/22 10:17 am Patient Class: Outpatient Sidney Longoria PA-C [address], [place], [address], [facility] 01/21/2022 10:30:31 Problems Name Problem SNOMED Code Status Onset Date Resolution Date Notes Provider Name and Address Organization Details Recorded Time Multiple bruising 371720862 Completed 11/06/2016 Tameka burks [facility] 7 13:19:06 Onychomy cosis 617151080 Active Natasha burks [facility] 6 17:01:16 Fatigue 19967228 Completed 11/06/2016 Tameka burks [facility] 7 13:19:09 Constipa tion 80041693 Active MARIALUISA Bashir, [facility] 0 09:22:10 Administ ration of bacteria l and viral vaccine Completed 200705/16/2014 RECORDED 09/14/20 08 4:03PM BY NATASHA ART MD, OFFICE VISIT Natasha burks [facility] 6 17:01:16 Administ ration of bacteria l and viral vaccine Completed 200706/05/2014 RECORDED 09/14/20 08 4:03PM BY NATASHA ART MD, OFFICE VISIT Natasha burks [facility] 6 17:01:16 Conjunct ivitis 4626219 Completed 200805/16/2014 RECORDED 12/20/19 09 2:26PM BY PAYTON BARRETT ON/ADDMANFRED burks [facility] 6 17:01:16 Conjunct ivitis 7856450 Completed 200806/05/2014 RECORDED 12/20/19 09 2:26PM BY PAYTON BARRETT ON/ADDEN HAIDER burks [facility] 6 17:01:16 Abnormal weight loss 544924145 Completed 200905/16/2014 RECORDED 07/18/20 10 9:47AM BY MARIALUISA LOPES, ANNOTATI ON/ADDEN DUM Natasha D'Alessan kaelyn null, [facility] 6 17:01:16 Epidermo id cyst of skin 209275331 Completed 200905/16/2014 RECORDED 07/18/20 10 9:47AM BY MARIALUISA LOPES, ANNOTATI ON/ADDEN DUM Natasha D'Alessan kaelyn null, [facility] 6 17:01:16 Nausea 070208877 Completed 200905/16/2014 RECORDED 07/18/20 10 9:47AM BY MARIALUISA LOPES, ANNOTATI ON/ADDEN DUM Natasha D'Alessan kaelyn null, [facility] 6 17:01:16 Abnormal weight loss 263072315 Completed 200906/05/2014 RECORDED 07/18/20 10 9:47AM BY MARIALUISA LOPES, ANNOTATI ON/ADDEN DUM Natasha D'Alessan kaelyn null, [facility] 6 17:01:16 Epidermo id cyst of skin 489817352 Completed 200906/05/2014 RECORDED 07/18/20 10 9:47AM BY MARIALUISA LOPES, ANNOTATI ON/ADDEN DUM Natasha D'Alessan kaelyn null, [facility] 6 17:01:16 Nausea 798067275 Completed 200906/05/2014 RECORDED 07/18/20 10 9:47AM BY MARIALUISA LOPES, KARUNAATI ON/ADDEN DUM Natasha D'Alessan kaelyn null, [facility] 6 17:01:16 Generali zed abdomina l pain 111837207 Completed 201205/16/2014 RECORDED 09/16/20 13 9:41AM BY KRYSTAL VENTURA MA, ANNOTATI ON/ADDEN DUM Natasha D'Alessan kaelyn null, [facility] 6 17:01:16 Acute sinusiti s 73970876 Completed 201205/16/2014 RECORDED 09/16/20 13 9:42AM BY KRYSTAL VENTURA MA, ANNOTATI ON/ADDEN DUM Natasha Zambrano kaelyn null, [facility] 6 17:01:16 Screenin g for malignan t neoplasm of colon Completed 201205/16/2014 RECORDED 09/16/20 13 9:42AM BY KRYSTAL VENTURA MA, ANNOTATI ON/ADDEN DUM Natasha SchneiderCrystalnohelia kaelyn null, [facility] 6 17:01:16 Constipa tion 69360775 Completed 201205/16/2014 RECORDED 09/16/20 13 9:41AM BY KRYSTAL VENTURA MA, ANNOTATI ON/ADDEN DUM Nurys graham MA null, [facility] 0 09:22:10 Influenz a vaccine needed 85021986959 06 Completed 201205/16/2014 RECORDED 09/16/20 13 10:28AM BY KRYSTAL VENTURA MA, OFFICE VISIT Natasha burks, [facility] 6 17:01:16 Geograph ic tongue 51934605 Completed 201205/16/2014 RECORDED 09/16/20 13 9:42AM BY KRYSTAL VENTURA MA, ANNOTATI ON/ADDEN DUM Natasha art null, [facility] 6 17:01:16 Knee pain Completed 201205/16/2014 RECORDED 09/16/20 13 9:42AM BY KRYSTAL VENTURA MA, KARUNAATI ON/ADDEN DUM Natasha burks, [facility] 6 17:01:16 Adult health examinat ion Completed 201205/16/2014 RECORDED 09/16/20 13 10:31AM BY TIERRA AMBROSIO, ANNOTATI ON/ADDEN DUM Tameka Nguyễn MA null, [facility] 7 13:18:50 Generali zed abdomina l pain 421236145 Completed 201206/05/2014 RECORDED 09/16/20 13 9:41AM BY KRYSTAL VENTURA MA, ANNOTATI ON/ADDEN DUM Natasha Coty'Alevincenzoan kaelyn null, [facility] 6 17:01:16 Acute sinusiti s 11693820 Completed 201206/05/2014 RECORDED 09/16/20 13 9:42AM BY KRYSTAL VENTURA MA, ANNOTATI ON/ADDEN DUM Natasha Ansari'Alessan kaelyn null, [facility] 6 17:01:16 Screenin g for malignan t neoplasm of colon Completed 201206/05/2014 RECORDED 09/16/20 13 9:42AM BY KRYSTAL VENTURA MA, ANNOTATI ON/ADDEN DUM Natasha Coty'Alessan kaelyn null, [facility] 6 17:01:16 Constipa tion 56836947 Completed 201206/05/2014 RECORDED 09/16/20 13 9:41AM BY KRYSTAL VENTURA MA, ANNOTATI ON/ADDEN DUM Nurys graham MA null, [facility] 0 09:22:10 Influenz a vaccine needed 54989353255 06 Completed 201206/05/2014 RECORDED 09/16/20 13 10:28AM BY KRYSTAL VENTURA MA, OFFICE VISIT Natasha Ansari'Alevincenzovipin kaelyn null, [facility] 6 17:01:16 Geograph ic tongue 15358344 Completed 201206/05/2014 RECORDED 09/16/20 13 9:42AM BY KRYSTAL VENTURA MA, ANNOTATI ON/ADDEN DUM Natasha Coty'Alessan kaelyn null, [facility] 6 17:01:16 Knee pain Completed 201206/05/2014 RECORDED 09/16/20 13 9:42AM BY KRYSTAL VENTURA MA, ANNOTATI ON/ADDEN DUM Natasha Zambrano kaelyn null, [facility] 6 17:01:16 Insomnia 676194099 Completed 201305/16/2014 RECORDED 12/16/19 14 12:47PM BY KRYSTAL VENTURA MA, ANNOTATI ON/ADDEN DUM Sidney Bharath MAYORGA-C [address], [place], [address], [facility] 2 11:54:11 Patient status finding 827475847 Completed 201305/16/2014 RECORDED 12/16/19 14 12:48PM BY KRYSTAL VENTURA MA, OFFICE VISIT Tameka burks, [facility] 7 13:18:52 Insomnia 124209814 Completed 201306/05/2014 RECORDED 12/16/19 14 12:47PM BY KRYSTAL VENTURA MA, ANNOTATI ON/ADDEN DUM Sidney MAYORGA-C [address], [place], [address], [facility] 2 11:54:11 Screenin g for malignan t neoplasm of cervix Completed 201305/16/2014 RECORDED 02/15/20 14 12:57PM BY RENEE SUH MA, ANNOTATI ON/ADDEN DUM Natasha Zambrano kaelyn null, [facility] 6 17:01:16 Adult health examinat ion Completed 201311/06/2016 Tameka burks, [facility] 7 13:18:50 Hyperlip idemia 85305361 Completed 201302/25/2019 Sidney Longoria PA-C [address], [place], [address], [facility] 9 14:58:25 Major depressi on single episode, in partial remissio n 20085988 Active 2013 Natasha burks [facility] 6 17:01:16 Patient status finding 927496294 Completed 201311/06/2016 Tameka burks, [facility] 7 13:18:52 Screenin g for malignan t neoplasm of cervix Completed 201306/05/2014 RECORDED 02/15/20 14 12:57PM BY RENEE SUH MA, ANNOTATI ON/MIRZA burks [facility] 6 17:01:16 Malaise and fatigue 947784551 Completed 201311/06/2016 Tameka burks [facility] 7 13:18:58 Elevated level of transami nase and lactic acid dehydrog enase 100521467 Completed 201311/06/2016 Tameka burks [facility] 7 13:19:02 Screenin g for malignan t neoplasm of breast Completed 201311/06/2016 Tameka burks [facility] 7 13:18:55 Disorder of breast 64728450 Completed 201311/06/2016 Tameka burks [facility] 7 13:19:12 Anti-nuc lear factor detected 375815615 Active 2019 Sidney Longoria PA-C [address] [facility] [address], [place], [address], [facility] 0 09:30:54 Family history of cancer of colon 579660268 Active 2019 Sidney Longoria PA-C [address] [facility] [address], [place], [address], [facility] 0 09:39:14 Raynaud' s disease 078253751 Completed 202001/18/2021 Sidney Longoria PA-C [address] [facility] [address], [place], [address], [facility] 2 14:21:58 Easy bruising 557214212 Active 2021 Sidney Longoria PA-C [address] [facility] [address], [place], [address], [facility] 2 13:49:12 Paresthe afsaneh 11933470 Active 2021 Sidney Longoria PA-C [address], [place], [address], [facility] 2 14:26:26 Spontane ous ecchymos is 468986003 Active 2021 Sidneytunde Longoria PA-C [address] [facility] [address], [place], [address], [facility] 2 09:20:41 Neutrope bam 460520253 Active 2021 Sidney Longoria PA-C [address] [facility] [address], [place], [address], [facility] 2 09:20:54 Raynaud' s disease 007433709 Active 2021 Sidney Longoria PA-C [address] [facility] [address], [place], [address], [facility] 2 14:21:58 Attentio n deficit hyperact ivity disorder , predomin antly inattent armen type 78568822 Active 2021 Sidney Longoria PA-C [address] [facility] [address], [place], [address], [facility] 2 14:42:48 Chronic idiopath ic thromboc ytopenic purpura 17207988 Active 2021 Estela burks, [facility] 2 11:30:12 Insomnia 832007798 Active 2021 RECORDED 12/16/19 14 12:47PM BY KRYSTAL VENTURA MA, ANNOTATI ON/ADDEN DUM Sidney Longoria PA-C [address], [place], [address], [facility] 2 11:54:11 Carpal tunnel syndrome 98616149 Active 2021 Sidney Longoria PA-C [address], [place], [address], [facility] 2 11:56:22 Problem Notes None recorded. Procedures Surgical History Date Name Laterality Status Provider Name and Address Organization Details Recorded Time 11/28/19 22 Date of Last Pap Smear completed Heather Linares [facility] 12/10/2021 13:56:38 05/22/20 21 Date of Last Colonoscopy completed Heather Linares [facility] 05/22/2021 10:43:01 05/22/20 21 Colonoscopy completed Heather Linares [facility] 05/22/2021 10:42:54 12/11/19 21 Most Recent Mammogram completed Heather Linares [facility] 12/19/2020 15:11:57 12/11/19 21 Mammogram screening completed Heather Linares [facility] 12/19/2020 15:11:51 08/03/20 17 Mastopexy completed Nurys rutherford MA [facility] 10/03/2020 09:15:13 08/03/20 17 revision of breast implant completed Nurys rutherford MA [facility] 10/03/2020 09:16:16 11/21/19 17 Joint Injection completed Antoine Alexander MD [address], [place], [address], [facility] 11/22/2016 11:36:33 Knee Surgery completed Nurys rutherford MA [facility] 01/18/2021 13:44:55 Imaging Results None recorded. Procedure Notes None recorded. Medical Equipment None [...] 5:19PM BY NATASHA ART MD, ANNOTATI ON/MIRZA DUM; Not Available Not Available Not Available Ear Drops (carbamid e peroxide) 6.5 % PLACE 5 DROPS IN BOTH EARS DAILY FOR 5 DAYS active Not Available Not Available No t Available lorazepam 1 mg tablet AT BEDTIME 12/16 completed RECORDED 12/16/19 14 12:55PM BY KRYSTAL VENTURA MA, OFFICE VISIT;NE ZAHRAA FILLED Not [...] blood by Pulse oximetry Body temperature Systolic And Diastolic Provider Name and Address Organization Details Last Updated DateTime 3 153.67 cm 24.8 kg/m2 02451.4 2 g 73 /min 98 % 98 % 98.1 [degF] 115/72 mm[Hg] Evelyne Nolasco [facility] 3 15:17:51 Date Recorded Body height Provider Name an d Address Organization Details Last Updated DateTime 03/09/2023 153.67 cm Natasha Tatum MA [facility] 03/09/2023 12:53:26 Date Recorded Body height Body mass index (BMI) Body weight Heart rate Oxygen saturation Oxygen saturation in Arterial blood by Pulse oximetry Body temperature Systolic And Diastolic Provider Name and Address Organization Details Last Updated DateTime 2 153.67 cm 25 kg/m2 81352.0 1 g 70 /min 97 % 97 % 98.96 [degF] 115/63 mm[Hg] Patricia Freeman MA [facility] 2 13:48:40 Date Recorded Body height Body mass index (BMI) Body weight Heart rate Oxygen saturation Oxygen saturation in Arterial blood by Pulse oximetry Body temperature Systolic And Diastolic Provider Name and Address Organization Details Last Updated DateTime 2 153.67 cm 25.4 kg/m2 05913.1 9 g 70 /min 97 % 97 % 98.96 [degF] 130/85 mm[Hg] Patricia Freeman MA [facility] 2 11:21:26 Social History Question Answer Notes LastModified by Organizat ion Details LastModified Time Tobacco Smoking Status [facility] 13:44:23 Do You Have An Advance Directive? Yes Information not available 09/10/2022 Is Blood Transfusion Acceptable In An Emergency? No Information not available 02/25/2019 What Is Your Level Of Caffeine Consumption? Moderate 2 Cups Of Coffee Daily Information not available 01/18/2021 How Much Tobacco Do You Chew? None Information not available 12/27/2015 What Type Of Diet Are You Following? REGULAR Information not available 2015 Which Illicit Or Recreational Drugs Have You Used? None Information not available 12/27/2015 Live Alone Or [...] Seat Belt Or Car Seat Routinely? Yes [email or web address] Information not available 03/12/2022 Seat Belts Used Routinely Yes Information not available 09/10/2022 Are You Sexually Active? Yes Information not available 12/27/2015 Smoke Alarm In Home Yes Information not available 09/10/2022 Do You Have Smoke And Carbon Monoxide Detectors In Your Home? Yes [email or web address] Information not available 03/12/2022 At What Age Did You Start Smoking Tobacco? 0 Information not available 01/18/2021 Are You Passively Exposed To Smoke? No Information not available 02/25/2019 How Much Tobacco Do You Smoke? No [email or web address] Information not available 03/12/2022 Do You Use Sunscreen Routinely? Yes Information not available 12/27/2015 How Many Years Have You Smoked Tobacco? 0 Information not available 01/18/2021 Sex: Unknown Functional Status Question Answer Note LastModified by Organizat ion Details LastModified Time What is your level of alcohol consumption? Moderate 1 glass of wine in the evening Information not available 01/18/2021 Do you or have you ever used smokeless tobacco? Never used smokeless tobacco [email or web address] Information not available 03/12/2022 Are you currently employed? Yes Information not available 2015 Are you able to care for yourself independently ? 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 Never used electronic cigarettes Information not available 09/10/2022 What is your exercise level? Occasional Information [...] dose or 50 mcg/0.25mL dose 1 completed MARIALUISA Blunt, [facility] 01/18/2021 13:42:39 COVID-19, mRNA, LNP-S, PF, 100 mcg/0.5mL dose or 50 mcg/0.25mL dose 1 completed [place]IAL[place] Sev[place], [facility] 03/12/2022 13:41:59 Influenza, split virus, quadrivalent, PF 8 completed Not Available [facility] 11/12/2019 02:22:16 Tdap 9 completed Not Available [facility] 11/12/2019 02:21:49 Influenza, split virus, quadrivalent, PF 2 completed Sidney Longoria PA-C [address] [address], [place], [address], [facility] 09/10/2022 16:46:39 Td (adult), 2 Lf tetanus toxoid, preservative free, adsorbed 9 completed Not Available [facility] 05/09/2014 14:09:46 Tdap 8 completed Not Available [facility] 05/09/2014 14:09:46 influenza, seasonal, intradermal, preservative free 3 completed Not Available [facility] 05/09/2014 14:09:46 Past Encounters Encounter ID Performer Location Encounter Start Date Encounter Closed Date Diagnosis/Indication Diagnosis SNOMED-CT Code Diagnosis ICD10 Code Diagnosis IMO Codes Diagnosis Note [id number] auto[employer]Comm erce [address] [facility] [place] [address] 08/15/2008 00:00:00 [id number] autoEComm erce [address] [facility] [place] [address] 09/14/2008 00:00:00 [id number] autoEComm erce [address] [facility] [place] [address] 07/25/2010 00:00:00 [id number] autoEComm erce [address] [facility] Sharon monahan, [place] [address] 11/14/2010 00:00:00 [id number] autoEComm erce [address] [facility] Sharon monahan, [place] [address] 09/16/2013 00:00:00 [id number] autoEComm erce [address] [facility] Sharon monahan, [place] [address] 10/18/2013 00:00:00 [id number] autoEComm erce [address] [facility] Sharon monahan, [place] [address] 12/16/2013 00:00:00 [id number] autoEComm erce [address] [facility] Sharon monahan, [place] [address] 02/14/2014 00:00:00 [id number] Natasha kingsley MD Main Office [address] [address] SHARON MONAHAN, [place] [address] 2015 14:53:57 2015 15:59:11 Adult health examination 662253643 Major depr ession single episode, in partial remission 14561752 Malaise and fatigue 781414957 [id number] Natasha kingsley MD Main Office [address] [address] SHARON MONAHAN, [place] [address] 12/27/2015 14:11:03 12/27/2015 15:07:55 Multiple bruising 561287344 T14.8 Onychomycosis 636128269 B35.1 Fatigue 91868298 R53.83 [id number] Natasha kingsley MD Main Office [address] [address] SHARON MONAHAN, [place] [address] 11/06/2016 13:15:41 11/06/2016 14:15:29 Adult health examination 229933386 Z00.00 Onychomycosis 677793504 B35.1 Fatigue 47046456 R53.83 [id number] ORION Abrams Main Office [address] [address] SHARON MONAHAN, [place] [address] 11/21/2016 14:32:42 11/21/2016 16:09:19 Inflammation of rotator cuff tendon 422727839 M65.811 Dr. Alexander also in to eval [...] ice 4 times daily, exercises as discussed. [id number] ORION Abrams Main Office [address] [address] 12/02/2016 11:32:06 12/02/2016 12:12:43 Pain of bilateral hip joints [id number] 1026050 M25.551 M25.552 RICE advised, meloxicam BID, gentle stretching as tolerated, return for worsening. Pain of mu ltiple joints 61205490 M25.50 Patient has had shoulder , foot and now hip pain within short period of time, would like to have blood work done. [id number] Natasha kingsley MD Main Office [address] [address] 01/23/2017 13:18:12 01/23/2017 14:05:38 Pain of shoulder region 68111964 M25.511 [id number] Natasha kingsley MD Main Office [address] [address] 11/19/2017 13:53:40 11/19/2017 14:38:03 Adult health examination 129475829 Z00.00 Administra tion of viral vaccine 56247269 Z23 Fatigue 08493350 R53.83 Ferritin l evel below reference range 172852280 R77.8 Major depr ession single episode, in partial remission 88682901 F32.4 [id number] Sidney Longoria PA-C Main Office [address] [address] 09/22/2018 13:47:01 09/22/2018 14:45:13 Major depression single episode, in partial remission 87201555 F32.4 Pt. is doing very well on current meds. In partial remission. Will continue counseling . F/u as sscheduled in 2019 Needs infl uenza immunization 989403650 Z23 [id number] Antoine Alexander MD Main Office [address] [place] [address] 02/25/2019 14:28:43 02/25/2019 15:15:27 Adult health examination 981727643 Z00.00 Administra tion of viral vaccine 69224297 Z23 Screening for malignant neoplasm of breast 571346117 Z12.31 Screening for malignant neoplasm of cervix 843048500 Z12.4 Major depr ession single episode, in partial remission 95688821 F32.4 Pt. is doing very well on current meds. In partial remission. Will continue counseling . F/u in 1 year. [id number] Adenike cote MD Main Office [address] [place] [address] 03/31/2020 08:14:38 04/02/2020 08:40:36 Recurrent oral herpes simplex infection 062154229 B00.2 treat as below, visit if not improving. prefers acyclovir [id number] Antoine Alexander MD [facility] [address] [address] 08/08/2020 11:09:55 08/08/2020 13:31:02 Pain of multiple joints 43839724 M25.50 Fatigue 09872853 R53.83 Screening for malignant neoplasm of cervix 811117416 Z12.4 Screening for malignant neoplasm of breast 959585722 Z12.31 Tension-type headache 39 5542130 G44.209 [id number] Antoine Alexander MD [facility] [address] [place] [address] 10/03/2020 08:43:18 10/03/2020 11:57:58 Constipation 10919724 K59.00 tried all otc options Family his tory of cancer of colon 311154641 Z80.0 refer for colonoscop y [id number] Sidney Longoria PA-C Main Office [address] [address] 01/18/2021 13:26:36 01/18/2021 14:21:53 Adult health examination 434033121 Z00.00 vaccines are up to date. Anti-nucle ar factor detected 655094134 R76.8 F/u with rheumatolo gy as scheduled in January. Screening for malignant neoplasm of colon 225451188 Z12.11 family h/o precancero us polyps in mother and sister. Hyperlipidemia 60171729 E78.5 Vitamin D deficiency 347 38153 E55.9 [id number] Suleiman Estes MD [facility] [address] [address] 01/20/2022 09:20:23 01/21/2022 10:16:32 Easy bruising 937186487 R58 r/o renal, liver disease. ? connective tissue disease, lupus, which was not confirmed by rheumatolo gi assessment in October 2020. Blood coag ulation disorder 89138709 D69.9 spontaneou s ecchymois of hands and/or hematoma of R. foot. Lab testing with considerat ion of hem/onc referral for further eval. i Paresthesia 84573173 R20 .2 recurrent , extremitie s with reported peripheral weakness. Advised first on lab testing to r/o thyroid disease, lymes disease, B12 deficiency . Consider further neurologic evaluation with MRI or neurology referral. Hyperlipidemia 90440909 E78.5 Pain in right foot 73225 44675 25635 M79.671 [id number] Suleiman Estes MD Main Office [address] [facility] [address] [place] [address] 03/12/2022 13:39:16 03/12/2022 14:51:06 Adult health examination 870450274 Z00.00 vaccines are up to date. Raynaud's disease 319817 006 I73.00 F/u with rheumatolo gist. Screening for malignant neoplasm of breast 656404207 Z12.31 Neutropenia 071204924 D7 0.9 F/u with hematology . Major depr ession single episode, in partial remission 60780513 F32.4 Pt. is doing well on current meds. Family his tory of cancer of colon 749591787 Z80.0 F/u colonoscop y in 2025 Anti-nucle ar factor detected 189651796 R76.8 F/u with rheumatolo gy . Additional testing might be needed if hem/onc work up is inconclusi ve or negative. Attention deficit hyperactivity disorder, predominantly inattentive type 45297957 F90.0 refer to neuropsych for evaluation . Constipation 88509535 K5 9.00 Continue MiraLax powder daily. [id number] Suleiman Estes MD Main Office [address] [address] SHARON HERO [place] [address] 09/10/2022 11:12:01 09/10/2022 12:02:18 Neutropenia 577613889 D70.9 Repeat cbc and if still WBCs are suppressed , we will ask hem/onc for the eval. Needs infl uenza immunization 944275024 Z23 Major depr ession single episode, in partial remission 62883599 F32.4 PHQ-2 score of 0. Stable. WE will increase bupropion XL to 300 due to anxiety related to personal stress. F/u 6 weeks or sooner. Generalize d anxiety disorder 92272562 F41.1 Pt. is going through immense stress at home despite her LIBAN score of 7. rec increasing Bupropion to 300mg. Therapy is advised. F/u 4-6 weeks. Insomnia 715878324 G47.0 1 Pt is unable to sleep even with use of melatonin. rec trazodone 50 mg. Carpal mike donal syndrome 17728000 G56.01 Pt reports worsening right carpal tunnel. Pt [facility] [id number] Suleiman Estes MD Main Office [address] [address] [place] [address] 11/07/2022 15:02:37 11/07/2022 15:47:24 Major depression single episode, in partial remission 34292742 F32.4 PHQ-2 score of 0. Stable. LIBAN is 6. We will continue bupropion XL 150. Add mirtazapin e 7.5 mg at HS for sleep. Recommend therapy. F/u 3 m. Insomnia 176107501 G47.0 1 begin mirtazapin e 7.5 mg at night. F/u for dose adjustment in 4-6 weeks. [id number] Suleiman Estes MD [facility] [address] [address] [place]O [place] [address] 03/09/2023 12:23:37 03/09/2023 13:54:14 Acute sinusitis 63070787 J01.90 begin abx as directed for 10 days, nasal saline BID or saline rinse once daily, otc decongesta nts or Mucinex. Major depr ession single episode, in partial remission 49715730 F32.4 stable depression on meds. Sleep improved. Uses mirtazapin e occasional ly. Continue meds. F/u 3-4 m. Health Concerns Section Related Observation LastModified by Organization Detai ls LastModified Time None Recorded Concern Status LastModified by Organization Details LastModified Time None Recorded Advance Directives Directive Y: Payers Insurance Date Sequence Insurance Name Policy Number Policy Stafford Covered Member ID Stafford Member ID Guarantor Name 03/30/2020 1 [facility] - DIRECT CONNECTORCARE TYPE I (HMO) [id number] Karlene Richardson [id number] Karlene Richardson 11/25/2023 1 [place] [facility] Karlene Richardson [id number] Karlene Richardson 2015 1 [facility] - CAREPLUS (MEDICAID HMO) Jeremiah Debra [id number] Karlene Richardson 2019 1 [facility] - CAREPLUS (MEDICAID HMO) Karlene Richardson [id number] Karlene Richardson Notes Date Note Type Note Provider Name and Address Organization Details Recorded Time 01/20/2022 text/html ROS as noted in the HPI 46 year old female with h/o positive KYLAH c/o unexplained bruising [...] PT. has h/o Raynaud's disease diagnosed by excavating machine operator after referral for positive KYLAH. SHe was also diagnosed with bilateral carpal tunnel by nerve conduction study. PT. is concerned with leg fatigue, paresthesia, generalized fatigue, headaches and foggy head. Had COVID infection in October which potentiated all of those symptoms. Sidney Longoria PA-C [address], [address], [facility] 01/20/2022 14:26:53 03/12/2022 text/html Generic HPI TemplateReported by [id number] year old female for annual physical exam.Vaccines: Received both doses of COVID vaccine. Pt is going to get booster soon as she just recovered from recent COVID infection about 3 months ago. Pt got her yearly flu shot in November this year. Up to date with all other vaccines.Pt sees her regularly scheduled [facility]. Patient has a mammogram due this year and will be scheduling appointment soon. Normal pap smear done in November.Pt had a recent colonoscopy with no abnormal findings.Neutropenia ( WBCs 2.8) with unexplained ecchymosis in both feet and Raynaud's disease , positive KYLAH. Seen by hematology in February. Additional work up was ordered but not yet reviewed with pt. Seen by excavating machine operator over a year ago at the [facility] [place] for Raynaud's , positive KYLAH. Pt. needs f/u.Constipation is off and on. Normal colonoscopy, but recall 5 years due to constipation and family history.Pt. c/o attention deficit without hyperactivity symptoms. Has h/o difficulty at school and difficulty functioning as an adult , but was never formally evaluated . Son and other family members on her side had ADD.ROS as noted in the HPI Sidney Longoria PA-C [address] [address], [place], [address], [facility] 03/12/2022 14:57:32 09/10/2022 text/html ROS as noted in the HPI 47 year old presents for a follow up for neutropenia and [...] worsening pain. Patient requested a referral to [facility] [facility]. Sidney Longoria PA-C [address] [facility] [address], [place], [address], [facility] 09/10/2022 16:49:16 11/07/2022 text/html ROS as noted in the [facility] 47 year old female for f/u on major depression and anxiety d/o. Started on Bupropion XL was increased in August to 300 mg due to personal stress. Pt. reported side effects and dropped down to 150 in September. Reports stress is less now. PHQ is 0, LIBAN is 6. Pt. reports problem with insomnia. Tried trazodone 50 mg with no effect. Sidney Longoria PA-C [address] [facility] [address], [place], [address], [facility] 11/07/2022 16:44:55 03/09/2023 text/html ROS as noted in the HPI 48 year old female c/o 8 day onset of sinus congestion [...] for sleep prn only. Sidney Longoria PA-C [address] [facility] [address], [place], [address], [facility] 03/09/2023 13:50:46 OBGyn Episode No OBEpisode recorded.
--- OUTSIDE RECORDS SUMMARY | 2025-08-09 13:41 | XMS_ITS | Clinical Summary ---
Author Organization [facility] Address [address] [place] [address] Phone Care Team Providers Care Ferry Boat Captain Name Role Phone Austin Dietrich MD Primary [...] topic Medical Devices Not on file Insurance [facility] NON NSPG PCP ANICETO NEIL CONNECTORCARE WELLSENSE NON NSPG PCP SILVER CLARITY CONNECTORCARE DYANAENSE NON NSPG PCP SILVER CLARITY CONNECTORCARE WELLSENSE NON NSPG PCP SILVER CLARITY CONNECTORCARE WELLSENSE NON NSPG PCP SILVER CLARITY CONNECTORCARE WELLSENSE NON NSPG PCP SILVER CLARITY CONNECTORCARE Care Teams Ferry Boat Captain Relationship Specialty Start Date End Date Austin Dietrich MD [address] [place] [address] PCP - General 07/30/24 Additional Source Comments The information contained in this document represents components of the legal health record. It is not the complete legal health record.[facility]
--- OUTSIDE RECORDS SUMMARY | 2025-08-09 13:41 | XMS_ITS | Clinical Summary ---
Author Organization [facility] Address [address] [place] [address] Phone Care Team Providers Care Director Of Sales And Marketing Name Role Phone Helene Sinha Primary Care Provider [phone] Allergies No known active allergies Medications No known medications Encounters Date Type Department Care Team Description 06/04/2025 8:00 PM EDT - 06/04/2025 8:40 PM EDT Emergency [facility] Emergency [address] [place] [address] Discharge Disposition: Home or Self [...] patient's age to complete this topic Insurance [facility] Care Teams Director Of Sales And Marketing Relationship Specialty Start Date End Date Helene Sinha PA [address] [facility] [place] [address] [place], [place] PCP - General Internal Medicine 11/01/20
[2025-08-10 06:47] LABS: Lyme Abs Screen <0.90 index
== END 2025-08-09 11:04 | disposition home or self-care (01) ==
LOC: HO.WFDLDS 11:03
PROVIDERS: Nurse Practitioner Family; Visit Provider Nurse Practitioner Family
DX: T14.8XXA Other injury of unspecified body region, initial encounter (principal); W57.XXXA Bitten or stung by nonvenomous insect and other nonvenomous arthropods, initial encounter
CPT/HCPCS: 36415; 86617; 86618

== ENCOUNTER 2025-08-11 14:34 | Outpatient (AMB) | payer OTHER, SELFPAY ==
--- NOTE | 2025-08-11 14:38 | MHC.OFFVIS ---
Vital Signs 08/11/25 14:41 Height 5 ft 7 in Weight 130 lb 1.164 oz BMI 20.4 Respiration 16 Pulse 70 Intake Visit Reasons: Genetic Test results Intake Note: Patient is seen in office for genetic testing results. Pt c/o: per pt had a tick bite on the left breast last Thursday and is currently on Doxycycline Human Services Program Specialist Required: No Accompanied by: Self / Same As Patient Allergies No Known Allergies Allergy (Verified 08/11/25 14:40) HPI Comments Details: 50-year-old female patient presenting for evaluation of a right breast and axillary mass noted on self-examination. She 1st noted the lump in the axilla approximately 4 months ago in the lump is the right lower inner quadrant approximately one-month ago. Since 1st being identified, the breast lump seems to have decreased in size in his now less noticeable. She denies a previous history of breast problems but has undergone previous breast lift with bilateral saline implants. She denies any problems following the surgery and denies any ongoing breast pain. Her most recent mammogram of 01/25/2025 revealed no changes from her prior mammogram (BI-RADS 2). Menarche was age 12. She is in her 1st child was born when she was 29. Her periods are now irregular and sporadic. She denies a history of hormone replacement therapy. Family history is significant for a maternal grandmother with breast cancer which developed in her early 70s and a maternal aunt who developed breast cancer the age of 54. Her maternal grandfather has a history of colon and prostate cancer and a maternal cousin also has a history of colon cancer. She returns today to review the genetic testing. Genetic testing revealed no clinically significant variants. There was 1 variant of unknown significance and her breast cancer risk score was calculated at 13%. This placed her at average risk for breast cancer. Based on her family history colon cancer screening was recommended starting at the age of 45. She reports having previously undergone colonoscopy already. [facility] Medical History H/O mammogram (~2023) Surgical History Hx of breast implants, bilateral (~2012) H/O colonoscopy (~2021) Family History Father Hypertension High cholesterol Diabetes Mother Thyroid disorder Maternal Grandmother Hypertension FHx: mental illness Breast cancer, Onset Age: 70 Paternal Grandmother Hypertension Diabetes Substance abuse Maternal Grandfather Diabetes Maternal Aunt Breast cancer, Onset Age: 50 Family/Other Colon cancer Social History Housing: House Alcohol intake: current Alcohol intake frequency: a few times a week Alcohol type: wine and hard liquor Patient Tobacco Use Status: Never used Tobacco e-Cigarette/Vaping Use: Never Used Second Hand Smoke Exposure: No service: No Current occupational status: employed Cognitive needs: No Hearing needs: No Vision needs: No Female Reproductive History Menstrual Age of Menarche: 12 Review of Systems Const All systems reviewed & are unremarkable except as noted in HPI and below Physical Exam Exam Exam: Exam deferred Vital Signs: Last Vital Signs Pulse 70 08/11/25 14:41 Resp 16 08/11/25 14:41 BMI result Body Mass Index 20.4 Assessment & Plan Assessment & Plan (1) Hx of breast implants, bilateral: Onset Date: ~2012 Code(s): Z98.82 - Breast implant status Category: Surgical (2) Family history of breast cancer: Code(s): Z80.3 - Family history of malignant neoplasm of breast Category: Medical (3) Breast lump: Comment: RIGHT Code(s): N63.0 - Unspecified lump in unspecified breast Category: Medical Qualifiers: Laterality: right Breast mass location: lower inner quadrant Qualified Code(s): N63.14 - Unspecified lump in the right breast, lower inner quadrant Plan 50-year-old female patient with a family history of both colon and breast cancer returning to review genetic testing results. Results indicate no clinically significant mutations and a variant of unknown significance. The significance of this was reviewed with the patient. She was found to be at average risk for breast cancer with a breast cancer risk score of 13%. We discussed the recommendations for colon cancer screening and I provided her with a copy of the genetic testing results. She should continue with routine breast screening evaluations follow up as needed. Coding Level of Care Code Est Pt Level 3 (25206) Diagnoses Hx of breast implants, bilateral Z98.82 Family history of breast cancer Z80.3 Mass of lower inner quadrant of right breast N63.14 Laterality: right Breast mass location: lower inner quadrant
[2025-08-11 14:41] VITALS: PULSE 70; RESP 16; BMI 20.4
--- OUTSIDE RECORDS SUMMARY | 2025-08-11 17:04 | XMS_ITS | Clinical Summary ---
Author Organization [facility] Address [address] [place] [address] Phone Care Team Providers Care Clothes Model Name Role Phone Austin Dietrich MD Primary [...] topic Medical Devices Not on file Insurance [facility] NON NSPG PCP ANICETO NEIL CONNECTORCARE WELLSENSE NON NSPG PCP SILVER CLARITY CONNECTORCARE DYANAENSE NON NSPG PCP SILVER CLARITY CONNECTORCARE WELLSENSE NON NSPG PCP SILVER CLARITY CONNECTORCARE WELLSENSE NON NSPG PCP SILVER CLARITY CONNECTORCARE WELLSENSE NON NSPG PCP SILVER CLARITY CONNECTORCARE Care Teams Clothes Model Relationship Specialty Start Date End Date Austin Dietrich MD [address] [place] [address] PCP - General 07/30/24 Additional Source Comments The information contained in this document represents components of the legal health record. It is not the complete legal health record.[facility]
--- OUTSIDE RECORDS SUMMARY | 2025-08-11 17:04 | XMS_ITS | Data Portability ---
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 Provider was located in the office. No [...] auto diff 2021 022 [facility], [address] [facility], [facility], [place], [address], 18:06:53 PT/IN R 2021 [facility], [address], [place], [address], 10:30:43 CBC w/ auto diff 2021 [facility]INE [facility], [address], [address], [place], [address], 10:23:01 hepat ic funct ion panel , serum 2021 [email or web address] [facility], [address], [address], [place], [address], 09:48:51 lyme igg + igm Ab, weste rn blot, serum 2021 ELAINE [facility], [address], [address], [place], [address], 19:06:10 TSH, serum or plasm a 2021 E[facility]INE [facility], [address], [address], [place], [address], 18:00:48 vitam in B12, serum 2021 [facility], [address], [address], [place], [address], 18:00:46 lipid panel , serum 2021 [facility], [address], [address], [place], [address], 18:50:30 CMP, serum or plasm a 2021 [facility], [address], [place], [address], 2 18:50:29 Referral ortho pedic surge on refer ral - R. carpa l tunne l syndr ome. 2021 [facility] (Juan Diego Knapp), [address], [place], [address], 08:21:16 rheum atolo gist refer ral - Nanette ud's disea se, posit armen KYLAH , neutr openi a. Needs f/u and furht er testi ng for posit armen KYLAH. 2021 022 [email or web address] Hidalgo MD, [address] [place], [address], 2 08:39:[address] refer ral - Inatt entiv eness w/o hyper activ ity . Never teste d for ADD. 2021 022 [email or web address] Jeramy Figueroa, [address] [place], [address], 2 10:21:47 Procedures None recor ded. Surgeries None recor ded. Imaging MAMMO , scree rajesh, bilat eral 2021 [email or web address] [facility], [address], [place], [address], 2 15:13:01 XR, foot, 3 or more view 2021 [facility], [address] [place], [address], 2 10:21:41 Medication Orders doxyc yclin e hycla te 100 mg table t 2022 023 [place] [facility], [address] [facility], [place], [address], 13:49:12 miguel zapin e 7.5 mg table t 2022 023 [facility], [address] [place], [address], 12:53:21 trazo done 50 mg table t 2021 [address] [facility], [address] [place], [address], 15:19:11 bupro pion HCl XL 300 mg 24 hr table t, exten ded relea se 2021 022 [facility], [address] [place], [address], 12:53:10 Patient TargetsNo targets recorded. Patient Instructions Encounter Date Encounter Id Patient Instructions Last Modified By Organization Details Last Modified Time 03/12/2022 [id number] Preventing Depression From Coming Back: Care Instructions Not available 03/12/2022 14:55:52 depression treatment: care instructions Not available 03/12/2022 14:55:52 constipation: care instructions Not available 03/12/2022 14:55:39 high-fiber diet: care instructions Not available 03/12/2022 14:55:39 09/10/2022 [id number] anxiety disorder : care instructions Not available 09/10/2022 11:53:53 11/07/2022 [id number] insomnia: care instructions Not available 11/07/2022 15:44:18 03/09/2023 [id number] Acute Sinusitis: Care Instructions Not available 03/09/2023 13:49:44 saline nasal washes: care instructions Not available 03/09/2023 13:49:44 eustachian tube problems: care instructions Not available 03/09/2023 13:49:44 Reason for Referral Marketing Operations Associate Referral for Anti-nuclear factor detected Raynaud's disease, [...] uclea r Antib gerry); other infec tions ([facility] ed Fever ; Epste in-Ba [...] ng. [facility] offer s test code 49467 6 Lyme Disea se Serol ogy with Refle x to aid in the diagn osis of Lyme Disea se. Test perfo rmed by [facility], [address], [place] [id number] Not Available [facility] (Centralized Electronic Ordering - All Locations) Patient Can Go To The Location Of Their Choice, [id number] 01/22/2022 19:06:10 09/10/20 22 09/10/2022 COMPL ETE CBC WITH DIFF WBC 4.7 K/mm3 (4.0-1 1.0) Not Available [facility] (Centralized Electronic Ordering - All Locations) Patient Can Go To The Location Of Their Choice, [id number] 09/10/2022 18:06:53 09/10/20 22 09/10/2022 COMPL ETE CBC WITH DIFF RBC 4.17 M/mm3 (4.20- 5.40) low Not Available [facility] (Centralized Electronic Ordering - All Locations) Patient Can Go To The Location Of Their Choice, [id number] 09/10/2022 18:06:53 09/10/20 22 09/10/2022 COMPL ETE [...] no acute displa johnnie fractu re. WSN: [id number] Orderi ng Physic andres: Wellington Longoria ia Dictat ed By: Bertha Grimaldo ra, MD Dictat ed Date/T damien: 10:18 a Review ed By: Bertha Grimaldo ra, MD Signed By: Bertha Grimaldo ra, MD Signed Date/T damien: 10:18 am Transc ribed By: LIVE Transc ribed Date/T damien: 10:17 am Patien t Class: Outpat ient [facility] (Outpt Imaging) [address] [place], [address], 01/27/2022 10:46:22 01/22/20 22 01/21/2022 XR, foot, 3 or more view No observ ation record ed. jm [facility] [address] [place], [address], 01/21/2022 10:45:19 Result Notes Documentation Provider Name [...] joint with no acute displaced fracture. WSN: [id number] Ordering Physician: Sidney Longoria Dictated By: Bertha Martinez MD Dictated Date/Time: 01/21/22 10:18 a Reviewed By: Bertha Martinez MD Signed By: Bertha Martinez MD Signed Date/Time: 01/21/22 10:18 am Transcribed By: LIVE Transcribed Date/Time: 01/21/22 10:17 am Patient Class: Outpatient Sidney Longoria PA-C [address], [place], [address], [facility] 01/21/2022 10:30:31 Problems Name Problem SNOMED Code Status Onset Date Resolution Date Notes Provider Name and Address Organization Details Recorded Time Multiple bruising 772784979 Completed 11/06/2016 Tameka burks [facility] 7 13:19:06 Onychomy cosis 378111787 Active Natasha burks [facility] 6 17:01:16 Fatigue 35683007 Completed 11/06/2016 Tameka burks [facility] 7 13:19:09 Constipa tion 64036966 Active MARIALUISA Bashir, [facility] 0 09:22:10 Administ ration of bacteria l and viral vaccine Completed 200705/16/2014 RECORDED 09/14/20 08 4:03PM BY NATASHA ART MD, OFFICE VISIT Natasha burks [facility] 6 17:01:16 Administ ration of bacteria l and viral vaccine Completed 200706/05/2014 RECORDED 09/14/20 08 4:03PM BY NATASHA ART MD, OFFICE VISIT Natasha burks [facility] 6 17:01:16 Conjunct ivitis 0992587 Completed 200805/16/2014 RECORDED 12/20/19 09 2:26PM BY PAYTON BARRETT ON/ADDMANFRED burks [facility] 6 17:01:16 Conjunct ivitis 6229302 Completed 200806/05/2014 RECORDED 12/20/19 09 2:26PM BY PAYTON BARRETT ON/ADDEN HAIDER burks [facility] 6 17:01:16 Abnormal weight loss 788952334 Completed 200905/16/2014 RECORDED 07/18/20 10 9:47AM BY MARIALUISA LOPES, ANNOTATI ON/ADDEN DUM Natasha D'Alessan kaelyn null, [facility] 6 17:01:16 Epidermo id cyst of skin 075778727 Completed 200905/16/2014 RECORDED 07/18/20 10 9:47AM BY MARIALUISA LOPES, ANNOTATI ON/ADDEN DUM Natasha D'Alessan kaelyn null, [facility] 6 17:01:16 Nausea 056480128 Completed 200905/16/2014 RECORDED 07/18/20 10 9:47AM BY MARIALUISA LOPES, ANNOTATI ON/ADDEN DUM Natasha D'Alessan kaelyn null, [facility] 6 17:01:16 Abnormal weight loss 361494849 Completed 200906/05/2014 RECORDED 07/18/20 10 9:47AM BY MARIALUISA LOPES, ANNOTATI ON/ADDEN DUM Natasha D'Alessan kaelyn null, [facility] 6 17:01:16 Epidermo id cyst of skin 215856420 Completed 200906/05/2014 RECORDED 07/18/20 10 9:47AM BY MARIALUISA LOPES, ANNOTATI ON/ADDEN DUM Natasha D'Alessan kaelyn null, [facility] 6 17:01:16 Nausea 188880911 Completed 200906/05/2014 RECORDED 07/18/20 10 9:47AM BY MARIALUISA LOPES, KARUNAATI ON/ADDEN DUM Natasha D'Alessan kaelyn null, [facility] 6 17:01:16 Generali zed abdomina l pain 427338992 Completed 201205/16/2014 RECORDED 09/16/20 13 9:41AM BY KRYSTAL VENTURA MA, ANNOTATI ON/ADDEN DUM Natasha D'Alessan kaelyn null, [facility] 6 17:01:16 Acute sinusiti s 66533183 Completed 201205/16/2014 RECORDED 09/16/20 13 9:42AM BY KRYSTAL VENTURA MA, ANNOTATI ON/ADDEN DUM Natasha Zambrano kaelyn null, [facility] 6 17:01:16 Screenin g for malignan t neoplasm of colon Completed 201205/16/2014 RECORDED 09/16/20 13 9:42AM BY KRYSTAL VENTURA MA, ANNOTATI ON/ADDEN DUM Natasha SchneiderCrystalnohelia kaelyn null, [facility] 6 17:01:16 Constipa tion 13870355 Completed 201205/16/2014 RECORDED 09/16/20 13 9:41AM BY KRYSTAL VENTURA MA, ANNOTATI ON/ADDEN DUM Nurys graham MA null, [facility] 0 09:22:10 Influenz a vaccine needed 21997283577 06 Completed 201205/16/2014 RECORDED 09/16/20 13 10:28AM BY KRYSTAL VENTURA MA, OFFICE VISIT Natasha burks, [facility] 6 17:01:16 Geograph ic tongue 30587504 Completed 201205/16/2014 RECORDED 09/16/20 13 9:42AM BY KRYSTAL VENTURA MA, ANNOTATI ON/ADDEN DUM Natasha art null, [facility] 6 17:01:16 Knee pain Completed 201205/16/2014 RECORDED 09/16/20 13 9:42AM BY KRYSTAL VENTURA MA, KARUNAATI ON/ADDEN DUM Natasha burks, [facility] 6 17:01:16 Adult health examinat ion Completed 201205/16/2014 RECORDED 09/16/20 13 10:31AM BY TIERRA AMBROSIO, ANNOTATI ON/ADDEN DUM Tameka Nguyễn MA null, [facility] 7 13:18:50 Generali zed abdomina l pain 276579993 Completed 201206/05/2014 RECORDED 09/16/20 13 9:41AM BY KRYSTAL VENTURA MA, ANNOTATI ON/ADDEN DUM Natasha Coty'Alevincenzoan kaelyn null, [facility] 6 17:01:16 Acute sinusiti s 41999637 Completed 201206/05/2014 RECORDED 09/16/20 13 9:42AM BY KRYSTAL VENTURA MA, ANNOTATI ON/ADDEN DUM Natasha Ansari'Alessan kaelyn null, [facility] 6 17:01:16 Screenin g for malignan t neoplasm of colon Completed 201206/05/2014 RECORDED 09/16/20 13 9:42AM BY KRYSTAL VENTURA MA, ANNOTATI ON/ADDEN DUM Natasha Coty'Alessan kaelyn null, [facility] 6 17:01:16 Constipa tion 77807094 Completed 201206/05/2014 RECORDED 09/16/20 13 9:41AM BY KRYSTAL VENTURA MA, ANNOTATI ON/ADDEN DUM Nurys graham MA null, [facility] 0 09:22:10 Influenz a vaccine needed 21127491256 06 Completed 201206/05/2014 RECORDED 09/16/20 13 10:28AM BY KRYSTAL VENTURA MA, OFFICE VISIT Natasha Ansari'Alevincenzovipin kaelyn null, [facility] 6 17:01:16 Geograph ic tongue 85430743 Completed 201206/05/2014 RECORDED 09/16/20 13 9:42AM BY KRYSTAL VENTURA MA, ANNOTATI ON/ADDEN DUM Natasha Coty'Alessan kaelyn null, [facility] 6 17:01:16 Knee pain Completed 201206/05/2014 RECORDED 09/16/20 13 9:42AM BY KRYSTAL VENTURA MA, ANNOTATI ON/ADDEN DUM Natasha Zambrano kaelyn null, [facility] 6 17:01:16 Insomnia 419223301 Completed 201305/16/2014 RECORDED 12/16/19 14 12:47PM BY KRYSTAL VENTURA MA, ANNOTATI ON/ADDEN DUM Sidney Bharath MAYORGA-C [address], [place], [address], [facility] 2 11:54:11 Patient status finding 170734563 Completed 201305/16/2014 RECORDED 12/16/19 14 12:48PM BY KRYSTAL VENTURA MA, OFFICE VISIT Tameka burks, [facility] 7 13:18:52 Insomnia 254339107 Completed 201306/05/2014 RECORDED 12/16/19 14 12:47PM BY KRYSTAL VENTURA MA, ANNOTATI ON/ADDEN DUM Sidney MAYORGA-C [address], [place], [address], [facility] 2 11:54:11 Screenin g for malignan t neoplasm of cervix Completed 201305/16/2014 RECORDED 02/15/20 14 12:57PM BY RENEE SUH MA, ANNOTATI ON/ADDEN DUM Natasha Zambrano kaelyn null, [facility] 6 17:01:16 Adult health examinat ion Completed 201311/06/2016 Tameka burks, [facility] 7 13:18:50 Hyperlip idemia 35858888 Completed 201302/25/2019 Sidney Longoria PA-C [address], [place], [address], [facility] 9 14:58:25 Major depressi on single episode, in partial remissio n 74177765 Active 2013 Natasha burks [facility] 6 17:01:16 Patient status finding 260908959 Completed 201311/06/2016 Tameka burks, [facility] 7 13:18:52 Screenin g for malignan t neoplasm of cervix Completed 201306/05/2014 RECORDED 02/15/20 14 12:57PM BY RENEE SUH MA, ANNOTATI ON/MIRZA burks [facility] 6 17:01:16 Malaise and fatigue 752103572 Completed 201311/06/2016 Tameka burks [facility] 7 13:18:58 Elevated level of transami nase and lactic acid dehydrog enase 398435810 Completed 201311/06/2016 Tameka burks [facility] 7 13:19:02 Screenin g for malignan t neoplasm of breast Completed 201311/06/2016 Tameka burks [facility] 7 13:18:55 Disorder of breast 00712594 Completed 201311/06/2016 Tameka burks [facility] 7 13:19:12 Anti-nuc lear factor detected 918676720 Active 2019 Sidney Longoria PA-C [address] [facility] [address], [place], [address], [facility] 0 09:30:54 Family history of cancer of colon 724154773 Active 2019 Sidney Longoria PA-C [address] [facility] [address], [place], [address], [facility] 0 09:39:14 Raynaud' s disease 806688862 Completed 202001/18/2021 Sidney Longoria PA-C [address] [facility] [address], [place], [address], [facility] 2 14:21:58 Easy bruising 690823485 Active 2021 Sidney Longoria PA-C [address] [facility] [address], [place], [address], [facility] 2 13:49:12 Paresthe afsaneh 85258191 Active 2021 Sidney Longoria PA-C [address], [place], [address], [facility] 2 14:26:26 Spontane ous ecchymos is 696762344 Active 2021 Sidneytunde Longoria PA-C [address] [facility] [address], [place], [address], [facility] 2 09:20:41 Neutrope bam 474054117 Active 2021 Sidney Longoria PA-C [address] [facility] [address], [place], [address], [facility] 2 09:20:54 Raynaud' s disease 109457943 Active 2021 Sidney Longoria PA-C [address] [facility] [address], [place], [address], [facility] 2 14:21:58 Attentio n deficit hyperact ivity disorder , predomin antly inattent armen type 08371108 Active 2021 Sidney Longoria PA-C [address] [facility] [address], [place], [address], [facility] 2 14:42:48 Chronic idiopath ic thromboc ytopenic purpura 22939573 Active 2021 Estela burks, [facility] 2 11:30:12 Insomnia 227198631 Active 2021 RECORDED 12/16/19 14 12:47PM BY KRYSTAL VENTURA MA, ANNOTATI ON/ADDEN DUM Sidney Longoria PA-C [address], [place], [address], [facility] 2 11:54:11 Carpal tunnel syndrome 76306081 Active 2021 Sidney Longoria PA-C [address], [place], [address], [facility] 2 11:56:22 Problem Notes None recorded. Procedures Surgical History Date Name Laterality Status Provider Name and Address Organization Details Recorded Time 11/28/19 22 Date of Last Pap Smear completed Heather Linares [facility] 12/10/2021 13:56:38 05/22/20 21 Date of Last Colonoscopy completed Heather Linares [facility] 05/22/2021 10:43:01 05/22/20 21 Colonoscopy completed Heather Linares [facility] 05/22/2021 10:42:54 12/11/19 21 Most Recent Mammogram completed Heather Linares [facility] 12/19/2020 15:11:57 12/11/19 21 Mammogram screening completed Heather Linares [facility] 12/19/2020 15:11:51 08/03/20 17 Mastopexy completed Nurys rutherford MA [facility] 10/03/2020 09:15:13 08/03/20 17 revision of breast implant completed Nurys rutherford MA [facility] 10/03/2020 09:16:16 11/21/19 17 Joint Injection completed Antoine Alexander MD [address], [place], [address], [facility] 11/22/2016 11:36:33 Knee Surgery completed Nurys rutherford [place] [facility] 01/18/2021 13:44:55 Imaging Results None recorded. [...] Updated DateTime 3 153.67 cm 24.8 kg/m2 06348.4 2 g 73 /min 98 % 98 % 98.1 [degF] 115/72 mm[Hg] Evelyne Nolasco [facility] 3 15:17:51 Date Recorded Body height Provider Name an d Address Organization Details Last Updated DateTime 03/09/2023 153.67 cm Natasha Tatum MA [facility] 03/09/2023 12:53:26 Date Recorded Body height Body mass index (BMI) Body weight Heart rate Oxygen saturation Oxygen saturation in Arterial blood by Pulse oximetry Body temperature Systolic And Diastolic Provider Name and Address Organization Details Last Updated DateTime 2 153.67 cm 25 kg/m2 60375.0 1 g 70 /min 97 % 97 % 98.96 [degF] 115/63 mm[Hg] Patricia Freeman MA [facility] 2 13:48:40 Date Recorded Body height Body mass index (BMI) Body weight Heart rate Oxygen saturation Oxygen saturation in Arterial blood by Pulse oximetry Body temperature Systolic And Diastolic Provider Name and Address Organization Details Last Updated DateTime 2 153.67 cm 25.4 kg/m2 17558.1 9 g 70 /min 97 % 97 % 98.96 [degF] 130/85 mm[Hg] Patricia Freeman MA [facility] 2 11:21:26 Social History Question Answer Notes LastModified by Organizat ion Details LastModified Time Tobacco Smoking Status [facility] 13:44:23 Do You Have An Advance [...] Seat Belt Or Car Seat Routinely? Yes [email or web address] Information not available 03/12/2022 Seat Belts Used Routinely Yes Information not available 09/10/2022 Are You Sexually Active? Yes Information not available 12/27/2015 Smoke Alarm In Home Yes Information not available 09/10/2022 Do You Have Smoke And Carbon Monoxide Detectors In Your Home? Yes [email or web address] Information not available 03/12/2022 At What Age Did You Start Smoking Tobacco? 0 Information not available 01/18/2021 Are You Passively Exposed To Smoke? No Information not available 02/25/2019 How Much Tobacco Do You Smoke? No [email or web address] Information not available 03/12/2022 Do You Use [...] used smokeless tobacco? Never used smokeless tobacco [email or web address] Information not available 03/12/2022 Are you currently employed? Yes Information not available 2015 Are you able to care for yourself independently ? 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[place] [employer] Information not available 12/27/2015 Do [...] 50 mcg/0.25mL dose 1 completed MARIALUISA Blunt, [facility] 01/18/2021 13:42:39 COVID-19, mRNA, LNP-S, PF, 100 mcg/0.5mL dose or 50 mcg/0.25mL dose 1 completed MARIALUISA Sevilla, [facility] 03/12/2022 13:41:59 Influenza, split virus, quadrivalent, PF 8 completed Not Available [facility] 11/12/2019 02:22:16 Tdap 9 completed Not Available [facility] 11/12/2019 02:21:49 Influenza, split virus, quadrivalent, PF 2 completed Sidney Longoria PA-C [address] [address], [place], [address], [facility] 09/10/2022 16:46:39 Td (adult), 2 Lf tetanus toxoid, preservative free, adsorbed 9 completed Not Available [facility] 05/09/2014 14:09:46 Tdap 8 completed Not Available [facility] 05/09/2014 14:09:46 influenza, seasonal, intradermal, preservative free 3 completed Not Available [facility] 05/09/2014 14:09:46 Past Encounters Encounter ID Performer Location Encounter Start Date Encounter Closed Date Diagnosis/Indication Diagnosis SNOMED-CT Code Diagnosis ICD10 Code Diagnosis IMO Codes Diagnosis Note [id number] autoEComm erce [address] [facility] [place] [address] 08/15/2008 00:00:00 [id number] autoEComm erce [address] [facility] [place] [address] 09/14/2008 00:00:00 [id number] autoEComm erce [address] [facility] [place] [address] 07/25/2010 00:00:00 [id number] autoEComm erce [address] [facility] [place], [place] [address] 11/14/2010 00:00:00 [id number] autoEComm erce [address] [facility] [place], [place] [address] 09/16/2013 00:00:00 [id number] autoEComm erce [address] [facility] [place], [place] [address] 10/18/2013 00:00:00 [id number] autoEComm erce [address] [facility] [place], [place] [address] 12/16/2013 00:00:00 [id number] autoEComm erce [address] [facility] [place], [place] [address] 02/14/2014 00:00:00 [id number] Natasha kingsley MD Main Office [address] [address] [place], [place] [address] 2015 14:53:57 2015 15:59:11 Adult health examination 959416219 Major depr ession single episode, in partial remission 53274271 Malaise and fatigue 600545190 [id number] Natasha kingsley MD Main Office [address] [address] [place], [place] [address] 12/27/2015 14:11:03 12/27/2015 15:07:55 Multiple bruising 457387390 T14.8 Onychomycosis 809817583 B35.1 Fatigue 10206812 R53.83 [id number] Natasha kingsley MD Main Office [address] [address] [place], [place] [address] 11/06/2016 13:15:41 11/06/2016 14:15:29 Adult health examination 636100415 Z00.00 Onychomycosis 946543495 B35.1 Fatigue 11071523 R53.83 [id number] ORION Abrams Main Office [address] [address] [place], [place] [address] 11/21/2016 14:32:42 11/21/2016 16:09:19 Inflammation of rotator cuff tendon 796851064 M65.811 Dr. Alexander also in to eval [...] ice 4 times daily, exercises as discussed. [id number] ORION Abrams Main Office [address] [address] 12/02/2016 11:32:06 12/02/2016 12:12:43 Pain of bilateral hip joints 3269927403 [id number] M25.551 M25.552 RICE advised, meloxicam BID, gentle stretching as tolerated, return for worsening. Pain of mu ltiple joints 85002833 M25.50 Patient has had shoulder , foot and now hip pain within short period of time, would like to have blood work done. [id number] Natasha kingsley MD Main Office [address] [address] 01/23/2017 13:18:12 01/23/2017 14:05:38 Pain of shoulder region 78191809 M25.511 [id number] Natasha kingsley MD Main Office [address] [address] 11/19/2017 13:53:40 11/19/2017 14:38:03 Adult health examination 647382992 Z00.00 Administra tion of viral vaccine 66956903 Z23 Fatigue 54384966 R53.83 Ferritin l evel below reference range 191895810 R77.8 Major depr ession single episode, in partial remission 80945938 F32.4 [id number] Sidney Longoria PA-C Main Office [address] [address] 09/22/2018 13:47:01 09/22/2018 14:45:13 Major depression single episode, in partial remission 99918782 F32.4 Pt. is doing very well on current meds. In partial remission. Will continue counseling . F/u as sscheduled in 2019 Needs infl uenza immunization 896579066 Z23 [id number] Antoine Alexander MD Main Office [address] [place] [address] 02/25/2019 14:28:43 02/25/2019 15:15:27 Adult health examination 118952936 Z00.00 Administra tion of viral vaccine 76192035 Z23 Screening for malignant neoplasm of breast 552686315 Z12.31 Screening for malignant neoplasm of cervix 736542601 Z12.4 Major depr ession single episode, in partial remission 82828214 F32.4 Pt. is doing very well on current meds. In partial remission. Will continue counseling . F/u in 1 year. [id number] Adenike cote MD Main Office [address] [place] [address] 03/31/2020 08:14:38 04/02/2020 08:40:36 Recurrent oral herpes simplex infection 437972511 B00.2 treat as below, visit if not improving. prefers acyclovir [id number] Antoine Alexander MD [facility] [address] [address] 08/08/2020 11:09:55 08/08/2020 13:31:02 Pain of multiple joints 36174472 M25.50 Fatigue 15618845 R53.83 Screening for malignant neoplasm of cervix 326958547 Z12.4 Screening for malignant neoplasm of breast 431147882 Z12.31 Tension-type headache 39 1375204 G44.209 [id number] Antoine Alexander MD [facility] [address] [place] [address] 10/03/2020 08:43:18 10/03/2020 11:57:58 Constipation 87472798 K59.00 tried all otc options Family his tory of cancer of colon 565074240 Z80.0 refer for colonoscop y [id number] Sidney Longoria PA-C Main Office [address] [address] 01/18/2021 13:26:36 01/18/2021 14:21:53 Adult health examination 883416876 Z00.00 vaccines are up to date. Anti-nucle ar factor detected 527999322 R76.8 F/u with rheumatolo gy as scheduled in January. Screening for malignant neoplasm of colon 554221442 Z12.11 family h/o precancero us polyps in mother and sister. Hyperlipidemia 05101803 E78.5 Vitamin D deficiency 347 25196 E55.9 [id number] Suleiman Estes MD [facility] h [address] [address] 01/20/2022 09:20:23 01/21/2022 10:16:32 Easy bruising 154152988 R58 r/o renal, liver disease. ? connective tissue disease, lupus, which was not confirmed by rheumatolo gi assessment in October 2020. Blood coag ulation disorder 92095834 D69.9 spontaneou s ecchymois of hands and/or hematoma of R. foot. Lab testing with considerat ion of hem/onc referral for further eval. i Paresthesia 94071136 R20 .2 recurrent , extremitie s with reported peripheral weakness. Advised first on lab testing to r/o thyroid disease, lymes disease, B12 deficiency . Consider further neurologic evaluation with MRI or neurology referral. Hyperlipidemia 79763526 E78.5 Pain in right foot 41144 63411 09376 M79.671 [id number] Suleiman Estes MD Main Office [address] [facility] [address] [place] [address] 03/12/2022 13:39:16 03/12/2022 14:51:06 Adult health examination 370318144 Z00.00 vaccines are up to date. Raynaud's disease 426194 006 I73.00 F/u with rheumatolo gist. Screening for malignant neoplasm of breast 504666020 Z12.31 Neutropenia 118662626 D7 0.9 F/u with hematology . Major depr ession single episode, in partial remission 94151405 F32.4 Pt. is doing well on current meds. Family his tory of cancer of colon 034076924 Z80.0 F/u colonoscop y in 2025 Anti-nucle ar factor detected 916366053 R76.8 F/u with rheumatolo gy . Additional testing might be needed if hem/onc work up is inconclusi ve or negative. Attention deficit hyperactivity disorder, predominantly inattentive type 55853554 F90.0 refer to neuropsych for evaluation . Constipation 25428235 K5 9.00 Continue MiraLax powder daily. [id number] Suleiman Estes MD Main Office [address] [place] [address] SHARON HERO [place] [address] 09/10/2022 11:12:01 09/10/2022 12:02:18 Neutropenia 931534041 D70.9 Repeat cbc and if still WBCs are suppressed , we will ask hem/onc for the eval. Needs infl uenza immunization 888926463 Z23 Major depr ession single episode, in partial remission 43291106 F32.4 PHQ-2 score of 0. Stable. WE will increase bupropion XL to 300 due to anxiety related to personal stress. F/u 6 weeks or sooner. Generalize d anxiety disorder 83500232 F41.1 Pt. is going through immense stress at home despite her LIBAN score of 7. rec increasing Bupropion to 300mg. Therapy is advised. F/u 4-6 weeks. Insomnia 738288560 G47.0 1 Pt is unable to sleep even with use of melatonin. rec trazodone 50 mg. Carpal mike donal syndrome 19817619 G56.01 Pt reports worsening right carpal tunnel. Pt requested a referral to [facility] [id number] Suleiman Estes MD Main Office [address] [place] [address] GLORIAAnthony [place] [address] 11/07/2022 15:02:37 11/07/2022 15:47:24 Major depression single episode, in partial remission 53278972 F32.4 PHQ-2 score of 0. Stable. LIBAN is 6. We will continue bupropion XL 150. Add mirtazapin e 7.5 mg at HS for sleep. Recommend therapy. F/u 3 m. Insomnia 453400716 G47.0 1 begin mirtazapin e 7.5 mg at night. F/u for dose adjustment in 4-6 weeks. [id number] Estes MD [facility] [address] [place] [address] GLORIAAnthony HERO [place] [address] 03/09/2023 12:23:37 03/09/2023 13:54:14 Acute sinusitis 82979901 J01.90 begin abx as directed for 10 days, nasal saline BID or saline rinse once daily, otc decongesta nts or Mucinex. Major depr ession single episode, in partial remission 93759498 F32.4 stable depression on meds. Sleep improved. [...] Stafford Member ID Guarantor Name 03/30/2020 1 FORMERLY [facility] - DIRECT CONNECTORCARE TYPE I (HMO) [id number] Karlene Richardson [id number] Karlene Richardson 11/25/2023 1 MEDICAID-[place]: [facility] Karlene Richardson [id number] Karlene Richardson 2015 1 FORMERLY [facility] - CAREPLUS (MEDICAID HMO) Jeremiah Debra [id number] Karlene Richardson 2019 1 FORMERLY [facility] - CAREPLUS (MEDICAID HMO) Karlene Richardson [id number] Karlene Richardson Notes Date Note Type [...] PT. has h/o Raynaud's disease diagnosed by sole seamer after referral for positive KYLAH. SHe was also diagnosed with bilateral carpal tunnel by nerve conduction study. PT. is concerned with leg fatigue, paresthesia, generalized fatigue, headaches and foggy head. Had COVID infection in October which potentiated all of those symptoms. Sidney Longoria PA-C [address], [address], [facility] 01/20/2022 14:26:53 03/12/2022 text/html Generic HPI TemplateReported by Mokcfix1 year old female for annual physical exam.Vaccines: Received both doses of COVID vaccine. Pt is going to get booster soon as she just recovered from recent COVID infection about 3 months ago. Pt got her yearly flu shot in November this year. 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 Patient has a mammogram due this year and will be scheduling appointment soon. Normal pap smear done in November.Pt had a recent colonoscopy with no abnormal findings.Neutropenia ( WBCs 2.8) with unexplained ecchymosis in both feet and Raynaud's disease , positive KYLAH. Seen by hematology in February. Additional work up was ordered but not yet reviewed with pt. Seen by sole seamer over a year ago at the [facility] [place] for Raynaud's , positive KYLAH. Pt. needs [...] in the HPI Sidney Longoria PA-C [address] [place] [address], [place], [address], [facility] 03/12/2022 14:57:32 [...] worsening pain. Patient requested a referral to [facility]. Sidney Longoria PA-C 3640 [facility] [address], [place], [address], [facility] 09/10/2022 16:49:16 11/07/2022 text/html ROS as noted in the [facility] 47 year old female for f/u on [...] mg with no effect. Sidney Longoria PA-C 2420 [facility] [address], [place], [address], [facility] 11/07/2022 16:44:55 03/09/2023 text/html ROS as noted [...] for sleep prn only. Sidney Longoria PA-C 9068 [facility] [address], [place], [address], [facility] 03/09/2023 13:50:46 OBGyn Episode No OBEpisode recorded.
--- OUTSIDE RECORDS SUMMARY | 2025-08-11 17:04 | XMS_ITS | Clinical Summary ---
Author Organization [facility] Address [address] [place] [address] Phone Care Team Providers Care Product Lead Name Role Phone Helene Sinha Primary Care Provider [phone] Allergies No known active allergies Medications No known medications Encounters Date Type Department Care Team Description 06/04/2025 8:00 PM EDT - 06/04/2025 8:40 PM EDT Emergency [facility] Emergency [address] [place] [address] Discharge Disposition: Home or Self [...] patient's age to complete this topic Insurance [facility] Care Teams Product Lead Relationship Specialty Start Date End Date Helene Sinha PA [address] [facility] [address] [place], [place] PCP - General Internal Medicine 11/01/20
--- OUTSIDE RECORDS SUMMARY | 2025-08-11 17:04 | XMS_ITS | Clinical Summary ---
Author Organization [employer] Address [address] [place] [address] 7 [place] [address] Care Team Providers Care Human Resources Operations Specialist Name Role Phone Unavailable Primary Care Provider [...] Description 09/05/2025 2:30 PM EST Office Visit [facility] [address] [place], [place] [phone] Thomas Lheman DMD [address] [place] [address] Health Maintenance Due Date Last Done Comments [...]
--- OUTSIDE RECORDS SUMMARY | 2025-08-11 17:04 | XMS_ITS | Encounter Summary ---
Author Organization [employer] [facility] Address [address] [facility] [address] [place] [address] Care Team Providers Care Manager Registration Name Role Phone Unavailable Primary Care Provider Unavailabl e Encounter Details Date Type Department Care Team (Latest Contact Info) Description 08/14/2022 Abstract [facility] CONVERSIONS Dental, Provider, DDS Social [...] Description 09/05/2025 2:30 PM EST Office Visit [facility] DENTAL [address] [place], [place] [phone] Thomas Lehman, ERNIE [address] [place], [place] [phone] documented as of this encounter Visit Diagnoses Not on filedocumented in this encounter
--- OUTSIDE RECORDS SUMMARY | 2025-08-11 17:04 | XMS_ITS | Encounter Summary ---
Author Organization [facility] Address [address] [place] [address] [place] [address] Phone Care Team Providers Care Termite Treater Helper Name Role Phone Austin Dietrich MD Primary Care Provider Encounter Details Date Type Department Care Team (Late st Contact Info) Description 07/30/2024 Ophth Exam [facility] Emergency Department [address] [place] [address] Keshav Caceres MD [address] [place] [address] [email or web address] Social History Tobacco Use Types Packs/Day Years [...] 2:21 PM EDT Anai Olivarez RN * [place] Suicide Severity Rating Scale (Screener/Recent Self-Report) Question [...] on filedocumented in this encounter Care Teams Termite Treater Helper Relationship Specialty Start Date End Date Austin Dietrich MD [address] [place] [address] PCP - General 07/30/24 documented as of this encounter Additional Source Comments The information contained in this document represents components of the legal health record. It is not the complete legal health record.[facility]
== END 2025-08-11 14:45 | disposition home or self-care (01) ==
LOC: HO.HGS 14:34
PROVIDERS: PCP Nurse Practitioner Family; Visit Provider Surgery
DX: Z98.82 Breast implant status (principal); Z80.3 Family history of malignant neoplasm of breast; N63.14 Unspecified lump in the right breast, lower inner quadrant
CPT/HCPCS: 99213

== ENCOUNTER → 2025-08-11 14:34 | Outpatient (BNVA) | payer OTHER, SELFPAY | PROVIDERS: PCP Nurse Practitioner Family; Visit Provider Surgery | DX: N63.14 Unspecified lump in the right breast, lower inner quadrant (principal); Z80.3 Family history of malignant neoplasm of breast; Z98.82 Breast implant status | CPT/HCPCS: 99212 ==

== ENCOUNTER 2025-08-25 13:53 | Outpatient (AMB) | payer OTHER, SELFPAY ==
--- NOTE | 2025-08-25 13:55 | MHC.PC.OV ---
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 Semiautomatic Required: No Is last menstrual period known: Yes Last menstrual period: 04/28/25 Post menopausal: No Patient : No Allergies No Known Allergies Allergy (Verified 08/25/25 14:14) Medication List - Last Reconciled 08/25/25 by Brittnee Gonzalez CNP bupropion HCl XL 150 mg PO DAILY minoxidil 2.5 mg PO DAILY mirtazapine 7.5 mg PO DAILY multivitamin with iron 1 tab PO DAILY prednisolone acetate 1% 1 drp ophthalmic-Right DAILY prednisone 40 mg (2 x 20 mg) PO DAILY 5 days spironolactone 25 mg PO DAILY valacyclovir 500 mg PO DAILY Tobacco use date assessed: 08/25/25 Dental Screening Dental Screen Date: 08/25/25 Did you have a dental visit in the last 12 months?: Yes Did you have a dental problem in the last 6 months where you did not have access to dental care?: No Was dental information given to patient?: Patient has dentist HPI HPI Comments History of Present Illness Details 50-year-old female presents with complaints of a swollen/puffy area below the left breast which has been present since she completely removed a tick from the area almost 3 weeks ago. The area is tender only to touch. She notes that the swelling has not worsened since her last visit. She denies lump or redness. She denies injury or trauma to the area. She denies associated symptoms. She took 1 dose of doxycycline 200 mg after her last visit. She requests an ultrasound of the area. [facility] Medical History H/O mammogram (~2023) Surgical History Hx of breast implants, bilateral (~2012) H/O colonoscopy (~2021) Family History Father Hypertension High cholesterol Diabetes Mother Thyroid disorder Maternal Grandmother Hypertension FHx: mental illness Breast cancer, Onset Age: 70 Paternal Grandmother Hypertension Diabetes Substance abuse Maternal Grandfather Diabetes Maternal Aunt Breast cancer, Onset Age: 50 Family/Other Colon cancer Social History Housing: House Alcohol intake: current Alcohol intake frequency: a few times a week Alcohol type: wine and hard liquor Patient Tobacco Use Status: Never used Tobacco e-Cigarette/Vaping Use: Never Used Second Hand Smoke Exposure: No Patient : No service: No Current occupational status: employed Cognitive needs: No Hearing needs: No Vision needs: No Female Reproductive History Menstrual Age of Menarche: 12 Date of last menstrual period: 04/28/25 Questionnaire Thrive Questionnaire Date Thrive assessed: 01/04/25 I am a: Patient What is your living situation today?: I have a steady place to live Within the past 12 months, did the food you bought not last and you didn't have the money to get more?: Never true Within the past 12 months, did you worry whether your food would run out before you got money to buy more?: Never true Do you have trouble paying for medicines?: No Do you have trouble getting transportation to medical appointments?: No Do you have trouble paying your heating and electricity bill?: No Do you have trouble taking care of your child, family member or friend?: No Do you have trouble with day-to-day activities such as bathing, preparing meals, shopping, managing finances, etc.?: No Are you currently unemployed and looking for a job?: No Are you interested in more education?: No Please select the resources that you would like help with: None Currently or been in a relationship where the following occur: No concerns reported THRIVE Score: 0 LIBAN-7 AMB Questionnaire LIBAN-7 Date LIBAN - 7 assessed: 01/04/25 Source: Developed by Drs. Aden Ochoa, Tracy Santana, Ry Kimble and colleagues, with an educational reagan from [employer] Review of Systems Const Details: Const Denies chills, Denies fatigue, Denies fever(s), Denies headache(s) and Denies weakness ENT Denies dizziness and Denies headache(s) Card Denies chest pain, Denies lightheadedness, Denies dyspnea and Denies other (Palpitations) Resp Denies cough, Denies dyspnea, Denies wheezing and Denies other ( shortness of breath) Musc Reports as per HPI Physical exam (Primary Care) Vital Signs: Last Vital Signs Temp 97.8 F 08/25/25 14:03 Pulse 75 08/25/25 14:03 Resp 16 08/25/25 14:03 BP 109/76 08/25/25 14:03 Pulse Ox 99 08/25/25 14:03 Oxygen Delivery Method Room Air 08/25/25 14:03 BMI result Body Mass Index 20.1 Tobacco/Smoking Status: Tobacco use Status Tobacco use date assessed 08/25/25 08/25/25 14:00 Patient Tobacco Use Status Never used Tobacco 08/25/25 13:57 e-Cigarette/Vaping Use Never Used 08/25/25 13:57 Thrive Assessment: Date of Thrive Assessment Date Thrive assessed 01/04/25 08/25/25 13:57 Currently or been in a relationship where the following occur: No concerns reported Const Other: General: no acute distress and well developed Nutritional Appearance: well nourished Orientation/consciousness: patient oriented x3 HENMT Head: Yes normocephalic and Yes atraumatic Eyes General: appearance normal, both eyes and all related structures Pupils: Equal, round and reactive pupils present EOM: EOMs intact bilaterally Resp Effort & Inspection: normal respiratory effort Auscultation: clear to auscultation bilaterally Cardio Rate: regular rate Rhythm: regular rhythm Heart sounds: S1 normal heart sound present, S2 normal heart sound present, no gallops, no murmurs and no rubs GI Palpation (GI): No Abdominal aortic bruit present, Soft to palpation, nontender, No hepatosplenomegaly present and No Rebound tenderness present Auscultation: normal bowel sounds Musc Some puffiness/edema present to the skin below the left breast, tenderness to the area/ribs with palpation, no lump/lesion, no erythema, skin is intact Skin General: warm and dry. Normal skin color. Normal skin turgor Lesions: no lesions Rashes: no rashes Trauma: no lacerations or abrasions Wounds: no wounds Nails: normal Coding Level of Care Code Est Pt Level 4 (20293) Diagnoses Edema R60.9 Assessment & Plan Assessment & Plan (1) Edema: Comment: Edema below left breast Code(s): R60.9 - Edema, unspecified Category: Medical Plan: Some puffiness/edema present to the skin below the left breast, tenderness to the area/ribs with palpation, no lump/lesion, no erythema, skin is intact. Reactions likely to previous tick bite, although costochondritis is possible. May take ibuprofen 600 mg every 6-8 hours as needed and with food. Warm/cool compresses encouraged. Ultrasound ordered. Follow-up with worsening or new signs and symptoms. Verbalized understanding and agreed with the treatment plan. Orders: Orders US abdomen limited Today R60.9 - Edema, unspecified
[2025-08-25 14:03] VITALS: BP 109/76; PULSE 75; RESP 16; TEMP 36.6; O2SAT 99; BMI 20.1
--- OUTSIDE RECORDS SUMMARY | 2025-08-25 14:46 | XMS_ITS | Clinical Summary ---
Author Organization [facility] Address [address] [place] [address] Phone Care Team Providers Care Smoking Pipes Cleaner Name Role Phone Helene Sinha Primary Care Provider [phone] Allergies No known active allergies Medications No known medications Encounters Date Type Department Care Team Description 06/04/2025 8:00 PM EDT - 06/04/2025 8:[address] [facility] Emergency [address] [place] [address] Discharge Disposition: Home or Self [...] patient's age to complete this topic Insurance [facility] Care Teams Smoking Pipes Cleaner Relationship Specialty Start Date End Date Helene Sinha PA [address] [facility] [address] [place], [place] PCP - General Internal Medicine 11/01/20
--- OUTSIDE RECORDS SUMMARY | 2025-08-25 14:46 | XMS_ITS | Encounter Summary ---
Author Organization [facility] Address [address] [place] [address] [place] [address] Phone Care Team Providers Care Apprentice Pattern Maker Name Role Phone Austin Dietrich MD Primary Care Provider Encounter Details Date Type Department Care Team ([facility] st Contact Info) Description 07/30/2024 Ophth Exam [facility] Emergency Department [address] [place] [address] Keshav Caceres MD [address] [place] [address] [email or web address] Social History Tobacco Use Types Packs/Day Years [...] 2:21 PM EDT Anai Olivarez RN * [place] Suicide Severity Rating Scale (Screener/Recent Self-Report) Question [...] on filedocumented in this encounter Care Teams Apprentice Pattern Maker Relationship Specialty Start Date End Date Austin Dietrich MD PCP - General 07/30/24 documented as of this encounter Additional Source Comments The information contained in this document represents components of the legal health record. It is not the complete legal health record.[facility]
--- OUTSIDE RECORDS SUMMARY | 2025-08-25 14:46 | XMS_ITS | Clinical Summary ---
Author Organization [facility] Address [address] [place] [address] Phone Care Team Providers Care Liquor Gallery Operator Name Role Phone Austin Dietrich MD [...] topic Medical Devices Not on file Insurance [facility] NON NSPG PCP ANICETO NEIL CONNECTORCARE [employer] NON NSPG PCP SILVER CLARITY CONNECTORCARE [employer] NON NSPG PCP SILVER CLARITY CONNECTORCARE [employer] NON NSPG PCP SILVER CLARITY CONNECTORCARE [employer] NON NSPG PCP SILVER CLARITY CONNECTORCARE [employer] NON NSPG PCP SILVER CLARITY CONNECTORCARE Care Teams Liquor Gallery Operator Relationship Specialty Start Date End Date Austin Dietrich MD PCP - General 07/30/24 Additional Source Comments The information contained in this document represents components of the legal health record. It is not the complete legal health record.[facility]
--- OUTSIDE RECORDS SUMMARY | 2025-08-25 14:46 | XMS_ITS | Encounter Summary ---
Author Organization [employer] [facility] Address [address] [facility] [address] [place] [address] Care Team Providers Care Quality Liaison Name Role Phone Unavailable Primary Care Provider Unavailabl e Encounter Details Date Type Department Care Team (Latest Contact Info) Description 08/14/2022 Abstract [facility] CONVERSIONS Dental, Provider, DDS Social History [...] Description 09/05/2025 2:30 PM EST Office Visit [facility] DENTAL [address] [place], [place] [phone] Thomas Lehman, ERNIE [address] [place], [place] [phone] documented as of this encounter Visit Diagnoses Not on filedocumented in this encounter
--- OUTSIDE RECORDS SUMMARY | 2025-08-25 14:46 | XMS_ITS | Clinical Summary ---
Author Organization [employer] Address [address] [place] [address] [address] [place] [address] Care Team Providers Care Land Appraiser Name Role Phone Unavailable Primary Care Provider [...] Description 09/05/2025 2:30 PM EST Office Visit [facility] DENT[facility] [address] [place], [place] [phone] Thomas Lehman DMD [address] [place] [address] Health Maintenance Due Date Last Done Comments [...]
--- OUTSIDE RECORDS SUMMARY | 2025-08-25 14:46 | XMS_ITS | Data Portability ---
Author Organization [facility], Main Office Address [address] [facility] [address] [place] [address] Care Team Providers Care Technical Photographer Name Role Phone REZA REDDY General Surgeon SIDNEY LONGORIA Primary Care Provider [facility] SLIP MAKER Mainframe Consultant [facility] Search Engine Optimization Manager ANTOINE PUENTE Hide Inspector Assessment Encounter Date Assessment Date Assessment LastModified [...] audio visit Patient was located in the [facility]. Provider was located in the office. [...] diff 2021 022 [facility], [address] [facility], [facility], [place], [address], 18:06:53 PT/IN R 2021 [facility], [address], [place], [address], 10:30:43 CBC w/ auto diff 2021 [facility], [address], [place], [address], 10:23:01 hepat ic funct ion panel , serum 2021 [email or web address] [facility], [address], [place], [address], 09:48:51 lyme igg + igm Ab, weste rn blot, serum 2021 ELAINE [facility], [address], [address], [place], [address], 19:06:10 TSH, serum or plasm a 2021 [facility], [address], [place], [address], 18:00:48 vitam in B12, serum 2021 [facility], [address], [address], [place], [address], 18:00:46 lipid panel , serum 2021 [facility], [address], [place], [address], 18:50:30 CMP, serum or plasm a 2021 [facility], [address], [place], [address], 2 18:50:29 Referral ortho pedic surge on refer ral - R. carpa l tunne l syndr ome. 2021 [facility] (Juan Diego Knapp), [address], [place], [address], 08:21:16 rheum atolo gist refer ral - Nanette ud's disea se, posit armen KYLAH , neutr openi a. Needs f/u and furht er testi ng for posit armen KYLAH. 2021 022 [email or web address] Hidalgo MD, [address] [place], [address], 2 08:39:[address] refer ral - Inatt entiv eness w/o hyper activ ity . Never teste d for ADD. 2021 022 [email or web address] Jeramy Figueroa, [address] [place], [address], 2 10:21:47 Procedures None recor ded. Surgeries None recor ded. Imaging MAMMO , scree rajesh, bilat eral 2021 [email or web address] [facility], [address], [place], [address], 2 15:13:01 XR, foot, 3 or more view 2021 [facility], [address] [place], [address], 2 10:21:41 Medication Orders doxyc yclin e hycla te 100 mg table t 2022 023 GENEVA [id number], [address] [facility], [place], [address], 13:49:12 miguel zapin e 7.5 mg table t 2022 023 [id number], [address] [place], [address], 12:53:21 trazo done 50 mg table t 2021 022 gadielolemanuel e [id number], [address] [place], [address], 15:19:11 bupro pion HCl XL 300 mg 24 hr table t, exten ded relea se 2021 022 [id number], [address] [place], [address], 12:53:10 Patient TargetsNo targets recorded. Patient Instructions Encounter Date Encounter Id Patient Instructions Last Modified By Organization Details Last Modified Time 03/12/2022 [id number] Preventing Depression From Coming Back: Care Instructions Not available 03/12/2022 14:55:52 depression treatment: care instructions Not available 03/12/2022 14:55:52 constipation: care instructions Not available 03/12/2022 14:55:39 high-fiber diet: care instructions Not available 03/12/2022 14:55:39 09/10/2022 [id number] anxiety disorder : care instructions Not available 09/10/2022 11:53:53 11/07/2022 [id number] insomnia: care instructions Not available 11/07/2022 15:44:18 03/09/2023 [id number] Acute Sinusitis: Care Instructions Not available 03/09/2023 13:49:44 saline nasal washes: care instructions Not available 03/09/2023 13:49:44 eustachian tube problems: care instructions Not available 03/09/2023 13:49:44 Reason for Referral Search Engine Optimization Manager Referral for Anti-nuclear factor detected Raynaud's disease, [...] uclea r Antib gerry); other infec tions ([facility] Fever ; Epste in-Ba [...] ng. [facility] offer s test code 30861 6 Lyme Disea se Serol ogy with Refle x to aid in the diagn osis of Lyme Disea se. Test perfo rmed by [facility], [address], [facility] [place] [address] Not Available [facility] (Centralized Electronic Ordering - All Locations) Patient Can Go To The Location Of Their Choice, [id number] 01/22/2022 19:06:10 09/10/20 22 09/10/2022 COMPL ETE CBC WITH DIFF WBC 4.7 K/mm3 (4.0-1 1.0) Not Available [facility] (Centralized Electronic Ordering - All Locations) Patient Can Go To The Location Of Their Choice, [id number] 09/10/2022 18:06:53 09/10/20 22 09/10/2022 COMPL ETE CBC WITH DIFF RBC 4.17 M/mm3 (4.20- 5.40) low Not Available [facility] (Centralized Electronic Ordering - All Locations) Patient Can Go To The Location Of Their Choice, [id number] 09/10/2022 18:06:53 09/10/20 22 09/10/2022 COMPL ETE [...] no acute displa johnnie fractu re. WSN: [id number] Orderi ng Physic andres: Wellington Longoria ia Dictat ed By: Bertha Grimaldo ra, MD Dictat ed Date/T damien: 10:18 a Review ed By: Bertha Grimaldo ra, MD Signed By: Bertha Grimaldo ra, MD Signed Date/T damien: 10:18 am Transc ribed By: LIVE Transc ribed Date/T damien: 10:17 am Patien t Class: Outpat ient [facility] (Outpt Imaging) [address] [place], [address], 01/27/2022 10:46:22 01/22/20 22 01/21/2022 XR, foot, 3 or more view No observ ation record ed. jm [facility] [address] [place], [address], 01/21/2022 10:45:19 Result Notes Documentation Provider Name [...] joint with no acute displaced fracture. WSN: [id number] Ordering Physician: Sidney Longoria Dictated By: Bertha Martinez MD Dictated Date/Time: 01/21/22 10:18 a Reviewed By: Bertha Martinez MD Signed By: Bertha Martinez MD Signed Date/Time: 01/21/22 10:18 am Transcribed By: LIVE Transcribed Date/Time: 01/21/22 10:17 am Patient Class: Outpatient Sidney Longoria PA-C [address], [place], [address], [facility] 01/21/2022 10:30:31 Problems Name Problem SNOMED Code Status Onset Date Resolution Date Notes Provider Name and Address Organization Details Recorded Time Multiple bruising 217905259 Completed 11/06/2016 Tameka burks [facility] 7 13:19:06 Onychomy cosis 054223550 Active Natasha burks [facility] 6 17:01:16 Fatigue 36047829 Completed 11/06/2016 Tameka burks [facility] 7 13:19:09 Constipa tion 43846020 Active MARIALUISA Bashir, [facility] 0 09:22:10 Administ ration of bacteria l and viral vaccine Completed 200705/16/2014 RECORDED 09/14/20 08 4:03PM BY NATASHA ART MD, OFFICE VISIT Natasha burks [facility] 6 17:01:16 Administ ration of bacteria l and viral vaccine Completed 200706/05/2014 RECORDED 09/14/20 08 4:03PM BY NATASHA ART MD, OFFICE VISIT Natasha burks [facility] 6 17:01:16 Conjunct ivitis 2895434 Completed 200805/16/2014 RECORDED 12/20/19 09 2:26PM BY PAYTON BARRETT ON/ADDMANFRED burks [facility] 6 17:01:16 Conjunct ivitis 4196935 Completed 200806/05/2014 RECORDED 12/20/19 09 2:26PM BY PAYTON BARRETT ON/ADDEN HAIDER burks [facility] 6 17:01:16 Abnormal weight loss 002097583 Completed 200905/16/2014 RECORDED 07/18/20 10 9:47AM BY MARIALUISA LOPES, ANNOTATI ON/ADDEN DUM Natasha D'Alessan kaelyn null, [facility] 6 17:01:16 Epidermo id cyst of skin 950746614 Completed 200905/16/2014 RECORDED 07/18/20 10 9:47AM BY MARIALUISA LOPES, ANNOTATI ON/ADDEN DUM Natasha D'Alessan kaelyn null, [facility] 6 17:01:16 Nausea 877728665 Completed 200905/16/2014 RECORDED 07/18/20 10 9:47AM BY MARIALUISA LOPES, ANNOTATI ON/ADDEN DUM Natasha D'Alessan kaelyn null, [facility] 6 17:01:16 Abnormal weight loss 917095537 Completed 200906/05/2014 RECORDED 07/18/20 10 9:47AM BY MARIALUISA LOPES, ANNOTATI ON/ADDEN DUM Natasha D'Alessan kaelyn null, [facility] 6 17:01:16 Epidermo id cyst of skin 603295927 Completed 200906/05/2014 RECORDED 07/18/20 10 9:47AM BY MARIALUISA LOPES, ANNOTATI ON/ADDEN DUM Natasha D'Alessan kaelyn null, [facility] 6 17:01:16 Nausea 280452347 Completed 200906/05/2014 RECORDED 07/18/20 10 9:47AM BY MARIALUISA LOPES, KARUNAATI ON/ADDEN DUM Natasha D'Alessan kaelyn null, [facility] 6 17:01:16 Generali zed abdomina l pain 327377683 Completed 201205/16/2014 RECORDED 09/16/20 13 9:41AM BY KRYSTAL VENTURA MA, ANNOTATI ON/ADDEN DUM Natasha D'Alessan kaelyn null, [facility] 6 17:01:16 Acute sinusiti s 66914791 Completed 201205/16/2014 RECORDED 09/16/20 13 9:42AM BY KRYSTAL VENTURA MA, ANNOTATI ON/ADDEN DUM Natasha Zambrano kaelyn null, [facility] 6 17:01:16 Screenin g for malignan t neoplasm of colon Completed 201205/16/2014 RECORDED 09/16/20 13 9:42AM BY KRYSTAL VENTURA MA, ANNOTATI ON/ADDEN DUM Natasha SchneiderCrystalnohelia kaelyn null, [facility] 6 17:01:16 Constipa tion 20838981 Completed 201205/16/2014 RECORDED 09/16/20 13 9:41AM BY KRYSTAL VENTURA MA, ANNOTATI ON/ADDEN DUM Nurys graham MA null, [facility] 0 09:22:10 Influenz a vaccine needed 51978674320 06 Completed 201205/16/2014 RECORDED 09/16/20 13 10:28AM BY KRYSTAL VENTURA MA, OFFICE VISIT Natasha burks, [facility] 6 17:01:16 Geograph ic tongue 47574534 Completed 201205/16/2014 RECORDED 09/16/20 13 9:42AM BY KRYSTAL VENTURA MA, ANNOTATI ON/ADDEN DUM Natasha art null, [facility] 6 17:01:16 Knee pain Completed 201205/16/2014 RECORDED 09/16/20 13 9:42AM BY KRYSTAL VENTURA MA, KARUNAATI ON/ADDEN DUM Natasha burks, [facility] 6 17:01:16 Adult health examinat ion Completed 201205/16/2014 RECORDED 09/16/20 13 10:31AM BY TIERRA AMBROSIO, ANNOTATI ON/ADDEN DUM Tameka Nguyễn MA null, [facility] 7 13:18:50 Generali zed abdomina l pain 386465579 Completed 201206/05/2014 RECORDED 09/16/20 13 9:41AM BY KRYSTAL VENTURA MA, ANNOTATI ON/ADDEN DUM Natasha Coty'Alevincenzoan kaelyn null, [facility] 6 17:01:16 Acute sinusiti s 99506258 Completed 201206/05/2014 RECORDED 09/16/20 13 9:42AM BY KRYSTAL VENTURA MA, ANNOTATI ON/ADDEN DUM Natasha Ansari'Alessan kaelyn null, [facility] 6 17:01:16 Screenin g for malignan t neoplasm of colon Completed 201206/05/2014 RECORDED 09/16/20 13 9:42AM BY KRYSTAL VENTURA MA, ANNOTATI ON/ADDEN DUM Natasha Coty'Alessan kaelyn null, [facility] 6 17:01:16 Constipa tion 88577434 Completed 201206/05/2014 RECORDED 09/16/20 13 9:41AM BY KRYSTAL VENTURA MA, ANNOTATI ON/ADDEN DUM Nurys graham [place] null, [facility] 0 09:22:10 Influenz a vaccine needed 81078417632 06 Completed 201206/05/2014 RECORDED 09/16/20 13 10:28AM BY KRYSTLA VENTURA MA, OFFICE VISIT Natasha Ansari'Alevincenzovipin kaelyn null, [facility] 6 17:01:16 Geograph ic tongue 68338283 Completed 201206/05/2014 RECORDED 09/16/20 13 9:42AM BY KRYSTAL VENTURA MA, ANNOTATI ON/ADDEN DUM Natasha Coty'Alessan kaelyn null, [facility] 6 17:01:16 Knee pain Completed 201206/05/2014 RECORDED 09/16/20 13 9:42AM BY KRYSTAL VENTURA MA, ANNOTATI ON/ADDEN DUM Natasha Zambrano kaelyn null, [facility] 6 17:01:16 Insomnia 736274463 Completed 201305/16/2014 RECORDED 12/16/19 14 12:47PM BY KRYSTAL VENTURA MA, ANNOTATI ON/ADDEN DUM Sidney Bharath MAYORGA-C [address], [place], [address], [facility] 2 11:54:11 Patient status finding 739757055 Completed 201305/16/2014 RECORDED 12/16/19 14 12:48PM BY KRYSTAL VENTURA MA, OFFICE VISIT Tameka burks, [facility] 7 13:18:52 Insomnia 570402616 Completed 201306/05/2014 RECORDED 12/16/19 14 12:47PM BY KRYSTAL VENTURA MA, ANNOTATI ON/ADDEN DUM Sidney MAYORGA-C [address], [place], [address], [facility] 2 11:54:11 Screenin g for malignan t neoplasm of cervix Completed 201305/16/2014 RECORDED 02/15/20 14 12:57PM BY RENEE SUH MA, ANNOTATI ON/ADDEN DUM Natasha Zambrano kaelyn null, [facility] 6 17:01:16 Adult health examinat ion Completed 201311/06/2016 Tameka burks, [facility] 7 13:18:50 Hyperlip idemia 63894163 Completed 201302/25/2019 Sidney Longoria PA-C [address], [place], [address], [facility] 9 14:58:25 Major depressi on single episode, in partial remissio n 71091433 Active 2013 Natasha burks [facility] 6 17:01:16 Patient status finding 720339911 Completed 201311/06/2016 Tameka burks, [facility] 7 13:18:52 Screenin g for malignan t neoplasm of cervix Completed 201306/05/2014 RECORDED 02/15/20 14 12:57PM BY RENEE SUH MA, ANNOTATI ON/MIRZA burks [facility] 6 17:01:16 Malaise and fatigue 431104809 Completed 201311/06/2016 Tameka burks [facility] 7 13:18:58 Elevated level of transami nase and lactic acid dehydrog enase 657947406 Completed 201311/06/2016 Tameka burks [facility] 7 13:19:02 Screenin g for malignan t neoplasm of breast Completed 201311/06/2016 Tameka burks [facility] 7 13:18:55 Disorder of breast 42073916 Completed 201311/06/2016 Tameka burks [facility] 7 13:19:12 Anti-nuc lear factor detected 459913566 Active 2019 Sidney Longoria PA-C [address] [facility] [address], [place], [address], [facility] 0 09:30:54 Family history of cancer of colon 627544941 Active 2019 Sidney Longoria PA-C [address] [facility] [address], [place], [address], [facility] 0 09:39:14 Raynaud' s disease 428641761 Completed 202001/18/2021 Sidney Longoria PA-C [address] [facility] [address], [place], [address], [facility] 2 14:21:58 Easy bruising 675280202 Active 2021 Sidney Longoria PA-C [address] [facility] [address], [place], [address], [facility] 2 13:49:12 Paresthe afsaneh 90903387 Active 2021 Sidney Longoria PA-C [address], [place], [address], [facility] 2 14:26:26 Spontane ous ecchymos is 701755875 Active 2021 Sidneytunde Longoria PA-C [address] [facility] [address], [place], [address], [facility] 2 09:20:41 Neutrope bam 571901570 Active 2021 Sidney Longoria PA-C [address] [facility] [address], [place], [address], [facility] 2 09:20:54 Raynaud' s disease 198595675 Active 2021 Sidney Longoria PA-C [address] [facility] [address], [place], [address], [facility] 2 14:21:58 Attentio n deficit hyperact ivity disorder , predomin antly inattent armen type 96524630 Active 2021 Sidney Longorai PA-C [address] [facility] [address], [place], [address], [facility] 2 14:42:48 Chronic idiopath ic thromboc ytopenic purpura 45332981 Active 2021 Estela burks, [facility] 2 11:30:12 Insomnia 124714538 Active 2021 RECORDED 12/16/19 14 12:47PM BY KRYSTAL VENTURA MA, ANNOTATI ON/ADDEN DUM Sidney Longoria PA-C [address], [place], [address], [facility] 2 11:54:11 Carpal tunnel syndrome 51164248 Active 2021 Sidney Longoria PA-C [address], [place], [address], [facility] 2 11:56:22 Problem Notes None recorded. Procedures Surgical History Date Name Laterality Status Provider Name and Address Organization Details Recorded Time 11/28/19 22 Date of Last Pap Smear completed Heather Linares [facility] 12/10/2021 13:56:38 05/22/20 21 Date of Last Colonoscopy completed Heather Linares [facility] 05/22/2021 10:43:01 05/22/20 21 Colonoscopy completed Heather Linares [facility] 05/22/2021 10:42:54 12/11/19 21 Most Recent Mammogram completed Heather Linares [facility] 12/19/2020 15:11:57 12/11/19 21 Mammogram screening completed Heather Linares [facility] 12/19/2020 15:11:51 08/03/20 17 Mastopexy completed Nurys rutherford MA [facility] 10/03/2020 09:15:13 08/03/20 17 revision of breast implant completed Nurys rutherford [place] [facility] 10/03/2020 09:16:16 11/21/19 17 Joint Injection completed Antoine Alexander MD [address], [place], [address], [facility] 11/22/2016 11:36:33 Knee Surgery completed Nurys rutherford [place] [facility] 01/18/2021 13:44:55 Imaging Results None recorded. [...] Updated DateTime 3 153.67 cm 24.8 kg/m2 26132.4 2 g 73 /min 98 % 98 % 98.1 [degF] 115/72 mm[Hg] Evelyne Nolasco [facility] 3 15:17:51 Date Recorded Body height Provider Name an d Address Organization Details Last Updated DateTime 03/09/2023 153.67 cm Natasha Tatum MA [facility] 03/09/2023 12:53:26 Date Recorded Body height Body mass index (BMI) Body weight Heart rate Oxygen saturation Oxygen saturation in Arterial blood by Pulse oximetry Body temperature Systolic And Diastolic Provider Name and Address Organization Details Last Updated DateTime 2 153.67 cm 25 kg/m2 32112.0 1 g 70 /min 97 % 97 % 98.96 [degF] 115/63 mm[Hg] Patricia Freeman MA [facility] 2 13:48:40 Date Recorded Body height Body mass index (BMI) Body weight Heart rate Oxygen saturation Oxygen saturation in Arterial blood by Pulse oximetry Body temperature Systolic And Diastolic Provider Name and Address Organization Details Last Updated DateTime 2 153.67 cm 25.4 kg/m2 48623.1 9 g 70 /min 97 % 97 % 98.96 [degF] 130/85 mm[Hg] Patricia Freeman MA [facility] 2 11:21:26 Social History Question Answer Notes LastModified by Organizat ion Details LastModified Time Tobacco Smoking Status [facility] 13:44:23 Do You Have An Advance [...] Seat Belt Or Car Seat Routinely? Yes [email or web address] Information not available 03/12/2022 Seat Belts Used Routinely Yes Information not available 09/10/2022 Are You Sexually Active? Yes Information not available 12/27/2015 Smoke Alarm In Home Yes Information not available 09/10/2022 Do You Have Smoke And Carbon Monoxide Detectors In Your Home? Yes [email or web address] Information not available 03/12/2022 At What Age Did You Start Smoking Tobacco? 0 Information not available 01/18/2021 Are You Passively Exposed To Smoke? No Information not available 02/25/2019 How Much Tobacco Do You Smoke? No [email or web address] Information not available 03/12/2022 Do You Use [...] used smokeless tobacco? Never used smokeless tobacco Information not available 03/12/2022 Are you currently employed? Yes Information not available 2015 Are you able to care for yourself independently ? Yes Information not available 12/27/2015 What is your occupation? access [employer] Information not available 12/27/2015 Do [...] 50 mcg/0.25mL dose 1 completed MARIALUISA Blunt, [facility] 01/18/2021 13:42:39 COVID-19, mRNA, LNP-S, PF, 100 mcg/0.5mL dose or 50 mcg/0.25mL dose 1 completed MARIALUISA Sevilla, [facility] 03/12/2022 13:41:59 Influenza, split virus, quadrivalent, PF 8 completed Not Available [facility] 11/12/2019 02:22:16 Tdap 9 completed Not Available [facility] 11/12/2019 02:21:49 Influenza, split virus, quadrivalent, PF 2 completed Sidney Longoria PA-C [address] [address], [place], [address], [facility] 09/10/2022 16:46:39 Td (adult), 2 Lf tetanus toxoid, preservative free, adsorbed 9 completed Not Available [facility] 05/09/2014 14:09:46 Tdap 8 completed Not Available [facility] 05/09/2014 14:09:46 influenza, seasonal, intradermal, preservative free 3 completed Not Available [facility] 05/09/2014 14:09:46 Past Encounters Encounter ID Performer Location Encounter Start Date Encounter Closed Date Diagnosis/Indication Diagnosis SNOMED-CT Code Diagnosis ICD10 Code Diagnosis IMO Codes Diagnosis Note [id number] autoEComm erce [address] [facility] [place] [address] 08/15/2008 00:00:00 [id number] autoEComm erce [address] [facility] [place] [address] 09/14/2008 00:00:00 [id number] autoEComm erce [address] [facility] [place] [address] 07/25/2010 00:00:00 [id number] autoEComm erce [address] [facility] [place], [place] [address] 11/14/2010 00:00:00 [id number] autoEComm erce [address] [facility] [place], [place] [address] 09/16/2013 00:00:00 [id number] autoEComm erce [address] [facility] [place], [place] [address] 10/18/2013 00:00:00 [id number] autoEComm erce [address] [facility] [place], [place] [address] 12/16/2013 00:00:00 [id number] autoEComm erce [address] [facility] [place], [place] [address] 02/14/2014 00:00:00 [id number] Natasha kingsley MD Main Office [address] [address] [place], [place] [address] 2015 14:53:57 2015 15:59:11 Adult health examination 930920261 Major depr ession single episode, in partial remission 45906559 Malaise and fatigue 751517272 [id number] Natsaha kingsley MD Main Office [address] [address] [place], [place] [address] 12/27/2015 14:11:03 12/27/2015 15:07:55 Multiple bruising 038410972 T14.8 Onychomycosis 569411339 B35.1 Fatigue 96856755 R53.83 [id number] Natasha kingsley MD Main Office [address] [address] [place], [place] [address] 11/06/2016 13:15:41 11/06/2016 14:15:29 Adult health examination 485746689 Z00.00 Onychomycosis 621708530 B35.1 Fatigue 06086792 R53.83 [id number] ORION Abrams Main Office [address] [address] [place], [place] [address] 11/21/2016 14:32:42 11/21/2016 16:09:19 Inflammation of rotator cuff tendon 508344666 M65.811 Dr. Alexander also in to eval [...] ice 4 times daily, exercises as discussed. [id number] ORION Abrams Main Office [address] [address] 12/02/2016 11:32:06 12/02/2016 12:12:43 Pain of bilateral hip joints 4973504079 [id number] M25.551 M25.552 RICE advised, meloxicam BID, gentle stretching as tolerated, return for worsening. Pain of mu ltiple joints 65340037 M25.50 Patient has had shoulder , foot and now hip pain within short period of time, would like to have blood work done. [id number] Natasha kingsley MD Main Office [address] [address] 01/23/2017 13:18:12 01/23/2017 14:05:38 Pain of shoulder region 98384802 M25.511 [id number] Natasha kingsley MD Main Office [address] [address] 11/19/2017 13:53:40 11/19/2017 14:38:03 Adult health examination 783735736 Z00.00 Administra tion of viral vaccine 17791654 Z23 Fatigue 67509013 R53.83 Ferritin l evel below reference range 738856328 R77.8 Major depr ession single episode, in partial remission 90100325 F32.4 [id number] Sidney Longoria PA-C Main Office [address] [address] 09/22/2018 13:47:01 09/22/2018 14:45:13 Major depression single episode, in partial remission 88022946 F32.4 Pt. is doing very well on current meds. In partial remission. Will continue counseling . F/u as sscheduled in 2019 Needs infl uenza immunization 929922682 Z23 [id number] Antoine Alexander MD Main Office [address] [place] [address] 02/25/2019 14:28:43 02/25/2019 15:15:27 Adult health examination 683190041 Z00.00 Administra tion of viral vaccine 81346246 Z23 Screening for malignant neoplasm of breast 265277964 Z12.31 Screening for malignant neoplasm of cervix 002611641 Z12.4 Major depr ession single episode, in partial remission 99003600 F32.4 Pt. is doing very well on current meds. In partial remission. Will continue counseling . F/u in 1 year. [id number] Adenike cote MD Main Office [address] [place] [address] 03/31/2020 08:14:38 04/02/2020 08:40:36 Recurrent oral herpes simplex infection 540358181 B00.2 treat as below, visit if not improving. prefers acyclovir [id number] Antoine Alexander MD [facility] [address] [address] 08/08/2020 11:09:55 08/08/2020 13:31:02 Pain of multiple joints 70769011 M25.50 Fatigue 83331628 R53.83 Screening for malignant neoplasm of cervix 216046443 Z12.4 Screening for malignant neoplasm of breast 278925266 Z12.31 Tension-type headache 39 3311586 G44.209 [id number] Antoine Alexander MD [facility] [address] [place] [address] 10/03/2020 08:43:18 10/03/2020 11:57:58 Constipation 60421247 K59.00 tried all otc options Family his tory of cancer of colon 339419446 Z80.0 refer for colonoscop y [id number] Sidney Longoria PA-C Main Office [address] [address] 01/18/2021 13:26:36 01/18/2021 14:21:53 Adult health examination 455434540 Z00.00 vaccines are up to date. Anti-nucle ar factor detected 598472698 R76.8 F/u with rheumatolo gy as scheduled in January. Screening for malignant neoplasm of colon 391600662 Z12.11 family h/o precancero us polyps in mother and sister. Hyperlipidemia 27809973 E78.5 Vitamin D deficiency 347 70367 E55.9 [id number] Suleiman Estes MD [facility] [address] [address] 01/20/2022 09:20:23 01/21/2022 10:16:32 Easy bruising 384733363 R58 r/o renal, liver disease. ? connective tissue disease, lupus, which was not confirmed by rheumatolo gi assessment in October 2020. Blood coag ulation disorder 96602440 D69.9 spontaneou s ecchymois of hands and/or hematoma of R. foot. Lab testing with considerat ion of hem/onc referral for further eval. i Paresthesia 86916906 R20 .2 recurrent , extremitie s with reported peripheral weakness. Advised first on lab testing to r/o thyroid disease, lymes disease, B12 deficiency . Consider further neurologic evaluation with MRI or neurology referral. Hyperlipidemia 77217987 E78.5 Pain in right foot 14249 84078 77701 M79.671 [id number] Suleiman Estes MD Main Office [address] [facility] [address] [place] [address] 03/12/2022 13:39:16 03/12/2022 14:51:06 Adult health examination 253007754 Z00.00 vaccines are up to date. Raynaud's disease 294891 006 I73.00 F/u with rheumatolo gist. Screening for malignant neoplasm of breast 033523175 Z12.31 Neutropenia 023383022 D7 0.9 F/u with hematology . Major depr ession single episode, in partial remission 23049474 F32.4 Pt. is doing well on current meds. Family his tory of cancer of colon 118836282 Z80.0 F/u colonoscop y in 2025 Anti-nucle ar factor detected 954849928 R76.8 F/u with rheumatolo gy . Additional testing might be needed if hem/onc work up is inconclusi ve or negative. 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 Constipation 52745563 K5 9.00 Continue MiraLax powder daily. [id number] Suleiman Estes MD Main Office [address] [place] [address] [place] [address] 09/10/2022 11:12:01 09/10/2022 12:02:18 Neutropenia 090229927 D70.9 Repeat cbc and if still WBCs are suppressed , we will ask hem/onc for the eval. Needs infl uenza immunization 507306525 Z23 Major depr ession single episode, in partial remission 92433107 F32.4 PHQ-2 score of 0. Stable. WE will increase bupropion XL to 300 due to anxiety related to personal stress. F/u 6 weeks or sooner. Generalize d anxiety disorder 18537376 F41.1 Pt. is going through immense stress at home despite her LIBAN score of 7. rec increasing Bupropion to 300mg. Therapy is advised. F/u 4-6 weeks. Insomnia 040896382 G47.0 1 Pt is unable to sleep even with use of melatonin. rec trazodone 50 mg. Carpal mike donal syndrome 03839851 G56.01 Pt reports worsening right carpal tunnel. Pt requested a referral to [facility] [id number] Suleiman Estes MD Main Office [address] [place] [place] [address] [place] [address] 11/07/2022 15:02:37 11/07/2022 15:47:24 Major depression single episode, in partial remission 50414516 F32.4 PHQ-2 score of 0. Stable. LIBAN is 6. We will continue bupropion XL 150. Add mirtazapin e 7.5 mg at HS for sleep. Recommend therapy. F/u 3 m. Insomnia 719918348 G47.0 1 begin mirtazapin e 7.5 mg at night. F/u for dose adjustment in 4-6 weeks. [id number] Suleiman Estes MD [facility] [address] [place] [address] [place] [address] 03/09/2023 12:23:37 03/09/2023 13:54:14 Acute sinusitis 90915544 J01.90 begin abx as directed for 10 days, nasal saline BID or saline rinse once daily, otc decongesta nts or Mucinex. Major depr ession single episode, in partial remission 01702403 F32.4 stable depression on meds. Sleep improved. [...] Stafford Member ID Guarantor Name 03/30/2020 1 [facility] - DIRECT CONNECTORCARE TYPE I (HMO) [id number] Karlene Richardson [id number] Karlene Richardson 11/25/2023 1 [place] [facility] Karlene Richardson [id number] Karlene Richardson 2015 1 [facility] - CAREPLUS (MEDICAID HMO) Jeremiah Debra [id number] Karlene Richardson 2019 1 [facility] [employer] (MEDICAID HMO) Karlene Richardson [id number] Karlene Richardson Notes Date Note Type [...] PT. has h/o Raynaud's disease diagnosed by cloth folder hand after referral for positive KYLAH. SHe was also diagnosed with bilateral carpal tunnel by nerve conduction study. PT. is concerned with leg fatigue, paresthesia, generalized fatigue, headaches and foggy head. Had COVID infection in October which potentiated all of those symptoms. Sidney Longoria PA-C [address], [address], [facility] 01/20/2022 14:26:53 03/12/2022 text/html Generic HPI TemplateReported by [id number] year old female for annual physical exam.Vaccines: Received both doses of COVID vaccine. Pt is going to get booster soon as she just recovered from recent COVID infection about 3 months ago. Pt got her yearly flu shot in November this year. Up to date with all other vaccines.Pt sees her regularly scheduled [employer]. Patient has a mammogram due this year and will be scheduling appointment soon. Normal pap smear done in November.Pt had a recent colonoscopy with no abnormal findings.Neutropenia ( WBCs 2.8) with unexplained ecchymosis in both feet and Raynaud's disease , positive KYLAH. Seen by hematology in February. Additional work up was ordered but not yet reviewed with pt. Seen by cloth folder hand over a year ago at the [facility] in [place] for Raynaud's , positive KYLAH. Pt. needs [...] in the HPI Sidney Longoria PA-C [address] [place] [address], [place], [address], [facility] 03/12/2022 14:57:32 09/10/2022 text/html ROS as noted [...] worsening pain. Patient requested a referral to [facility]. Sidney Longoria PA-C [address] [facility] [address], [place], [address], [facility] 09/10/2022 16:49:16 11/07/2022 text/html ROS as noted in the [facility] 47 year old female for f/u [...] mg with no effect. Sidney Longoria PA-C [address] [facility] [address], [place], [address], [facility] 11/07/2022 16:44:55 03/09/2023 text/html ROS as noted [...] for sleep prn only. Sidney Longoria PA-C [address] [facility] [address], [place], [address], [facility] 03/09/2023 13:50:46 OBGyn Episode No OBEpisode recorded.
== END 2025-08-25 14:23 | disposition home or self-care (01) ==
LOC: HO.HMCFM 13:53
PROVIDERS: PCP Nurse Practitioner Family; Visit Provider Nurse Practitioner Family
DX: R60.9 Edema, unspecified (principal)

== ENCOUNTER → 2025-08-25 13:53 | Outpatient (BNVA) | payer OTHER, SELFPAY | PROVIDERS: PCP Nurse Practitioner Family; Visit Provider Nurse Practitioner Family | DX: R60.9 Edema, unspecified (principal) | CPT/HCPCS: 99212 ==